=== PATIENT | male | born 1970 | race Caucasian/White ===

== ENCOUNTER → 2019-10-28 09:17 | Outpatient (BNVA) | payer MEDICAID, SELFPAY | PROVIDERS: Family Provider Nurse Practitioner; PCP Nurse Practitioner; Visit Provider Nurse Practitioner Family | DX: E78.5 Hyperlipidemia, unspecified (principal); I10 Essential (primary) hypertension | CPT/HCPCS: 80053; 80061; 85025 ==

== ENCOUNTER → 2020-11-12 10:57 | Outpatient (BNVA) | payer MEDICAID, SELFPAY | PROVIDERS: Family Provider Nurse Practitioner; PCP Nurse Practitioner; Visit Provider Nurse Practitioner | DX: I10 Essential (primary) hypertension (principal); Z11.59 Encounter for screening for other viral diseases | CPT/HCPCS: 80053; 80061; 85025; 86705; 86706; 86709; 86803; 87340 ==

== ENCOUNTER → 2021-06-07 10:27 | Outpatient (BNVA) | payer MEDICAID, SELFPAY | PROVIDERS: Family Provider Nurse Practitioner; PCP Nurse Practitioner; Visit Provider Nurse Practitioner | DX: F41.9 Anxiety disorder, unspecified (principal); I10 Essential (primary) hypertension; E78.5 Hyperlipidemia, unspecified; G89.4 Chronic pain syndrome; J41.0 Simple chronic bronchitis; H10.13 Acute atopic conjunctivitis, bilateral; M43.02 Spondylolysis, cervical region; F32.9 Major depressive disorder, single episode, unspecified; G47.00 Insomnia, unspecified; M15.0 Primary generalized (osteo)arthritis | CPT/HCPCS: 80053; 80061; 82607; 84443 ==

== ENCOUNTER → 2021-06-29 13:30 | Outpatient (BNVA) | payer MEDICAID, SELFPAY | PROVIDERS: Family Provider Nurse Practitioner; PCP Nurse Practitioner; Visit Provider Nurse Practitioner | DX: M43.02 Spondylolysis, cervical region (principal) | CPT/HCPCS: 72040 ==

== ENCOUNTER 2021-09-29 13:15 | Outpatient (CLI) | payer MEDICAID, SELFPAY ==
--- NOTE | 2021-09-29 13:20 | XR_ITS ---
WS: [id number] Lateral views of cervical spine in the flexion, extension and neutral positions. 09/29/2021 Clinical Data: SPONDYLOLISTHESIS,CERVICAL REGION ALSO FOR MRI Comparison: Cervical spine, 06/29/2021. Findings: No compression fractures are seen. There is disc space narrowing at C5-C6 with anterior osteophyte fo rmation. There is a 0.3 cm retrolisthesis of C5 on C6. No prevertebral soft tissue swelling is noted. On flexion and extension there is no change in the retrolisthesis or limitation of motion. XR/XR cervical spine fl/ex [id number] Impression: 1. Degenerative disc narrowing at C5-C6 with anterior osteophytes. 2. 0.3 cm retrolisthesis of C5 on C6. 3. No limitation of motion or change in retrolisthesis on flexion or extension.
--- NOTE | 2021-09-29 13:20 | MR_ITS ---
WS: [id number] MRI CERVICAL SPINE NONCONTRAST TECHNIQUE: Sagittal T1, T2 and STIR imaging. Axial T2, gradient, and fiesta imaging. CLINICAL INFORMATION: CERVICALGIA ALSO FOR XRAY COMPARISON: None. FINDINGS: Straightening of the normal cervical lordosis. Cord signal is normal. Mild disc bulging worse in the mid cervical spine at C3-C4, C4-C5, C5-C6 and C6-C7. Cord signal is normal. Partially visualized smal l protrusion in the upper thoracic spine at T1-T2. C2-C3: Normal. C3-C4: Tiny shallow central protrusion. Slight effacement of ventral thecal sac. Mild LEFT and no sig nificant RIGHT foraminal narrowing. Spinal canal is patent. C4-C5: Tiny central disc protrusion. Slight contact of the cervical cord. Mild central canal stenosis . Mild facet arthropathy. Mild LEFT foraminal narrowing. C5-C6: Disc osteophyte complex with endplate ridging. Central disc osteophyte protrusion with moderat e central canal stenosis. Slight indentation and flattening of the cervical cord. Moderate bilateral bony foraminal narrowing. Mild facet arthropathy. C6-C7: Shallow RIGHT pericentral protrusion. Mild central canal stenosis with slight indentation on c ervical cord. Moderate RIGHT and mild LEFT bony foraminal narrowing. Mild facet arthropathy. C7-T1: Mild LEFT and no significant RIGHT foraminal narrowing. Spinal canal is patent. Visualized brain stem structures: Normal. Prevertebral soft tissues: Normal. MR/MR cervical spin wo con* [id number] IMPRESSION: 1. Straightening of the normal cervical lordosis. Cord signal is normal. 2. Mild to moderate central canal stenosis C4-C5 C5-C6 and C6-C7 worse at C5-C 6 with slight indentation and flattening of the cervical cord due to disc osteo phyte complex. 3. Shallow central protrusion C4-C5 and RIGHT pericentral protrusion C6-C7 wit h mild central canal stenosis and slight contact of the cervical cord. 4. Moderate bilateral bony foraminal narrowing C5-C6. Moderate RIGHT foraminal narrowing C6-C7. 5. Partially evaluated small central protrusion upper thoracic spine at T1-T2 .
== END 2021-09-29 13:16 | disposition home or self-care (01) ==
LOC: RAD 13:17
PROVIDERS: Family Provider Nurse Practitioner; PCP Nurse Practitioner; Visit Provider Nurse Practitioner
DX: M54.2 Cervicalgia (principal); M43.12 Spondylolisthesis, cervical region; M25.78 Osteophyte, vertebrae
CPT/HCPCS: 72040; 72141

== ENCOUNTER 2021-11-08 20:50 | Inpatient (IN) | payer MEDICAID, SELFPAY ==
[2021-11-08 20:52] VITALS: BP 139/101; PULSE 98; RESP 17; TEMP 36.6; O2SAT 97; BMI 37.0
--- NOTE | 2021-11-08 20:56 | W.ED.GENADLT ---
HPI - General Adult General: Stated complaint: SI/ETOH Time Seen by Provider: 11/08/21 20:52 History of Present Illness: HPI: [51]yo patient w/ hx of depression BIBA for suicidal ideation with plan. He tells me that he is dealing with a lot in her life right now and will kill himself cutting his wrist. Patient drink alcohol prior to coming in. Patient is AAO x4 GCS 15. Patient report significant depression and inability to cope with life. No focal complaints of chest pain, shortness of breath, palpitations, N/V, focal GI/ complaints. Currently denies HI. No complaints of hallucinations. Onset: acute Duration: acute Location: home Severity: severe Associated symptoms: Deny chest pain, dyspnea, nausea, rash, palpitations or vomiting Review of Systems Const: Denies: fever(s) or chills Eyes: Denies: change in vision ENMT: Denies: mouth pain Card: Denies: chest pain or palpitations Resp: Denies: dyspnea or non-productive cough GI: Denies: abdominal pain, nausea, vomiting or diarrhea : Denies: dysuria Musc: Denies: extremity pain Skin/Breast: Denies: rash or new lesions Neuro: Denies: weakness in extremities Psych: Reports: depression (+suicidal ideation) Dave/Lymph: Denies: easy bruising PFSH ED PFSH: Medical History Anxiety and depression Cervical spondylolysis Chronic pain syndrome Dyslipidemia Essential hypertension Insomnia Osteoarthritis Surgical History No pertinent past surgical history Family History Father Cirrhosis of liver Hypertension Mother Seizure Social History Smoking and tobacco status: current every day smoker cigarettes Packs smoked per day: 1 Second hand smoke exposure: No Smoking risk assessment/counseling performed?: Yes Alcohol intake: unknown Desire information about alcohol rehabilitation?: No Counseling given: No Desire information about substance/drug rehabilitation?: No Counseling given: No Adopted: No Caregiver/support person: No Lives independently: Yes Household members: family Housing: House Marital status: service: No History of recent travel: No Current gender identity: Male Physical Exam Const: COMMON NORMALS: alert HENMT: COMMON NORMALS: atraumatic HEAD & SCALP: atraumatic MOUTH: moist mucous membranes not abnormal Eye: COMMON NORMALS: EOMs intact bilaterally and conjunctivae normal CONJUNCTIVA: Yes conjunctivae normal Neck/C-Spine: COMMON NORMALS: full ROM and supple Resp: COMMON NORMALS: normal respiratory effort and clear to auscultation bilaterally AUSCULTATION: clear to auscultation bilaterally Cardio: COMMON NORMALS: regular rate RATE: regular rate GI: COMMON NORMALS: Soft to palpation and non-tender PALPATION: Yes Soft to palpation Extremity: COMMON NORMALS: full ROM Neuro: SENSORIUM/ORIENTATION: Yes alert MOTOR EXAM: No Abnormal motor strength present and Other motor observations present (no focal motor deficits) Psych: COMMON NORMALS: speech normal SPEECH: Yes normal speech MOOD & AFFECT: Yes depressed mood MDM - General Adult Medical Decision Making [51]yo patient w/ hx of depression presenting for suicidal ideation with paln. HDS, exam within normal limit Thoughts are linear and organized, and the patient has no AH/VH, or HI. Clinically the patient displays no overt toxidrome; they are well appearing, with low suspicion for toxic ingestion given history and exam. Symptoms unlikely 2/2 anemia, hypothyroidism, infection, or ICH. Workup: CBC, CMP, Lipase, salicylate/tylenol, serum ethanol, UDS Lab findings: wnl [10:30pm] On reassessment, labs and workup wnl. Patient is hemodynamically stable with no acute medical complaints. Case discussed with psychiatric provider Dr. Carreon at [facility] psych inpatient with recommendation for admission Disposition: Psych Discharge Plan Discharge Patient Disposition: Admitted As Inpatient Clinical Impression: Depression with suicidal ideation Condition: Stable Coding Level of Care Code ED In Store Banker for Chg Fwd Exam Comprehensive
[2021-11-08 21:13] LABS: Basophils # 0.1 10^3/uL (0.0-0.1); Basophils % 1.1 %; Eosinophils # 0.1 10^3/uL (0.0-0.8); Eosinophils % 0.9 %; Hematocrit 46.4 % (42.0-52.0); Lymphocytes % 45.8 %; Mean Corpuscular HGB Conc 34.5 g/dL (30.0-36.0); Mean Corpuscular Hemoglobin 32.5 pg (28.0-34.0); Mean Corpuscular Volume 94.1 fl (80-94); Mean Platelet Volume 9.6 fL (7.4-10.4); Monocytes # 0.5 10^3/uL (0.2-0.9); Monocytes % 7.4 %; Neutrophils % 44.6 %; Nucleated Red Blood Cells % 0 %; Platelet Count 288 10^3/cmm (130-400); Red Blood Count 4.93 10^6/uL (4.1-5.3); Red Cell Distribution Width 12.9 % (12.1-15.1); White Blood Count 6.5 10^3/uL (4.0-10.0)
[2021-11-08 21:23] LABS: Amphetamines Screen Urine Negative (Negative); Barbiturates Screen Urine Negative (Negative); Benzodiazepines Screen Urine Negative (Negative); Cocaine Screen Urine Negative (Negative); Opiate Screen Urine Negative (Negative); PCP Screen Urine Negative (Negative); THC Screen Urine Negative (Negative)
[2021-11-08 21:35] LABS: Acetaminophen < 5.0 ug/mL (10-30); Alanine Aminotransferase 61 U/L (0-41); Albumin Level 4.8 g/dL (3.5-5.2); Alcohol Level 270 mg/dL (0-10); Alkaline Phosphatase 79 IU/L (40-130); Anion Gap 21.8 (5-19); Aspartate Amino Transferase 72 U/L (0-40); Blood Urea Nitrogen 13 mg/dL (6-20); Calcium 9.9 mg/dL (8.5-10.5); Carbon Dioxide 20 mmol/L (22-29); Chloride 95 mmol/L (98-107); Globulin 2.9 g/dL (1.3-4.6); Glomerular Filtration Rate 89.7 mL/min (90-130); Glucose 75 mg/dL (65-115); Lipase 70 U/L (13-60); Osmolality Calculated 275 mOsm/kg (285-295); Potassium 3.8 mmol/L (3.5-5.1); Salicylate < 0.3 mg/dL (3-10); Sodium 133 mmol/L (136-145); Total Bilirubin 0.7 mg/dL (0.15-1.2); Total Protein 7.7 g/dL (6.6-8.7)
[2021-11-08 22:26] VITALS: BP 148/94; PULSE 90; RESP 18; TEMP 37.2; O2SAT 94; BMI 34.5
[2021-11-09] MEDS: ondansetron 4 MG Tablet PO ×2 (04:10→09:30)
[2021-11-09 06:00] VITALS: BP 126/81; PULSE 91; RESP 18; TEMP 37.1; O2SAT 93
[2021-11-09 08:51] VITALS: PULSE 85; RESP 16; O2SAT 96
[2021-11-09] MEDS: BuSPIRONE 10 mg Tablet PO ×3 (09:18→21:46)
[2021-11-09] MEDS: naproxen 500 mg Tablet PO (09:18)
[2021-11-09] MEDS: thiamine 100 mg Tablet PO (09:19)
[2021-11-09] MEDS: folic acid 1 mg Tablet PO (09:19)
[2021-11-09] MEDS: amlodipine 10 mg Tablet PO (09:19)
[2021-11-09] MEDS: atorvastatin 40 mg Tablet PO (09:19)
[2021-11-09] MEDS: multivitamin therapeutic Tablet 1 TAB PO (09:19)
[2021-11-09] MEDS: gabapentin 400 mg Capsule 800 MG PO ×4 (09:19→21:46)
[2021-11-09] MEDS: duloxetine 20 mg Capsule PO ×3 (09:19→22:22)
[2021-11-09] MEDS: LORazepam 2 mg Tablet PO ×2 (09:30→12:18)
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
--- NOTE | 2021-11-09 11:45 | NPU.GN ---
[facility] Group Topic:Kenia Tan General Mood of Group: Patient did not attend group today.
[2021-11-09 14:00] VITALS: BP 129/77; PULSE 90; RESP 17; TEMP 36.4; O2SAT 94
--- NOTE | 2021-11-09 14:42 | PC.NURSE ---
12:18 Administered Ativan 2mg for withdrawl symptoms. Will continue to monitor.
--- NOTE | 2021-11-09 14:47 | PC.NURSE ---
09:30 Administered PO Ativan 2 mg for withdrawl symptoms.
[2021-11-09 19:28] VITALS: BP 119/76; PULSE 107; RESP 13; TEMP 37.1; O2SAT 96
[2021-11-09] MEDS: trazodone 150 mg Tablet PO (21:46)
[2021-11-10 04:59] VITALS: BP 124/83; PULSE 68; RESP 16; TEMP 36.6; O2SAT 97
[2021-11-10] MEDS: folic acid 1 mg Tablet PO (09:26)
[2021-11-10] MEDS: thiamine 100 mg Tablet PO (09:26)
[2021-11-10] MEDS: multivitamin therapeutic Tablet 1 TAB PO (09:26)
[2021-11-10] MEDS: naproxen 500 mg Tablet PO (09:26)
[2021-11-10] MEDS: hyDROXYzine 25 mg Capsule PO (09:26)
[2021-11-10] MEDS: atorvastatin 40 mg Tablet PO (09:26)
[2021-11-10] MEDS: amlodipine 10 mg Tablet PO (09:26)
[2021-11-10] MEDS: gabapentin 400 mg Capsule 800 MG PO ×4 (09:27→21:14)
[2021-11-10] MEDS: BuSPIRONE 10 mg Tablet PO ×3 (09:27→21:14)
[2021-11-10] MEDS: duloxetine 30 mg Capsule PO ×2 (09:27→17:41)
--- NOTE | 2021-11-10 12:34 | NPU.GN ---
[facility] Topic:Dice Breaker General Mood of Group Patient did not attend group today. Patient was sleeping.
[2021-11-10 13:55] VITALS: BP 112/80; PULSE 90; RESP 16; TEMP 36.6; O2SAT 96
--- NOTE | 2021-11-10 17:35 | W.PM.NPUPNS ---
Subjective NPU Subjective: Patient presents today reporting that he does not feel that much better in relation to the increase in the Cymbalta. He denies any history of being on Lexapro in the past. We discussed the risk benefits and alternatives of getting in a try and he understood and agreed to proceed as is documented in his note. We also talked about his withdrawal symptoms which he reports were tolerable at this point but still existent. Mental Status Exam MSE Comments: This is a obese white male with hospital scrubs on with limited grooming and eye contact. No abnormal movements except for psychomotor retardation. Cooperative with exam in mild distress. Speech was decreased rate and volume. Mood described as depressed, affect congruent. Thought process, organized. Thought content: patient denies any suicidal or homicidal ideation, no delusions reported or noted, and denies any auditory or visual hallucinations. Attention and concentration are intact and memory is reliable but none were formally tested. He is alert and oriented three times. Insight and judgment are limited. Impulse control is impaired. Vitals/I&O/Wt Last Vital Signs Temp 98.6 F 11/10/21 21:26 Pulse 76 11/10/21 21:26 Resp 17 11/10/21 21:26 BP 146/98 11/10/21 21:26 Pulse Ox 100 11/10/21 21:26 Data NPU : 11/08/21 21:00 11/08/21 21:00 A&P Assessment and plan (1) Suicidal ideation: Status: Acute (2) Anxiety: Status: Acute (3) Major depressive disorder: Status: Acute (4) Insomnia: Status: Acute (5) Dyslipidemia: Status: Chronic (6) Essential hypertension: Status: Chronic Plan This is a 51 year old white male with a long history of alcohol use disorder, severe, and depression with suicidality with past suicide attempts, who presents on medication but having significant psychosocial difficulties, active use and suicidal thoughts, open to treatment. Continue current medications except increase Cymbalta to 30 mg po bid. start Lexapro 10 mg p.o. every morning. Encourage individual, group and milieu therapy Continue q-15 minute check for safety Recommend sober living treatment at the highest level of care to which the patient is willing to commit.? Involuntary Hold Information 96 Hour Hold: 96 Hour Involuntary Admission: No Attestations NPU Medical Necessity Statement*: Inpatient hospitalization is medically necessary and the clinically appropriate intervention at this time. We will monitor medications and make changes as indicated. Likely length of stay is 3-5 days. Coding Level of Care Code Acute Finish Rolls Operator for [facility] Fwd Diagnoses Suicidal ideation R45.851 Anxiety F41.9 Major depressive disorder F32.9 Insomnia G47.00 Dyslipidemia E78.5 Essential hypertension I10
[2021-11-10] MEDS: acetaminophen 325 mg Tablet 650 MG PO (17:41)
[2021-11-10] MEDS: ondansetron 4 MG Tablet PO (17:41)
[2021-11-10 20:43] VITALS: PULSE 64; RESP 16; O2SAT 93
[2021-11-10] MEDS: trazodone 150 mg Tablet PO (21:14)
[2021-11-10 21:26] VITALS: BP 146/98; PULSE 76; RESP 17; TEMP 37; O2SAT 100
[2021-11-11 06:00] VITALS: RESP 20
[2021-11-11] MEDS: escitalopram 10 mg Tablet PO (08:25)
[2021-11-11] MEDS: thiamine 100 mg Tablet PO (08:25)
[2021-11-11] MEDS: BuSPIRONE 10 mg Tablet PO ×3 (08:25→20:24)
[2021-11-11] MEDS: multivitamin therapeutic Tablet 1 TAB PO (08:25)
[2021-11-11] MEDS: duloxetine 30 mg Capsule PO ×2 (08:25→17:37)
[2021-11-11] MEDS: amlodipine 10 mg Tablet PO (08:25)
[2021-11-11] MEDS: folic acid 1 mg Tablet PO (08:25)
[2021-11-11] MEDS: gabapentin 400 mg Capsule 800 MG PO ×4 (08:25→20:24)
[2021-11-11] MEDS: atorvastatin 40 mg Tablet PO (08:26)
--- NOTE | 2021-11-11 10:43 | NPU.GN ---
[facility] Group Topic: Kenia Tan General Mood of Group: Patient did not attend group he was sleeping.
[2021-11-11] MEDS: polyethylene glycol 3350 Pkt 17 gm PO ×2 (12:42→17:37)
[2021-11-11] MEDS: ibuprofen 800 mg tablet PO (12:42)
[2021-11-11 14:00] VITALS: BP 118/80; PULSE 73; RESP 16; TEMP 36.5; O2SAT 96
--- NOTE | 2021-11-11 16:48 | W.PM.NPUPNS ---
Subjective NPU Subjective: Patient presents today reporting that he is not clear exactly what he is willing to do in regards to his recovery however he does identify that his alcohol problem is significant. He denies any side effects from the addition of the Lexapro. He reports he is still having some constitutional symptoms from his withdrawal we talked about the possibility of low-dose Ativan or Librium to continue to address that. 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 Mental Status Exam MSE Comments: This is a obese white male with hospital scrubs on with limited grooming and eye contact. No abnormal movements except for psychomotor retardation. Cooperative with exam in mild distress. Speech was decreased rate and volume. Mood described as depressed, affect congruent. Thought process, organized. Thought content: patient denies any suicidal or homicidal ideation, no delusions reported or noted, and denies any auditory or visual hallucinations. Attention and concentration are intact and memory is reliable but none were formally tested. He is alert and oriented three times. Insight and judgment are limited. Impulse control is impaired. Vitals/I&O/Wt Last Vital Signs Temp 97.7 F 11/11/21 14:00 Pulse 73 11/11/21 14:00 Resp 16 11/11/21 14:00 BP 118/80 11/11/21 14:00 Pulse Ox 96 11/11/21 14:00 Data NPU : 11/08/21 21:00 11/08/21 21:00 A&P Assessment and plan (1) Suicidal ideation: Status: Acute (2) Anxiety: Status: Acute (3) Major depressive disorder: Status: Acute (4) Insomnia: Status: Acute (5) Essential hypertension: Status: Chronic Involuntary Hold Information 96 Hour Hold: 96 Hour Involuntary Admission: No Attestations NPU Medical Necessity Statement*: Inpatient hospitalization is medically necessary and the clinically appropriate intervention at this time. We will monitor medications and make changes as indicated.? Likely length of stay is 3-5 days. 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
[2021-11-11] MEDS: acetaminophen 325 mg Tablet 650 MG PO (17:36)
[2021-11-11] MEDS: trazodone 150 mg Tablet PO (20:24)
[2021-11-11 20:35] VITALS: BP 130/87; PULSE 70; RESP 16; O2SAT 96
[2021-11-11] MEDS: trazodone 50 mg Tablet PO (21:43)
[2021-11-12] MEDS: neomycin-poly-dex Op 5 mL Btl 1 DROP EYE-BOTH (05:40)
[2021-11-12 05:56] VITALS: BP 123/86; PULSE 66; RESP 16; O2SAT 96
[2021-11-12 07:35] VITALS: PULSE 65; RESP 16; O2SAT 95
[2021-11-12] MEDS: duloxetine 30 mg Capsule PO ×2 (08:29→17:18)
[2021-11-12] MEDS: amlodipine 10 mg Tablet PO (08:29)
[2021-11-12] MEDS: multivitamin therapeutic Tablet 1 TAB PO (08:29)
[2021-11-12] MEDS: escitalopram 10 mg Tablet PO (08:30)
[2021-11-12] MEDS: atorvastatin 40 mg Tablet PO (08:30)
[2021-11-12] MEDS: gabapentin 400 mg Capsule 800 MG PO ×4 (08:30→20:24)
[2021-11-12] MEDS: folic acid 1 mg Tablet PO (08:30)
[2021-11-12] MEDS: polyethylene glycol 3350 Pkt 17 gm PO ×2 (08:30→17:18)
[2021-11-12] MEDS: BuSPIRONE 10 mg Tablet PO ×3 (08:30→20:23)
[2021-11-12] MEDS: thiamine 100 mg Tablet PO (08:30)
--- NOTE | 2021-11-12 09:00 | PC.NURSE ---
PT AWAKE IN BED. COOPERATIVE WITH CARE. DENIES AVH, SI/HI. CONTINUED DEPRESSION. DENIES ANY ILL EFFECTS FROM MEDICATION STARTED DURING STAY. ORIENTED.
--- NOTE | 2021-11-12 13:29 | P.NPUPN_ITS ---
Subjective NPU Subjective: Patient presents today reporting that he might be having a little improvement in his constitutional symptoms from his withdrawal. He continues to be quite depressed and much of that is related to not receiving any options or plans in relation to where to go from here. He continued to discuss rehab options and sober living situations that exist and that he will be able to work with the treatment team on Sunday in regards to these concerns. Mental Status Exam MSE Comments: This is a obese white male with hospital scrubs on with limited grooming and eye contact. No abnormal movements except for psychomotor retardation. Cooperative with exam in mild distress. Speech was decreased rate and volume. Mood described as depressed, affect congruent. Thought process, organized. Thought content: patient denies any suicidal or homicidal ideation, no delusions reported or noted, and denies any auditory or visual hallucinations. Attention and concentration are intact and memory is reliable but none were formally tested. He is alert and oriented three times. Insight and judgment are limited. Impulse control is impaired. Vitals/I&O/Wt Last Vital Signs Temp 97.7 F 11/11/21 14:00 Pulse 65 11/12/21 07:35 Resp 16 11/12/21 07:35 BP 123/86 11/12/21 05:56 Pulse Ox 95 11/12/21 07:35 Data NPU : 11/08/21 21:00 11/08/21 21:00 A&P Assessment and plan (1) Suicidal ideation: Status: Acute (2) Anxiety: Status: Acute (3) Major depressive disorder: Status: Acute (4) Insomnia: Status: Acute (5) Chronic pain syndrome: Status: Chronic (6) Essential hypertension: Status: Chronic Plan This is a 51 year old white male with a long history of alcohol use disorder, severe, and depression with suicidality with past suicide attempts, who presents on medication but having significant psychosocial difficulties, active use and suicidal thoughts, open to treatment. Continue current medications except increase Cymbalta to 30 mg po bid. started Lexapro 10 mg p.o. every morning. Encourage individual, group and milieu therapy Continue q-15 minute check for safety Recommend sober living treatment at the highest level of care to which the patient is willing to commit.? Involuntary Hold Information 96 Hour Hold: 96 Hour Involuntary Admission: No Attestations NPU Medical Necessity Statement*: Inpatient hospitalization is medically necessary and the clinically appropriate intervention at this time. We will monitor medications and make changes as indicated.? Likely length of stay is 3-5 days. Coding Level of Care Code Acute Pharmacy Order Entry Technician for [facility] Fwd Diagnoses Suicidal ideation R45.851 Anxiety F41.9 Major depressive disorder F32.9 Insomnia G47.00 Chronic pain syndrome G89.4 Essential hypertension I10
[2021-11-12 14:00] VITALS: BP 129/92; PULSE 83; RESP 16; TEMP 36.6; O2SAT 96
[2021-11-12] MEDS: trazodone 150 mg Tablet PO (20:24)
[2021-11-12 20:44] VITALS: BP 129/85; PULSE 64; RESP 19; TEMP 36.8; O2SAT 96
[2021-11-12] MEDS: trazodone 50 mg Tablet PO (23:04)
[2021-11-13 02:45] VITALS: BMI 36.3
[2021-11-13 06:00] VITALS: BP 121/89; PULSE 72; RESP 17; TEMP 36.3; O2SAT 95
--- NOTE | 2021-11-13 08:00 | PC.NURSE ---
PT UP THIS MORNING. AFFECT IS BRIGHTER TODAY. REPORTS FEELING SOME IMPROVEMENT SINCE STARTING MEDICATIONS. CALM, COOPERATIVE, A&OX4.
[2021-11-13 08:39] VITALS: PULSE 72; RESP 16; O2SAT 95
--- NOTE | 2021-11-13 09:30 | W.PM.NPUPNS ---
Subjective NPU Subjective: Patient presents today reporting for the first time that maybe he is feeling a little better from the standpoint of his depression. He was still having some residual withdrawal symptoms after having a decent day from that standpoint. We discussed the risk benefits and alternatives of a one-time Ativan dose of 1 mg he understood agreed to proceed as is documented in this note. We agreed that he would work with the treatment team tomorrow and look at the possibility that existed for him from sober living facilities. Mental Status Exam MSE Comments: This is a obese white male with hospital scrubs on with limited grooming and eye contact. No abnormal movements except for psychomotor retardation. Cooperative with exam in mild distress. Speech was decreased rate and volume. Mood described as maybe a little better, affect congruent. Thought process, organized. Thought content: patient denies any suicidal or homicidal ideation, no delusions reported or noted, and denies any auditory or visual hallucinations. Attention and concentration are intact and memory is reliable but none were formally tested. He is alert and oriented three times. Insight and judgment are limited. Impulse control is impaired. Vitals/I&O/Wt Last Vital Signs Temp 97.4 F L 11/13/21 06:00 Pulse 72 11/13/21 08:39 Resp 16 11/13/21 08:39 BP 121/89 11/13/21 06:00 Pulse Ox 95 11/13/21 08:39 Weight last 48 hrs Weight 111.754 kg Data NPU : 11/08/21 21:00 11/08/21 21:00 A&P Assessment and plan (1) Suicidal ideation: Status: Acute (2) Anxiety: Status: Acute (3) Major depressive disorder: Status: Acute (4) Insomnia: Status: Acute (5) Chronic pain syndrome: Status: Chronic Plan This is a 51 year old white male with a long history of alcohol use disorder, severe, and depression with suicidality with past suicide attempts, who presents on medication but having significant psychosocial difficulties, active use and suicidal thoughts, open to treatment. Continue current medications except increase Cymbalta to 30 mg po bid. started Lexapro 10 mg p.o. every morning. 1 mg of Ativan one-time order. Encourage individual, group and milieu therapy Continue q-15 minute check for safety Recommend sober living treatment at the highest level of care to which the patient is willing to commit.? Work with treatment team tomorrow to explore possible sober living options. Involuntary Hold Information 96 Hour Hold: 96 Hour Involuntary Admission: No Attestations NPU Medical Necessity Statement*: Inpatient hospitalization is medically necessary and the clinically appropriate intervention at this time. We will monitor medications and make changes as indicated.? Likely length of stay is 2-4 days. Coding Level of Care Code Acute Food Quality Technician for [facility] Fwd Diagnoses Suicidal ideation R45.851 Anxiety F41.9 Major depressive disorder F32.9 Insomnia G47.00 Chronic pain syndrome G89.4
[2021-11-13] MEDS: polyethylene glycol 3350 Pkt 17 gm PO ×2 (09:34→17:22)
[2021-11-13] MEDS: BuSPIRONE 10 mg Tablet PO ×3 (09:35→20:02)
[2021-11-13] MEDS: duloxetine 30 mg Capsule PO ×2 (09:35→17:22)
[2021-11-13] MEDS: thiamine 100 mg Tablet PO (09:35)
[2021-11-13] MEDS: atorvastatin 40 mg Tablet PO (09:35)
[2021-11-13] MEDS: folic acid 1 mg Tablet PO (09:35)
[2021-11-13] MEDS: amlodipine 10 mg Tablet PO (09:35)
[2021-11-13] MEDS: escitalopram 10 mg Tablet PO (09:35)
[2021-11-13] MEDS: multivitamin therapeutic Tablet 1 TAB PO (09:35)
[2021-11-13] MEDS: gabapentin 400 mg Capsule 800 MG PO ×4 (09:35→20:01)
[2021-11-13] MEDS: LORazepam 1 mg Tablet PO (13:54)
[2021-11-13] MEDS: ibuprofen 800 mg tablet PO (13:54)
[2021-11-13 14:00] VITALS: BP 137/96; PULSE 72; RESP 17; TEMP 36.6; O2SAT 96
[2021-11-13] MEDS: trazodone 150 mg Tablet PO (20:02)
[2021-11-13 20:09] VITALS: BP 130/82; PULSE 72; RESP 18; TEMP 37; O2SAT 96
[2021-11-14 06:00] VITALS: BP 115/84; PULSE 67; RESP 20; TEMP 36.9; O2SAT 97
[2021-11-14] MEDS: duloxetine 30 mg Capsule PO ×2 (08:37→17:29)
[2021-11-14] MEDS: gabapentin 400 mg Capsule 800 MG PO ×4 (08:37→19:49)
[2021-11-14] MEDS: polyethylene glycol 3350 Pkt 17 gm PO ×2 (08:37→17:30)
[2021-11-14] MEDS: escitalopram 10 mg Tablet PO (08:38)
[2021-11-14] MEDS: folic acid 1 mg Tablet PO (08:38)
[2021-11-14] MEDS: amlodipine 10 mg Tablet PO (08:38)
[2021-11-14] MEDS: naproxen 500 mg Tablet PO (08:38)
[2021-11-14] MEDS: atorvastatin 40 mg Tablet PO (08:38)
[2021-11-14] MEDS: multivitamin therapeutic Tablet 1 TAB PO (08:38)
[2021-11-14] MEDS: BuSPIRONE 10 mg Tablet PO ×3 (08:38→19:50)
[2021-11-14] MEDS: thiamine 100 mg Tablet PO (08:38)
[2021-11-14 14:00] VITALS: BP 142/91; PULSE 71; RESP 17; TEMP 36.4; O2SAT 97
--- NOTE | 2021-11-14 16:24 | W.PM.NPUPNS ---
Subjective NPU Subjective: Patient presents today reporting that he is still having headaches. We discussed his concerns that since his withdrawal has really improved that the Lexapro is the source of the headaches. We discussed the risk benefits and alternatives of starting Paxil 20 mg p.o. every morning and discontinuing the Lexapro and he understood agreed proceed as is documented in this note. Also some ambivalence about an inpatient sober living program appears to have arisen. He is working with social work team on possible options but it may be a [facility] if he is not open to rehab. Mental Status Exam MSE Comments: This is a obese white male with hospital scrubs on with limited grooming and eye contact. No abnormal movements except for psychomotor retardation. Cooperative with exam in mild distress. Speech was decreased rate and volume. Mood described as maybe a little better, but having headaches, affect congruent. Thought process, organized. Thought content: patient denies any suicidal or homicidal ideation, no delusions reported or noted, and denies any auditory or visual hallucinations. Attention and concentration are intact and memory is reliable but none were formally tested. He is alert and oriented three times. Insight and judgment are limited. Impulse control is impaired. Vitals/I&O/Wt Last Vital Signs Temp 97.6 F 11/14/21 14:00 Pulse 71 11/14/21 14:00 Resp 17 11/14/21 14:00 BP 142/91 11/14/21 14:00 Pulse Ox 97 11/14/21 14:00 Weight last 48 hrs Weight 111.754 kg Data NPU : 11/08/21 21:00 11/08/21 21:00 A&P Assessment and plan (1) Suicidal ideation: Status: Acute (2) Anxiety: Status: Acute (3) Major depressive disorder: Status: Acute (4) Insomnia: Status: Acute (5) Chronic pain syndrome: Status: Chronic (6) Essential hypertension: Status: Chronic Plan This is a 51 year old white male with a long history of alcohol use disorder, severe, and depression with suicidality with past suicide attempts, who presents on medication but having significant psychosocial difficulties, active use and suicidal thoughts, open to treatment. Continue current medications except increase Cymbalta to 30 mg po bid. discontinue Lexapro and start Paxil 20 mg p.o. every morning.? Encourage individual, group and milieu therapy Continue q-15 minute check for safety Recommend sober living treatment at the highest level of care to which the patient is willing to commit.? May consider [facility] if he is not invested in a rehab. Involuntary Hold Information 96 Hour Hold: 96 Hour Involuntary Admission: No Attestations NPU Medical Necessity Statement*: Inpatient hospitalization is medically necessary and the clinically appropriate intervention at this time. We will monitor medications and make changes as indicated.? Likely length of stay is 1-3 days. Coding Level of Care Code Acute Revenue Accounting Manager for [facility] Fwd Diagnoses Suicidal ideation R45.851 Anxiety F41.9 Major depressive disorder F32.9 Insomnia G47.00 Chronic pain syndrome G89.4 Essential hypertension I10
--- NOTE | 2021-11-14 16:26 | PC.SOCIAL ---
Patient attended and participated in group. He stated that he DOES NOT KNOW HOW TO READ.
[2021-11-14] MEDS: ibuprofen 800 mg tablet PO (17:30)
[2021-11-14] MEDS: PARoxetine 20 mg Tablet PO (17:30)
[2021-11-14] MEDS: trazodone 150 mg Tablet PO (19:49)
[2021-11-14 20:41] VITALS: BP 148/92; PULSE 64; RESP 18; TEMP 36.8; O2SAT 97
[2021-11-15 06:00] VITALS: BP 128/89; PULSE 71; RESP 17; TEMP 36.8; O2SAT 98
[2021-11-15 07:28] VITALS: PULSE 100; RESP 16; O2SAT 94
[2021-11-15] MEDS: BuSPIRONE 10 mg Tablet PO ×3 (08:35→20:23)
[2021-11-15] MEDS: thiamine 100 mg Tablet PO (08:36)
[2021-11-15] MEDS: ibuprofen 800 mg tablet PO ×2 (08:36→17:32)
[2021-11-15] MEDS: folic acid 1 mg Tablet PO (08:36)
[2021-11-15] MEDS: duloxetine 30 mg Capsule PO ×2 (08:36→17:32)
[2021-11-15] MEDS: multivitamin therapeutic Tablet 1 TAB PO (08:36)
[2021-11-15] MEDS: atorvastatin 40 mg Tablet PO (08:36)
[2021-11-15] MEDS: amlodipine 10 mg Tablet PO (08:36)
[2021-11-15] MEDS: gabapentin 400 mg Capsule 800 MG PO ×4 (08:36→20:23)
[2021-11-15] MEDS: PARoxetine 20 mg Tablet PO (08:36)
[2021-11-15] MEDS: hyDROXYzine 25 mg Capsule PO (08:37)
[2021-11-15] MEDS: polyethylene glycol 3350 Pkt 17 gm PO ×2 (08:37→17:33)
--- NOTE | 2021-11-15 11:04 | PC.SOCIAL ---
Patient attended and participated in group. He did well identifying strengths.
[2021-11-15 14:00] VITALS: BP 133/92; PULSE 73; RESP 17; TEMP 36.6; O2SAT 99
--- NOTE | 2021-11-15 16:43 | W.PM.NPUPNS ---
Subjective NPU Subjective: Patient presents today reporting that he is feeling better. At this point we had attempted to get him in [facility] but he was not able to go there. 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 Mental Status Exam MSE Comments: This is a obese white male with hospital scrubs on with limited grooming and eye contact. No abnormal movements except for psychomotor retardation. Cooperative with exam in mild distress. Speech was decreased rate and volume. Mood described as maybe a little better, with resolving headaches, affect congruent. Thought process, organized. Thought content: patient denies any suicidal or homicidal ideation, no delusions reported or noted, and denies any auditory or visual hallucinations. Attention and concentration are intact and memory is reliable but none were formally tested. He is alert and oriented three times. Insight and judgment are limited. Impulse control is improving. Vitals/I&O/Wt Last Vital Signs Temp 97.8 F 11/15/21 14:00 Pulse 73 11/15/21 14:00 Resp 17 11/15/21 14:00 BP 133/92 11/15/21 14:00 Pulse Ox 99 11/15/21 14:00 Data NPU : 11/08/21 21:00 11/08/21 21:00 A&P Assessment and plan (1) Suicidal ideation: Status: Acute (2) Anxiety: Status: Acute (3) Major depressive disorder: Status: Acute (4) Insomnia: Status: Acute (5) Chronic pain syndrome: Status: Chronic Plan This is a 51 year old white male with a long history of alcohol use disorder, severe, and depression with suicidality with past suicide attempts, who presents on medication but having significant psychosocial difficulties, active use and suicidal thoughts, open to treatment. Continue current medications except increase Cymbalta to 30 mg po bid. discontinued Lexapro and started Paxil 20 mg p.o. every morning.? Encourage individual, group and milieu therapy Continue q-15 minute check for safety Recommend sober living treatment at the highest level of care to which the patient is willing to commit.? Plan for [facility] somewhere in the morning. Involuntary Hold Information 96 Hour Hold: 96 Hour Involuntary Admission: No Attestations NPU Medical Necessity Statement*: Inpatient hospitalization is medically necessary and the clinically appropriate intervention at this time. We will monitor medications and make changes as indicated.? Likely length of stay is 1-2 days. Coding Level of Care Code Acute Welfare Eligibility Worker for [facility] Fwd Diagnoses Suicidal ideation R45.851 Anxiety F41.9 Major depressive disorder F32.9 Insomnia G47.00 Chronic pain syndrome G89.4
[2021-11-15] MEDS: trazodone 150 mg Tablet PO (20:23)
[2021-11-15 20:39] VITALS: BP 128/93; PULSE 68; RESP 19; TEMP 36.7; O2SAT 97
[2021-11-16 06:00] VITALS: BP 121/77; PULSE 87; RESP 17; TEMP 36.5; O2SAT 97
[2021-11-16] MEDS: multivitamin therapeutic Tablet 1 TAB PO (08:36)
[2021-11-16] MEDS: PARoxetine 20 mg Tablet PO (08:36)
[2021-11-16] MEDS: gabapentin 400 mg Capsule 800 MG PO ×3 (08:36→17:30)
[2021-11-16] MEDS: atorvastatin 40 mg Tablet PO (08:36)
[2021-11-16] MEDS: thiamine 100 mg Tablet PO (08:36)
[2021-11-16] MEDS: folic acid 1 mg Tablet PO (08:36)
[2021-11-16] MEDS: amlodipine 10 mg Tablet PO (08:36)
[2021-11-16] MEDS: ibuprofen 800 mg tablet PO ×2 (08:36→17:39)
[2021-11-16] MEDS: duloxetine 30 mg Capsule PO ×2 (08:36→17:30)
[2021-11-16] MEDS: BuSPIRONE 10 mg Tablet PO ×2 (08:36→14:46)
[2021-11-16] MEDS: hyDROXYzine 25 mg Capsule 50 MG PO (08:36)
[2021-11-16 10:19] VITALS: PULSE 63; RESP 18; O2SAT 91
[2021-11-16] MEDS: nicotine 2 mg Gum BUCCAL (12:55)
[2021-11-16 14:00] VITALS: BP 126/85; PULSE 73; RESP 18; TEMP 36.3; O2SAT 95
--- NOTE | 2021-11-16 15:32 | PC.SOCIAL ---
Patient attended group.
[2021-11-16 17:00] VITALS: BP 126/85; PULSE 73; RESP 18; TEMP 36.3; O2SAT 95
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
== END 2021-11-16 19:42 | disposition home or self-care (01) | DRG 881 ==
LOC: ER 21:18 → NP 22:05
PROVIDERS: Admitting Provider Psychiatry & Neurology Psychiatry; Emergency Provider Emergency Medicine; PCP Nurse Practitioner; Visit Provider Psychiatry & Neurology Psychiatry
DX: F32.9 Major depressive disorder, single episode, unspecified (principal); R45.851 Suicidal ideations; F10.20 Alcohol dependence, uncomplicated; Z81.8 Family history of other mental and behavioral disorders; Z59.00 Homelessness unspecified; G47.00 Insomnia, unspecified; I10 Essential (primary) hypertension; E78.5 Hyperlipidemia, unspecified; F41.9 Anxiety disorder, unspecified; Z91.51 Personal history of suicidal behavior; F17.210 Nicotine dependence, cigarettes, uncomplicated; F12.90 Cannabis use, unspecified, uncomplicated
CPT/HCPCS: 80053; 80306; 80307; 83690; 85025; 97150; 97165; 99285; Q0162

== ENCOUNTER → 2021-11-21 11:19 | Outpatient (BNVA) | payer MEDICAID, SELFPAY | PROVIDERS: PCP Nurse Practitioner; Visit Provider Nurse Practitioner | DX: I10 Essential (primary) hypertension (principal) | CPT/HCPCS: 83036; 83690; 86705; 86706; 86709; 86803; 87340 ==

== ENCOUNTER 2021-12-01 02:13 | Inpatient (IN) | payer MEDICAID, SELFPAY ==
[2021-12-01] VITALS (7 sets, daily range): BP systolic 92–145; BP diastolic 64–93; PULSE 74–109; RESP 16–20; TEMP 36.7–36.8; O2SAT 92–96; BMI 36.1
--- NOTE | 2021-12-01 02:18 | W.ED.PSYCHS ---
HPI - Psych General: Chief Complaint: Psychiatric Symptoms Stated Complaint: HALLUCINATIONS/ETOH Time Seen by Provider: 12/01/21 02:14 Source: patient and EMS Mode of arrival: EMS Limitations: no limitations History of Present Illness: 51-year-old male who currently missed night states having hallucinations he has been drinking alcohol and meth abuse he states that he was seeing little kids run around in his house. He is intoxicated here he denies any suicidal or homicidal ideation denies any worsening proving factors. Associated symptoms: Reports visual hallucinations Review of Systems Const: Denies: fever(s), chills, body aches or change in appetite Eyes: Denies: blurry vision or eye discomfort ENMT: Denies: throat pain or dental pain Card: Denies: chest pain Resp: Denies: dyspnea GI: Denies: abdominal pain, nausea, vomiting or diarrhea : Denies: dysuria Musc: Denies: neck pain or back pain Skin/Breast: Denies: rash Neuro: Denies: headache(s) Psych: Reports: visual hallucinations Dave/Lymph: Denies: easy bruising All/Imm: Denies: urticaria PFSH ED PFSH: Medical History Anxiety and depression Cervical spondylolysis Chronic pain syndrome Depression with suicidal ideation Dyslipidemia Essential hypertension Insomnia Osteoarthritis Surgical History No pertinent past surgical history Family History Father Cirrhosis of liver Hypertension Mother Seizure Social History Smoking and tobacco status: current every day smoker cigarettes Packs smoked per day: 1 Second hand smoke exposure: No Smoking risk assessment/counseling performed?: Yes Alcohol intake: unknown Desire information about alcohol rehabilitation?: No Counseling given: No Desire information about substance/drug rehabilitation?: No Counseling given: No Adopted: No Caregiver/support person: No Lives independently: Yes Household members: family Housing: House Marital status: service: No History of recent travel: No Current gender identity: Male Physical Exam Const: COMMON NORMALS: no acute distress, patient oriented x3 and healthy appearing GENERAL APPEARANCE: odor of alcohol detected HENMT: COMMON NORMALS: normocephalic and atraumatic HEAD & SCALP: normocephalic and atraumatic Eye: COMMON NORMALS: Equal, round and reactive pupils present and EOMs intact bilaterally PUPIL: Yes Equal, round and reactive pupils present Neck/C-Spine: COMMON NORMALS: full ROM and supple Chest: COMMONS NORMALS: normal inspection of the chest and normal palpation of entire chest wall Resp: COMMON NORMALS: normal respiratory effort, No retractions, No use of accessory muscles and clear to auscultation bilaterally AUSCULTATION: clear to auscultation bilaterally Cardio: COMMON NORMALS: regular rate, regular rhythm and No murmurs present (Cardio) RATE: regular rate RHYTHM: regular rhythm GI: COMMON NORMALS: Normal to inspection, nondistended, normoactive bowel sounds present, Soft to palpation, non-tender and no masses PALPATION: Yes Soft to palpation Extremity: COMMON NORMALS: normal to inspection and full ROM Neuro: COMMON NORMALS: patient oriented x3, moves all extremities and no focal motor deficits Psych: COMMON NORMALS: Normal thought process present and cooperative THOUGHT PROCESS: Normal thought process present THOUGHT CONTENT: Yes Hallucination(s) present Skin: COMMON NORMALS: no rashes or lesions noted and no wounds GENERAL SKIN EXAM: no rashes or lesions noted Face to Face: Restrn/Seclusion Events leading up to initiation: Verbalizing threat to self or others and Combative/Striking out at staff or others Evaluation of patient's immediate situation: Alert and oriented Patient reaction since intervention applied: De-escalation/no displays of violent/destructive behavior Recent labs reviewed: Yes Review of medications: Yes Course Reevaluation(s): Reevaluation #1: Patient started become increasingly agitated here he was refusing to go back in the room is making violent threats to myself along with the sitter did have to call police patient did finally take Haldol and Ativan patient has calm down slightly now and is sitting in his room currently Time: 03:25 Vital Signs: Vital signs: Vital Signs Temperature 98.2 F 12/01/21 02:33 Pulse Rate 74 12/01/21 17:48 Respiratory Rate 16 12/01/21 17:48 Blood Pressure 132/78 12/01/21 17:48 Pulse Oximetry 95 12/01/21 17:48 MDM - Psych Medical Decision Making Patient presents for suicidal ideation been admitted to the psychiatric unit at this time Lab Data : 12/01/21 02:30 12/01/21 02:30 Laboratory Results WBC 7.7 10^3/uL (4.0-10.0) 12/01/21 02:30 RBC 3.94 10^6/uL (4.1-5.3) L 12/01/21 02:30 Hgb 12.9 g/dL (11.7-16.6) 12/01/21 02:30 Hct 37.2 % (42.0-52.0) L 12/01/21 02:30 MCV 94.4 fl (80-94) H 12/01/21 02:30 MCH 32.7 pg (28.0-34.0) 12/01/21 02:30 MCHC 34.7 g/dL (30.0-36.0) 12/01/21 02:30 RDW 13.3 % (12.1-15.1) 12/01/21 02:30 Plt Count 174 10^3/cmm (130-400) 12/01/21 02:30 MPV 9.7 fL (7.4-10.4) 12/01/21 02:30 Neut % (Auto) 46.3 % 12/01/21 02:30 Lymph % (Auto) 41.2 % 12/01/21 02:30 Maries % (Auto) 7.0 % 12/01/21 02:30 Eos % (Auto) 4.8 % 12/01/21 02:30 Baso % (Auto) 0.6 % 12/01/21 02:30 Neut # (Auto) 3.58 10^3/uL (1.8-7.7) 12/01/21 02:30 Lymph # (Auto) 3.2 10^3/uL (0.8-4.8) 12/01/21 02:30 Maries # (Auto) 0.5 10^3/uL (0.2-0.9) 12/01/21 02:30 Eos # (Auto) 0.4 10^3/uL (0.0-0.8) 12/01/21 02:30 Baso # (Auto) 0.1 10^3/uL (0.0-0.1) 12/01/21 02:30 Nucleated RBC % (auto) 0 % 12/01/21 02:30 Nucleated RBCs # 0.0 /100WBC 12/01/21 02:30 Sodium 140 mmol/L (136-145) 12/01/21 02:30 Potassium 3.8 mmol/L (3.5-5.1) 12/01/21 02:30 Chloride 105 mmol/L (98-107) 12/01/21 02:30 Carbon Dioxide 22 mmol/L (22-29) 12/01/21 02:30 Anion Gap 16.8 (5-19) 12/01/21 02:30 BUN 19 mg/dL (6-20) 12/01/21 02:30 Creatinine 1.5 mg/dL (0.7-1.2) H 12/01/21 02:30 GFR Calculation 49.7 mL/min (90-130) L 12/01/21 02:30 Glucose 99 mg/dL (65-115) 12/01/21 02:30 Calculated Osmolality 292 mOsm/kg (285-295) 12/01/21 02:30 Calcium 9.0 mg/dL (8.5-10.5) 12/01/21 02:30 Total Bilirubin 0.2 mg/dL (0.15-1.2) 12/01/21 02:30 AST 54 U/L (0-40) H 12/01/21 02:30 ALT 36 U/L (0-41) 12/01/21 02:30 Alkaline Phosphatase 62 IU/L (40-130) 12/01/21 02:30 Total Protein 6.7 g/dL (6.6-8.7) 12/01/21 02:30 Albumin 4.5 g/dL (3.5-5.2) 12/01/21 02:30 Globulin 2.2 g/dL (1.3-4.6) 12/01/21 02:30 Salicylates < 0.3 mg/dL (3-10) L 12/01/21 02:30 Urine Opiates Screen Negative ng/mL (Negative) 12/01/21 02:20 Acetaminophen < 5.0 ug/mL (10-30) L 12/01/21 02:30 Ur Barbiturates Screen Negative ng/mL (Negative) 12/01/21 02:20 Ur Phencyclidine Scrn Negative ng/mL (Negative) 12/01/21 02:20 Ur Amphetamines Screen Negative ng/mL (Negative) 12/01/21 02:20 U Benzodiazepines Scrn Negative ng/mL (Negative) 12/01/21 02:20 Urine Cocaine Screen Negative ng/mL (Negative) 12/01/21 02:20 U Marijuana (THC) Screen Negative ng/mL (Negative) 12/01/21 02:20 Ethyl Alcohol 372 mg/dL (0-10) H* 12/01/21 02:30 Discharge Plan Discharge Patient Disposition: Admitted As Inpatient Admit Provider: Robby Carreon Clinical Impression: Suicidal ideation, Alcohol intoxication Condition: Stable Coding Level of Care Code ED Hydraulic Rockbreaker Operator for Michelle Fwd Exam Comprehensive
[2021-12-01 02:37] LABS: Basophils # 0.1 10^3/uL (0.0-0.1); Basophils % 0.6 %; Eosinophils # 0.4 10^3/uL (0.0-0.8); Eosinophils % 4.8 %; Hematocrit 37.2 % (42.0-52.0); Hemoglobin 12.9 g/dL (11.7-16.6); Lymphocytes # 3.2 10^3/uL (0.8-4.8); Lymphocytes % 41.2 %; Mean Corpuscular HGB Conc 34.7 g/dL (30.0-36.0); Mean Corpuscular Hemoglobin 32.7 pg (28.0-34.0); Mean Corpuscular Volume 94.4 fl (80-94); Mean Platelet Volume 9.7 fL (7.4-10.4); Monocytes # 0.5 10^3/uL (0.2-0.9); Neutrophils # 3.58 10^3/uL (1.8-7.7); Neutrophils % 46.3 %; Nucleated Red Blood Cells % 0 %; Platelet Count 174 10^3/cmm (130-400); Red Blood Count 3.94 10^6/uL (4.1-5.3); Red Cell Distribution Width 13.3 % (12.1-15.1); White Blood Count 7.7 10^3/uL (4.0-10.0)
[2021-12-01 02:47] LABS: Amphetamines Screen Urine Negative (Negative); Barbiturates Screen Urine Negative (Negative); Benzodiazepines Screen Urine Negative (Negative); Cocaine Screen Urine Negative (Negative); Opiate Screen Urine Negative (Negative); PCP Screen Urine Negative (Negative); THC Screen Urine Negative (Negative)
[2021-12-01 02:57] LABS: Alanine Aminotransferase 36 U/L (0-41); Albumin Level 4.5 g/dL (3.5-5.2); Alkaline Phosphatase 62 IU/L (40-130); Anion Gap 16.8 (5-19); Aspartate Amino Transferase 54 U/L (0-40); Blood Urea Nitrogen 19 mg/dL (6-20); Carbon Dioxide 22 mmol/L (22-29); Chloride 105 mmol/L (98-107); Globulin 2.2 g/dL (1.3-4.6); Glomerular Filtration Rate 49.7 mL/min (90-130); Glucose 99 mg/dL (65-115); Osmolality Calculated 292 mOsm/kg (285-295); Potassium 3.8 mmol/L (3.5-5.1); Sodium 140 mmol/L (136-145); Total Bilirubin 0.2 mg/dL (0.15-1.2); Total Protein 6.7 g/dL (6.6-8.7)
[2021-12-01 03:10] LABS: Salicylate < 0.3 mg/dL (3-10)
[2021-12-01 03:11] LABS: Acetaminophen < 5.0 ug/mL (10-30)
[2021-12-01 03:12] LABS: Alcohol Level 372 mg/dL (0-10)
[2021-12-01] MEDS: LORazepam 2 mg/mL INJ 1 mL IM (03:18)
[2021-12-01] MEDS: haloperidol inj 5 mg/mL INJ 1 mL IM (03:18)
[2021-12-01 08:09] LABS: Alcohol Level 293 mg/dL (0-10)
--- NOTE | 2021-12-01 08:15 | PC.PHAR ---
UNABLE TO VERIFY MEDICATIONS WITH PATIENT. VERIFIED BY [facility] ALL FILLED AND PICKED UP.
--- NOTE | 2021-12-01 08:22 | PC.PHAR ---
PT ALSO HAS A NARCAN SCRIPT FILLED BUT NOT PICKED UP.
[2021-12-01 10:01] LABS: Alcohol Level 263 mg/dL (0-10)
[2021-12-01] MEDS: folic acid 1 MG, multivitamin inj 10 ML, thiamine 100 MG in sodium chloride 0.9% 1,000 ML 252.8 MG IV (13:03)
[2021-12-01] MEDS: duloxetine 30 mg Capsule PO (18:49)
[2021-12-01] MEDS: multivitamin therapeutic Tablet 1 TAB PO (18:50)
[2021-12-01] MEDS: folic acid 1 mg Tablet PO (18:50)
[2021-12-01] MEDS: nicotine 2 mg Gum BUCCAL (19:18)
[2021-12-01] MEDS: trazodone 150 mg Tablet PO (21:02)
[2021-12-01] MEDS: gabapentin 400 mg Capsule 800 MG PO (21:02)
[2021-12-01] MEDS: BuSPIRONE 10 mg Tablet PO (21:02)
[2021-12-01] MEDS: LORazepam 2 mg Tablet PO (21:58)
--- NOTE | 2021-12-01 22:05 | PC.ADMIT ---
[address] Admission Note: The patient,John Yeung Jr,51 y/o, was given written information regarding hospital policies, unit procedures and contact persons. Patient's smoking status: current every day smoker. Vital Signs - 8 hr 12/01/21 17:48 12/01/21 18:05 12/01/21 21:14 Temperature 98.3 F 98.0 F Pulse Rate 74 109 H 88 Respiratory Rate 16 18 17 Blood Pressure 132/78 145/93 130/79 Pulse Oximetry 95 94 96 He arrived on the unit at 1803. I received him at 1930 when I arrived. He presented to the ED last night for visual hallucinations. He was seeing kids around his house. He has been drinking a 1/5 of whiskey daily. States he was also using meth. He denies any SI/HI. He was friendly and cooperative during the interview process. .
[2021-12-02 06:00] VITALS: BP 115/74; PULSE 68; RESP 18; TEMP 36.5; O2SAT 96
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
[2021-12-02] MEDS: gabapentin 400 mg Capsule 800 MG PO ×4 (09:42→20:19)
[2021-12-02] MEDS: BuSPIRONE 10 mg Tablet PO ×3 (09:42→20:19)
[2021-12-02] MEDS: folic acid 1 mg Tablet PO (09:42)
[2021-12-02] MEDS: thiamine 100 mg Tablet PO (09:42)
[2021-12-02] MEDS: nicotine 2 mg Gum BUCCAL ×2 (09:42→12:18)
[2021-12-02] MEDS: PARoxetine 20 mg Tablet PO (09:42)
[2021-12-02] MEDS: fenofibrate 145 mg Tablet PO (09:42)
[2021-12-02] MEDS: amlodipine 10 mg Tablet PO (09:42)
[2021-12-02] MEDS: duloxetine 30 mg Capsule PO ×2 (09:42→17:08)
[2021-12-02] MEDS: multivitamin therapeutic Tablet 1 TAB PO (09:42)
[2021-12-02] MEDS: hyDROXYzine 25 mg Capsule 50 MG PO (12:18)
[2021-12-02 14:00] VITALS: BP 135/92; PULSE 76; RESP 18; O2SAT 98
[2021-12-02] MEDS: OLANZapine 5 mg ODT PO (14:39)
[2021-12-02] MEDS: LORazepam 2 mg Tablet PO (20:19)
[2021-12-02] MEDS: trazodone 150 mg Tablet PO (20:19)
[2021-12-02 20:47] VITALS: BP 102/72; PULSE 96; RESP 18; O2SAT 97
[2021-12-03 05:42] VITALS: BP 112/81; PULSE 86; RESP 16; O2SAT 96
[2021-12-03 07:32] VITALS: PULSE 90; RESP 16; O2SAT 96
[2021-12-03] MEDS: gabapentin 400 mg Capsule 800 MG PO ×4 (08:38→20:25)
[2021-12-03] MEDS: PARoxetine 20 mg Tablet PO (08:38)
[2021-12-03] MEDS: nicotine 2 mg Gum BUCCAL ×5 (08:38→20:28)
[2021-12-03] MEDS: duloxetine 30 mg Capsule PO ×2 (08:38→16:57)
[2021-12-03] MEDS: BuSPIRONE 10 mg Tablet PO ×3 (08:38→20:25)
[2021-12-03] MEDS: LORazepam 2 mg Tablet PO ×2 (08:38→20:28)
[2021-12-03] MEDS: folic acid 1 mg Tablet PO (08:38)
[2021-12-03] MEDS: amlodipine 10 mg Tablet PO (08:38)
[2021-12-03] MEDS: fenofibrate 145 mg Tablet PO (08:38)
[2021-12-03] MEDS: thiamine 100 mg Tablet PO (08:38)
[2021-12-03] MEDS: multivitamin therapeutic Tablet 1 TAB PO (08:38)
[2021-12-03] MEDS: OLANZapine 5 mg ODT PO (10:29)
[2021-12-03 14:00] VITALS: BP 129/88; PULSE 84; RESP 17; TEMP 36.8; O2SAT 95
--- NOTE | 2021-12-03 15:08 | W.PM.NPUPNS ---
Subjective NPU Subjective: Patient presents today reporting that he is feeling a little better and is actually looking okay for the first time since this admission. He reports that he is committed to getting to rehab and knows that not much happens on the weekends to advance that but he is working with the treatment team with an ultimate goal of inpatient rehab. He reports he understands that he can continue doing it the way he was doing it and expect to have success in his sobriety. Mental Status Exam MSE Comments: This is a obese white male with hospital scrubs on with limited grooming and eye contact. No abnormal movements except for psychomotor retardation. Cooperative with exam in no acute distress. Speech was decreased rate and volume. Mood described as a little better, affect still mildly subdued. Thought process, organized. Thought content: patient denies any suicidal or homicidal ideation, no delusions reported or noted, and endorses resolving auditory and visual hallucinations that he attributes to his withdrawal. Attention and concentration are intact and memory is reliable but none were formally tested. He is alert and oriented three times. Insight and judgment are limited. Impulse control is impaired. Vitals/I&O/Wt Last Vital Signs Temp 97.7 F 12/02/21 06:00 Pulse 90 12/03/21 07:32 Resp 16 12/03/21 07:32 BP 112/81 12/03/21 05:42 Pulse Ox 96 12/03/21 07:32 Data NPU : 12/01/21 02:30 12/01/21 02:30 A&P Assessment and plan (1) Suicidal ideation: Status: Acute (2) Alcohol intoxication: Status: Acute (3) Alcohol withdrawal: Status: Acute (4) Alcohol use disorder, severe, dependence: Status: Acute (5) Anxiety: Status: Acute (6) Major depressive disorder: Status: Acute (7) Insomnia: Status: Acute Plan This is a 51 year old white male with a long history of alcohol use disorder, severe, and depression with suicidality with past suicide attempts, who presents on medication but having significant psychosocial difficulties, active use and suicidal thoughts, open to treatment. 1. Continue current medications 2. Encourage individual, group and milieu therapy 3. Continue q-15 minute check for safety 4. Recommend sober living treatment at the highest level of care to which the patient is willing to commit.? Involuntary Hold Information 96 Hour Hold: 96 Hour Involuntary Admission: Yes Attestations NPU Medical Necessity Statement*: Inpatient hospitalization is medically necessary and the clinically appropriate intervention at this time. We will monitor medications and make changes as indicated. Likely length of stay is 3-5 days. Coding Level of Care Code Acute Adult Education Professional for [facility] Fwd Diagnoses Suicidal ideation R45.851 Alcohol intoxication F10.929 Alcohol withdrawal F10.239 Alcohol use disorder, severe, dependence F10.20 Anxiety F41.9 Major depressive disorder F32.9 Insomnia G47.00
[2021-12-03] MEDS: trazodone 150 mg Tablet PO (20:25)
[2021-12-03 21:00] VITALS: BP 130/82; PULSE 80; RESP 17; TEMP 36.9; O2SAT 98
[2021-12-04 05:32] VITALS: BMI 36.1
[2021-12-04 06:00] VITALS: BP 121/87; PULSE 102; RESP 18; TEMP 36.4; O2SAT 98
--- NOTE | 2021-12-04 08:02 | P.NPUPN_ITS ---
Subjective NPU Subjective: Patient presents today continuing to report that he feels dedicated towards the plan for sober living treatment identifying the futility in his recent behavior patterns. He reports that his medications continue to work fine and he is awaiting social work team tomorrow for continued progress a nd finding a sober living follow-up. Mental Status Exam MSE Comments: This is a obese white male with hospital scrubs on with limited grooming and eye contact. No abnormal movements except for psychomotor retardation. Cooperative with exam in no acute distress. Speech was decreased rate and volume. Mood described as a little better, affect still mildly subdued. Thought process, organized. Thought content: patient denies any suicidal or homicidal ideation, no delusions reported or noted, and endorses resolving auditory and visual hallucinations that he attributes to his withdrawal.? Attention and concentration are intact and memory is reliable but none were formally tested. He is alert and oriented three times. Insight and judgment are limited. Impulse control is impaired. Vitals/I&O/Wt Last Vital Signs Temp 97.6 F 12/04/21 06:00 Pulse 102 H 12/04/21 06:00 Resp 18 12/04/21 06:00 BP 121/87 12/04/21 06:00 Pulse Ox 98 12/04/21 06:00 Weight last 48 hrs Weight 111.13 kg Data NPU : 12/01/21 02:30 12/01/21 02:30 A&P Assessment and plan (1) Suicidal ideation: Status: Acute (2) Alcohol intoxication: Status: Acute (3) Alcohol withdrawal: Status: Acute (4) Alcohol use disorder, severe, dependence: Status: Acute (5) Anxiety: Status: Acute (6) Major depressive disorder: Status: Acute (7) Insomnia: Status: Acute (8) Essential hypertension: Status: Chronic Plan This is a 51 year old white male with a long history of alcohol use disorder, severe, and depression with suicidality with past suicide attempts, who presents on medication but having significant psychosocial difficulties, active use and suicidal thoughts, open to treatment. 1. Continue current medications 2. Encourage individual, group and milieu therapy 3. Continue q-15 minute check for safety 4. Recommend sober living treatment at the highest level of care to which the patient is willing to commit.? Involuntary Hold Information 96 Hour Hold: 96 Hour Involuntary Admission: Yes Attestations NPU Medical Necessity Statement*: Inpatient hospitalization is medically necessary and the clinically appropriate intervention at this time. We will monitor medications and make changes as indicated.? Likely length of stay is 2-4 days. Coding Level of Care Code Acute Box Office Manager for g Fwd Diagnoses Suicidal ideation R45.851 Alcohol intoxication F10.929 Alcohol withdrawal F10.239 Alcohol use disorder, severe, dependence F10.20 Anxiety F41.9 Major depressive disorder F32.9 Insomnia G47.00 Essential hypertension I10
[2021-12-04] MEDS: thiamine 100 mg Tablet PO (08:57)
[2021-12-04] MEDS: BuSPIRONE 10 mg Tablet PO ×3 (08:57→20:35)
[2021-12-04] MEDS: folic acid 1 mg Tablet PO (08:57)
[2021-12-04] MEDS: amlodipine 10 mg Tablet PO (08:57)
[2021-12-04] MEDS: duloxetine 30 mg Capsule PO ×2 (08:57→17:07)
[2021-12-04] MEDS: multivitamin therapeutic Tablet 1 TAB PO (08:57)
[2021-12-04] MEDS: PARoxetine 20 mg Tablet PO (08:57)
[2021-12-04] MEDS: fenofibrate 145 mg Tablet PO (08:58)
[2021-12-04] MEDS: gabapentin 400 mg Capsule 800 MG PO ×4 (08:58→20:35)
[2021-12-04] MEDS: nicotine 2 mg Gum BUCCAL ×2 (08:58→17:07)
[2021-12-04 09:07] VITALS: PULSE 90; RESP 16; O2SAT 96
[2021-12-04] MEDS: acetaminophen 325 mg Tablet 650 MG PO (12:23)
[2021-12-04] MEDS: LORazepam 2 mg Tablet PO (12:32)
[2021-12-04 13:34] VITALS: BP 119/86; PULSE 98; RESP 17; TEMP 36.8; O2SAT 96
[2021-12-04] MEDS: ibuprofen 800 mg tablet PO (17:02)
[2021-12-04 20:03] VITALS: BP 135/96; PULSE 92; RESP 17; TEMP 36.4; O2SAT 98
[2021-12-04] MEDS: trazodone 150 mg Tablet PO (20:35)
[2021-12-05 06:00] VITALS: BP 117/83; PULSE 79; RESP 15; TEMP 36.6; O2SAT 97
[2021-12-05] MEDS: gabapentin 400 mg Capsule 800 MG PO ×4 (08:50→20:10)
[2021-12-05] MEDS: nicotine 2 mg Gum BUCCAL ×2 (08:50→13:39)
[2021-12-05] MEDS: PARoxetine 20 mg Tablet PO (08:50)
[2021-12-05] MEDS: BuSPIRONE 10 mg Tablet PO ×3 (08:50→20:10)
[2021-12-05] MEDS: thiamine 100 mg Tablet PO (08:50)
[2021-12-05] MEDS: amlodipine 10 mg Tablet PO (08:50)
[2021-12-05] MEDS: folic acid 1 mg Tablet PO (08:50)
[2021-12-05] MEDS: acetaminophen 325 mg Tablet 650 MG PO (08:50)
[2021-12-05] MEDS: fenofibrate 145 mg Tablet PO (08:50)
[2021-12-05] MEDS: duloxetine 30 mg Capsule PO ×2 (08:50→17:15)
[2021-12-05] MEDS: multivitamin therapeutic Tablet 1 TAB PO (08:51)
[2021-12-05 14:00] VITALS: BP 134/90; PULSE 80; RESP 17; TEMP 36.7; O2SAT 97
[2021-12-05] MEDS: nicotine 4 mg lozenge MUCOUS MEM (17:28)
--- NOTE | 2021-12-05 18:51 | W.PM.NPUPNS ---
Subjective NPU Subjective: Patient presents today reporting that he is continuing to work with the treatment team for discharge options and sober living treatment. He did report some fleeting perceptual disturbances which are in keeping with the timeline and his past hospitalization just being on about the fourth day after discontinuation of the alcohol. Otherwise he reports that he feels the medications are working okay and that he is sleeping better and continues to be hopeful for treatment options. Mental Status Exam MSE Comments: This is a obese white male with hospital scrubs on with limited grooming and eye contact. No abnormal movements except for psychomotor retardation. Cooperative with exam in no acute distress. Speech was decreased rate and volume. Mood described as a little better, affect still mildly subdued. Thought process, organized. Thought content: patient denies any suicidal or homicidal ideation, no delusions reported or noted, and he denies auditory, but endorses some fleeting visual hallucinations.? Attention and concentration are intact and memory is reliable but none were formally tested. He is alert and oriented three times. Insight and judgment are limited. Impulse control is impaired. Vitals/I&O/Wt Last Vital Signs Temp 98.0 F 12/05/21 14:00 Pulse 80 12/05/21 14:00 Resp 17 12/05/21 14:00 BP 134/90 12/05/21 14:00 Pulse Ox 97 12/05/21 14:00 Weight last 48 hrs Weight 111.13 kg Data NPU : 12/01/21 02:30 12/01/21 02:30 A&P Assessment and plan (1) Suicidal ideation: Status: Acute (2) Alcohol intoxication: Status: Acute (3) Alcohol withdrawal: Status: Acute (4) Alcohol use disorder, severe, dependence: Status: Acute (5) Anxiety: Status: Acute (6) Major depressive disorder: Status: Acute (7) Insomnia: Status: Acute (8) Essential hypertension: Status: Chronic Plan This is a 51 year old white male with a long history of alcohol use disorder, severe, and depression with suicidality with past suicide attempts, who presents on medication but having significant psychosocial difficulties, active use and suicidal thoughts, open to treatment. 1. Continue current medications 2. Encourage individual, group and milieu therapy 3. Continue q-15 minute check for safety 4. Recommend sober living treatment at the highest level of care to which the patient is willing to commit.? Involuntary Hold Information 96 Hour Hold: 96 Hour Involuntary Admission: Yes Attestations NPU Medical Necessity Statement*: Inpatient hospitalization is medically necessary and the clinically appropriate intervention at this time. We will monitor medications and make changes as indicated.? Likely length of stay is 1-3 days. 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
[2021-12-05 19:47] VITALS: BP 152/104; PULSE 65; RESP 18; TEMP 36.4; O2SAT 99
[2021-12-05] MEDS: trazodone 150 mg Tablet PO (20:10)
[2021-12-05] MEDS: hyDROXYzine 25 mg Capsule 50 MG PO (20:10)
--- NOTE | 2021-12-05 21:58 | PC.NURSE ---
Pt states during assessment that he has been having visual hallucinations. Pt states during the day today he seen a black cat run through the day room. Pt states while he sleeps he will see a white or red light coming at him. He has the felling that he cannot breath. Pt will suddenly wake up and feel out of breath. Pt denies ever telling staff about these hallucinations. This PROFESSIONAL CASTER told pt to alert staff when this happens. Provider was notified.
[2021-12-06 06:00] VITALS: BP 135/91; PULSE 75; RESP 20; TEMP 36.6; O2SAT 99
[2021-12-06] MEDS: nicotine 4 mg lozenge MUCOUS MEM ×3 (06:21→17:50)
[2021-12-06 08:15] VITALS: PULSE 87; RESP 16; O2SAT 95
[2021-12-06] MEDS: gabapentin 400 mg Capsule 800 MG PO ×4 (08:19→20:24)
[2021-12-06] MEDS: thiamine 100 mg Tablet PO (08:20)
[2021-12-06] MEDS: folic acid 1 mg Tablet PO (08:20)
[2021-12-06] MEDS: fenofibrate 145 mg Tablet PO (08:20)
[2021-12-06] MEDS: duloxetine 30 mg Capsule PO ×2 (08:20→20:24)
[2021-12-06] MEDS: amlodipine 10 mg Tablet PO (08:20)
[2021-12-06] MEDS: PARoxetine 20 mg Tablet PO (08:20)
[2021-12-06] MEDS: BuSPIRONE 10 mg Tablet PO ×3 (08:20→20:24)
[2021-12-06] MEDS: multivitamin therapeutic Tablet 1 TAB PO (08:20)
[2021-12-06] MEDS: nicotine 2 mg Gum BUCCAL (12:42)
[2021-12-06 14:00] VITALS: BP 139/88; PULSE 97; RESP 19; TEMP 36.7; O2SAT 97
--- NOTE | 2021-12-06 15:35 | PC.NUTR ---
Willard Ensure High Protein will be sent TID to provide high protein option if Pt is not hungry for meal. Please provide high protein snack mid morning and mid afternoon of Ensure or peanut butter and alexis crackers or cheese and crackers, as Pt will do better eating 5 small, high protein meals/day due to Gastric Bypass from 01/2021.
--- NOTE | 2021-12-06 19:07 | W.PM.NPUPNS ---
Subjective NPU Subjective: Patient presents today reporting that things are going well and is working with the social work team on a possible sober living connection. He continues to endorse resolve to connect with the program and maintain his sobriety this time. He denies any hallucinations and reports that there have been no perceptual disturbances in the last 24 hours and he starting to feel better. Mental Status Exam MSE Comments: This is a obese white male with hospital scrubs on with limited grooming and eye contact. No abnormal movements except for psychomotor retardation. Cooperative with exam in no acute distress. Speech was decreased rate and volume. Mood described as a little better, affect a little brighter. Thought process, organized. Thought content: patient denies any suicidal or homicidal ideation, no delusions reported or noted, and he denies auditory or visual hallucinations.? Attention and concentration are intact and memory is reliable but none were formally tested. He is alert and oriented three times. Insight and judgment are limited, but improving Impulse control is limited. Vitals/I&O/Wt Last Vital Signs Temp 98.1 F 12/06/21 14:00 Pulse 97 12/06/21 14:00 Resp 19 H 12/06/21 14:00 BP 139/88 12/06/21 14:00 Pulse Ox 97 12/06/21 14:00 Data NPU : 12/01/21 02:30 12/01/21 02:30 A&P Assessment and plan (1) Suicidal ideation: Status: Acute (2) Alcohol intoxication: Status: Acute (3) Alcohol withdrawal: Status: Acute (4) Alcohol use disorder, severe, dependence: Status: Acute (5) Anxiety: Status: Acute (6) Major depressive disorder: Status: Acute (7) Insomnia: Status: Acute (8) Essential hypertension: Status: Chronic Plan This is a 51 year old white male with a long history of alcohol use disorder, severe, and depression with suicidality with past suicide attempts, who presents on medication but having significant psychosocial difficulties, active use and suicidal thoughts, open to treatment. 1. Continue current medications 2. Encourage individual, group and milieu therapy 3. Continue q-15 minute check for safety 4. Recommend sober living treatment at the highest level of care to which the patient is willing to commit.? Involuntary Hold Information 96 Hour Hold: 96 Hour Involuntary Admission: Yes Attestations NPU Medical Necessity Statement*: Inpatient hospitalization is medically necessary and the clinically appropriate intervention at this time. We will monitor medications and make changes as indicated.? Likely length of stay is 1-2 days. Coding Level of Care Code Acute Neuropsychology Service Director for [facility] Fwd Diagnoses Suicidal ideation R45.851 Alcohol intoxication F10.929 Alcohol withdrawal F10.239 Alcohol use disorder, severe, dependence F10.20 Anxiety F41.9 Major depressive disorder F32.9 Insomnia G47.00 Essential hypertension I10
[2021-12-06 20:18] VITALS: BP 138/95; PULSE 69; RESP 18; TEMP 36.8; O2SAT 98
[2021-12-06] MEDS: trazodone 150 mg Tablet PO (20:24)
[2021-12-07 06:00] VITALS: BP 146/91; PULSE 84; RESP 18; TEMP 37.2; O2SAT 99
[2021-12-07] MEDS: nicotine 4 mg lozenge MUCOUS MEM ×4 (06:08→14:59)
[2021-12-07] MEDS: fenofibrate 145 mg Tablet PO (08:30)
[2021-12-07] MEDS: BuSPIRONE 10 mg Tablet PO ×2 (08:30→14:59)
[2021-12-07] MEDS: amlodipine 10 mg Tablet PO (08:31)
[2021-12-07] MEDS: duloxetine 30 mg Capsule PO (08:31)
[2021-12-07] MEDS: gabapentin 400 mg Capsule 800 MG PO ×2 (08:31→12:28)
[2021-12-07] MEDS: multivitamin therapeutic Tablet 1 TAB PO (08:31)
[2021-12-07] MEDS: PARoxetine 20 mg Tablet PO (08:31)
[2021-12-07] MEDS: thiamine 100 mg Tablet PO (08:31)
[2021-12-07] MEDS: folic acid 1 mg Tablet PO (08:31)
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
[2021-12-07 14:42] VITALS: BP 146/91; PULSE 84; RESP 18; TEMP 37.2; O2SAT 99
--- NOTE | 2021-12-07 16:24 | PC.NURSE ---
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 MEDS CALLED, BY THIS NURSE, TO [facility] FOLLOWS: TRAZODONE 150 MG BEDTIME THIAMINE 100 MG DAILY PAROXETINE 20 MG DAILY HYDROXYZINE PAMOATE 25 MG TID PRN GABAPENTIN 800 MG QID TRICOR 145 MG DAILY CYMBALTA 30 MG BID BUSPAR 10 MG TID AMLODAPINE 10 MG DAILY ALL MEDS FOR 30 DAY SUPPLY WITH ONE REFILL.
== END 2021-12-07 16:34 | disposition home or self-care (01) | DRG 897 ==
LOC: ER 04:57 → NP 05:36
PROVIDERS: Emergency Medicine; Admitting Provider Psychiatry & Neurology Psychiatry; Emergency Provider Emergency Medicine; PCP Nurse Practitioner; Visit Provider Psychiatry & Neurology Psychiatry
DX: F10.229 Alcohol dependence with intoxication, unspecified (principal); R45.851 Suicidal ideations; Y90.8 Blood alcohol level of 240 mg/100 ml or more; F10.239 Alcohol dependence with withdrawal, unspecified; F17.210 Nicotine dependence, cigarettes, uncomplicated; F41.9 Anxiety disorder, unspecified; F32.9 Major depressive disorder, single episode, unspecified; Z91.51 Personal history of suicidal behavior; G47.00 Insomnia, unspecified; G89.29 Other chronic pain
CPT/HCPCS: 36415; 80053; 80306; 80307; 85025; 96360; 96372; 97150; 97165; 99285; J1630; J2060; J3411; J3490; J7030

== ENCOUNTER → 2022-01-16 09:10 | Outpatient (BNVA) | payer MEDICAID, SELFPAY | PROVIDERS: PCP Nurse Practitioner; Visit Provider Nurse Practitioner | DX: F32.9 Major depressive disorder, single episode, unspecified (principal); F81.0 Specific reading disorder; F17.210 Nicotine dependence, cigarettes, uncomplicated; F10.20 Alcohol dependence, uncomplicated; Z59.01 Sheltered homelessness | CPT/HCPCS: 90792 ==

== ENCOUNTER → 2022-01-25 12:39 | Outpatient (BNVA) | payer MEDICAID, SELFPAY | PROVIDERS: PCP Nurse Practitioner; Visit Provider Counselor Professional | DX: F10.20 Alcohol dependence, uncomplicated (principal); F33.9 Major depressive disorder, recurrent, unspecified; F41.1 Generalized anxiety disorder | CPT/HCPCS: 90834 ==

== ENCOUNTER → 2022-02-01 10:55 | Outpatient (BNVA) | payer MEDICAID, SELFPAY | PROVIDERS: PCP Nurse Practitioner; Visit Provider Counselor Professional | DX: F10.20 Alcohol dependence, uncomplicated (principal); F33.9 Major depressive disorder, recurrent, unspecified; F41.1 Generalized anxiety disorder | CPT/HCPCS: 90834 ==

== ENCOUNTER → 2022-02-08 14:45 | Outpatient (BNVA) | payer MEDICAID, SELFPAY | PROVIDERS: PCP Nurse Practitioner; Visit Provider Counselor Professional | DX: F10.20 Alcohol dependence, uncomplicated (principal); F41.1 Generalized anxiety disorder; F33.9 Major depressive disorder, recurrent, unspecified | CPT/HCPCS: 90853 ==

== ENCOUNTER → 2022-03-14 09:56 | Outpatient (BNVA) | payer MEDICAID, SELFPAY | PROVIDERS: PCP Family Medicine Adult Medicine; Visit Provider Nurse Practitioner Psychiatric/Mental Health | DX: Z03.89 Encounter for observation for other suspected diseases and conditions ruled out (principal) | CPT/HCPCS: 80053 ==

== ENCOUNTER → 2022-06-26 16:50 | Outpatient (BNVA) | payer MEDICAID, SELFPAY | PROVIDERS: PCP Family Medicine Adult Medicine; Visit Provider Nurse Practitioner | DX: I10 Essential (primary) hypertension (principal); J41.0 Simple chronic bronchitis; K59.00 Constipation, unspecified; F41.9 Anxiety disorder, unspecified; M43.02 Spondylolysis, cervical region; E78.5 Hyperlipidemia, unspecified; S29.011A Strain of muscle and tendon of front wall of thorax, initial encounter; R07.9 Chest pain, unspecified | CPT/HCPCS: 80053; 80061; 84443; 84484 ==

== ENCOUNTER 2022-07-10 10:05 | Outpatient (CLI) | payer OTHER, SELFPAY ==
--- NOTE | 2022-07-10 10:34 | XR_ITS ---
WS: [id number] XR hand RT 2V [id number] REASON FOR EXAM: PAIN IN JOINTS,ROM DIFFICULTIES, ENCOUNTER FOR DISABILITY DE FINDINGS: Old healed fracture of the fifth metacarpal. Mild narrowing of the joint spaces with mild subchondral sclerosis in the DIP and PIP joints of the f ifth finger. Marginal osteophytosis in the DIP joints of the fifth finger. Mild narrowing of the joint space with subchondral sclerosis in the DIP joint of the thumb. Mild joint space narrowing with subchondral sclerosis and lateral subluxation at the metatarsal-phala ngeal joint of the thumb. Remainder of the bony and joint structure of the right hand are relatively unremarkable. XR/XR hand RT 2V [id number] IMPRESSION: Old healed fracture of the right fifth metacarpal. Osteoarthritis as above.
--- NOTE | 2022-07-10 10:34 | XR_ITS ---
WS: [id number] XR lumbar spine 2-3V* [id number] REASON FOR EXAM: PAIN IN JOINTS,ROM DIFFICULTIES, ENCOUNTER FOR DISABILITY DE FINDINGS: Mild rotatory scoliosis convex left. Relatively normal lordosis on the lateral. No significant focal vertebral body abnormality. Mild narrowing of the L5-S1 disc space. No spondylolysis. 3 to 4 mm of anterolisthesis of L4 4 relation to L3. 4 mm of anterolisthesis of L5 in relation to L4. XR/XR lumbar spine 2-3V* [id number] IMPRESSION: Degenerative spondylosis of the lumbar spine as above. Progressive narrowing of the disc space at L5-S1 compared to 02/01/2017. The listheses described above are increased compared to the examination of 02/01.
--- NOTE | 2022-07-10 10:34 | XR_ITS ---
WS: [id number] XR knee RT 1-2V [id number] REASON FOR EXAM: PAIN IN JOINTS,ROM DIFFICULTIES, ENCOUNTER FOR DISABILITY DE FINDINGS: Minimal narrowing of the medial knee joint space with mild subchondral sclerosis and small osteophyto sis of the medial tibial plateau. Lateral knee joint space is well preserved. There is mild subchondral sclerosis and small marginal os teophytosis of the lateral tibial plateau. Minimal and elongation of the medial tibial eminence. Mild narrowing of the patellofemoral joint space with subchondral sclerosis and small marginal osteop hytosis of the patella. XR/XR knee RT 1-2V [id number] IMPRESSION: Mild changes of osteoarthritis with no interval change compared to 01/09/2018.
== END 2022-07-10 10:06 | disposition home or self-care (01) ==
LOC: RAD 10:19
PROVIDERS: PCP Nurse Practitioner; Visit Provider Emergency Medicine
DX: M47.816 Spondylosis without myelopathy or radiculopathy, lumbar region (principal); M17.11 Unilateral primary osteoarthritis, right knee; M19.041 Primary osteoarthritis, right hand
CPT/HCPCS: 72100; 73120; 73560

== ENCOUNTER 2022-10-11 16:46 | Inpatient (IN) | payer MEDICAID, SELFPAY ==
[2022-10-11] VITALS (18 sets, daily range): BP systolic 76–135; BP diastolic 52–104; PULSE 75–86; RESP 14–20; TEMP 36.4; O2SAT 92–100; BMI 36.6
--- NOTE | 2022-10-11 16:43 | ECG_ITS ---
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 Measurements Intervals [place] Rate: P: 0 [place]: 0 QRS: 0 QRSD: 0 T: 0 QT: 0 QTc: 0 Interpretive Statements SINUS TACHYCARDIA WITH PACs No previous ECG available for comparison Electronically Signed On 10-12-2022 18:09:17 [employer] SCIENT[employer] by Jesse Yuan M.D. [id number]
--- NOTE | 2022-10-11 16:51 | XRR_ITS ---
PROCEDURE INFORMATION: Exam: XR Chest Exam date and time: 10/11/2022 5:07 PM Age: 52 years old Clinical indication: Device placement; Ett placement (vent status); Additional info: Post intubation TECHNIQUE: Imaging protocol: Radiologic exam of the chest. Views: 1 view. COMPARISON: No relevant prior studies available. FINDINGS: Tubes, catheters and devices: Endotracheal catheter seen, with tip of the catheter at the inferior clavicular head level and approximately 3 cm above the rahul, appearing in good position. A nasogastric tube is seen, with tip of the catheter in the upper left abdomen at the expected level of the proximal to mid stomach region. Lungs: See Heart/Mediastinum finding. Pleural spaces: No pneumothorax. No significant effusion, with possible trace effusion on the right. Heart/Mediastinum: Overall decreased inspiration with mild accentuation of cardiomediastinal contours and pulmonary markings. Mild basilar atelectasis. No consolidation. Bones/joints: Unremarkable. XR/XR chest 1V portable [id number] IMPRESSION: 1. Endotracheal catheter and nasogastric tube appear in good position, as noted above. 2. Overall decreased inspiration and with suggestion of basilar atelectasis, with questionable trace effusion right costophrenic angle.
[2022-10-11] MEDS: fentaNYL 50 mcg/mL INJ 2mL 100 MCG IVP (17:00)
--- NOTE | 2022-10-11 17:04 | W.ED.AMS ---
HPI - Altered Mental Status General: Chief Complaint: Psychiatric Symptoms Stated Complaint: SOB Time Seen by Provider: 10/11/22 16:46 Source: EMS Mode of arrival: EMS Limitations: altered mental status History of Present Illness: History is obtained entirely from EMS crew as the patient was intubated upon arrival. History from EMS was that they were called out because of the patient being combative. And admitted to drinking alcohol. Patient apparently was in the back of the ambulance and became more uncooperative and acted out. Patient was allegedly given 250 mg of ketamine IM. The patient continues to be uncooperative and by the time EMS had achieved IV access. The report was that he was given additional 150 mg of ketamine IVP. EMS then alleges that patient became apneic and a Ervin airway was placed. The patient arrived with airway in place and receiving bag mask ventilation by EMS crew. MD complaint: intoxication Context: unknown Review of Systems General: Reports: ROS unobtainable due to endotracheal tube and ROS unobtainable due to medical condition Physical Exam Narrative: Signs of trauma were noted on the patient. The patient had an airway in place and receiving bag mask ventilation. No obvious signs of trauma were noted grossly. Const: EXAM LIMITATIONS: altered mental status NUTRITIONAL APPEARANCE: overweight HENMT: COMMON NORMALS: normocephalic, atraumatic, Normal external nose present and moist oral mucous membranes HEAD & SCALP: normocephalic and atraumatic FACE & SINUS: face symmetric NOSE: Normal external nose present MOUTH: lip normal and tongue normal Eye: COMMON NORMALS: Equal, round and reactive pupils present and conjunctivae normal CONJUNCTIVA: Yes conjunctivae normal PUPIL: Yes Equal, round and reactive pupils present Neck/C-Spine: COMMON NORMALS: no JVD and No carotid bruits Chest: COMMONS NORMALS: normal inspection of the chest Resp: COMMON NORMALS: clear to auscultation bilaterally AUSCULTATION: clear to auscultation bilaterally Cardio: COMMON NORMALS: no JVD, regular rate and regular rhythm RATE: regular rate RHYTHM: regular rhythm GI: COMMON NORMALS: Soft to palpation PALPATION: Yes Soft to palpation Back/Pelvis: COMMON NORMALS: thoracic and lumbar spine normal to inspection Extremity: COMMON NORMALS: normal to inspection and capillary refill normal Neuro: ANTONELLA COMA SCALE: document GCS findings (Patient intubated) Antonella coma scale eye opening: None Antonella coma scale verbal response: None Antonella coma scale motor response: None Antonella coma scale total score: 3 Skin: COMMON NORMALS: no rashes or lesions noted, no wounds and turgor normal GENERAL SKIN EXAM: no rashes or lesions noted and turgor normal Procedures Intubation Time out performed: Yes sedative: Etomidate paralytic: Succinylcholine Laryngoscope: fiber optic video scope ET Tube Size: 8 ET Tube Uncuffed: Yes Tube Secured Depth (cm): 24 Tube Secured Location: lips Tube Placement Confirmation: visualized tube passing through cords, equal breath sounds bilaterally, no breath sounds over epigastrium and confirmation by capnometry Intubation Complications: none Additional Comments: This patient was intubated to maintain airway protection as he presented to our emergency department with a Ervin airway in situ. Course Reevaluation(s): Reevaluation #1: Patient remains sedated. Work-up is ongoing but he will require ICU admission for continued monitoring and support and then extubation and evaluation when appropriate Patient checked out to overnight emergency department physician for final disposition. Time: 18:37 Vital Signs: Vital signs: Vital Signs Pulse Rate 86 10/11/22 16:46 Respiratory Rate 17 10/11/22 17:40 Blood Pressure 133/98 10/11/22 16:46 Pulse Oximetry 99 10/11/22 16:46 Oxygen Delivery Me thod 10/11/22 16:46 Fraction of Inspir ed Oxygen 50 10/11/22 17:40 MDM - Altered Mental Status Medical Decision Making Patient was transported to our emergency department with limited history but according to EMS the patient was acutely intoxicated and was making concerning statements. EMS arrived and began assessing the patient he continued to be belligerent and acting out and required ketamine initially IM and subsequently after IV access was obtained a second dose of ketamine was given to the patient and then subsequently required airway protection. He was transported to emergency department and was evaluated here. His Ervin airway was changed out for a ET tube to maintain airway protection and work-up ensued to ensure no evidence of other etiologies to his current presentation. He will be admitted to this facility as long as his CT scan is cleared. Lab Data 10/11/22 16:40 10/11/22 16:40 Radiology Impressions Chest X-Ray 10/11/22 16:51 IMPRESSION: 1. Endotracheal catheter and nasogastric tube appear in good position, as noted above. 2. Overall decreased inspiration and with suggestion of basilar atelectasis, with questionable trace effusion right costophrenic angle. Laboratory Results WBC 9.6 10^3/uL (4.0-10.0) 10/11/22 16:40 RBC 4.99 10^6/uL (4.1-5.3) 10/11/22 16:40 Hgb 15.3 g/dL (11.7-16.6) 10/11/22 16:40 Hct 45.6 % (42.0-52.0) 10/11/22 16:40 MCV 91.4 fl (80-94) 10/11/22 16:40 MCH 30.7 pg (28.0-34.0) 10/11/22 16:40 MCHC 33.6 g/dL (30.0-36.0) 10/11/22 16:40 RDW 12.3 % (12.1-15.1) 10/11/22 16:40 Plt Count 355 10^3/cmm (130-400) 10/11/22 16:40 MPV 9.7 fL (7.4-10.4) 10/11/22 16:40 Neut % (Auto) 49.0 % 10/11/22 16:40 Lymph % (Auto) 39.0 % 10/11/22 16:40 [place] % (Auto) 9.5 % 10/11/22 16:40 Eos % (Auto) 1.5 % 10/11/22 16:40 Baso % (Auto) 0.7 % 10/11/22 16:40 Neut # (Auto) 4.68 10^3/uL (1.8-7.7) 10/11/22 16:40 Lymph # (Auto) 3.7 10^3/uL (0.8-4.8) 10/11/22 16:40 [place] # (Auto) 0.9 10^3/uL (0.2-0.9) 10/11/22 16:40 Eos # (Auto) 0.1 10^3/uL (0.0-0.8) 10/11/22 16:40 Baso # (Auto) 0.1 10^3/uL (0.0-0.1) 10/11/22 16:40 Nucleated RBC % (auto) 0 % 10/11/22 16:40 Nucleated RBCs # 0.0 /100WBC 10/11/22 16:40 Specimen Type Arterial 10/11/22 17:03 Sample Site Radial, right 10/11/22 17:03 ABG pH 7.30 (7.35-7.45) L 10/11/22 17:03 ABG pCO2 65.5 mmHg (35-45) H* 10/11/22 17:03 ABG pO2 138.0 mmHg (80.0-100.0) H 10/11/22 17:03 ABG HCO3 31.8 mmol/L (22-26) H 10/11/22 17:03 ABG O2 Saturation 98.7 10/11/22 17:03 ABG Base Excess 2.9 mmol/L (-2.0-2.0) H 10/11/22 17:03 Travis Test Pos 10/11/22 17:03 A-a O2 Gradient 64.0 mmHg (5-10) H 10/11/22 17:03 Hematocrit 50.2 % (42-52) 10/11/22 17:03 Hgb O2 Saturation 92.0 % (95-100) L 10/11/22 17:03 Carboxyhemoglobin 6.6 %THgb (0.4-20.1) 10/11/22 17:03 Methemoglobin 0.1 % (0.4-1.5) L 10/11/22 17:03 Total Hemoglobin 16.4 g/dL (14-18) 10/11/22 17:03 Sodium 146.0 mmol/L (131-143) H 10/11/22 17:03 Potassium 3.4 mmol/L (3.5-5.0) L 10/11/22 17:03 Glucose 120.0 mg/dL (70-115) H 10/11/22 17:03 Ionized Calcium 1.2 mmol/L (1.1-1.4) 10/11/22 17:03 O2 Delivery Device Vent 10/11/22 17:03 FiO2 100.0 % 10/11/22 17:03 Tidal Volume 0.48 10/11/22 17:03 PEEP 8.0 cmH20 10/11/22 17:03 Dental Office Assistant ID Monro 10/11/22 17:03 Sodium 138 mmol/L (136-145) 10/11/22 16:40 Potassium 2.9 mmol/L (3.5-5.1) L 10/11/22 16:40 Chloride 95 mmol/L (98-107) L 10/11/22 16:40 Carbon Dioxide 28 mmol/L (22-29) 10/11/22 16:40 Anion Gap 17.9 (5-19) 10/11/22 16:40 BUN 5 mg/dL (6-20) L 10/11/22 16:40 Creatinine 1.0 mg/dL (0.7-1.2) 10/11/22 16:40 GFR Calculation 79.1 mL/min (90-130) L 10/11/22 16:40 Glucose 123 mg/dL (65-115) H 10/11/22 16:40 Calculated Osmolality 285 mOsm/kg (285-295) 10/11/22 16:40 Calcium 8.9 mg/dL (8.5-10.5) 10/11/22 16:40 Total Bilirubin 0.2 mg/dL (0.15-1.2) 10/11/22 16:40 AST 42 U/L (0-40) H 10/11/22 16:40 ALT 41 U/L (0-41) 10/11/22 16:40 Alkaline Phosphatase 60 U/L (40-130) 10/11/22 16:40 Total Protein 7.2 g/dL (6.6-8.7) 10/11/22 16:40 Albumin 4.0 g/dL (3.5-5.2) 10/11/22 16:40 Globulin 3.2 g/dL (1.3-4.6) 10/11/22 16:40 Salicylates < 0.3 mg/dL (3-10) L 10/11/22 16:40 Acetaminophen < 5.0 ug/mL (10-30) L 10/11/22 16:40 Ethyl Alcohol 461 mg/dL (0-10) H* 10/11/22 16:40 Discharge Plan Discharge Patient Disposition: Admitted As Inpatient Clinical Impression: Acute alcoholic intoxication Condition: Stable Coding Level of Care Code ED Metrologist for Michelle Crowder
[2022-10-11 17:11] LABS: Basophils # 0.1 10^3/uL (0.0-0.1); Basophils % 0.7 %; Eosinophils # 0.1 10^3/uL (0.0-0.8); Eosinophils % 1.5 %; Hematocrit 45.6 % (42.0-52.0); Hemoglobin 15.3 g/dL (11.7-16.6); Lymphocytes # 3.7 10^3/uL (0.8-4.8); Mean Corpuscular HGB Conc 33.6 g/dL (30.0-36.0); Mean Corpuscular Hemoglobin 30.7 pg (28.0-34.0); Mean Corpuscular Volume 91.4 fl (80-94); Mean Platelet Volume 9.7 fL (7.4-10.4); Monocytes # 0.9 10^3/uL (0.2-0.9); Monocytes % 9.5 %; Neutrophils # 4.68 10^3/uL (1.8-7.7); Nucleated Red Blood Cells % 0 %; Platelet Count 355 10^3/cmm (130-400); Red Blood Count 4.99 10^6/uL (4.1-5.3); Red Cell Distribution Width 12.3 % (12.1-15.1); White Blood Count 9.6 10^3/uL (4.0-10.0)
[2022-10-11 17:16] LABS: Arterial Blood Gas Hematocrit 50.2 % (42-52); Base Excess ABG 2.9 mmol/L (-2.0-2.0); Blood Gas Allen Test Pos; Blood Gas Operator Identificat MONRO; Blood Gas Sample Site Radial, right; Blood Gas Sample Type Arterial; Blood Gas Tidal Volume 0.48; Carboxyhemoglobin 6.6 %THgb (0.4-20.1); HCO3 ABG 31.8 mmol/L (22-26); Ionized Calcium Level - ABG 1.2 mmol/L (1.1-1.4); Methemoglobin 0.1 % (0.4-1.5); Oxygen Device VENT; Oxygen Saturation ABG 98.7; Potassium Level - ABG 3.4 mmol/L (3.5-5.0); Total Hemoglobin 16.4 g/dL (14-18)
[2022-10-11 17:17] LABS: ABG PCO2 65.5 mmHg (35-45)
--- NOTE | 2022-10-11 17:18 | CTR_ITS ---
PROCEDURE INFORMATION: Exam: CT Head Without Contrast Exam date and time: 10/11/2022 7:22 PM Age: 52 years old Clinical indication: Alteration of consciousness; Other: ETOH > 400, overdose; Additional info: AMS TECHNIQUE: Imaging protocol: Computed tomography of the head without contrast. Radiation optimization: All CT scans at this facility use at least one of these dose optimization techniques: automated exposure control; mA and/or kV adjustment per patient size (includes targeted exams where dose is matched to clinical indication); or iterative reconstruction. REPORTING DATA: Count of CT and Cardiac NM exams in prior 12 months: This patient has received 0 known CTs and 0 known cardiac nuclear medicine studies in the 12 months prior to the current study. COMPARISON: No relevant prior studies available. RADIATION DOSE METRICS: Total DLP (mGy-cm): 1093.68 FINDINGS: Brain: Mild atrophic change. No intracranial hemorrhage or hematoma is seen. No mass effect or shift of midline structures. No findings to indicate large vessel ischemic change or infarct or other focal findings. Cerebral ventricles: No ventriculomegaly. Paranasal sinuses: Mild mucosal sinus disease of the maxillary sinuses. Mastoid air cells: Visualized mastoid air cells are well aerated. Bones/joints: Unremarkable. No acute fracture. Soft tissues: Unremarkable. CT/CT head wo con* [id number] IMPRESSION: No acute intracranial abnormality.
[2022-10-11 17:21] LABS: Alanine Aminotransferase 41 U/L (0-41); Alkaline Phosphatase 60 U/L (40-130); Blood Urea Nitrogen 5 mg/dL (6-20); Calcium 8.9 mg/dL (8.5-10.5); Carbon Dioxide 28 mmol/L (22-29); Chloride 95 mmol/L (98-107); Globulin 3.2 g/dL (1.3-4.6); Glomerular Filtration Rate 79.1 mL/min (90-130); Glucose 123 mg/dL (65-115); Osmolality Calculated 285 mOsm/kg (285-295); Sodium 138 mmol/L (136-145); Total Bilirubin 0.2 mg/dL (0.15-1.2); Total Protein 7.2 g/dL (6.6-8.7)
[2022-10-11 17:24] LABS: Acetaminophen < 5.0 ug/mL (10-30); Salicylate < 0.3 mg/dL (3-10)
[2022-10-11 17:25] LABS: Alcohol Level 461 mg/dL (0-10); Anion Gap 17.9 (5-19); Aspartate Amino Transferase 42 U/L (0-40); Potassium 2.9 mmol/L (3.5-5.1)
[2022-10-11] MEDS: potassium chloride premix 100 ML 50 MEQ IV (18:01)
[2022-10-11] MEDS: propofol 10 mg/mL SDV 20 mL 50 MG IVP (18:28)
[2022-10-11] MEDS: propofol 1,000 MG/100 ML INJ 10.41 MG IV (18:28)
--- NOTE | 2022-10-11 19:07 | PC.NURSE ---
ETOMIDATE GIVEN 1638. SUCC GIVEN 1640. PT INTUBATED AT 1641. ET TUBE 24 @ TEETH. HR 92 SPO2 96% BP 133/98
[2022-10-11] MEDS: vecuronium 10 mg SDV IVP (19:10)
--- NOTE | 2022-10-11 19:35 | PC.NURSE ---
Patient transported to CT with RT and ambu-bag, ICU nurse, and on transport monitor. No issues occurred during transport
--- NOTE | 2022-10-11 20:06 | W.ED.PSYCHS ---
HPI - Psych General: Chief Complaint: Psychiatric Symptoms Stated Complaint: SOB Time Seen by Provider: 10/11/22 16:46 Source: EMS Mode of arrival: EMS History of Present Illness: . Course Vital Signs: Vital signs: Vital Signs Pulse Rate 80 10/11/22 19:58 Respiratory Rate 18 10/11/22 19:58 Blood Pressure 118/82 10/11/22 19:58 Pulse Oximetry 94 10/11/22 19:58 Oxygen Delivery Me thod 10/11/22 19:58 Fraction of Inspir ed Oxygen 50 10/11/22 17:40 MDM - Psych Medical Decision Making Patient presents here after alcohol intoxication and he was combative in the field where they gave him ketamine and he decompensated respiratory barroso he had a Ervin airway in place and Dr. Pressley had intubated him barroso here he is pending CT and turned over me CT head is normal he has been stable here spoke to the hospitalist will admit to the ICU at this time. Lab Data 10/11/22 16:40 10/11/22 16:40 Radiology Impressions Chest X-Ray 10/11/22 16:51 IMPRESSION: 1. Endotracheal catheter and nasogastric tube appear in good position, as noted above. 2. Overall decreased inspiration and with suggestion of basilar atelectasis, with questionable trace effusion right costophrenic angle. Head CT 10/11/22 17:18 IMPRESSION: No acute intracranial abnormality. Laboratory Results WBC 9.6 10^3/uL (4.0-10.0) 10/11/22 16:40 RBC 4.99 10^6/uL (4.1-5.3) 10/11/22 16:40 Hgb 15.3 g/dL (11.7-16.6) 10/11/22 16:40 Hct 45.6 % (42.0-52.0) 10/11/22 16:40 MCV 91.4 fl (80-94) 10/11/22 16:40 MCH 30.7 pg (28.0-34.0) 10/11/22 16:40 MCHC 33.6 g/dL (30.0-36.0) 10/11/22 16:40 RDW 12.3 % (12.1-15.1) 10/11/22 16:40 Plt Count 355 10^3/cmm (130-400) 10/11/22 16:40 MPV 9.7 fL (7.4-10.4) 10/11/22 16:40 Neut % (Auto) 49.0 % 10/11/22 16:40 Lymph % (Auto) 39.0 % 10/11/22 16:40 [place] % (Auto) 9.5 % 10/11/22 16:40 Eos % (Auto) 1.5 % 10/11/22 16:40 Baso % (Auto) 0.7 % 10/11/22 16:40 Neut # (Auto) 4.68 10^3/uL (1.8-7.7) 10/11/22 16:40 Lymph # (Auto) 3.7 10^3/uL (0.8-4.8) 10/11/22 16:40 [place] # (Auto) 0.9 10^3/uL (0.2-0.9) 10/11/22 16:40 Eos # (Auto) 0.1 10^3/uL (0.0-0.8) 10/11/22 16:40 Baso # (Auto) 0.1 10^3/uL (0.0-0.1) 10/11/22 16:40 Nucleated RBC % (auto) 0 % 10/11/22 16:40 Nucleated RBCs # 0.0 /100WBC 10/11/22 16:40 Specimen Type Arterial 10/11/22 17:03 Sample Site Radial, right 10/11/22 17:03 ABG pH 7.30 (7.35-7.45) L 10/11/22 17:03 ABG pCO2 65.5 mmHg (35-45) H* 10/11/22 17:03 ABG pO2 138.0 mmHg (80.0-100.0) H 10/11/22 17:03 ABG HCO3 31.8 mmol/L (22-26) H 10/11/22 17:03 ABG O2 Saturation 98.7 10/11/22 17:03 ABG Base Excess 2.9 mmol/L (-2.0-2.0) H 10/11/22 17:03 Travis Test Pos 10/11/22 17:03 A-a O2 Gradient 64.0 mmHg (5-10) H 10/11/22 17:03 Hematocrit 50.2 % (42-52) 10/11/22 17:03 Hgb O2 Saturation 92.0 % (95-100) L 10/11/22 17:03 Carboxyhemoglobin 6.6 %THgb (0.4-20.1) 10/11/22 17:03 Methemoglobin 0.1 % (0.4-1.5) L 10/11/22 17:03 Total Hemoglobin 16.4 g/dL (14-18) 10/11/22 17:03 Sodium 146.0 mmol/L (131-143) H 10/11/22 17:03 Potassium 3.4 mmol/L (3.5-5.0) L 10/11/22 17:03 Glucose 120.0 mg/dL (70-115) H 10/11/22 17:03 Ionized Calcium 1.2 mmol/L (1.1-1.4) 10/11/22 17:03 O2 Delivery Device Vent 10/11/22 17:03 FiO2 100.0 % 10/11/22 17:03 Tidal Volume 0.48 10/11/22 17:03 PEEP 8.0 cmH20 10/11/22 17:03 Tenant Selector ID Monro 10/11/22 17:03 Sodium 138 mmol/L (136-145) 10/11/22 16:40 Potassium 2.9 mmol/L (3.5-5.1) L 10/11/22 16:40 Chloride 95 mmol/L (98-107) L 10/11/22 16:40 Carbon Dioxide 28 mmol/L (22-29) 10/11/22 16:40 Anion Gap 17.9 (5-19) 10/11/22 16:40 BUN 5 mg/dL (6-20) L 10/11/22 16:40 Creatinine 1.0 mg/dL (0.7-1.2) 10/11/22 16:40 GFR Calculation 79.1 mL/min (90-130) L 10/11/22 16:40 Glucose 123 mg/dL (65-115) H 10/11/22 16:40 Calculated Osmolality 285 mOsm/kg (285-295) 10/11/22 16:40 Calcium 8.9 mg/dL (8.5-10.5) 10/11/22 16:40 Total Bilirubin 0.2 mg/dL (0.15-1.2) 10/11/22 16:40 AST 42 U/L (0-40) H 10/11/22 16:40 ALT 41 U/L (0-41) 10/11/22 16:40 Alkaline Phosphatase 60 U/L (40-130) 10/11/22 16:40 Total Protein 7.2 g/dL (6.6-8.7) 10/11/22 16:40 Albumin 4.0 g/dL (3.5-5.2) 10/11/22 16:40 Globulin 3.2 g/dL (1.3-4.6) 10/11/22 16:40 Salicylates < 0.3 mg/dL (3-10) L 10/11/22 16:40 Acetaminophen < 5.0 ug/mL (10-30) L 10/11/22 16:40 Ethyl Alcohol 461 mg/dL (0-10) H* 10/11/22 16:40 Critical Care Time Critical Care Time: Critical Care Time: Yes Total Critical Care Time: 40 Attestation: The high probability of a clinically significant, sudden or life threatening deterioration of the patient's resp system(s) required my full and direct attention, intervention and personal management. The critical care time is as shown. This time is in addition to time spent performing any reported procedures but includes the following: [x] Data and vital sign review and interpretation [x] Patient assessment, examination and intervention [x] Documentation [x] Medication orders and management Discharge Plan Discharge Patient Disposition: Admitted As Inpatient Clinical Impression: Acute alcoholic intoxication, Respiratory failure Condition: Stable Coding Level of Care Code ED Trap Puller for Michelle Crowder
[2022-10-11 20:11] LABS: Amphetamines Screen Urine Negative (Negative); Barbiturates Screen Urine Negative (Negative); Benzodiazepines Screen Urine Negative (Negative); Cocaine Screen Urine Negative (Negative); Opiate Screen Urine Negative (Negative); PCP Screen Urine Negative (Negative); THC Screen Urine Negative (Negative)
--- NOTE | 2022-10-11 20:27 | P.HP_ITS ---
Providers/Chief Complaint Chief Complaint: SOB History of Present Illness John Yeung Jr is a 52 year old male with past medical history of alcohol abuse disorder, was brought in today by EMS for the management of the same, EMS had placed a Ervin airway in the field as the patient was extremely combative patient was intubated in the ER. Currently is intubated sedated on mechanical v entilation. CT head without contrast: Showed no acute intracranial pathology,X- ray chest: bibasilar atelectasis.EKG: SR, no acute ST-T wave changes. WBC 9.6, H&H 15 and 45,PLT : 355, serum sodium 138, serum potassium 2.9, BUN 5,SCR: 1 , random blood sugar 123, serum salicylate less than 0.3, serum acetaminophen level less than 5, Ethyl alcohol 461. Review of Systems General: Reports: ROS unobtainable due to endotracheal tube Medications/Allergies Allergies Allergy/AdvReac Type Severity Reaction Status Date / Time Unable to Assess Allergy Unverified 10/11/22 21:08 Vitals/I&O/Wt Last Vital Signs Pulse 80 10/11/22 19:58 Resp 18 10/11/22 19:58 BP 118/82 10/11/22 19:58 Pulse Ox 94 10/11/22 19:58 O2 Del Method 10/11/22 19:58 FiO2 50 10/11/22 17:40 10/11/22 10/11/22 10/11/22 06:59 14:59 22:59 Intake Total 110.500 / 110.500 Balance 110.500 / 110.500 Weight last 48 hrs Weight 115.666 kg Physical Exam HENMT: COMMON NORMALS: normocephalic and atraumatic Resp: COMMON NORMALS: clear to auscultation bilaterally AUSCULTATION: clear to auscultation bilaterally Cardio: COMMON NORMALS: regular rate, regular rhythm, S1 normal heart sound present, S2 normal heart sound present, No gallops present (Cardio), No murmurs present (Cardio), No rub (Cardio) and Peripheral pulses 2+ throughout RATE: regular rate RHYTHM: regular rhythm HEART SOUNDS: S1 normal heart sound present and S2 normal heart sound present PERIPHERAL PULSES: Peripheral pulses 2+ throughout GI: COMMON NORMALS: Normal to inspection, nondistended, normoactive bowel sounds present, Soft to palpation, non-tender, No hepatosplenomegaly present and no masses AUSCULTATION: Yes normoactive bowel sounds PALPATION: Yes Soft to palpation and Yes No hepatosplenomegaly present RECTAL EXAM: Yes deferred Extremity: COMMON NORMALS: no clubbing, cyanosis or edema and no pedal edema Urinary Catheter Management: Wolfe: Cath Placed During This Visit: yes Urinary Catheter Date of Insertion: 10/11/22 Data 10/11/22 16:40 10/11/22 16:40 A&P Assessment and plan (1) Acute alcoholic intoxication: (2) Respiratory failure with hypoxia and hypercapnia: (3) Hypokalemia: Plan John Yeung Jr is a 52 year old male with past medical history of alcohol abuse disorder, was brought in today by EMS for the management of the same, EMS had placed a Ervin airway in the field as the patient was extremely combative patient was intubated in the ER. Assessment: Altered mental status secondary to: Alcohol intoxication CT head without contrast: Showed no acute intracranial pathology,X-ray chest: bibasilar atelectasis.EKG: SR, no acute ST-T wave changes. Currently is intubated sedated on mechanical ventilation. On propofol and fentanyl for sedation Follow blood culture Sputum Gram stain and culture Continue mechanical ventilation for now ,plan to extubate once appropriate. There was also some concerns for possible suicidal ideation. Once patient is extubated, it can be assessed, and psychiatry can be consulted if needed. Alcohol intoxication: Currently on IV thiamine Continue IV hydration Respiratory failure with hypoxia and hypercapnia: Follow sputum Gram stain and culture For now will empirically cover him with ceftriaxone DuoNebs Monitor ABG x-ray chest as needed Plan to extubate once appropriate Hypokalemia: Patient has received IV potassium replacement Monitor serum potassium, and correct appropriately CODE STATUS: Full code DVT prophylaxis: On Lovenox Attestations Medical Necessity Statement*: Patient is in hospital for management of altered mental status. Anticipated length of stay greater than 2 midnights Critical Care Time: Critical Care Time (min): 35 Coding Level of Care Code Critical Care >/= 30 minutes Diagnoses Acute alcoholic intoxication F10.929 Respiratory failure with hypoxia and hypercapnia J96.91; J96.92 Hypokalemia E87.6
[2022-10-11] MEDS: lidocaine 1% 5 ML in potassium chloride premix 100 ML 26.25 ML IV (20:42)
[2022-10-11] MEDS: sodium chloride 0.9% 1,000 ML 999 ML IV (20:44)
[2022-10-11] MEDS: enoxaparin 40 mg/0.4 mL Syringe SUBCUT (20:47)
[2022-10-11] MEDS: sodium chlor 0.9% + KCl 20 mEq 20 MEQ/1,000 ML BAG 100 MEQ IV (22:37)
[2022-10-12] VITALS (50 sets, daily range): BP systolic 86–182; BP diastolic 58–117; PULSE 61–110; RESP 13–29; TEMP 36.3–37.2; O2SAT 86–98
[2022-10-12] MEDS: sodium chloride 0.9% 1,000 ML 999 ML IV (00:12)
[2022-10-12] MEDS: propofol 1,000 MG/100 ML INJ 13.88 MG IV (00:47)
[2022-10-12 03:07] LABS: Basophils % 0.4 %; Eosinophils # 0.1 10^3/uL (0.0-0.8); Eosinophils % 1.1 %; Hemoglobin 13.1 g/dL (11.7-16.6); Lymphocytes % 36.5 %; Mean Corpuscular HGB Conc 33.6 g/dL (30.0-36.0); Mean Corpuscular Hemoglobin 31.3 pg (28.0-34.0); Mean Corpuscular Volume 93.3 fl (80-94); Mean Platelet Volume 9.5 fL (7.4-10.4); Monocytes # 0.7 10^3/uL (0.2-0.9); Monocytes % 8.4 %; Neutrophils # 4.35 10^3/uL (1.8-7.7); Neutrophils % 53.2 %; Nucleated Red Blood Cells % 0 %; Platelet Count 284 10^3/cmm (130-400); Red Blood Count 4.18 10^6/uL (4.1-5.3); Red Cell Distribution Width 12.5 % (12.1-15.1); White Blood Count 8.2 10^3/uL (4.0-10.0)
[2022-10-12 03:22] LABS: Lactic Sepsis W/Reflex 2.2 mmol/L (0.5-2.2)
[2022-10-12 03:27] LABS: Alanine Aminotransferase 34 U/L (0-41); Albumin Level 3.3 g/dL (3.5-5.2); Alkaline Phosphatase 50 U/L (40-130); Anion Gap 17.1 (5-19); Aspartate Amino Transferase 40 U/L (0-40); Blood Urea Nitrogen 6 mg/dL (6-20); Calcium 7.8 mg/dL (8.5-10.5); Carbon Dioxide 26 mmol/L (22-29); Chloride 103 mmol/L (98-107); Globulin 2.6 g/dL (1.3-4.6); Glomerular Filtration Rate 58.4 mL/min (90-130); Glucose 98 mg/dL (65-115); Magnesium 1.6 mg/dL (1.7-2.3); Osmolality Calculated 294 mOsm/kg (285-295); Phosphorus 4.1 mg/dL (2.5-4.5); Potassium 3.1 mmol/L (3.5-5.1); Sodium 143 mmol/L (136-145); Total Bilirubin 0.2 mg/dL (0.15-1.2); Total Protein 5.9 g/dL (6.6-8.7)
[2022-10-12 03:29] LABS: Procalcitonin 0.04 ng/mL (0-0.5)
[2022-10-12] MEDS: ipratropium-albuterol 3 mL Neb INHALATION ×4 (03:40→20:14)
[2022-10-12] MEDS: ondansetron 2 mg/ML SDV 2 mL 4 MG IVP (04:36)
[2022-10-12] MEDS: propofol 1,000 MG/100 ML INJ 55.52 MG IV (04:43)
[2022-10-12] MEDS: potassium chloride premix 100 ML 25 MEQ IV (04:43)
[2022-10-12 04:46] LABS: Reflex Lactate Order REFLEX LACTIC ORDERD
[2022-10-12 06:27] LABS: Lactic Acid level (Lactate) 2.3 mmol/L (0.5-2.2)
--- NOTE | 2022-10-12 07:46 | PC.PHAR ---
pt is intubated unable to verify medications with pt-ext med history shows gabapentin 800mg qid filled 09/26/22 3d/s-amlodipine 10mg daily filled 09/26/22 3d/s-trazodone 150mg hs prn filled 09/26/22 3d/s-hydroxyzine pamoate 25mg tid filled 09/26/22 3d/s-cymbalta 30mg bid filled 09/26/22 3d/s-fenofibrate 145mg daily filled 09/26/22 3d/s and ventolin 2p q6h prn filled 08/22/22 25d/s
[2022-10-12] MEDS: propofol 1,000 MG/100 ML INJ 27.76 MG IV (07:50)
[2022-10-12 08:57] LABS: ABG PCO2 44.4 mmHg (35-45); ABG PH Result 7.37 (7.35-7.45); Arterial Blood Gas Hematocrit 43.4 % (42-52); Base Excess ABG -0.1 mmol/L (-2.0-2.0); Blood Gas Allen Test Pos; Blood Gas Operator Identificat CAK; Blood Gas Sample Site Radial, left; Blood Gas Sample Type Arterial; HCO3 ABG 25.5 mmol/L (22-26); Oxygen Device VENT; PO2 ABG 81.9 mmHg (80.0-100.0)
[2022-10-12] MEDS: PHENobarbital 130 mg/mL SDV 1 mL 120 MG IV ×2 (09:31→11:59)
--- NOTE | 2022-10-12 12:18 | PM.PN ---
Subjective Subjective: Patient was intubated for alcohol intoxication, protect airway This morning he is wide-awake on propofol and fentanyl Decision was made to extubate him Vitals/I&O/Wt Last Vital Signs Temp 98.9 F 10/12/22 04:00 Pulse 86 10/12/22 12:00 Resp 28 H 10/12/22 12:00 BP 145/92 10/12/22 12:00 Pulse Ox 93 10/12/22 12:00 O2 Del Method 10/12/22 08:00 FiO2 35 10/12/22 08:00 10/11/22 10/12/22 10/12/22 22:59 06:59 14:59 Intake Total 1144.101 / 7372.373 6225.662 / 2464.763 500 / 500 Output Total 700 / 700 Balance 1144.101 / 1144.101 620.662 / 1764.763 500 / 500 Weight last 48 hrs Weight 122.515 kg Weight 115.666 kg Physical Exam Narrative: Patient is awake and alert despite being on sedative Intubated Abdomen mildly tender Well-built male Morbidly obese S1, S2 Currently following commands Nonfocal neuro exam Calm and cooperative Urinary Catheter Management: Wolfe: Cath Placed During This Visit: yes Reason for Continuing Indwelling Catheter: Accurate Measurement of Urinary Output in Critically Ill Patients Urinary Catheter Date of Insertion: 10/11/22 Data 10/12/22 02:45 10/12/22 02:45 Micro: Microbiology 10/11/22 22:59 Blood Culture - Preliminary Blood SPECIMEN COLLECTED 10/11/22 22:57 Blood Culture - Preliminary Blood SPECIMEN COLLECTED A&P Assessment and plan (1) Hypokalemia: (2) Respiratory failure with hypoxia and hypercapnia: (3) Acute alcoholic intoxication: (4) Respiratory failure: Plan Alcohol intoxication Patient was intubated on 10/11 for airway protection by the ER LMA/Ervin airway was provided by the EMS Extubated 10/12 Currently patient doing well on room air Monitor for signs of withdrawal, will add phenobarbital 120 mg every 2 hours as needed basis Currently patient is calm and cooperative on Precedex Thiamine and folic acid I will let patient eat, start regular diet No active signs of withdrawal Respiratory failure requiring mechanical ventilation: Resolved Acute hypoxic hypercapnic respite failure related to alcohol desiccation: Resolved Hypokalemia: Repleted DVT prophylaxis on board with Lovenox Full code Patient tolerating diet, discontinue IV fluid Attestations Medical Necessity Statement*: Monitor in ICU for today Diagnoses Hypokalemia E87.6 Respiratory failure with hypoxia and hypercapnia J96.91; J96.92 Acute alcoholic intoxication F10.929 Respiratory failure J96.90
[2022-10-12] MEDS: gabapentin 400 mg Capsule 800 MG PO ×2 (13:43→20:32)
[2022-10-12] MEDS: dexmedetomidine 400 MCG in sodium chloride 0.9% (100 ml) 100 ML IV (14:13)
[2022-10-12] MEDS: enoxaparin 40 mg/0.4 mL Syringe SUBCUT (20:32)
[2022-10-12] MEDS: dexmedetomidine 400 MCG in sodium chloride 0.9% (100 ml) 100 ML 12.74 MCG IV (20:47)
[2022-10-13] VITALS (27 sets, daily range): BP systolic 119–187; BP diastolic 74–118; PULSE 52–87; RESP 13–26; TEMP 36.4–37.5; O2SAT 82–97; BMI 38.7
[2022-10-13] MEDS: labetalol 5 mg/mL SDV 20mL 10 MG IVP (02:18)
[2022-10-13 02:50] LABS: Basophils % 0.2 %; Eosinophils # 0.2 10^3/uL (0.0-0.8); Eosinophils % 2.9 %; Hematocrit 38.4 % (42.0-52.0); Hemoglobin 13.1 g/dL (11.7-16.6); Lymphocytes # 2.1 10^3/uL (0.8-4.8); Lymphocytes % 24.6 %; Mean Corpuscular HGB Conc 34.1 g/dL (30.0-36.0); Mean Corpuscular Hemoglobin 30.8 pg (28.0-34.0); Mean Corpuscular Volume 90.4 fl (80-94); Monocytes # 0.7 10^3/uL (0.2-0.9); Monocytes % 7.8 %; Neutrophils # 5.32 10^3/uL (1.8-7.7); Neutrophils % 63.9 %; Nucleated Red Blood Cells % 0 %; Platelet Count 216 10^3/cmm (130-400); Red Blood Count 4.25 10^6/uL (4.1-5.3); Red Cell Distribution Width 11.8 % (12.1-15.1); White Blood Count 8.3 10^3/uL (4.0-10.0)
[2022-10-13 03:12] LABS: Alanine Aminotransferase 29 U/L (0-41); Albumin Level 3.3 g/dL (3.5-5.2); Alkaline Phosphatase 57 U/L (40-130); Anion Gap 15.4 (5-19); Aspartate Amino Transferase 34 U/L (0-40); Blood Urea Nitrogen 7 mg/dL (6-20); Calcium 8.8 mg/dL (8.5-10.5); Carbon Dioxide 26 mmol/L (22-29); Chloride 99 mmol/L (98-107); Globulin 2.7 g/dL (1.3-4.6); Glomerular Filtration Rate 89.3 mL/min (90-130); Glucose 111 mg/dL (65-115); Magnesium 1.6 mg/dL (1.7-2.3); Osmolality Calculated 283 mOsm/kg (285-295); Phosphorus 3.7 mg/dL (2.5-4.5); Potassium 3.4 mmol/L (3.5-5.1); Sodium 137 mmol/L (136-145); Total Bilirubin 0.5 mg/dL (0.15-1.2)
[2022-10-13] MEDS: dexmedetomidine 400 MCG in sodium chloride 0.9% (100 ml) 100 ML 9.56 MCG IV (05:28)
[2022-10-13] MEDS: thiamine 100 mg Tablet PO (08:07)
[2022-10-13] MEDS: folic acid 1 mg Tablet PO (08:07)
[2022-10-13] MEDS: acetaminophen 325 mg Tablet 650 MG PO ×2 (08:07→19:28)
[2022-10-13] MEDS: gabapentin 400 mg Capsule 800 MG PO (08:07)
[2022-10-13] MEDS: PHENobarbital 130 mg/mL SDV 1 mL IV (08:12)
[2022-10-13] MEDS: ipratropium-albuterol 3 mL Neb INHALATION ×3 (08:37→20:16)
[2022-10-13] MEDS: chlordiazePOXIDE 25 mg Capsule PO ×3 (09:41→21:30)
[2022-10-13] MEDS: LORazepam 2 mg/mL INJ 1 mL IVP ×3 (09:41→19:29)
[2022-10-13] MEDS: potassium chloride ER 20 mEq Tablet 40 MEQ PO (09:41)
--- NOTE | 2022-10-13 10:33 | PM.PN ---
Subjective Subjective: CIWA score at 17 this morning. Patient is alert awake, exhibiting signs of alcohol withdrawal with sweating increasing fidgetiness. Currently given phenobarbital 120 mg and resting comfortably thereafter. Precedex infusion was discontinued this morning due to development of bradycardia. Does not offer any complaints at this present time. Medications: Reviewed: Yes Vitals/I&O/Wt Last Vital Signs Temp 98.4 F 10/13/22 00:00 Pulse 59 L 10/13/22 08:00 Resp 16 10/13/22 08:00 BP 163/112 10/13/22 06:00 Pulse Ox 96 10/13/22 08:00 O2 Del Method 10/13/22 08:00 O2 Flow Rate 2 10/13/22 00:00 FiO2 35 10/12/22 08:00 10/12/22 10/13/22 10/13/22 22:59 06:59 14:59 Intake Total 642.299 / 1628.269 344 / 1972.269 19.967 / 19.967 Output Total 1900 / 1900 1300 / 3200 Balance -1257.701 / -271.731 -956 / -1227.731 19.967 / 19.967 Weight last 48 hrs Weight 122.515 kg Weight 122.515 kg Weight 115.666 kg Physical Exam Narrative: General: No acute distress, AO x3 HEENT: PERRLA, pupils bilaterally equal and reactive, pallors not present Chest: Normal vesicular breath sounds, no added sounds, equal good air entry bilaterally CVS: S1-S2 regular, no murmurs, no tachycardia, no gallops, no rubs Abdomen: Soft, nontender, no organomegaly, bowel sounds present Neuro: No focal deficits, no facial deformity, AO x3, power 5/5 in all limbs Urinary Catheter Management: Wolfe: Cath Placed During This Visit: yes Reason for Continuing Indwelling Catheter: Accurate Measurement of Urinary Output in Critically Ill Patients Urinary Catheter Date of Insertion: 10/11/22 Data 10/13/22 02:22 10/13/22 02:22 Micro: Microbiology 10/11/22 22:59 Blood Culture - Preliminary Blood NEGATIVE TO DATE 10/11/22 22:57 Blood Culture - Preliminary Blood NEGATIVE TO DATE 10/11/22 16:55 Gram Stain - Final Sputum - Endotracheal Tube Aspirate Sputum Culture - Preliminary A&P Assessment and plan (1) Hypokalemia: (2) Respiratory failure with hypoxia and hypercapnia: (3) Acute alcoholic intoxication: (4) Respiratory failure: Plan #Acute alcohol intoxication upon admission Alcohol level greater than 400 upon admission Patient was intubated on 10/11 for airway protection by the ER, extubated on October 12, 2022. Able to maintain his airway since then. Saturating 96% on room air. Chest x-ray with bibasilar atelectasis, no consolidation. #Initially with alcohol intoxication upon admission. Now exhibiting signs of alcohol withdrawal. Added CIWA monitoring per ICU protocol. Patient was on Precedex drip which needed to be discontinued this morning due to development of bradycardia. Ativan per CIWA protocol Start on p.o. Librium 25 mg p.o. every 6 hours, plan to titrate down over the course of next few days Discontinue gabapentin 800 3 times daily as ordered currently Phenobarbital. As needed if needed over and above Ativan and Librium Aspiration precautions Thiamine 100 mg p.o. daily for prevention of Wernicke's encephalopathy Folic acid 1 mg p.o. daily Start home medications including trazodone 150 at bedtime as needed and duloxetine 30 mg p.o. twice daily #History of hypertension Blood pressure this morning at 163/112 mmHg. Improved after being administered phenobarbital. Resume home dose of amlodipine 10 mg daily. #Acute hypoxic respiratory failure upon admission related to alcohol intoxication: Resolved # Hypokalemia: Repleted DVT prophylaxis : Lovenox Full code Attestations Medical Necessity Statement*: Continue close monitoring in the ICU due to concern for high CIWA scores and alcohol withdrawal Coding Level of Care Code Critical Care >/= 30 minutes Diagnoses Hypokalemia E87.6 Respiratory failure with hypoxia and hypercapnia J96.91; J96.92 Acute alcoholic intoxication F10.929 Respiratory failure J96.90
[2022-10-13] MEDS: docusate sodium 100 mg Capsule 200 MG PO (18:09)
[2022-10-13] MEDS: duloxetine 30 mg Capsule PO (18:09)
--- NOTE | 2022-10-13 18:22 | PC.NURSE ---
Shift Note: Pt rested in bed most of shift. He did get out of bed once to [facility]. Pt has complained of headache, feeling bad this shift. CIWA started, first score 17 this am, Phenobarbital given. Then Librium started as scheduled. Rechecked in an hour, his score 11, Ativan admin. He is finishing the shift with a score of 13. Ativan admin. He did complain of nausea this am, no further nausea rest of shift. He has been diaphoretic off and on this shift. His blood pressure improves after alcohol withdraw treated with medications. He requested Nicotine patch today, awaiting pharmacy verification. He has ate his meals well and drank plenty of fluids. Pale yellow urine noted, output 5100ml. He did have a large BM this shift. He is hoping to get transferred to [facility] for withdraw treatment. Frequent safety and comfort rounds continue. Orders and/or nursing care completed as indicated. Patient monitored for response to intervention and treatment(s). Education provided includes Librium, Ativan, Phenobarbital, plan of care and progress. Patient verbalized understanding of medication, plan of care and progress discussed.. Will continue to monitor.
[2022-10-13] MEDS: nicotine 14 mg Patch 1 PATCH TRANSDERMA (18:38)
[2022-10-13] MEDS: trazodone 150 mg Tablet PO (19:28)
--- NOTE | 2022-10-13 19:30 | PC.NURSE ---
Patient noted to be sweating and anxious upon entering room for shift change report. CIWA scored 14. Reports headache. Tylenol given prn for headache, Ativan 2mg given for CIWA score of 14. IV to left anticubital space leaking and not flushing appropriately. Discontinued Saline lock form L AC, tolerated well.
[2022-10-13] MEDS: enoxaparin 40 mg/0.4 mL Syringe SUBCUT (19:41)
--- NOTE | 2022-10-13 20:00 | PC.NURSE ---
Resting comfortably, reports headache improved a little and feels much more relaxed. No sweating noted.
[2022-10-14] VITALS (26 sets, daily range): BP systolic 113–172; BP diastolic 97–117; PULSE 62–109; RESP 12–24; TEMP 36.3–37.1; O2SAT 90–100; BMI 37.7
[2022-10-14] MEDS: LORazepam 2 mg/mL INJ 1 mL IVP ×2 (00:18→07:02)
--- NOTE | 2022-10-14 04:00 | PC.NURSE ---
Offered to assist patient with bath and oral care, patient refused, states maybe later.
[2022-10-14] MEDS: chlordiazePOXIDE 25 mg Capsule PO ×4 (04:27→21:47)
[2022-10-14 05:23] LABS: Basophils % 0.5 %; Eosinophils # 0.4 10^3/uL (0.0-0.8); Eosinophils % 4.5 %; Hematocrit 43.2 % (42.0-52.0); Hemoglobin 14.6 g/dL (11.7-16.6); Lymphocytes # 1.7 10^3/uL (0.8-4.8); Lymphocytes % 22.3 %; Mean Corpuscular HGB Conc 33.8 g/dL (30.0-36.0); Mean Corpuscular Hemoglobin 30.5 pg (28.0-34.0); Mean Corpuscular Volume 90.4 fl (80-94); Mean Platelet Volume 10.1 fL (7.4-10.4); Monocytes # 0.6 10^3/uL (0.2-0.9); Monocytes % 7.3 %; Neutrophils # 5.01 10^3/uL (1.8-7.7); Nucleated Red Blood Cells % 0 %; Platelet Count 256 10^3/cmm (130-400); Red Blood Count 4.78 10^6/uL (4.1-5.3); Red Cell Distribution Width 11.9 % (12.1-15.1); White Blood Count 7.7 10^3/uL (4.0-10.0)
[2022-10-14 05:47] LABS: Alanine Aminotransferase 25 U/L (0-41); Albumin Level 3.7 g/dL (3.5-5.2); Alkaline Phosphatase 61 U/L (40-130); Anion Gap 17.4 (5-19); Aspartate Amino Transferase 36 U/L (0-40); Blood Urea Nitrogen 7 mg/dL (6-20); Calcium 9.3 mg/dL (8.5-10.5); Carbon Dioxide 24 mmol/L (22-29); Chloride 99 mmol/L (98-107); Globulin 3.2 g/dL (1.3-4.6); Glomerular Filtration Rate 102.3 mL/min (90-130); Glucose 98 mg/dL (65-115); Magnesium 1.7 mg/dL (1.7-2.3); Osmolality Calculated 282 mOsm/kg (285-295); Phosphorus 4.1 mg/dL (2.5-4.5); Potassium 3.4 mmol/L (3.5-5.1); Sodium 137 mmol/L (136-145); Total Bilirubin 0.4 mg/dL (0.15-1.2); Total Protein 6.9 g/dL (6.6-8.7)
[2022-10-14] MEDS: acetaminophen 325 mg Tablet 650 MG PO ×3 (07:02→21:46)
--- NOTE | 2022-10-14 07:06 | PC.NURSE ---
Offered to assist with bath, refused, states maybe later.
[2022-10-14] MEDS: ipratropium-albuterol 3 mL Neb INHALATION ×3 (08:07→20:50)
[2022-10-14] MEDS: pantoprazole DR 40 mg Tablet PO (08:57)
[2022-10-14] MEDS: nicotine 14 mg Patch 1 PATCH TRANSDERMA (08:57)
[2022-10-14] MEDS: duloxetine 30 mg Capsule PO ×2 (08:57→18:12)
[2022-10-14] MEDS: docusate sodium 100 mg Capsule 200 MG PO (08:57)
[2022-10-14] MEDS: fenofibrate 145 mg Tablet PO (08:57)
[2022-10-14] MEDS: folic acid 1 mg Tablet PO (08:57)
[2022-10-14] MEDS: thiamine 100 mg Tablet PO (08:58)
[2022-10-14] MEDS: amlodipine 10 mg Tablet PO (08:58)
[2022-10-14] MEDS: multivitamin therapeutic Tablet 1 TAB PO (08:58)
[2022-10-14] MEDS: ondansetron 2 mg/ML SDV 2 mL 4 MG IVP (15:06)
--- NOTE | 2022-10-14 17:10 | PM.PN ---
Subjective Subjective: CIWA score improving today, this morning was at 7. Symptoms controlled with ativan and librium. patient is much more calm, awake, alert and oriented. Patient wishes desire to get assistance with alcohol dependence and admission to [facility] Medications: Reviewed: Yes Vitals/I&O/Wt Last Vital Signs Temp 98.7 F 10/14/22 14:00 Pulse 84 10/14/22 15:52 Resp 19 H 10/14/22 15:00 BP 158/97 10/14/22 15:00 Pulse Ox 94 10/14/22 15:00 O2 Del Method 10/14/22 15:00 O2 Flow Rate 2 10/13/22 13:00 FiO2 35 10/12/22 08:00 10/14/22 10/14/22 10/14/22 06:59 14:59 22:59 Intake Total 150 / 2179.967 1000 / 1000 Output Total 1800 / 6900 Balance -1650 / -4720.033 1000 / 1000 Weight last 48 hrs Weight 119.34 kg Weight 122.515 kg Physical Exam Narrative: General: No acute distress, AO x3 HEENT: PERRLA, pupils bilaterally equal and reactive, pallors not present Chest: Normal vesicular breath sounds, no added sounds, equal good air entry bilaterally CVS: S1-S2 regular, no murmurs, no tachycardia, no gallops, no rubs Abdomen: Soft, nontender, no organomegaly, bowel sounds present Neuro: No focal deficits, no facial deformity, AO x3, power 5/5 in all limbs Urinary Catheter Management: Wolfe: Cath Placed During This Visit: yes, but has since been removed by the nurse Reason for Continuing Indwelling Catheter: Decision to DC Catheter Urinary Catheter Date of Insertion: 10/11/22 Date Urinary Catheter Removed: 10/14/22 Time Urinary Catheter Discontinued: 11:45 Data 10/14/22 04:40 10/14/22 04:40 Micro: Microbiology 10/11/22 16:55 Gram Stain - Final Sputum - Endotracheal Tube Aspirate Sputum Culture - Final A&P Assessment and plan (1) Hypokalemia: (2) Respiratory failure with hypoxia and hypercapnia: (3) Acute alcoholic intoxication: (4) Respiratory failure: Plan #Acute alcohol intoxication upon admission Alcohol level greater than 400 upon admission Patient was intubated on 10/11 for airway protection by the ER, extubated on October 12, 2022. Able to maintain his airway since then. Saturating 96% on room air. Chest x-ray with bibasilar atelectasis, no consolidation. #Initially with alcohol intoxication upon admission. Now exhibiting signs of alcohol withdrawal. He was on Precedex drip until morning of 10/13 Ciwa scores improving now, withdrawal symptoms currently controlled with ativan and librium. Continue Librium 25 mg p.o. every 6 hours, plan to titrate down over the course of next few days Thiamine 100 mg p.o. daily for prevention of Wernicke's encephalopathy Folic acid 1 mg p.o. daily Started home medications including trazodone 150 at bedtime as needed and duloxetine 30 mg p.o. twice daily Psychiatry consult per patient request to consider options for alcohol deaddiction as an inpatient #History of hypertension Blood pressure controlled today #Acute hypoxic respiratory failure upon admission related to alcohol intoxication: Resolved # Hypokalemia: Repleted DVT prophylaxis : Lovenox Full code Attestations Medical Necessity Statement*: improving signs of withdrawal, symptoms controlled on librium and ativan, psych consult, potential transfer to [facility] Coding Level of Care Code Acute Code for Chg Fwd Diagnoses Hypokalemia E87.6 Respiratory failure with hypoxia and hypercapnia J96.91; J96.92 Acute alcoholic intoxication F10.929 Respiratory failure J96.90
--- NOTE | 2022-10-14 18:24 | PC.NURSE ---
Attempted to call report to [facility], nurse out on floor, call back in a few minutes.
--- NOTE | 2022-10-14 18:24 | PC.NURSE ---
Shift summary: Pt rested in bed most of the day. He did agreed to sit uo in chair for a couple hours around lunch time, so I could change his bed linens. He did agree to bath today, supplies provided for him to sponge bath and oral care. Heart rhythm stayed sinus rhythm in the 90's today . He has had some HTN at times. He was restarted on his tricor and amlodipine today. His affeck is flat. His CIWA have been 4-10. He will complain of nausea at first, then his forehead will get sweating, his BP then elevates, then you an see the tremors. He has ate an adequate amount of his meals and drank plenty of fluids. He has urinated 100 ml and had a copious loose BM today. Colace held this evening due to the loose stool.
--- NOTE | 2022-10-14 18:37 | PC.NURSE ---
Called back [facility], day nurse too busy and night nurse not available.
[2022-10-14] MEDS: trazodone 150 mg Tablet PO (21:46)
[2022-10-14] MEDS: LORazepam 2 mg Tablet PO (21:47)
[2022-10-15 05:51] VITALS: BP 117/78; PULSE 93; RESP 16; TEMP 36.9; O2SAT 93
[2022-10-15 06:00] VITALS: PULSE 101; RESP 19; O2SAT 94
[2022-10-15] MEDS: nicotine 4 mg lozenge MUCOUS MEM ×3 (09:01→15:58)
[2022-10-15] MEDS: ondansetron 4 MG Tablet PO (09:01)
[2022-10-15] MEDS: fenofibrate 145 mg Tablet PO (09:03)
[2022-10-15] MEDS: duloxetine 30 mg Capsule PO ×2 (09:03→17:57)
[2022-10-15] MEDS: amlodipine 10 mg Tablet PO (09:03)
[2022-10-15] MEDS: folic acid 1 mg Tablet PO (09:03)
[2022-10-15] MEDS: chlordiazePOXIDE 25 mg Capsule PO ×3 (09:03→20:51)
[2022-10-15] MEDS: thiamine 100 mg Tablet PO (09:03)
[2022-10-15] MEDS: multivitamin therapeutic Tablet 1 TAB PO (09:04)
[2022-10-15] MEDS: pantoprazole DR 40 mg Tablet PO (09:04)
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
[2022-10-15] MEDS: LORazepam 2 mg Tablet PO ×2 (09:50→13:21)
[2022-10-15] MEDS: docusate sodium 100 mg Capsule 200 MG PO ×2 (10:07→17:57)
[2022-10-15] MEDS: guaiFENesin 100 mg/5 mL UDC 10 mL 400 MG PO (10:07)
[2022-10-15] MEDS: acetaminophen 325 mg Tablet 650 MG PO (13:20)
[2022-10-15 13:42] VITALS: BP 135/95; PULSE 110; RESP 17; TEMP 36.6; O2SAT 95
[2022-10-15 14:00] VITALS: PULSE 105; RESP 17; O2SAT 98
[2022-10-15] MEDS: ipratropium-albuterol 3 mL Neb INHALATION (14:12)
[2022-10-15 19:39] VITALS: BP 149/111; PULSE 107; RESP 18; TEMP 37.1; O2SAT 95
[2022-10-15] MEDS: gabapentin 400 mg Capsule 800 MG PO (20:50)
[2022-10-15] MEDS: trazodone 50 mg Tablet PO (20:50)
--- NOTE | 2022-10-15 20:50 | PC.NURSE ---
Patient requesting medication to promote sleep. PRN trazodone given as ordered.
--- NOTE | 2022-10-16 03:38 | PC.NURSE ---
Patient has been resting quietly during night. PRN trazodone effective.
[2022-10-16 06:00] VITALS: BP 136/92; PULSE 102; RESP 18; TEMP 36.7; O2SAT 93
[2022-10-16 08:43] VITALS: PULSE 102; RESP 18; O2SAT 93
[2022-10-16] MEDS: amlodipine 10 mg Tablet PO (08:44)
[2022-10-16] MEDS: docusate sodium 100 mg Capsule 200 MG PO ×2 (08:44→18:16)
[2022-10-16] MEDS: gabapentin 400 mg Capsule 800 MG PO ×3 (08:44→19:58)
[2022-10-16] MEDS: thiamine 100 mg Tablet PO (08:44)
[2022-10-16] MEDS: pantoprazole DR 40 mg Tablet PO (08:44)
[2022-10-16] MEDS: duloxetine 30 mg Capsule PO ×2 (08:44→18:17)
[2022-10-16] MEDS: chlordiazePOXIDE 25 mg Capsule PO ×3 (08:44→19:58)
[2022-10-16] MEDS: fenofibrate 145 mg Tablet PO (08:44)
[2022-10-16] MEDS: multivitamin therapeutic Tablet 1 TAB PO (08:44)
[2022-10-16] MEDS: folic acid 1 mg Tablet PO (08:44)
[2022-10-16] MEDS: nicotine 4 mg lozenge MUCOUS MEM ×3 (11:30→20:33)
--- NOTE | 2022-10-16 11:49 | W.PM.NPUPNS ---
Subjective NPU Subjective: Patient presented today reporting that he had an opportunity to speak to the social work team. He reports they are discussing the ERE program as well as some other options to assist with his sobriety. He reports that after his last hospitalization he had several months of sobriety and had been in the ERE program which he reports was helpful. He reports that he did have recent months of falling off the wagon and that things have digressed since then. We agreed we would work with this plan and look for appropriate discharge options. Mental Status Exam MSE Comments: This is an obese white male in hospital scrubs with limited grooming and eye contact. No abnormal movements except for psychomotor retardation. Mostly cooperative with exam in mild distress. Speech was decreased rate and volume. Mood described as depressed affect congruent. Thought process organized. Thought content: Patient denies suicidal or homicidal ideation, there were no delusions reported or noted, he denied any auditory or visual hallucinations. Attention and concentration were intact and memory appeared mostly reliable but none were formally tested. He is alert and oriented x3. Insight and judgment were limited impulse control is impaired. Vitals/I&O/Wt Last Vital Signs Temp 98.0 F 10/16/22 06:00 Pulse 102 H 10/16/22 08:43 Resp 18 10/16/22 08:43 BP 136/92 10/16/22 06:00 Pulse Ox 93 10/16/22 08:43 O2 Del Method 10/16/22 08:43 O2 Flow Rate 0 10/15/22 20:00 FiO2 35 10/12/22 08:00 Weight last 48 hrs Weight 119.34 kg Physical Exam Urinary Catheter Management: Wolfe: Cath Placed During This Visit: yes, but has since been removed by the nurse Reason for Continuing Indwelling Catheter: Decision to DC Catheter Urinary Catheter Date of Insertion: 10/11/22 Date Urinary Catheter Removed: 10/14/22 Time Urinary Catheter Discontinued: 11:45 Data NPU 10/14/22 04:40 10/14/22 04:40 A&P Assessment and plan (1) Respiratory failure: (2) Acute alcoholic intoxication: (3) Respiratory failure with hypoxia and hypercapnia: (4) Hypokalemia: (5) Major depressive disorder, recurrent: (6) Anxiety: (7) Alcohol withdrawal: (8) Alcohol use disorder, severe, dependence: (9) Suicidal thoughts: Plan This is a 52 year old white male with a long history of alcohol use disorder, severe, and depression with suicidality with past suicide attempts, who presents having been transferred from the ICU after an episode of being after multiple doses of ketamine and having significant alcohol withdrawal reporting continued significant psychosocial difficulties, active use and suicidal thoughts.. 1. Continue current medications and restart previous effective medications as indicated. 2. Encourage individual, group and milieu therapy 3. Continue q-15 minute check for safety 4. Recommend sober living treatment at the highest level of care to which the patient is willing to commit.? Involuntary Hold Information 96 Hour Hold: 96 Hour Involuntary Admission: No Attestations NPU Medical Necessity Statement*: Inpatient psychiatric hospitalization is medically necessary and the clinically appropriate intervention at this time. We will monitor medications and make changes as indicated. Likely length of stay 1-3 days. Coding Level of Care Code Acute Code for [facility] Fwd Diagnoses Respiratory failure J96.90 Acute alcoholic intoxication F10.929 Respiratory failure with hypoxia and hypercapnia J96.91; J96.92 Hypokalemia E87.6 Major depressive disorder, recurrent F33.9 Anxiety F41.9 Alcohol withdrawal F10.939 Alcohol use disorder, severe, dependence F10.20 Suicidal thoughts R45.851
[2022-10-16] MEDS: ibuprofen 600 mg Tablet PO (12:38)
[2022-10-16 14:00] VITALS: BP 129/91; PULSE 109; RESP 16; TEMP 36.6; O2SAT 95
[2022-10-16] MEDS: guaiFENesin 100 mg/5 mL UDC 10 mL 400 MG PO (14:22)
[2022-10-16] MEDS: trazodone 150 mg Tablet PO (19:59)
--- NOTE | 2022-10-16 20:00 | PC.NURSE ---
Patient requesting prn to help promote sleep. PRN trazodone given as ordered. Encouraged patient to go to room and relax.
[2022-10-16] MEDS: cetylpyridinium Lozenge 1 EACH MUCOUS MEM (20:33)
[2022-10-16 21:01] VITALS: BP 146/107; PULSE 100; RESP 18; TEMP 37.1; O2SAT 93
--- NOTE | 2022-10-16 21:20 | PC.NURSE ---
Patient states he is feeling anxious and has not been able to relax enough to rest. Rated anxiety at a 9/10 and states he is worried about his future. PRN vistaril given as ordered. Spent several minutes with patient talking about his concerns. Patient stated he would like to go to rehab because he is tired of living life as a drunk . States he wants to have a relationship with his children and feels if he was on the right medication he would not self medicate with alcohol. Discussed goals and coping skills. Patient states he is willing to go to [facility] and asked if this information could be passed on to doctor. Informed patient that I would let staff know in report what he said. Patient was thankful.
[2022-10-16] MEDS: hyDROXYzine 25 mg Capsule 50 MG PO (21:22)
--- NOTE | 2022-10-17 02:02 | PC.NURSE ---
Patient has rested quietly in bed since receiving earlier PRN's for sleep and anxiety. No signs of distress noted.
[2022-10-17 06:00] VITALS: BP 108/71; PULSE 119; RESP 18; TEMP 36.4; O2SAT 92
[2022-10-17] MEDS: docusate sodium 100 mg Capsule 200 MG PO ×2 (08:43→17:47)
[2022-10-17] MEDS: multivitamin therapeutic Tablet 1 TAB PO (08:43)
[2022-10-17] MEDS: duloxetine 30 mg Capsule PO ×2 (08:43→17:47)
[2022-10-17] MEDS: chlordiazePOXIDE 25 mg Capsule PO ×3 (08:43→21:00)
[2022-10-17] MEDS: fenofibrate 145 mg Tablet PO (08:43)
[2022-10-17] MEDS: gabapentin 400 mg Capsule 800 MG PO ×3 (08:43→21:00)
[2022-10-17] MEDS: amlodipine 10 mg Tablet PO (08:44)
[2022-10-17] MEDS: thiamine 100 mg Tablet PO (08:44)
[2022-10-17] MEDS: folic acid 1 mg Tablet PO (08:44)
[2022-10-17] MEDS: pantoprazole DR 40 mg Tablet PO (08:44)
[2022-10-17] MEDS: nicotine 4 mg lozenge MUCOUS MEM ×4 (08:50→21:03)
[2022-10-17 09:10] VITALS: PULSE 100; RESP 18; O2SAT 92
[2022-10-17] MEDS: hyDROXYzine 25 mg Capsule 50 MG PO (13:03)
--- NOTE | 2022-10-17 13:04 | PC.NURSE ---
PRN [employer] Analyst- Patient given vistaril 50 mg due to stating he was starting to get very anxious and aggravated from feeling overwhelmed by being around so many patients in the breakroom.
[2022-10-17 14:00] VITALS: BP 125/83; PULSE 98; RESP 15; TEMP 36.6; O2SAT 97
[2022-10-17] MEDS: ibuprofen 600 mg Tablet 800 MG PO (17:47)
--- NOTE | 2022-10-17 18:14 | W.PM.NPUPNS ---
Subjective NPU Subjective: Patient presented today continuing to report feeling somewhat despondent with his situation. He endorses having nowhere to go but being open to the ERE program starting again. We agreed we would consider the options for housing, ERE and sober living options as well. Mental Status Exam MSE Comments: This is an obese white male in hospital scrubs with limited grooming and eye contact. No abnormal movements except for psychomotor retardation. Mostly cooperative with exam in mild distress. Speech was decreased rate and volume. Mood described as depressed affect congruent. Thought process organized. Thought content: Patient denies suicidal or homicidal ideation, there were no delusions reported or noted, he denied any auditory or visual hallucinations. Attention and concentration were intact and memory appeared mostly reliable but none were formally tested. He is alert and oriented x3. Insight and judgment were limited impulse control is impaired. Vitals/I&O/Wt Last Vital Signs Temp 98.6 F 10/17/22 21:57 Pulse 107 H 10/17/22 21:57 Resp 18 10/17/22 21:57 BP 136/94 10/17/22 21:57 Pulse Ox 94 10/17/22 21:57 O2 Del Method 10/17/22 21:57 O2 Flow Rate 0 10/17/22 20:00 FiO2 35 10/12/22 08:00 Physical Exam Urinary Catheter Management: Wolfe: Cath Placed During This Visit: yes, but has since been removed by the nurse Reason for Continuing Indwelling Catheter: Decision to DC Catheter Urinary Catheter Date of Insertion: 10/11/22 Date Urinary Catheter Removed: 10/14/22 Time Urinary Catheter Discontinued: 11:45 Data NPU 10/14/22 04:40 10/14/22 04:40 A&P Assessment and plan (1) Respiratory failure: (2) Acute alcoholic intoxication: (3) Respiratory failure with hypoxia and hypercapnia: (4) Hypokalemia: (5) Major depressive disorder, recurrent: (6) Anxiety: (7) Alcohol withdrawal: (8) Alcohol use disorder, severe, dependence: (9) Suicidal thoughts: Plan This is a 52 year old white male with a long history of alcohol use disorder, severe, and depression with suicidality with past suicide attempts, who presents having been transferred from the ICU after an episode of being after multiple doses of ketamine and having significant alcohol withdrawal reporting continued significant psychosocial difficulties, active use and suicidal thoughts.. 1. Continue current medications and restart previous effective medications as indicated. 2. Encourage individual, group and milieu therapy 3. Continue q-15 minute check for safety 4. Recommend sober living treatment at the highest level of care to which the patient is willing to commit.? Involuntary Hold Information 96 Hour Hold: 96 Hour Involuntary Admission: No Attestations NPU Medical Necessity Statement*: Inpatient psychiatric hospitalization is medically necessary and the clinically appropriate intervention at this time. We will monitor medications and make changes as indicated. Likely length of stay 1-3 days. Coding Level of Care Code Acute Code for g Fwd Diagnoses Respiratory failure J96.90 Acute alcoholic intoxication F10.929 Respiratory failure with hypoxia and hypercapnia J96.91; J96.92 Hypokalemia E87.6 Major depressive disorder, recurrent F33.9 Anxiety F41.9 Alcohol withdrawal F10.939 Alcohol use disorder, severe, dependence F10.20 Suicidal thoughts R45.851
[2022-10-17] MEDS: trazodone 150 mg Tablet PO (21:00)
--- NOTE | 2022-10-17 21:00 | PC.NURSE ---
Patient requesting medication to promote sleep. PRN Trazodone 150mg given as ordered.
[2022-10-17 21:57] VITALS: BP 136/94; PULSE 107; RESP 18; TEMP 37; O2SAT 94
--- NOTE | 2022-10-17 22:45 | PC.NURSE ---
Patient is resting quietly in bed at this time. No signs of distress present.
[2022-10-18 06:00] VITALS: RESP 16
[2022-10-18] MEDS: nicotine 4 mg lozenge MUCOUS MEM ×3 (08:40→13:30)
[2022-10-18] MEDS: amlodipine 10 mg Tablet PO (09:15)
[2022-10-18] MEDS: fenofibrate 145 mg Tablet PO (09:15)
[2022-10-18] MEDS: docusate sodium 100 mg Capsule 200 MG PO (09:15)
[2022-10-18] MEDS: folic acid 1 mg Tablet PO (09:15)
[2022-10-18] MEDS: duloxetine 30 mg Capsule PO (09:15)
[2022-10-18] MEDS: chlordiazePOXIDE 25 mg Capsule PO ×2 (09:15→13:30)
[2022-10-18] MEDS: gabapentin 400 mg Capsule 800 MG PO ×2 (09:15→13:29)
[2022-10-18] MEDS: thiamine 100 mg Tablet PO (09:15)
[2022-10-18] MEDS: multivitamin therapeutic Tablet 1 TAB PO (09:15)
[2022-10-18] MEDS: pantoprazole DR 40 mg Tablet PO (09:15)
[2022-10-18] MEDS: ibuprofen 600 mg Tablet 800 MG PO (09:37)
[2022-10-18] MEDS: guaiFENesin 100 mg/5 mL UDC 10 mL 400 MG PO (11:57)
[2022-10-18] MEDS: cetylpyridinium Lozenge 1 EACH MUCOUS MEM (11:57)
[2022-10-18] MEDS: hyDROXYzine 25 mg Capsule 50 MG PO (13:29)
[2022-10-18] MEDS: acetaminophen 325 mg Tablet 650 MG PO (13:29)
[2022-10-18 14:00] VITALS: BP 123/87; PULSE 104; RESP 18; TEMP 36.8; O2SAT 94
--- NOTE | 2022-10-18 15:35 | W.PM.NPUPNS ---
Subjective NPU Subjective: Patient presented today reporting that he is still working with the social work team on where he could possibly go after discharge. He reports that he is desirous of a rehab but unclear how hard that would be versus outpatient rehab. We discussed the importance of him working on his sobriety but also understanding the importance of having a stable living arrangement to pursue sobriety. Otherwise he is tolerating his medications daily and denying any issues. Mental Status Exam MSE Comments: This is an obese white male in hospital scrubs with limited grooming and eye contact. No abnormal movements except for psychomotor retardation. Mostly cooperative with exam in mild distress. Speech was decreased rate and volume. Mood described as depressed but a little hopeful, affect congruent. Thought process organized. Thought content: Patient denies suicidal or homicidal ideation, there were no delusions reported or noted, he denied any auditory or visual hallucinations. Attention and concentration were intact and memory appeared mostly reliable but none were formally tested. He is alert and oriented x3. Insight and judgment were limited impulse control is impaired. Vitals/I&O/Wt Last Vital Signs Temp 98.3 F 10/18/22 14:00 Pulse 104 H 10/18/22 14:00 Resp 18 10/18/22 14:00 BP 123/87 10/18/22 14:00 Pulse Ox 94 10/18/22 14:00 O2 Del Method 10/17/22 21:57 O2 Flow Rate 0 10/18/22 08:00 FiO2 35 10/12/22 08:00 Physical Exam Urinary Catheter Management: Wolfe: Cath Placed During This Visit: yes, but has since been removed by the nurse Reason for Continuing Indwelling Catheter: Decision to DC Catheter Urinary Catheter Date of Insertion: 10/11/22 Date Urinary Catheter Removed: 10/14/22 Time Urinary Catheter Discontinued: 11:45 Data NPU 10/14/22 04:40 10/14/22 04:40 A&P Assessment and plan (1) Respiratory failure: (2) Acute alcoholic intoxication: (3) Respiratory failure with hypoxia and hypercapnia: (4) Hypokalemia: (5) Major depressive disorder, recurrent: (6) Anxiety: (7) Alcohol withdrawal: (8) Alcohol use disorder, severe, dependence: (9) Suicidal thoughts: Plan This is a 52 year old white male with a long history of alcohol use disorder, severe, and depression with suicidality with past suicide attempts, who presents having been transferred from the ICU after an episode of being after multiple doses of ketamine and having significant alcohol withdrawal reporting continued significant psychosocial difficulties, active use and suicidal thoughts.. 1. Continue current medications and restart previous effective medications as indicated. 2. Encourage individual, group and milieu therapy 3. Continue q-15 minute check for safety 4. Recommend sober living treatment at the highest level of care to which the patient is willing to commit.? 5. Awaiting assessment from [facility] to see if he can be discharged there. Involuntary Hold Information 96 Hour Hold: 96 Hour Involuntary Admission: No Attestations NPU Medical Necessity Statement*: Inpatient psychiatric hospitalization is medically necessary and the clinically appropriate intervention at this time. We will monitor medications and make changes as indicated. Likely length of stay 1-3 days. Coding Level of Care Code Acute Code for [facility] Fwd Diagnoses Respiratory failure J96.90 Acute alcoholic intoxication F10.929 Respiratory failure with hypoxia and hypercapnia J96.91; J96.92 Hypokalemia E87.6 Major depressive disorder, recurrent F33.9 Anxiety F41.9 Alcohol withdrawal F10.939 Alcohol use disorder, severe, dependence F10.20 Suicidal thoughts R45.851
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
[2022-10-18 17:35] VITALS: BP 123/87; PULSE 104; RESP 18; TEMP 36.8; O2SAT 94
== END 2022-10-18 17:45 | disposition home or self-care (01) | DRG 896 ==
LOC: ER 20:27 → ICU 20:28 → NP 10-14 19:46
PROVIDERS: Emergency Medicine; Internal Medicine; Admitting Provider Internal Medicine; Emergency Provider Emergency Medicine; Visit Provider Psychiatry & Neurology Psychiatry
DX: F10.229 Alcohol dependence with intoxication, unspecified (principal); J96.01 Acute respiratory failure with hypoxia; J96.02 Acute respiratory failure with hypercapnia; F33.9 Major depressive disorder, recurrent, unspecified; R45.851 Suicidal ideations; F10.239 Alcohol dependence with withdrawal, unspecified; Y90.8 Blood alcohol level of 240 mg/100 ml or more; F41.9 Anxiety disorder, unspecified; G47.00 Insomnia, unspecified; I10 Essential (primary) hypertension; Z79.51 Long term (current) use of inhaled steroids; Z79.891 Long term (current) use of opiate analgesic; E87.6 Hypokalemia; E66.01 Morbid (severe) obesity due to excess calories; Z68.37 Body mass index [BMI] 37.0-37.9, adult; Z59.00 Homelessness unspecified
CPT/HCPCS: 31500; 36415; 36600; 51702; 70450; 71045; 80051; 80053; 80306; 80307; 82330; 82803; 82805; 83605; 83735; 84100; 84145; 85025; 87040; 87070; 87205; 93005; 94002; 94003; 94640; 94799; 96365; 96367; 96372; 96375; 97150; 97165; 99238; 99291; A4570; J1650; J2060; J2405; J2560; J2704; J3010; J3411; J3480; J3490; J7030; Q0162

== ENCOUNTER 2022-10-27 23:13 | Emergency (ER) | payer MEDICAID, SELFPAY ==
[2022-10-27 23:22] VITALS: BP 119/89; PULSE 95; RESP 16; TEMP 36.4; O2SAT 94; BMI 39.9
--- NOTE | 2022-10-28 00:14 | PC.NURSE ---
Pt arrives to ED via EMS due to decreased LOC and suspected intoxication. Upon assessment, pt is slurring speech and irritable. Psychiatric assessment initially revealed that pt denied SI/HI. Second assessment revealed that pt expresses feelings of hopelessness and that life is not worth living. Denies SI plan and SH. Pt describes poor coping with chronic pain and that his Gabapentin prescription is not working. Pt is poor historian. Pt is resting in bed sipping water and alexis crackers.
[2022-10-28 00:40] LABS: Basophils # 0.1 10^3/uL (0.0-0.1); Basophils % 0.8 %; Eosinophils # 0.3 10^3/uL (0.0-0.8); Eosinophils % 3.9 %; Hematocrit 45.4 % (42.0-52.0); Hemoglobin 14.9 g/dL (11.7-16.6); Lymphocytes # 2.3 10^3/uL (0.8-4.8); Lymphocytes % 26.4 %; Mean Corpuscular HGB Conc 32.8 g/dL (30.0-36.0); Mean Corpuscular Hemoglobin 30.8 pg (28.0-34.0); Mean Corpuscular Volume 93.8 fl (80-94); Mean Platelet Volume 10.8 fL (7.4-10.4); Monocytes # 0.4 10^3/uL (0.2-0.9); Monocytes % 4.7 %; Neutrophils # 5.47 10^3/uL (1.8-7.7); Neutrophils % 63.8 %; Nucleated Red Blood Cells % 0 %; Platelet Count 284 10^3/cmm (130-400); Red Blood Count 4.84 10^6/uL (4.1-5.3); Red Cell Distribution Width 12.7 % (12.1-15.1); White Blood Count 8.6 10^3/uL (4.0-10.0)
[2022-10-28 00:53] LABS: Alanine Aminotransferase 23 U/L (0-41); Alcohol Level 281 mg/dL (0-10); Alkaline Phosphatase 45 U/L (40-130); Aspartate Amino Transferase 19 U/L (0-40); Blood Urea Nitrogen 6 mg/dL (6-20); Calcium 8.8 mg/dL (8.5-10.5); Carbon Dioxide 29 mmol/L (22-29); Chloride 106 mmol/L (98-107); Globulin 3.1 g/dL (1.3-4.6); Glomerular Filtration Rate 79.1 mL/min (90-130); Glucose 129 mg/dL (65-115); Osmolality Calculated 297 mOsm/kg (285-295); Sodium 144 mmol/L (136-145); Total Bilirubin 0.2 mg/dL (0.15-1.2); Total Protein 7.1 g/dL (6.6-8.7)
[2022-10-28 00:54] LABS: Acetaminophen < 5.0 ug/mL (10-30); Anion Gap 12.9 (5-19); Potassium 3.9 mmol/L (3.5-5.1); Salicylate < 0.3 mg/dL (3-10)
--- NOTE | 2022-10-28 01:00 | ED_ITS ---
HPI - Alcohol General: Chief Complaint: Alcohol Stated Complaint: ETOH Time Seen by Provider: 10/27/22 23:33 Source: patient and EMS History of Present Illness: 52-year-old male brought in by law enforcement and EMS. He was evidently found out in the community intoxicated. He complains mainly of chronic pain symptoms. [facility] [place] [facility], but does not know if they will let him back in because he is intoxicated. He has battled alcoholism on and off for quite some time. He denies suicidality to me. MD complaint: alcohol intoxication Chronic alcohol use: Yes Associated symptoms: Reports depression; Deny abdominal pain, diaphoresis, nausea, suicidal ideation or vomiting Treatments prior to arrival: none Review of Systems Const: Denies: diaphoresis Card: Denies: chest pain Resp: Denies: dyspnea GI: Denies: abdominal pain, nausea or vomiting Psych: Reports: depression; Denies: suicidal ideation [facility] ED PFSH: Medical History Cervical spondylolysis Chronic pain syndrome Constipation Depression with suicidal ideation Dyslipidemia Essential hypertension Insomnia Osteoarthritis Psychiatric care Reading difficulty Surgical History No pertinent past surgical history Family History Father Cirrhosis of liver Hypertension Mother Seizure Denies family history of Diabetes CAD (coronary artery disease) Clotting disorder Chronic kidney disease (CKD) Anesthesia complication Bleeding disorder Lung disease Cancer Stroke Social History Smoking and tobacco status: current every day smoker cigarettes Packs smoked per day: 1 Second hand smoke exposure: No Smoking risk assessment/counseling performed?: Yes Alcohol intake: never Desire information about alcohol rehabilitation?: No Counseling given: No Desire information about substance/drug rehabilitation?: No Counseling given: No Adopted: No Caregiver/support person: No Lives independently: Yes Household members: family Housing: House Marital status: service: No Current gender identity: Male Physical Exam Const: COMMON NORMALS: no acute distress GENERAL APPEARANCE: cooperative (Initially) and lethargic (Initially) ORIENTATION/CONSCIOUSNESS: Yes lethargic (Initially) HENMT: COMMON NORMALS: normocephalic, atraumatic and Normal external nose present HEAD & SCALP: normocephalic and atraumatic FACE & SINUS: normal facial exam NOSE: Normal external nose present Eye: COMMON NORMALS: Equal, round and reactive pupils present and EOMs intact bilaterally PUPIL: Yes Equal, round and reactive pupils present Neck/C-Spine: GENERAL: Yes trachea midline Chest: CHEST: Yes Symmetrical chest wall rise Resp: COMMON NORMALS: normal respiratory effort, No retractions, No use of accessory muscles and clear to auscultation bilaterally AUSCULTATION: clear to auscultation bilaterally Cardio: COMMON NORMALS: regular rate and regular rhythm RATE: regular rate RHYTHM: regular rhythm GI: COMMON NORMALS: Normal to inspection, nondistended, normoactive bowel sounds present Extremity: COMMON NORMALS: no pedal edema Neuro: ANTONELLA COMA SCALE: document GCS findings [place] coma scale eye opening: Spontaneous Antonella coma scale verbal response: Orientated [place] coma scale motor response: Obey commands Antonella coma scale total score: 15 SENSORIUM/ORIENTATION: Yes lethargic (Initially) SENSORY EXAM: Yes extremities (intact) Psych: COMMON NORMALS: speech normal SPEECH: Yes normal speech Skin: COMMON NORMALS: no rashes or lesions noted GENERAL SKIN EXAM: no rashes or lesions noted Course Vital Signs: Vital signs: Vital Signs Temperature 97.6 F 10/28/22 02:43 Pulse Rate 101 H 10/28/22 02:43 Respiratory Rate 18 10/28/22 02:43 Blood Pressure 136/98 10/28/22 02:43 Pulse Oximetry 91 10/28/22 02:43 Oxygen Delivery Me thod 10/27/22 23:22 MDM - Alcohol Medical Decision Making The patient is not acutely psychotic. He is not homicidal or suicidal. He did wish to come into the neuropsychiatric unit. He is mild to moderately intoxicated. His alcohol level was 280. This was at 11:30 PM. His other laboratory is not remarkable. After a couple of hours being in the ER waiting on laboratory, the patient became belligerent. He started to yell at his sitter, was standing in the doorway cussing. He was asked once again if he was suicidal or homicidal. His answer was no. He requested to leave. He was allowed to leave prior to bringing of his discharge paperwork due to his belligerency. He was escorted by police out of the building. Medically, he is stable. Lab Data 10/27/22 23:50 10/27/22 23:50 Laboratory Results WBC 8.6 10^3/uL (4.0-10.0) 10/27/22 23:50 RBC 4.84 10^6/uL (4.1-5.3) 10/27/22 23:50 Hgb 14.9 g/dL (11.7-16.6) 10/27/22 23:50 Hct 45.4 % (42.0-52.0) 10/27/22 23:50 MCV 93.8 fl (80-94) 10/27/22 23:50 MCH 30.8 pg (28.0-34.0) 10/27/22 23:50 MCHC 32.8 g/dL (30.0-36.0) 10/27/22 23:50 RDW 12.7 % (12.1-15.1) 10/27/22 23:50 Plt Count 284 10^3/cmm (130-400) 10/27/22 23:50 MPV 10.8 fL (7.4-10.4) H 10/27/22 23:50 Neut % (Auto) 63.8 % 10/27/22 23:50 Lymph % (Auto) 26.4 % 10/27/22 23:50 [place] % (Auto) 4.7 % 10/27/22 23:50 Eos % (Auto) 3.9 % 10/27/22 23:50 Baso % (Auto) 0.8 % 10/27/22 23:50 Neut # (Auto) 5.47 10^3/uL (1.8-7.7) 10/27/22 23:50 Lymph # (Auto) 2.3 10^3/uL (0.8-4.8) 10/27/22 23:50 [place] # (Auto) 0.4 10^3/uL (0.2-0.9) 10/27/22 23:50 Eos # (Auto) 0.3 10^3/uL (0.0-0.8) 10/27/22 23:50 Baso # (Auto) 0.1 10^3/uL (0.0-0.1) 10/27/22 23:50 Nucleated RBC % (auto) 0 % 10/27/22 23:50 Nucleated RBCs # 0.0 /100WBC 10/27/22 23:50 Sodium 144 mmol/L (136-145) 10/27/22 23:50 Potassium 3.9 mmol/L (3.5-5.1) 10/27/22 23:50 Chloride 106 mmol/L (98-107) 10/27/22 23:50 Carbon Dioxide 29 mmol/L (22-29) 10/27/22 23:50 Anion Gap 12.9 (5-19) 10/27/22 23:50 BUN 6 mg/dL (6-20) 10/27/22 23:50 Creatinine 1.0 mg/dL (0.7-1.2) 10/27/22 23:50 GFR Calculation 79.1 mL/min (90-130) L 10/27/22 23:50 Glucose 129 mg/dL (65-115) H 10/27/22 23:50 Calculated Osmolality 297 mOsm/kg (285-295) H 10/27/22 23:50 Calcium 8.8 mg/dL (8.5-10.5) 10/27/22 23:50 Total Bilirubin 0.2 mg/dL (0.15-1.2) 10/27/22 23:50 AST 19 U/L (0-40) 10/27/22 23:50 ALT 23 U/L (0-41) 10/27/22 23:50 Alkaline Phosphatase 45 U/L (40-130) 10/27/22 23:50 Total Protein 7.1 g/dL (6.6-8.7) 10/27/22 23:50 Albumin 4.0 g/dL (3.5-5.2) 10/27/22 23:50 Globulin 3.1 g/dL (1.3-4.6) 10/27/22 23:50 Urine Color Yellow (Yellow) 10/28/22 02:12 Urine Appearance Clear (CLEAR) 10/28/22 02:12 Urine pH 6 (5-7) 10/28/22 02:12 Ur Specific [place] 1.015 (1.005-1.030) 10/28/22 02:12 Urine Protein Neg (Negative) 10/28/22 02:12 Urine Glucose (UA) Norm (Normal) 10/28/22 02:12 Urine Ketones Negative (Negative) 10/28/22 02:12 Urine Blood Trace (Negative) H 10/28/22 02:12 Urine Nitrate Negative (Negative) 10/28/22 02:12 Urine Bilirubin Neg (Negative) 10/28/22 02:12 Urine Urobilinogen Norm mg/dL (Negative) 10/28/22 02:12 Ur Leukocyte Esterase Negative (Negative) 10/28/22 02:12 Urine RBC 0-4 /hpf (0-2) H 10/28/22 02:12 Urine WBC 5-10 /hpf (0-5) H 10/28/22 02:12 Ur Squamous Epith Cells 0-4 /hpf (0-5) H 10/28/22 02:12 Amorphous Sediment Not Reportable 10/28/22 02:12 Urine Bacteria Trace /hpf (NONE) 10/28/22 02:12 Hyaline Casts 40-55 /lpf H 10/28/22 02:12 Coarse Granular Casts 10-15 /lpf H 10/28/22 02:12 Salicylates < 0.3 mg/dL (3-10) L 10/27/22 23:50 Urine Opiates Screen Negative ng/mL (Negative) 10/28/22 02:12 Acetaminophen < 5.0 ug/mL (10-30) L 10/27/22 23:50 Ur Barbiturates Screen Negative ng/mL (Negative) 10/28/22 02:12 Ur Phencyclidine Scrn Negative ng/mL (Negative) 10/28/22 02:12 Ur Amphetamines Screen Negative ng/mL (Negative) 10/28/22 02:12 U Benzodiazepines Scrn Positive ng/mL (Negative) H 10/28/22 02:12 Urine Cocaine Screen Negative ng/mL (Negative) 10/28/22 02:12 U Marijuana (THC) Screen Negative ng/mL (Negative) 10/28/22 02:12 Ethyl Alcohol 281 mg/dL (0-10) H 10/27/22 23:50 Discharge Plan Discharge Patient Disposition: Left Against Medical Advice Clinical Impression: Alcoholic intoxication Condition: Stable Prescriptions: No Action amlodipine 10 mg tablet 10 mg PO DAILY 30 Days Qty: 30 2RF albuterol sulfate [ProAir HFA] 90 mcg/actuation HFA aerosol inhaler 2 puff inhalation Q6H PRN (Reason: shortness of breath or wheezing) 30 Days Qty: 8.5 2RF docusate sodium [Colace] 100 mg capsule 200 mg PO BID PRN (Reason: constipation) Qty: 120 3RF Rx Instructions: No medication has at home duloxetine [Cymbalta] 30 mg capsule,delayed release(DR/EC) 30 mg PO BID Qty: 60 2RF fenofibrate nanocrystallized [Tricor] 145 mg tablet 145 mg PO DAILY Qty: 30 2RF gabapentin 800 mg tablet 800 mg PO QID 30 Days Qty: 120 2RF trazodone 150 mg tablet 150 mg PO BEDTIME 30 Days Qty: 30 2RF Rx Instructions: Take one tablet at bedtime as needed for sleep hydroxyzine pamoate 25 mg capsule 25 mg PO TID 30 Days Qty: 90 2RF thiamine HCl (vitamin B1) 100 mg tablet 100 mg PO DAILY chlordiazepoxide HCl 25 mg capsule 25 mg PO BID PRN Referrals: Landy Craig, [facility] [Primary Care Provider] - Coding Level of Care Code ED [employer] Attacher for Michelle Crowder
[2022-10-28 01:58] VITALS: BP 136/98; PULSE 101; RESP 18; O2SAT 91
--- NOTE | 2022-10-28 02:30 | PC.NURSE ---
Pt is awake and stating I'm ready to go, you doctors wont fucking do anything. and I wouldn't bring my dog here . Pt was somewhat calmed with verbal deescalation, security notified, pt's IV removed. Pt demands his paperwork so he can leave. Nurse explained she will speak with provider and bring discharge paperwork as soon as it is available to nurse. Provider is currently suturing a patient in room next to pt and could hear the patient becoming agitated and verbally abusive toward staff. Pt began yelling, calling staff names, and cursing. Provider attempted to calm pt, pt unable to be redirected. Pt left without discharge paperwork or AMA paperwork
[2022-10-28 02:35] LABS: Amphetamines Screen Urine Negative (Negative); Barbiturates Screen Urine Negative (Negative); Benzodiazepines Screen Urine Positive (Negative); Cocaine Screen Urine Negative (Negative); Opiate Screen Urine Negative (Negative); PCP Screen Urine Negative (Negative); THC Screen Urine Negative (Negative)
[2022-10-28 02:37] LABS: Add Urine Culture? No; Add Urine Microscopic? YES; Bacteria Urine TRACE /hpf; Bilirubin Urine Neg (Negative); Blood Urine Trace (Negative); Glucose Urine UA Norm (Normal); Hyaline Casts Urine 40-55 /lpf; Ketones Urine Negative (Negative); Leukocyte Esterase Urine Negative (Negative); Nitrate Urine Negative (Negative); Protein Urine Neg (Negative); RBC Urine 0-4 /hpf (0-2); Specific Gravity, Urine 1.015 (1.005-1.030); Squamous Epithelial Cell Urine 0-4 /hpf (0-5); Urine Appearance Clear (CLEAR); Urine Color Yellow (Yellow); Urobilinogen Urine Norm (Negative); pH Urine 6 (5-7)
[2022-10-28 02:43] VITALS: BP 136/98; PULSE 101; RESP 18; TEMP 36.4; O2SAT 91
== END 2022-10-28 02:48 | disposition left against medical advice (07) ==
PROVIDERS: Emergency Provider Emergency Medicine; PCP Nurse Practitioner
DX: F10.129 Alcohol abuse with intoxication, unspecified (principal); Y90.8 Blood alcohol level of 240 mg/100 ml or more; Z53.21 Procedure and treatment not carried out due to patient leaving prior to being seen by health care provider
CPT/HCPCS: 80053; 80306; 80307; 81001; 85025; 99283

== ENCOUNTER 2022-11-07 19:51 | Inpatient (IN) | payer MEDICAID, SELFPAY ==
[2022-11-07 19:56] VITALS: BMI 39.9
[2022-11-07 20:00] VITALS: BP 137/87; PULSE 110; RESP 17; TEMP 36.8; O2SAT 88
[2022-11-07 20:10] VITALS: BP 120/77; PULSE 106; RESP 20; O2SAT 88
--- NOTE | 2022-11-07 20:44 | ED.C_ITS ---
HPI - Psych General: Chief Complaint: Psychiatric Symptoms Stated Complaint: SI Time Seen by Provider: 11/07/22 19:57 Source: patient and EMS Mode of arrival: EMS Limitations: no limitations History of Present Illness: 52-year-old male who has a history of chronic pain along with alcohol abuse he was recently admitted this month for depression and SI he states that he been having increased stress over the last 3 days has been having thoughts of cutting his wrist. He states he has been drinking today he denies any worsening improving factors. Associated symptoms: Reports depression Review of Systems Const: Denies: fever(s), chills, body aches or change in appetite Eyes: Denies: blurry vision or eye discomfort ENMT: Denies: throat pain or dental pain Card: Denies: chest pain Resp: Denies: dyspnea GI: Denies: abdominal pain, nausea, vomiting or diarrhea : Denies: dysuria Musc: Denies: neck pain or back pain Skin/Breast: Denies: rash Neuro: Denies: headache(s) Psych: Reports: depression Dave/Lymph: Denies: easy bruising All/Imm: Denies: urticaria PFSH ED PFSH: Medical History Alcohol use disorder, severe, dependence Social History (Updated 11/07/22 @ 20:47 by Jessica Ambrocio MD) Alcohol intake: current Physical Exam Const: COMMON NORMALS: no acute distress, patient oriented x3 and healthy appearing HENMT: COMMON NORMALS: normocephalic and atraumatic HEAD & SCALP: normocephalic and atraumatic Eye: COMMON NORMALS: Equal, round and reactive pupils present and EOMs intact bilaterally PUPIL: Yes Equal, round and reactive pupils present Neck/C-Spine: COMMON NORMALS: full ROM and supple Chest: COMMONS NORMALS: normal inspection of the chest and normal palpation of entire chest wall Resp: COMMON NORMALS: normal respiratory effort, No retractions, No use of ac cessory muscles and clear to auscultation bilaterally AUSCULTATION: clear to auscultation bilaterally Cardio: COMMON NORMALS: regular rate, regular rhythm and No murmurs present (Cardio) RATE: regular rate RHYTHM: regular rhythm GI: COMMON NORMALS: Normal to inspection, nondistended, normoactive bowel sounds present, Soft to palpation, non-tender and no masses PALPATION: Yes Soft to palpation Extremity: COMMON NORMALS: normal to inspection and full ROM Neuro: COMMON NORMALS: patient oriented x3, moves all extremities and no focal motor deficits Psych: COMMON NORMALS: mental status grossly normal, Normal thought process present and cooperative MOOD & AFFECT: Yes depressed mood THOUGHT PROCESS: Normal thought process present Skin: COMMON NORMALS: no rashes or lesions noted and no wounds GENERAL SKIN EXAM: no rashes or lesions noted Course Vital Signs: Vital signs: Vital Signs Temperature 98.2 F 11/07/22 20:00 Pulse Rate 106 H 11/07/22 20:10 Respiratory Rate 20 H 11/07/22 20:10 Blood Pressure 120/77 11/07/22 20:10 Pulse Oximetry 88 L 11/07/22 20:10 Oxygen Delivery Me thod 11/07/22 20:10 [facility] - Psych Medical Decision Making Patient presents for suicidal ideations he is also intoxicated with a history of alcoholism I spoke to psychiatrist who saw patient and will admit to the psych sarkar at this time. Lab Data 11/07/22 20:23 11/07/22 20:23 Laboratory Results WBC 6.8 10^3/uL (4.0-10.0) 11/07/22 20: RBC 4.82 10^6/uL (4.1-5.3) 11/07/22 20: Hgb 14.7 g/dL (11.7-16.6) 11/07/22 20: Hct 44.5 % (42.0-52.0) 11/07/22 20: MCV 92.3 fl (80-94) 11/07/22 20:23 MCH 30.5 pg (28.0-34.0) 11/07/22 20: MCHC 33.0 g/dL (30.0-36.0) 11/07/22 20: RDW 13.2 % (12.1-15.1) 11/07/22 20: Plt Count 286 10^3/cmm (130-400) 11/07/22 20:23 MPV 9.2 fL (7.4-10.4) 11/07/22 20: Neut % (Auto) 46.3 % 11/07/22 20: Lymph % (Auto) 42.4 % 11/07/22 20:23 [place] % (Auto) 5.7 % 11/07/22 20: Eos % (Auto) 4.0 % 11/07/22 20: Baso % (Auto) 0.7 % 11/07/22 20: Neut # (Auto) 3.14 10^3/uL (1.8-7.7) 11/07/22 20: Lymph # (Auto) 2.9 10^3/uL (0.8-4.8) 11/07/22 20: [place] # (Auto) 0.4 10^3/uL (0.2-0.9) 11/07/22 20: Eos # (Auto) 0.3 10^3/uL (0.0-0.8) 11/07/22 20: Baso # (Auto) 0.1 10^3/uL (0.0-0.1) 11/07/22 20: Nucleated RBC % (auto) 0.3 % 11/07/22 20: Nucleated RBCs # 0.0 /100WBC 11/07/22 20:23 Sodium 145 mmol/L (136-145) 11/07/22 20: Potassium 3.8 mmol/L (3.5-5.1) 11/07/22 20: Chloride 104 mmol/L (98-107) 11/07/22 20:23 Carbon Dioxide 29 mmol/L (22-29) 11/07/22 20:23 Anion Gap 15.8 (5-19) 11/07/22 20:23 BUN 8 mg/dL (6-20) 11/07/22 20:23 Creatinine 1.3 mg/dL (0.7-1.2) H 11/07/22 20:23 GFR Calculation 58.4 mL/min (90-130) L 11/07/22 20: Glucose 106 mg/dL (65-115) 11/07/22 20: Calculated Osmolality 299 mOsm/kg (285-295) H 11/07/22 20:23 Calcium 9.3 mg/dL (8.5-10.5) 11/07/22 20:23 Total Bilirubin 0.2 mg/dL (0.15-1.2) 11/07/22 20:23 AST 27 U/L (0-40) 11/07/22 20:23 ALT 31 U/L (0-41) 11/07/22 20:23 Alkaline Phosphatase 52 U/L (40-130) 11/07/22 20:23 Total Protein 7.4 g/dL (6.6-8.7) 11/07/22 20:23 Albumin 3.9 g/dL (3.5-5.2) 11/07/22 20:23 Globulin 3.5 g/dL (1.3-4.6) 11/07/22 20:23 Salicylates < 0.3 mg/dL (3-10) L 11/07/22 20:23 Urine Opiates Screen Negative ng/mL (Negative) 11/07/22 20:45 Acetaminophen < 5.0 ug/mL (10-30) L 11/07/22 20:23 Ur Barbiturates Screen Negative ng/mL (Negative) 11/07/22 20:45 Ur Phencyclidine Scrn Negative ng/mL (Negative) 11/07/22 20:45 Ur Amphetamines Screen Negative ng/mL (Negative) 11/07/22 20:45 U Benzodiazepines Scrn Positive ng/mL (Negative) H 11/07/22 20:45 Urine Cocaine Screen Negative ng/mL (Negative) 11/07/22 20:45 U Marijuana (THC) Screen Negative ng/mL (Negative) 11/07/22 20:45 Ethyl Alcohol 279 mg/dL (0-10) H 11/07/22 20:23 Discharge Plan Discharge Patient Disposition: Admitted As Inpatient Clinical Impression: Alcohol use disorder, severe, dependence, Suicidal thoughts Condition: Stable Coding Level of Care Code ED [employer] Plater for Michelle Crowder
[2022-11-07 20:49] LABS: Basophils # 0.1 10^3/uL (0.0-0.1); Basophils % 0.7 %; Eosinophils # 0.3 10^3/uL (0.0-0.8); Hematocrit 44.5 % (42.0-52.0); Hemoglobin 14.7 g/dL (11.7-16.6); Lymphocytes # 2.9 10^3/uL (0.8-4.8); Lymphocytes % 42.4 %; Mean Corpuscular Hemoglobin 30.5 pg (28.0-34.0); Mean Corpuscular Volume 92.3 fl (80-94); Mean Platelet Volume 9.2 fL (7.4-10.4); Monocytes # 0.4 10^3/uL (0.2-0.9); Monocytes % 5.7 %; Neutrophils # 3.14 10^3/uL (1.8-7.7); Neutrophils % 46.3 %; Nucleated Red Blood Cells % 0.3 %; Platelet Count 286 10^3/cmm (130-400); Red Blood Count 4.82 10^6/uL (4.1-5.3); Red Cell Distribution Width 13.2 % (12.1-15.1); White Blood Count 6.8 10^3/uL (4.0-10.0)
[2022-11-07 21:02] LABS: Amphetamines Screen Urine Negative (Negative); Barbiturates Screen Urine Negative (Negative); Benzodiazepines Screen Urine Positive (Negative); Cocaine Screen Urine Negative (Negative); Opiate Screen Urine Negative (Negative); PCP Screen Urine Negative (Negative); THC Screen Urine Negative (Negative)
[2022-11-07 21:17] LABS: Alanine Aminotransferase 31 U/L (0-41); Albumin Level 3.9 g/dL (3.5-5.2); Alcohol Level 279 mg/dL (0-10); Alkaline Phosphatase 52 U/L (40-130); Anion Gap 15.8 (5-19); Aspartate Amino Transferase 27 U/L (0-40); Blood Urea Nitrogen 8 mg/dL (6-20); Calcium 9.3 mg/dL (8.5-10.5); Carbon Dioxide 29 mmol/L (22-29); Chloride 104 mmol/L (98-107); Globulin 3.5 g/dL (1.3-4.6); Glomerular Filtration Rate 58.4 mL/min (90-130); Glucose 106 mg/dL (65-115); Osmolality Calculated 299 mOsm/kg (285-295); Potassium 3.8 mmol/L (3.5-5.1); Sodium 145 mmol/L (136-145); Total Bilirubin 0.2 mg/dL (0.15-1.2); Total Protein 7.4 g/dL (6.6-8.7)
[2022-11-07 21:23] LABS: Acetaminophen < 5.0 ug/mL (10-30); Salicylate < 0.3 mg/dL (3-10)
[2022-11-07 22:00] VITALS: RESP 18
[2022-11-08] MEDS: ondansetron 4 MG Tablet PO (05:07)
[2022-11-08 05:10] VITALS: BP 104/68; PULSE 80; RESP 18
[2022-11-08] MEDS: folic acid 1 mg Tablet PO (08:20)
[2022-11-08] MEDS: multivitamin therapeutic Tablet 1 TAB PO (08:20)
[2022-11-08] MEDS: thiamine 100 mg Tablet PO (08:20)
--- NOTE | 2022-11-08 10:19 | PC.PHAR ---
pt states he takes care of his own medications-pt states he finished chlordiazepoxide 25mg bid for 3 days then 25mg daily for 3 days then stop pt states ran out a few days ago rx filled 10/18/22 6d/s
[2022-11-08 11:22] VITALS: BP 141/112; PULSE 90; RESP 15; O2SAT 93
[2022-11-08 13:27] VITALS: BP 127/99; PULSE 86; RESP 16; O2SAT 98
[2022-11-08 14:23] VITALS: BP 135/95; PULSE 97; RESP 18; TEMP 36.8; O2SAT 95
[2022-11-08] MEDS: hyDROXYzine 25 mg Capsule 50 MG PO (16:56)
[2022-11-08] MEDS: acetaminophen 325 mg Tablet 650 MG PO (16:56)
[2022-11-08] MEDS: nicotine 4 mg lozenge MUCOUS MEM ×3 (17:03→21:30)
[2022-11-08] MEDS: docusate sodium 100 mg Capsule 200 MG PO (17:52)
[2022-11-08] MEDS: duloxetine 30 mg Capsule PO (17:52)
[2022-11-08] MEDS: gabapentin 400 mg Capsule 800 MG PO (20:39)
[2022-11-08] MEDS: trazodone 150 mg Tablet PO (20:39)
[2022-11-08] MEDS: LORazepam 2 mg Tablet PO (20:39)
[2022-11-08] MEDS: ibuprofen 600 mg Tablet PO (21:03)
[2022-11-08 22:00] VITALS: RESP 18
[2022-11-09 06:00] VITALS: RESP 18
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
[2022-11-09] MEDS: gabapentin 400 mg Capsule 800 MG PO ×3 (09:23→20:24)
[2022-11-09] MEDS: fenofibrate 145 mg Tablet PO (09:24)
[2022-11-09] MEDS: thiamine 100 mg Tablet PO (09:24)
[2022-11-09] MEDS: ibuprofen 800 mg tablet PO ×2 (09:24→17:35)
[2022-11-09] MEDS: amlodipine 10 mg Tablet PO (09:25)
[2022-11-09] MEDS: docusate sodium 100 mg Capsule 200 MG PO ×2 (09:25→17:35)
[2022-11-09] MEDS: pantoprazole DR 40 mg Tablet PO (09:25)
[2022-11-09] MEDS: duloxetine 30 mg Capsule PO ×2 (09:25→17:34)
[2022-11-09] MEDS: folic acid 1 mg Tablet PO (09:25)
[2022-11-09] MEDS: multivitamin therapeutic Tablet 1 TAB PO (09:25)
[2022-11-09] MEDS: nicotine 4 mg lozenge MUCOUS MEM ×5 (09:30→20:25)
[2022-11-09 13:12] VITALS: BP 129/93; PULSE 101; RESP 17; TEMP 36.4; O2SAT 94
[2022-11-09] MEDS: acetaminophen 325 mg Tablet 650 MG PO ×2 (15:27→20:25)
--- NOTE | 2022-11-09 20:00 | PC.NURSE ---
Patient came to nurse's station and reported being very anxious. C/O headache and had visible sweat and tremors. CIWA score was 19. Ativan 2mg given as ordered.
[2022-11-09] MEDS: trazodone 150 mg Tablet PO (20:24)
[2022-11-09] MEDS: LORazepam 2 mg Tablet PO (20:25)
[2022-11-09 22:00] VITALS: RESP 16
--- NOTE | 2022-11-09 22:00 | PC.NURSE ---
Patient resting quietly at this time. No signs of distress noted.
[2022-11-10] MEDS: ibuprofen 800 mg tablet PO (01:54)
[2022-11-10] MEDS: LORazepam 2 mg Tablet PO (01:55)
[2022-11-10] MEDS: nicotine 4 mg lozenge MUCOUS MEM ×3 (01:56→11:49)
--- NOTE | 2022-11-10 02:00 | PC.NURSE ---
Patient came to nurse's station c/o anxiety. Patient noted to have tremors and was drenched in sweat. Evaluated CIWA. Patient scored 19 and was given Ativan 2mg given as ordered. Patient given new scrubs and a cold washcloth and fluids. Patient returned to room.
[2022-11-10 06:00] VITALS: BP 142/104; PULSE 106; RESP 18; TEMP 36.4; O2SAT 97
--- NOTE | 2022-11-10 07:01 | PC.NURSE ---
Patient has rested quietly since receiving prn Ativan earlier. No signs of distress present.
[2022-11-10] MEDS: duloxetine 30 mg Capsule PO (08:41)
[2022-11-10] MEDS: fenofibrate 145 mg Tablet PO (08:41)
[2022-11-10] MEDS: gabapentin 400 mg Capsule 800 MG PO (08:41)
[2022-11-10] MEDS: amlodipine 10 mg Tablet PO (08:42)
[2022-11-10] MEDS: pantoprazole DR 40 mg Tablet PO (08:42)
[2022-11-10] MEDS: docusate sodium 100 mg Capsule 200 MG PO (08:42)
[2022-11-10] MEDS: folic acid 1 mg Tablet PO (08:42)
[2022-11-10] MEDS: thiamine 100 mg Tablet PO (08:42)
[2022-11-10] MEDS: hyDROXYzine 25 mg Capsule 50 MG PO (08:42)
[2022-11-10] MEDS: multivitamin therapeutic Tablet 1 TAB PO (09:45)
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
[2022-11-10 13:00] VITALS: BP 142/104; PULSE 106; RESP 18; TEMP 36.4; O2SAT 97
== END 2022-11-10 13:12 | disposition home or self-care (01) | DRG 897 ==
LOC: ER 23:33 → NP 11-08 13:29
PROVIDERS: Admitting Provider Psychiatry & Neurology Psychiatry; Emergency Provider Emergency Medicine; PCP Nurse Practitioner; Visit Provider Psychiatry & Neurology Psychiatry
DX: F10.229 Alcohol dependence with intoxication, unspecified (principal); F33.9 Major depressive disorder, recurrent, unspecified; R45.851 Suicidal ideations; Y90.8 Blood alcohol level of 240 mg/100 ml or more; G89.29 Other chronic pain; F17.200 Nicotine dependence, unspecified, uncomplicated; F41.9 Anxiety disorder, unspecified
CPT/HCPCS: 80053; 80306; 80307; 85025; 96372; 97150; 97165; 99238; 99285; J3411; Q0162

== ENCOUNTER 2022-12-05 10:19 | Inpatient (IN) | payer MEDICAID, SELFPAY ==
[2022-12-05] VITALS (64 sets, daily range): BP systolic 109–155; BP diastolic 65–116; PULSE 82–106; RESP 16–20; TEMP 36.5–36.7; O2SAT 68–100; BMI 39.9
--- NOTE | 2022-12-05 10:42 | ECG_ITS ---
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 Measurements Intervals [place] Rate: 85 P: 55 AR: 170 QRS: -22 QRSD: 97 T: 65 QT: 375 QTc: 448 Interpretive Statements SINUS RHYTHM BORDERLINE LEFT AXIS DEVIATION [QRS AXIS < -20] Compared to ECG 01/11/2018 17:22:30 No significant changes Electronically Signed On 12-05-2022 20:44:19 CDT by Jesse Yuan M.D. [email or web address] - [facility].aWhere/store/NU/[id number] f
--- NOTE | 2022-12-05 10:43 | ED_ITS ---
HPI - Chest Pain General: Chief Complaint: Chest Pain Stated Complaint: ETOH; Chest Pain Time Seen by Provider: 12/05/22 10:25 Source: patient Mode of arrival: ambulatory History of Present Illness: 52-year-old female presents to the emergency room with complaints of suicidal ideation. He is acutely intoxicated and drinking heavily for the last 12 to 18 hours drank a large amount of Benjamin Leon last night and vodka this morning. He made the comment that somebody had stole his drugs he feels like all of his relationships have failed. Patient said he had a brief episode of chest pain this morning and it so he drank more alcohol. MD complaint: chest pain Onset (ago): unknown Pain location: left chest Pain radiation: none Severity: mild Quality: tightness and aching Relieving factors: nothing Exacerbating factors: nothing Associated symptoms: Deny abdominal pain, dyspnea, fever(s), nausea or vomiting Review of Systems 2 Const: Denies: fever(s), chills, body aches, change in appetite, fatigue or malaise ENMT: Denies: throat pain, ear or mastoid pain, nasal discharge or nasal congestion Card: Denies: chest pain, edema, dyspnea on exertion or orthopnea Resp: Denies: dyspnea, productive cough or non-productive cough GI: Denies: abdominal pain, nausea, vomiting, hematemesis, coffee ground emesis, diarrhea, constipation, bloating, hematochezia or melena : Denies: flank pain, dysuria, urinary frequency or urinary urgency Skin/Breast: Denies: rash or pruritus [facility] ED PFSH: Medical History Alcohol use disorder, severe, dependence Cervical spondylolysis Chronic pain syndrome Constipation Depression with suicidal ideation Dyslipidemia Essential hypertension Insomnia Osteoarthritis Psychiatric care Reading difficulty Surgical History No pertinent past surgical history Family History Father Cirrhosis of liver Hypertension Mother Seizure Denies family history of Diabetes CAD (coronary artery disease) Clotting disorder Chronic kidney disease (CKD) Anesthesia complication Bleeding disorder Lung disease Cancer Stroke Social History Smoking and tobacco status: current every day smoker cigarettes Packs smoked per day: 1 Second hand smoke exposure: No Smoking risk assessment/counseling performed?: Yes Alcohol intake: current Desire information about alcohol rehabilitation?: No Counseling given: No Substance/Drug Use: never Desire information about substance/drug rehabilitation?: No Counseling given: No Adopted: No Caregiver/support person: No Lives independently: Yes Household members: family Housing: House Marital status: service: No Do you think of yourself as: Straight/Heterosexual Current gender identity: Male Physical Exam Const: GENERAL APPEARANCE: comfortable ORIENTATION/CONSCIOUSNESS: Yes awake and Yes oriented to time HENMT: COMMON NORMALS: normocephalic, atraumatic and hearing grossly normal bilaterally HEAD & SCALP: normocephalic and atraumatic Resp: COMMON NORMALS: normal respiratory effort, No retractions, No use of accessory muscles and clear to auscultation bilaterally AUSCULTATION: clear to auscultation bilaterally Cardio: COMMON NORMALS: regular rate, regular rhythm and No murmurs present (Cardio) RATE: regular rate RHYTHM: regular rhythm GI: COMMON NORMALS: Soft to palpation and No hepatosplenomegaly present AUS CULTATION: Yes normoactive bowel sounds PALPATION: Yes Soft to palpation, No Tenderness to palpation present (GI), No Guarding due to palpation present (GI) and Yes No hepatosplenomegaly present Extremity: COMMON NORMALS: normal to inspection, capillary refill normal, no clubbing, cyanosis or edema, no calf tenderness and no pedal edema Neuro: SENSORIUM/ORIENTATION: Yes oriented to time Skin: COMMON NORMALS: no rashes or lesions noted GENERAL SKIN EXAM: no rashes or lesions noted Course Vital Signs: Vital signs: Vital Signs Temperature 97.7 F 12/05/22 10:25 Pulse Rate 96 12/05/22 12:35 Respiratory Rate 16 12/05/22 12:35 Blood Pressure 117/94 12/05/22 15:35 Pulse Oximetry 89 L 12/05/22 15:35 Oxygen Delivery Me thod Nasal Cannula 12/05/22 12:35 Oxygen Flow Rate 4 12/05/22 12:35 MDM - Chest Pain Medical Decision Making Acutely intoxicated with suicidal ideation. Shortly after interviewed the patient he became very aggressive requiring multiple staff members to restrain him he was placed in restraints bed and given Geodon and Ativan. After this he became very sedate he has severe sleep apnea he was placed in the semiupright position he was also given supplemental oxygen. I discussed Dr. Carreon orders written and will transfer to the psychiatric unit once patient is decreased level of sedation from the meds given. Interestingly with the blood alcohol level he had a 465 he was still very aggressive and combative with staff. I think all of his sedation is due to the medications he was given. Medical Records I reviewed the patient's medical records. Lab Data I reviewed the patient's lab results. 12/05/22 11:00 12/05/22 11:00 Radiology Impressions Chest X-Ray 12/05/22 11:36 IMPRESSION: 1. No acute cardiopulmonary finding. Laboratory Results WBC 5.6 10^3/uL (4.0-10.0) 12/05/22 11:00 RBC 5.04 10^6/uL (4.1-5.3) 12/05/22 11:00 Hgb 15.2 g/dL (11.7-16.6) 12/05/22 11:00 Hct 46.1 % (42.0-52.0) 12/05/22 11:00 MCV 91.5 fl (80-94) 12/05/22 11:00 MCH 30.2 pg (28.0-34.0) 12/05/22 11:00 MCHC 33.0 g/dL (30.0-36.0) 12/05/22 11:00 RDW 13.9 % (12.1-15.1) 12/05/22 11:00 Plt Count 235 10^3/cmm (130-400) 12/05/22 11:00 MPV 8.8 fL (7.4-10.4) 12/05/22 11:00 Neut % (Auto) 36.5 % 12/05/22 11:00 Lymph % (Auto) 52.5 % 12/05/22 11:00 [place] % (Auto) 5.7 % 12/05/22 11:00 Eos % (Auto) 3.2 % 12/05/22 11:00 Baso % (Auto) 1.6 % 12/05/22 11:00 Neut # (Auto) 2.06 10^3/uL (1.8-7.7) 12/05/22 11:00 Lymph # (Auto) 3.0 10^3/uL (0.8-4.8) 12/05/22 11:00 [place] # (Auto) 0.3 10^3/uL (0.2-0.9) 12/05/22 11:00 Eos # (Auto) 0.2 10^3/uL (0.0-0.8) 12/05/22 11:00 Baso # (Auto) 0.1 10^3/uL (0.0-0.1) 12/05/22 11:00 Nucleated RBC % (auto) 0 % 12/05/22 11:00 Nucleated RBCs # 0.0 /100WBC 12/05/22 11:00 Sodium 144 mmol/L (136-145) 12/05/22 11:00 Potassium 4.0 mmol/L (3.5-5.1) 12/05/22 11:00 Chloride 103 mmol/L (98-107) 12/05/22 11:00 Carbon Dioxide 29 mmol/L (22-29) 12/05/22 11:00 Anion Gap 16.0 (5-19) 12/05/22 11:00 BUN 7 mg/dL (6-20) 12/05/22 11:00 Creatinine 0.7 mg/dL (0.7-1.2) 12/05/22 11:00 GFR Calculation 119.4 mL/min (90-130) 12/05/22 11:00 Glucose 102 mg/dL (65-115) 12/05/22 11:00 Calculated Osmolality 296 mOsm/kg (285-295) H 12/05/22 11:00 Calcium 8.4 mg/dL (8.5-10.5) L 12/05/22 11:00 Total Bilirubin 0.2 mg/dL (0.15-1.2) 12/05/22 11:00 AST 26 U/L (0-40) 12/05/22 11:00 ALT 24 U/L (0-41) 12/05/22 11:00 Alkaline Phosphatase 55 U/L (40-130) 12/05/22 11:00 Ammonia 42 umol/L (16-60) 12/05/22 11:00 Creatine Kinase 237 U/L (39-308) 12/05/22 11:00 Troponin T Baseline 15 ng/L (0-15) 12/05/22 11:00 Total Protein 7.6 g/dL (6.6-8.7) 12/05/22 11:00 Albumin 4.3 g/dL (3.5-5.2) 12/05/22 11:00 Globulin 3.3 g/dL (1.3-4.6) 12/05/22 11:00 Urine Color Light yellow (Yellow) 12/05/22 10:45 Urine Appearance Clear (CLEAR) 12/05/22 10:45 Urine pH 7 (5-7) 12/05/22 10:45 Ur Specific [place] 1.005 (1.005-1.030) 12/05/22 10:45 Urine Protein Neg (Negative) 12/05/22 10:45 Urine Glucose (UA) Norm (Normal) 12/05/22 10:45 Urine Ketones Negative (Negative) 12/05/22 10:45 Urine Blood Trace (Negative) H 12/05/22 10:45 Urine Nitrate Negative (Negative) 12/05/22 10:45 Urine Bilirubin Neg (Negative) 12/05/22 10:45 Urine Urobilinogen Neg mg/dL (Negative) 12/05/22 10:45 Ur Leukocyte Esterase Negative (Negative) 12/05/22 10:45 Urine RBC 0-4 /hpf (0-2) H 12/05/22 10:45 Urine WBC Rare /hpf (0-5) 12/05/22 10:45 Ur Squamous Epith Cells 0-4 /hpf (0-5) H 12/05/22 10:45 Amorphous Sediment Not Reportable 12/05/22 10:45 Urine Bacteria None /hpf (NONE) 12/05/22 10:45 Salicylates 1.0 mg/dL (3-10) L 12/05/22 11:00 Urine Opiates Screen Negative ng/mL (Negative) 12/05/22 10:45 Acetaminophen < 5.0 ug/mL (10-30) L 12/05/22 11:00 Ur Barbiturates Screen Negative ng/mL (Negative) 12/05/22 10:45 Ur Phencyclidine Scrn Negative ng/mL (Negative) 12/05/22 10:45 Ur Amphetamines Screen Negative ng/mL (Negative) 12/05/22 10:45 U Benzodiazepines Scrn Negative ng/mL (Negative) 12/05/22 10:45 Urine Cocaine Screen Negative ng/mL (Negative) 12/05/22 10:45 U Marijuana (THC) Screen Negative ng/mL (Negative) 12/05/22 10:45 Ethyl Alcohol 465 mg/dL (0-10) H* 12/05/22 11:00 Discharge Plan Discharge Patient Disposition: Admitted As Inpatient Admit Provider: Robby Carreon Clinical Impression: Suicidal ideation, Alcohol use disorder, severe, dependence, Acute alcohol intoxication Condition: Stable Coding Level of Care Code 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
[2022-12-05 11:08] LABS: Basophils # 0.1 10^3/uL (0.0-0.1); Basophils % 1.6 %; Eosinophils # 0.2 10^3/uL (0.0-0.8); Eosinophils % 3.2 %; Hematocrit 46.1 % (42.0-52.0); Hemoglobin 15.2 g/dL (11.7-16.6); Lymphocytes % 52.5 %; Mean Corpuscular Hemoglobin 30.2 pg (28.0-34.0); Mean Corpuscular Volume 91.5 fl (80-94); Mean Platelet Volume 8.8 fL (7.4-10.4); Monocytes # 0.3 10^3/uL (0.2-0.9); Monocytes % 5.7 %; Neutrophils # 2.06 10^3/uL (1.8-7.7); Neutrophils % 36.5 %; Nucleated Red Blood Cells % 0 %; Platelet Count 235 10^3/cmm (130-400); Red Blood Count 5.04 10^6/uL (4.1-5.3); Red Cell Distribution Width 13.9 % (12.1-15.1); White Blood Count 5.6 10^3/uL (4.0-10.0)
[2022-12-05 11:14] LABS: Amphetamines Screen Urine Negative (Negative); Barbiturates Screen Urine Negative (Negative); Benzodiazepines Screen Urine Negative (Negative); Cocaine Screen Urine Negative (Negative); Opiate Screen Urine Negative (Negative); PCP Screen Urine Negative (Negative); THC Screen Urine Negative (Negative)
[2022-12-05] MEDS: LORazepam 2 mg/mL INJ 1 mL IM (11:18)
[2022-12-05] MEDS: ziprasidone 20 mg/mL SDV IM (11:18)
[2022-12-05 11:22] LABS: Ammonia 42 umol/L (16-60)
[2022-12-05 11:26] LABS: Add Urine Culture? No; Add Urine Microscopic? YES; Bilirubin Urine Neg (Negative); Blood Urine Trace (Negative); Glucose Urine UA Norm (Normal); Ketones Urine Negative (Negative); Leukocyte Esterase Urine Negative (Negative); Nitrate Urine Negative (Negative); Protein Urine Neg (Negative); RBC Urine 0-4 /hpf (0-2); Specific Gravity, Urine 1.005 (1.005-1.030); Squamous Epithelial Cell Urine 0-4 /hpf (0-5); Urine Appearance Clear (CLEAR); Urine Color Light yellow (Yellow); Urobilinogen Urine Neg (Negative); WBC Urine RARE /hpf (0-5); pH Urine 7 (5-7)
[2022-12-05 11:28] LABS: Alanine Aminotransferase 24 U/L (0-41); Albumin Level 4.3 g/dL (3.5-5.2); Alkaline Phosphatase 55 U/L (40-130); Aspartate Amino Transferase 26 U/L (0-40); Blood Urea Nitrogen 7 mg/dL (6-20); Calcium 8.4 mg/dL (8.5-10.5); Carbon Dioxide 29 mmol/L (22-29); Chloride 103 mmol/L (98-107); Creatine Phosphokinase 237 U/L (39-308); Globulin 3.3 g/dL (1.3-4.6); Glomerular Filtration Rate 119.4 mL/min (90-130); Glucose 102 mg/dL (65-115); Osmolality Calculated 296 mOsm/kg (285-295); Sodium 144 mmol/L (136-145); Total Bilirubin 0.2 mg/dL (0.15-1.2); Total Protein 7.6 g/dL (6.6-8.7)
[2022-12-05 11:31] LABS: Acetaminophen < 5.0 ug/mL (10-30); Alcohol Level 465 mg/dL (0-10)
--- NOTE | 2022-12-05 11:36 | XR_ITS ---
WS: [id number] Exam: XR chest 1V portable [id number] Date/Time of Exam: 12/05/2022 12:10 PM Reason For Exam: dyspnea/cough Comparison 10/11/2022. The lungs are fully expanded and clear. Heart size top limits normal. The mediastinum is unremarkable in appearance for portable technique. Bony structures are intact. XR/XR chest 1V portable [id number] IMPRESSION: 1. No acute cardiopulmonary finding.
--- NOTE | 2022-12-05 11:41 | PC.NURSE ---
triage documentation with Ashlyn Nicole RN assisting.
--- NOTE | 2022-12-05 11:48 | PC.NURSE ---
PT BEGAN TO WANDER OUTSIDE OF ROOM. PT REDIRECTED AND ASKED TO RETURN TO ROOM. PT DID SO WITHOUT NEGATIVE RESPONSE. PT CAME OUT OF ROOM AGAIN THIS TIME YELLING AT SITTER AND STAFF. PT YELLED AT SECURITY GET ME MY FUCKING MEDS AND GET ME DOWN THERE! PT REPEATED THIS STATEMENT 2 TIMES. DURING THIS THE PT WAS MOVING CLOSER TO STAFF AND PT WAS ASKED TO RETURN TO HIS ROOM. PT DID NOT COMPLY. PT POSTURE APPEARED HOSTILE. PT ASKED AGAIN TO RETURN TO HIS ROOM. SECURITY AND OTHER STAFF PRESENT AT THIS TIME. PT THEN SHOVED STAFF MEMBER. SECURITY AND NURSING STAFF THEN BECAME HANDS ON WITH PT. CODE 10 CALLED 1115. PT PLACED IN 4 POINT RESTRAINT BED AND GIVEN MEDICATIONS ORDERED BY DR. MESA.
--- NOTE | 2022-12-05 13:05 | PC.NURSE ---
96 hr rights given and reviewed with patient @1058. Patient appears very intoxicated. Copy of 96 hr rights left with patient @bedside. ER staff asked to notify HS when patient sober enough to understand the conversation taken place.
[2022-12-05 15:02] LABS: Troponin(5th) Baseline 15 ng/L (0-15)
--- NOTE | 2022-12-05 15:25 | ECG_ITS ---
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 Measurements Intervals [place] Rate: 82 P: 42 ME: 169 QRS: -17 QRSD: 97 T: 43 QT: 374 QTc: 438 Interpretive Statements SINUS RHYTHM Compared to ECG 12/05/2022 10:31:50 No significant changes Electronically Signed On 12-05-2022 20:39:29 CDT by Jesse Yuan M.D. [email or web address] county general hospitalSatin Technologieskettering health washington townshipDroneDeploy/store/OM/[id number]/[id number]
--- NOTE | 2022-12-05 17:07 | PC.NURSE ---
PT AMBULATED DOWN AKBAR WITH GATE BELT. PT GAIT WNL. PT ALERT TO SELF PLACE AND YEAR
--- NOTE | 2022-12-05 18:38 | ECG_ITS ---
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 Measurements Intervals [place] Rate: 93 P: 43 ID: 166 QRS: 13 QRSD: 96 T: 50 QT: 355 QTc: 444 Interpretive Statements SINUS RHYTHM LOW QRS VOLTAGE IN PRECORDIAL LEADS [QRS DEFLECTION < 1.0 mV IN CHEST LEADS] Compared to ECG 12/05/2022 15:25:53 Low QRS voltage now present Electronically Signed On 12-05-2022 20:41:39 CDT by Jesse Yuan M.D. [email or web address] Softwaremount [facility].Next Glass/store/OM/[id number]
[2022-12-05 19:00] LABS: Troponin 5 2HR 18.64 ng/L (0-15)
[2022-12-05 19:01] LABS: Troponin 5 2HR Delta 3.64 ABS# (0-10)
--- NOTE | 2022-12-05 20:01 | ECG_ITS ---
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 Measurements Intervals [place] Rate: 85 P: 62 UT: 156 QRS: 46 QRSD: 93 T: 69 QT: 351 QTc: 420 Interpretive Statements SINUS RHYTHM Compared to ECG 12/05/2022 18:38:59 No significant changes Electronically Signed On 12-06-2022 11:05:24 CDT by Jesse Yuan M.D. [email or web address] holmes countyMagellan Global Healthknox community hospitalRF Biocidics/store/OM/[id number]
[2022-12-05 20:23] LABS: Troponin 5 6HR 17.23 ng/L (0-15)
[2022-12-05 20:26] LABS: Troponin 5 6HR Delta 2.23 ng/L (0-12)
[2022-12-05] MEDS: ondansetron 4 MG Tablet PO (21:19)
[2022-12-05] MEDS: LORazepam 2 mg Tablet PO (22:49)
[2022-12-06] MEDS: ondansetron 4 MG Tablet PO (02:07)
[2022-12-06] MEDS: LORazepam 2 mg Tablet PO ×4 (02:07→15:46)
[2022-12-06 02:19] LABS: Alcohol Level 68 mg/dL (0-10)
[2022-12-06 06:00] VITALS: RESP 17
[2022-12-06] MEDS: thiamine 100 mg Tablet PO (10:16)
[2022-12-06] MEDS: folic acid 1 mg Tablet PO (10:16)
[2022-12-06] MEDS: multivitamin therapeutic Tablet 1 TAB PO (10:16)
--- NOTE | 2022-12-06 10:52 | P.NPUHP_ITS ---
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 with an unclear plan. 1. Continue current medications evaluate medications for changes. 2. Encourage individual, group and milieu therapy 3. Continue q-15 minute check for safety 4. Recommend sober living treatment at the highest level of care to which the patient is willing to commit.? Involuntary Hold Information 96 Hour Hold: 96 Hour Involuntary Admission: Yes 96 Hour Hold Ending Date: 12/11/22 96 Hour Hold Ending Time: 10:55 Attestations NPU Medical Necessity Statement*: Inpatient psychiatric hospitalization is medically necessary and the clinically appropriate intervention at this time. We will monitor medications and make changes as indicated. He will be in the hospital for over 2 midnights. Likely length of stay 2-4 days. Coding Level of Care Code Acute Code for [facility] Diagnoses Respiratory failure J96.90 Acute alcoholic intoxication F10.929 Respiratory failure with hypoxia and hypercapnia J96.91; J96.92 Hypokalemia E87.6 Major depressive disorder, recurrent F33.9 Anxiety F41.9 Alcohol withdrawal F10.939 Alcohol use disorder, severe, dependence F10.20 Suicidal thoughts R45.851
[2022-12-06] MEDS: nicotine 2 mg Gum BUCCAL ×2 (11:04→12:36)
[2022-12-06 14:00] VITALS: BP 148/95; PULSE 90; RESP 18; TEMP 36.8; O2SAT 94
[2022-12-06] MEDS: nicotine 4 mg lozenge MUCOUS MEM ×2 (14:15→20:06)
[2022-12-06] MEDS: hyDROXYzine 25 mg Capsule 50 MG PO (19:50)
[2022-12-06] MEDS: trazodone 50 mg Tablet PO (19:50)
[2022-12-06] MEDS: acetaminophen 325 mg Tablet 650 MG PO (19:50)
[2022-12-06 22:00] VITALS: BP 143/99; PULSE 94; RESP 18; TEMP 36.6; O2SAT 97
[2022-12-07] MEDS: LORazepam 2 mg Tablet PO (05:15)
[2022-12-07 06:00] VITALS: BP 131/92; PULSE 103; RESP 16; TEMP 36.3; O2SAT 94
[2022-12-07] MEDS: ondansetron 4 MG Tablet PO (07:44)
[2022-12-07] MEDS: acetaminophen 325 mg Tablet 650 MG PO ×3 (07:45→16:49)
[2022-12-07] MEDS: multivitamin therapeutic Tablet 1 TAB PO (08:40)
[2022-12-07] MEDS: gabapentin 400 mg Capsule 800 MG PO ×4 (08:40→20:13)
[2022-12-07] MEDS: thiamine 100 mg Tablet PO (08:40)
[2022-12-07] MEDS: folic acid 1 mg Tablet PO (08:40)
[2022-12-07] MEDS: nicotine 4 mg lozenge MUCOUS MEM ×6 (08:43→20:13)
[2022-12-07] MEDS: hyDROXYzine 25 mg Capsule 50 MG PO (12:19)
[2022-12-07 14:00] VITALS: BP 137/98; PULSE 93; RESP 18; TEMP 36.6; O2SAT 96
[2022-12-07] MEDS: OLANZapine 5 mg ODT PO (16:49)
--- NOTE | 2022-12-07 16:55 | P.NPUPN_ITS ---
Subjective NPU Subjective: Patient presented today reporting that he is feeling a little better. He actually reports having spoke with the social work team and filling out paperwork for [facility]. He reports a plan at this point to actually go to inpatient rehab. We discussed how significantly this could benefit him if he sticks with it. Otherwise he endorsed feeling about the same but may be slightly better. Mental Status Exam MSE Comments: This is an obese white male in hospital scrubs with limited grooming and eye contact. No abnormal movements except for psychomotor retardation. Cooperative with exam in mild distress. Speech was decreased rate and volume with dysarthria/poor articulation. Mood described as depressed, but a little better, affect congruent, and slightly less subdued. Thought process organized. Thought content: Patient denied suicidal or homicidal ideation, there were no delusions reported or noted, he denied any auditory or visual hallucinations. Attention and concentration were intact and memory appeared mostly reliable but none were formally tested. He is alert and oriented x3. Insight, judgment and impulse control are impaired. Vitals/I&O/Wt Last Vital Signs Temp 97.8 F 12/07/22 14:00 Pulse 93 12/07/22 14:00 Resp 18 12/07/22 14:00 BP 137/98 12/07/22 14:00 Pulse Ox 96 12/07/22 14:00 O2 Del Method Room Air 12/07/22 14:00 O2 Flow Rate 5 12/05/22 16:30 Data NPU 12/05/22 11:00 12/05/22 11:00 A&P Assessment and plan (1) Respiratory failure: (2) Acute alcoholic intoxication: (3) Respiratory failure with hypoxia and hypercapnia: (4) Hypokalemia: (5) Major depressive disorder, recurrent: (6) Anxiety: (7) Alcohol withdrawal: (8) Alcohol use disorder, severe, dependence: (9) Suicidal thoughts: Plan This is a 52 year old white male with a long history of alcohol use disorder, severe, and depression with suicidality with past suicide attempts, who presents having been discharged 26 days ago with a blood alcohol level of 465 reporting suicidal thoughts with an unclear plan. 1. Continue current medications evaluate medications for changes. 2. Encourage individual, group and milieu therapy 3. Continue q-15 minute check for safety 4. Recommend sober living treatment at the highest level of care to which the patient is willing to commit.? Involuntary Hold Information 96 Hour Hold: 96 Hour Involuntary Admission: Yes 96 Hour Hold Ending Date: 12/11/22 96 Hour Hold Ending Time: 10:55 Attestations NPU Medical Necessity Statement*: Inpatient psychiatric hospitalization is medically necessary and the clinically appropriate intervention at this time. We will monitor medications and make changes as indicated. Likely length of stay 2-4 days. Coding Level of Care Code Acute Code for [facility] Diagnoses Respiratory failure J96.90 Acute alcoholic intoxication F10.929 Respiratory failure with hypoxia and hypercapnia J96.91; J96.92 Hypokalemia E87.6 Major depressive disorder, recurrent F33.9 Anxiety F41.9 Alcohol withdrawal F10.939 Alcohol use disorder, severe, dependence F10.20 Suicidal thoughts R45.851
[2022-12-07 20:08] VITALS: BP 144/100; PULSE 90; RESP 19; TEMP 37; O2SAT 96
[2022-12-07] MEDS: trazodone 150 mg Tablet PO (20:13)
[2022-12-07] MEDS: docusate sodium 100 mg Capsule 200 MG PO (20:13)
[2022-12-07] MEDS: duloxetine 30 mg Capsule PO (20:49)
[2022-12-08] MEDS: nicotine 4 mg lozenge MUCOUS MEM ×8 (03:42→20:19)
[2022-12-08 06:00] VITALS: BP 131/97; PULSE 113; RESP 18; TEMP 36.6; O2SAT 93
[2022-12-08] MEDS: hyDROXYzine 25 mg Capsule 50 MG PO (06:30)
[2022-12-08] MEDS: ibuprofen 600 mg Tablet PO (06:30)
[2022-12-08] MEDS: gabapentin 400 mg Capsule 800 MG PO ×4 (08:38→20:19)
[2022-12-08] MEDS: docusate sodium 100 mg Capsule 200 MG PO ×2 (08:38→17:12)
[2022-12-08] MEDS: duloxetine 30 mg Capsule PO ×2 (08:38→17:12)
[2022-12-08] MEDS: folic acid 1 mg Tablet PO (08:38)
[2022-12-08] MEDS: multivitamin therapeutic Tablet 1 TAB PO (08:38)
[2022-12-08] MEDS: pantoprazole DR 40 mg Tablet PO (08:38)
[2022-12-08] MEDS: amlodipine 10 mg Tablet PO (08:39)
[2022-12-08] MEDS: thiamine 100 mg Tablet PO (08:39)
[2022-12-08] MEDS: fenofibrate 145 mg Tablet PO (08:39)
[2022-12-08] MEDS: OLANZapine 5 mg ODT PO (10:23)
[2022-12-08] MEDS: LORazepam 2 mg Tablet PO (11:20)
--- NOTE | 2022-12-08 11:36 | PC.NURSE ---
[employer] Patient administered ativan 2mg po due to anxiety. Patient attended group and stated it made him anxious and aggravated, but couldn't explain why. Patient visibly shaking.
[2022-12-08 14:00] VITALS: BP 122/90; PULSE 103; RESP 20; TEMP 36.7; O2SAT 94
--- NOTE | 2022-12-08 18:02 | P.NPUPN_ITS ---
Subjective NPU Subjective: Patient presented today reporting that he is doing okay. He continued to endorse a commitment to going to [facility] and he is waiting for response from them as he has worked with the social work team for inpatient rehab. He identifies that his sobriety being present would make some significant changes for him but he is reporting that today has been tough because he feels irritable. We talked about him being in this middle ground between the bad detox that needs medicated and this post acute detox. Otherwise he reports that he is having no other issues and he is eating fine and sleeping better. Mental Status Exam MSE Comments: This is an obese white male in hospital scrubs with limited grooming and eye contact. No abnormal movements except for psychomotor retardation. Cooperative with exam in mild to moderate distress. Speech was decreased rate and volume with dysarthria/poor articulation. Mood described as a little irritable, affect congruent, and slightly less subdued. Thought process organized. Thought content: Patient denied suicidal or homicidal ideation, there were no delusions reported or noted, he denied any auditory or visual hallucinations. Attention and concentration were intact and memory appeared mostly reliable but none were formally tested. He is alert and oriented x3. Insight and judgment are limited but improving and impulse control is impaired. Vitals/I&O/Wt Last Vital Signs Temp 98.1 F 12/08/22 14:00 Pulse 103 H 12/08/22 14:00 Resp 20 H 12/08/22 14:00 BP 122/90 12/08/22 14:00 Pulse Ox 94 12/08/22 14:00 O2 Del Method Room Air 12/08/22 06:00 O2 Flow Rate 5 12/05/22 16:30 Data NPU 12/05/22 11:00 12/05/22 11:00 A&P Assessment and plan (1) Respiratory failure: (2) Acute alcoholic intoxication: (3) Respiratory failure with hypoxia and hypercapnia: (4) Hypokalemia: (5) Major depressive disorder, recurrent: (6) Anxiety: (7) Alcohol withdrawal: (8) Alcohol use disorder, severe, dependence: (9) Suicidal thoughts: Plan This is a 52 year old white male with a long history of alcohol use disorder, severe, and depression with suicidality with past suicide attempts, who presents having been discharged 26 days ago with a blood alcohol level of 465 reporting suicidal thoughts with an unclear plan. 1. Continue current medications evaluate medications for changes. 2. Encourage individual, group and milieu therapy 3. Continue q-15 minute check for safety 4. Recommend sober living treatment at the highest level of care to which the patient is willing to commit.? Involuntary Hold Information 96 Hour Hold: 96 Hour Involuntary Admission: Yes 96 Hour Hold Ending Date: 12/11/22 96 Hour Hold Ending Time: 10:55 Attestations NPU Medical Necessity Statement*: Inpatient psychiatric hospitalization is medically necessary and the clinically appropriate intervention at this time. We will monitor medications and make changes as indicated. Likely length of stay 3 to 5 days. Coding Level of Care Code [facility] Diagnoses Respiratory failure J96.90 Acute alcoholic intoxication F10.929 Respiratory failure with hypoxia and hypercapnia J96.91; J96.92 Hypokalemia E87.6 Major depressive disorder, recurrent F33.9 Anxiety F41.9 Alcohol withdrawal F10.939 Alcohol use disorder, severe, dependence F10.20 Suicidal thoughts R45.851
[2022-12-08] MEDS: trazodone 150 mg Tablet PO (20:19)
[2022-12-08 21:57] VITALS: RESP 18
[2022-12-09] MEDS: nicotine 4 mg lozenge MUCOUS MEM ×7 (02:17→21:12)
[2022-12-09] MEDS: LORazepam 2 mg Tablet PO (05:33)
[2022-12-09 06:00] VITALS: BP 150/113; PULSE 104; RESP 17; TEMP 36.4; O2SAT 93
[2022-12-09] MEDS: OLANZapine 5 mg ODT PO (06:26)
[2022-12-09] MEDS: ibuprofen 600 mg Tablet PO (06:26)
[2022-12-09] MEDS: fenofibrate 145 mg Tablet PO (08:47)
[2022-12-09] MEDS: multivitamin therapeutic Tablet 1 TAB PO (08:47)
[2022-12-09] MEDS: folic acid 1 mg Tablet PO (08:47)
[2022-12-09] MEDS: amlodipine 10 mg Tablet PO (08:47)
[2022-12-09] MEDS: pantoprazole DR 40 mg Tablet PO (08:47)
[2022-12-09] MEDS: duloxetine 30 mg Capsule PO ×2 (08:47→17:38)
[2022-12-09] MEDS: thiamine 100 mg Tablet PO (08:47)
[2022-12-09] MEDS: gabapentin 400 mg Capsule 800 MG PO ×4 (08:47→21:10)
[2022-12-09] MEDS: docusate sodium 100 mg Capsule 200 MG PO ×2 (08:48→17:37)
[2022-12-09 14:00] VITALS: BP 133/75; PULSE 80; RESP 20; TEMP 36.5; O2SAT 92
[2022-12-09] MEDS: hyDROXYzine 25 mg Capsule 50 MG PO ×2 (15:26→21:10)
--- NOTE | 2022-12-09 15:27 | PC.NURSE ---
Patient requesting medication for anxiety. Rating anxiety 8/10. Patient unsure of the cause of his anxiety. Encouraged patient to go to his room and rest. Will continue to monitor.
--- NOTE | 2022-12-09 18:15 | P.NPUPN_ITS ---
Subjective NPU Subjective: Patient presented today reporting that he is doing a little better. He continued to endorse a commitment to going to [facility] and he is waiting for response from them as he has worked with the social work team for inpatient rehab. He reported a plan to be patient. We talked about this being post acute detox. He denied any additional or new issues. Mental Status Exam MSE Comments: This is an obese white male in hospital scrubs with limited grooming and eye contact. No abnormal movements except for psychomotor retardation. Cooperative with exam in mild distress. Speech was decreased rate and volume with dysarthria/poor articulation. Mood described as less irritable, affect nicole ruent, and slightly less subdued. Thought process organized. Thought content: Patient denied suicidal or homicidal ideation, there were no delusions reported or noted, he denied any auditory or visual hallucinations. Attention and concentration were intact and memory appeared mostly reliable but none were formally tested. He is alert and oriented x3. Insight and judgment are limited but improving and impulse control is impaired. Vitals/I&O/Wt Last Vital Signs Temp 97.7 F 12/09/22 14:00 Pulse 80 12/09/22 14:00 Resp 20 H 12/09/22 14:00 BP 133/75 12/09/22 14:00 Pulse Ox 92 12/09/22 14:00 O2 Del Method Room Air 12/09/22 06:00 O2 Flow Rate 5 12/05/22 16:30 Data NPU 12/05/22 11:00 12/05/22 11:00 A&P Assessment and plan (1) Respiratory failure: (2) Acute alcoholic intoxication: (3) Respiratory failure with hypoxia and hypercapnia: (4) Hypokalemia: (5) Major depressive disorder, recurrent: (6) Anxiety: (7) Alcohol withdrawal: (8) Alcohol use disorder, severe, dependence: (9) Suicidal thoughts: Plan This is a 52 year old white male with a long history of alcohol use disorder, severe, and depression with suicidality with past suicide attempts, who presents having been discharged 26 days ago with a blood alcohol level of 465 reporting suicidal thoughts with an unclear plan. 1. Continue current medications evaluate medications for changes. 2. Encourage individual, group and milieu therapy 3. Continue q-15 minute check for safety 4. Recommend sober living treatment at the highest level of care to which the patient is willing to commit.? Involuntary Hold Information 96 Hour Hold: 96 Hour Involuntary Admission: Yes 96 Hour Hold Ending Date: 12/11/22 96 Hour Hold Ending Time: 10:55 Attestations NPU Medical Necessity Statement*: Inpatient psychiatric hospitalization is medically necessary and the clinically appropriate intervention at this time. We will monitor medications and make changes as indicated. Likely length of stay 2-4 days. Coding Level of Care Code Acute Code for [facility] Diagnoses Respiratory failure J96.90 Acute alcoholic intoxication F10.929 Respiratory failure with hypoxia and hypercapnia J96.91; J96.92 Hypokalemia E87.6 Major depressive disorder, recurrent F33.9 Anxiety F41.9 Alcohol withdrawal F10.939 Alcohol use disorder, severe, dependence F10.20 Suicidal thoughts R45.851
[2022-12-09 19:48] VITALS: BP 137/97; PULSE 86; RESP 16; O2SAT 94
[2022-12-09] MEDS: trazodone 150 mg Tablet PO (21:10)
[2022-12-10] MEDS: nicotine 4 mg lozenge MUCOUS MEM ×6 (00:58→16:58)
[2022-12-10] MEDS: hyDROXYzine 25 mg Capsule 50 MG PO (05:43)
[2022-12-10 06:00] VITALS: BP 149/96; PULSE 104; RESP 18; O2SAT 94; BMI 39.9
--- NOTE | 2022-12-10 06:21 | PC.NURSE ---
Addendum entered by Rajendra Farr RN 12/10/22 06:26: Patient stated that he feels bloated & is passing gas. Original Note: Patient came to RN desk c/o blood in his stool, he states that he is not straining with a BM. He also states that he spoke to [facility] regarding this as well. There was a moderate amount in the toilet water, did not appear to be any clots. Advised to talk to MD regarding this & will pass on to let next shift know.
--- NOTE | 2022-12-10 08:10 | ECG_ITS ---
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 Measurements Intervals [place] Rate: 64 P: 33 NM: 160 QRS: 24 QRSD: 97 T: 102 QT: 371 QTc: 384 Interpretive Statements SINUS RHYTHM ABNORMAL QRS-T ANGLE [QRS-T AXIS DIFFERENCE > 60] Compared to ECG 12/05/2022 21:39:55 No significant changes Electronically Signed On 12-10-2022 22:34:53 CDT by Alecia Schroeder M.D. [email or web address]
[2022-12-10 08:11] VITALS: PULSE 64
[2022-12-10] MEDS: thiamine 100 mg Tablet PO (08:21)
[2022-12-10] MEDS: amlodipine 10 mg Tablet PO (08:21)
[2022-12-10] MEDS: folic acid 1 mg Tablet PO (08:21)
[2022-12-10] MEDS: gabapentin 400 mg Capsule 800 MG PO ×4 (08:21→19:42)
[2022-12-10] MEDS: docusate sodium 100 mg Capsule 200 MG PO ×2 (08:21→17:44)
[2022-12-10] MEDS: multivitamin therapeutic Tablet 1 TAB PO (08:21)
[2022-12-10] MEDS: fenofibrate 145 mg Tablet PO (08:21)
[2022-12-10] MEDS: pantoprazole DR 40 mg Tablet PO (08:21)
[2022-12-10] MEDS: duloxetine 30 mg Capsule PO ×2 (08:22→17:00)
[2022-12-10 09:13] LABS: Hematocrit 43.9 % (42.0-52.0); Hemoglobin 14.5 g/dL (11.7-16.6); Mean Corpuscular Volume 90.9 fl (80-94); Mean Platelet Volume 9.9 fL (7.4-10.4); Platelet Count 176 10^3/cmm (130-400); Red Blood Count 4.83 10^6/uL (4.1-5.3); Red Cell Distribution Width 13.4 % (12.1-15.1); White Blood Count 6.1 10^3/uL (4.0-10.0)
[2022-12-10 09:19] LABS: Alanine Aminotransferase 54 U/L (0-41); Albumin Level 4.3 g/dL (3.5-5.2); Alkaline Phosphatase 46 U/L (40-130); Anion Gap 15.1 (5-19); Aspartate Amino Transferase 48 U/L (0-40); Blood Urea Nitrogen 13 mg/dL (6-20); Calcium 9.8 mg/dL (8.5-10.5); Carbon Dioxide 23 mmol/L (22-29); Chloride 99 mmol/L (98-107); Globulin 3.1 g/dL (1.3-4.6); Glomerular Filtration Rate 79.1 mL/min (90-130); Glucose 129 mg/dL (65-115); Osmolality Calculated 278 mOsm/kg (285-295); Potassium 4.1 mmol/L (3.5-5.1); Sodium 133 mmol/L (136-145); Total Bilirubin 0.3 mg/dL (0.15-1.2); Total Protein 7.4 g/dL (6.6-8.7)
--- NOTE | 2022-12-10 09:24 | W.PM.NPUPNS ---
Subjective NPU Subjective: Patient presented today reporting that he is looking forward to hopefully getting to [facility] sooner rather than later. We discussed that we would call [facility] first thing on Sunday and get a sense of where things were for all of our patients. He continues to endorse a commitment to going to [facility] and that he is feeling a little challenges right now and this postacute withdrawal. We talked about giving him a little bit of Librium for a few days to try to take that edge off. We discussed the risk benefits and alternatives and he understood and agreed to proceed as documented in this note. Mental Status Exam MSE Comments: This is an obese white male in hospital scrubs with limited grooming and eye contact. No abnormal movements except for psychomotor retardation. Cooperative with exam in mild distress. Speech was decreased rate and volume with dysarthria/poor articulation. Mood described as less irritable, affect congruent, and slightly less subdued. Thought process organized. Thought content: Patient denied suicidal or homicidal ideation, there were no delusions reported or noted, he denied any auditory or visual hallucinations. Attention and concentration were intact and memory appeared mostly reliable but none were formally tested. He is alert and oriented x3. Insight and judgment are limited but improving and impulse control is impaired. Vitals/I&O/Wt Last Vital Signs Temp 97.7 F 12/09/22 14:00 Pulse 104 H 12/10/22 06:00 Resp 18 12/10/22 06:00 BP 149/96 12/10/22 06:00 Pulse Ox 94 12/10/22 06:00 O2 Del Method Room Air 12/09/22 06:00 O2 Flow Rate 5 12/05/22 16:30 Weight last 48 hrs Weight 122.47 kg Data NPU 12/10/22 08:48 12/10/22 08:48 A&P Assessment and plan (1) Respiratory failure: (2) Acute alcoholic intoxication: (3) Respiratory failure with hypoxia and hypercapnia: (4) Hypokalemia: (5) Major depressive disorder, recurrent: (6) Anxiety: (7) Alcohol withdrawal: (8) Alcohol use disorder, severe, dependence: (9) Suicidal thoughts: Plan This is a 52 year old white male with a long history of alcohol use disorder, severe, and depression with suicidality with past suicide attempts, who presents having been discharged 26 days ago with a blood alcohol level of 465 reporting suicidal thoughts with an unclear plan. 1. Continue current medications evaluate medications for changes. Giving Librium 25 mg p.o. twice daily for postacute withdrawal symptoms. 2. Encourage individual, group and milieu therapy 3. Continue q-15 minute check for safety 4. Recommend sober living treatment at the highest level of care to which the patient is willing to commit.? Involuntary Hold Information 96 Hour Hold: 96 Hour Involuntary Admission: Yes 96 Hour Hold Ending Date: 12/11/22 96 Hour Hold Ending Time: 10:55 Attestations NPU Medical Necessity Statement*: Inpatient psychiatric hospitalization is medically necessary and the clinically appropriate intervention at this time. We will monitor medications and make changes as indicated. Likely length of stay 1-3 days. Coding Level of Care Code Acute Code for [facility] Diagnoses Respiratory failure J96.90 Acute alcoholic intoxication F10.929 Respiratory failure with hypoxia and hypercapnia J96.91; J96.92 Hypokalemia E87.6 Major depressive disorder, recurrent F33.9 Anxiety F41.9 Alcohol withdrawal F10.939 Alcohol use disorder, severe, dependence F10.20 Suicidal thoughts R45.851
[2022-12-10 09:39] LABS: Absolute Eosinophils 0.3 10^3/cmm (0.0-0.7); Absolute Neutrophil 3.1 10^3/cmm (1.4-6.5); Band Neutrophils Absolute 0.1 10^3/cmm (0.0-1.2); Eosinophils 5 %; Lymphocytes 39 %; Lymphocytes Absolute 2.4 10^3/cmm (1.2-3.4); Monocytes Absolute 0.2 10^3/cmm (0.1-0.6); Platelet Estimate Normal (Normal); Segmented Neutrophils 49 %; Total Cells Counted 100 (0-100)
[2022-12-10 10:03] LABS: Lipase 71 U/L (13-60)
[2022-12-10] MEDS: acetaminophen 325 mg Tablet 650 MG PO (10:37)
[2022-12-10 12:33] VITALS: BP 155/117; PULSE 75; RESP 16; TEMP 37.1; O2SAT 93
[2022-12-10] MEDS: ibuprofen 600 mg Tablet PO (14:13)
[2022-12-10 19:41] VITALS: BP 142/94; PULSE 85; RESP 18; TEMP 36.6; O2SAT 94
[2022-12-10] MEDS: trazodone 150 mg Tablet PO (19:46)
[2022-12-11] MEDS: nicotine 4 mg lozenge MUCOUS MEM ×7 (03:41→21:36)
[2022-12-11] MEDS: ibuprofen 600 mg Tablet PO ×2 (04:10→16:20)
[2022-12-11 06:00] VITALS: BP 143/104; PULSE 108; RESP 18; TEMP 36.4; O2SAT 95
[2022-12-11] MEDS: hyDROXYzine 25 mg Capsule 50 MG PO (08:06)
[2022-12-11] MEDS: fenofibrate 145 mg Tablet PO (08:06)
[2022-12-11] MEDS: duloxetine 30 mg Capsule PO ×2 (08:06→19:51)
[2022-12-11] MEDS: thiamine 100 mg Tablet PO (08:07)
[2022-12-11] MEDS: folic acid 1 mg Tablet PO (08:07)
[2022-12-11] MEDS: gabapentin 400 mg Capsule 800 MG PO ×4 (08:07→19:51)
[2022-12-11] MEDS: amlodipine 10 mg Tablet PO (08:07)
[2022-12-11] MEDS: pantoprazole DR 40 mg Tablet PO (08:07)
[2022-12-11] MEDS: multivitamin therapeutic Tablet 1 TAB PO (08:07)
[2022-12-11] MEDS: docusate sodium 100 mg Capsule 200 MG PO ×2 (08:08→19:52)
--- NOTE | 2022-12-11 08:08 | PC.NURSE ---
PRN VISTARIL 50 MG GIVEN PO PER PT C/O STATED ANXIETY
[2022-12-11] MEDS: chlordiazePOXIDE 25 mg Capsule PO ×2 (09:04→19:51)
[2022-12-11 13:49] VITALS: BP 138/101; PULSE 75; RESP 18; TEMP 36.4; O2SAT 95
--- NOTE | 2022-12-11 16:04 | W.PM.NPUPNS ---
Subjective NPU Subjective: Patient presented today reporting that things were going okay. He is still committed to going to a sober living facility however [facility] reports that they probably will not have a male bed for a couple of weeks. He had initially not wanted any facility outside of the area but he is working with the social work team on the possibility of a rehab outside the area at this point as far as [place]. Otherwise reports she is doing okay with the addition of the Librium and reports she is sleeping okay and eating better. Mental Status Exam MSE Comments: This is an obese white male in hospital scrubs with limited grooming and eye contact. No abnormal movements except for psychomotor retardation. Cooperative with exam in mild distress. Speech was decreased rate and volume with dysarthria/poor articulation. Mood described as less irritable, affect congruent, and slightly less subdued. Thought process organized. Thought content: Patient denied suicidal or homicidal ideation, there were no delusions reported or noted, he denied any auditory or visual hallucinations. Attention and concentration were intact and memory appeared mostly reliable but none were formally tested. He is alert and oriented x3. Insight and judgment are limited but improving and impulse control is impaired. Vitals/I&O/Wt Last Vital Signs Temp 97.5 F L 12/11/22 13:49 Pulse 75 12/11/22 13:49 Resp 18 12/11/22 13:49 BP 138/101 12/11/22 13:49 Pulse Ox 95 12/11/22 13:49 O2 Del Method Room Air 12/11/22 06:00 O2 Flow Rate 5 12/05/22 16:30 Weight last 48 hrs Weight 122.47 kg Data NPU 12/10/22 08:48 12/10/22 08:48 A&P Assessment and plan (1) Respiratory failure: (2) Acute alcoholic intoxication: (3) Respiratory failure with hypoxia and hypercapnia: (4) Hypokalemia: (5) Major depressive disorder, recurrent: (6) Anxiety: (7) Alcohol withdrawal: (8) Alcohol use disorder, severe, dependence: (9) Suicidal thoughts: Plan This is a 52 year old white male with a long history of alcohol use disorder, severe, and depression with suicidality with past suicide attempts, who presents having been discharged 26 days ago with a blood alcohol level of 465 reporting suicidal thoughts with an unclear plan. 1. Continue current medications evaluate medications for changes. Started Librium 25 mg p.o. twice daily for postacute withdrawal symptoms. 2. Encourage individual, group and milieu therapy 3. Continue q-15 minute check for safety 4. Recommend sober living treatment at the highest level of care to which the patient is willing to commit.? Involuntary Hold Information 96 Hour Hold: 96 Hour Involuntary Admission: Yes 96 Hour Hold Ending Date: 12/11/22 96 Hour Hold Ending Time: 10:55 Attestations NPU Medical Necessity Statement*: Inpatient psychiatric hospitalization is medically necessary and the clinically appropriate intervention at this time. We will monitor medications and make changes as indicated. Likely length of stay 1-3 days. Trying to find a inpatient rehab for him to discharge directly to. Coding Level of Care Code Acute Code for [facility] Diagnoses Respiratory failure J96.90 Acute alcoholic intoxication F10.929 Respiratory failure with hypoxia and hypercapnia J96.91; J96.92 Hypokalemia E87.6 Major depressive disorder, recurrent F33.9 Anxiety F41.9 Alcohol withdrawal F10.939 Alcohol use disorder, severe, dependence F10.20 Suicidal thoughts R45.851
[2022-12-11] MEDS: trazodone 150 mg Tablet PO (19:51)
[2022-12-11 21:40] VITALS: BP 132/91; PULSE 76; RESP 18; TEMP 37; O2SAT 90
[2022-12-12] MEDS: nicotine 4 mg lozenge MUCOUS MEM ×8 (01:17→20:17)
[2022-12-12] MEDS: ibuprofen 600 mg Tablet PO ×2 (05:01→13:20)
[2022-12-12] MEDS: hyDROXYzine 25 mg Capsule 50 MG PO ×2 (05:01→20:19)
[2022-12-12 05:47] VITALS: BP 117/79; PULSE 113; RESP 18; TEMP 36.6; O2SAT 92
[2022-12-12] MEDS: docusate sodium 100 mg Capsule 200 MG PO ×2 (08:04→20:17)
[2022-12-12] MEDS: duloxetine 30 mg Capsule PO ×2 (08:04→20:17)
[2022-12-12] MEDS: folic acid 1 mg Tablet PO (08:04)
[2022-12-12] MEDS: pantoprazole DR 40 mg Tablet PO (08:04)
[2022-12-12] MEDS: chlordiazePOXIDE 25 mg Capsule PO ×2 (08:05→20:17)
[2022-12-12] MEDS: multivitamin therapeutic Tablet 1 TAB PO (08:05)
[2022-12-12] MEDS: fenofibrate 145 mg Tablet PO (08:05)
[2022-12-12] MEDS: amlodipine 10 mg Tablet PO (08:05)
[2022-12-12] MEDS: gabapentin 400 mg Capsule 800 MG PO ×4 (08:05→20:16)
[2022-12-12] MEDS: thiamine 100 mg Tablet PO (08:05)
[2022-12-12 14:00] VITALS: BP 125/84; PULSE 99; RESP 20; TEMP 36.4; O2SAT 95
--- NOTE | 2022-12-12 15:32 | P.NPUPN_ITS ---
Subjective NPU Subjective: Patient presented today reporting that he is doing fine. He was excited with the fact that he did get accepted by a rehab for Sunday. We discussed that we would keep him through to that date. Given the history of his treatment and motivation for treatment we discussed this is a unique opportunity to move his recovery forward. He reports that the Librium has been helpful. Mental Status Exam MSE Comments: This is an obese white male in hospital scrubs with limited grooming and eye contact. No abnormal movements except for psychomotor retardation. Cooperative with exam in mild distress. Speech was decreased rate and volume with dysarthria/poor articulation. Mood described as a little better, affect congruent, and slightly less subdued. Thought process organized. Thought content: Patient denied suicidal or homicidal ideation, there were no delusions reported or noted, he denied any auditory or visual hallucinations. Attention and concentration were intact and memory appeared mostly reliable but none were formally tested. He is alert and oriented x3. Insight and judgment are limited but improving and impulse control is impaired. Vitals/I&O/Wt Last Vital Signs Temp 97.8 F 12/12/22 20:22 Pulse 90 12/12/22 20:22 Resp 16 12/12/22 20:22 BP 125/86 12/12/22 20:22 Pulse Ox 94 12/12/22 20:22 O2 Del Method Room Air 12/12/22 20:22 O2 Flow Rate 5 12/05/22 16:30 12/12/22 12/12/22 12/13/22 14:59 22:59 06:59 Intake Total 600 / 600 Balance 600 / 600 Data NPU 12/10/22 08:48 12/10/22 08:48 A&P Assessment and plan (1) Respiratory failure: (2) Acute alcoholic intoxication: (3) Respiratory failure with hypoxia and hypercapnia: (4) Hypokalemia: (5) Major depressive disorder, recurrent: (6) Anxiety: (7) Alcohol withdrawal: (8) Alcohol use disorder, severe, dependence: (9) Suicidal thoughts: Plan This is a 52 year old white male with a long history of alcohol use disorder, severe, and depression with suicidality with past suicide attempts, who presents having been discharged 26 days ago with a blood alcohol level of 465 reporting suicidal thoughts with an unclear plan. 1. Continue current medications evaluate medications for changes. Started Librium 25 mg p.o. twice daily for postacute withdrawal symptoms. 2. Encourage individual, group and milieu therapy 3. Continue q-15 minute check for safety 4. Recommend sober living treatment at the highest level of care to which the patient is willing to commit. Accepted to rehab on Sunday.? Involuntary Hold Information 96 Hour Hold: 96 Hour Involuntary Admission: Yes 96 Hour Hold Ending Date: 12/11/22 96 Hour Hold Ending Time: 10:55 Attestations NPU Medical Necessity Statement*: Inpatient psychiatric hospitalization is medically necessary and the clinically appropriate intervention at this time. We will monitor medications and make changes as indicated. Likely length of stay 3 days. Trying to find a inpatient rehab for him to discharge directly to. Coding Level of Care Code Acute Code for [facility] Diagnoses Respiratory failure J96.90 Acute alcoholic intoxication F10.929 Respiratory failure with hypoxia and hypercapnia J96.91; J96.92 Hypokalemia E87.6 Major depressive disorder, recurrent F33.9 Anxiety F41.9 Alcohol withdrawal F10.939 Alcohol use disorder, severe, dependence F10.20 Suicidal thoughts R45.851
[2022-12-12] MEDS: trazodone 150 mg Tablet PO (20:17)
[2022-12-12 20:22] VITALS: BP 125/86; PULSE 90; RESP 16; TEMP 36.6; O2SAT 94
[2022-12-13] MEDS: nicotine 4 mg lozenge MUCOUS MEM ×8 (02:21→20:37)
[2022-12-13] MEDS: hyDROXYzine 25 mg Capsule 50 MG PO (05:44)
[2022-12-13] MEDS: ibuprofen 600 mg Tablet PO ×2 (05:44→16:35)
[2022-12-13 06:00] VITALS: BP 127/90; PULSE 89; RESP 17; TEMP 36.8; O2SAT 93
[2022-12-13] MEDS: folic acid 1 mg Tablet PO (08:33)
[2022-12-13] MEDS: pantoprazole DR 40 mg Tablet PO (08:33)
[2022-12-13] MEDS: gabapentin 400 mg Capsule 800 MG PO ×4 (08:33→20:34)
[2022-12-13] MEDS: thiamine 100 mg Tablet PO (08:33)
[2022-12-13] MEDS: fenofibrate 145 mg Tablet PO (08:33)
[2022-12-13] MEDS: multivitamin therapeutic Tablet 1 TAB PO (08:33)
[2022-12-13] MEDS: amlodipine 10 mg Tablet PO (08:33)
[2022-12-13] MEDS: docusate sodium 100 mg Capsule 200 MG PO ×2 (08:36→20:34)
[2022-12-13] MEDS: duloxetine 30 mg Capsule PO ×2 (08:36→20:34)
[2022-12-13] MEDS: chlordiazePOXIDE 25 mg Capsule PO ×2 (08:36→20:34)
--- NOTE | 2022-12-13 13:34 | P.NPUPN_ITS ---
Subjective NPU Subjective: Patient presented today reporting that he is starting to feel a little better and more optimistic. He is still concerned as the rehab is psychiatrical for physical therapy following a final decision on whether or not he gets to stay. Otherwise reports that the Librium is helping and we discussed the fact that it is a short-term solution for his somewhat protracted withdrawal. We discussed the likelihood of decreasing the medication possibly tomorrow. Mental Status Exam MSE Comments: This is an obese white male in hospital scrubs with improving grooming and eye contact. Some tattoos on exposed skin no abnormal movements except for lessening psychomotor retardation. Cooperative with exam in mild distress. Speech was decreased rate and volume with better articulation. Mood described as a little better, affect congruent, and slightly less subdued. Thought process organized. Thought content: Patient denied suicidal or homicidal ideation, there were no delusions reported or noted, he denied any auditory or visual hallucinations. Attention and concentration were intact and memory appeared mostly reliable but none were formally tested. He is alert and oriented x3. Insight and judgment are improving and impulse control is improving but limited. Vitals/I&O/Wt Last Vital Signs Temp 98.2 F 12/13/22 06:00 Pulse 89 12/13/22 06:00 Resp 17 12/13/22 06:00 BP 127/90 12/13/22 06:00 Pulse Ox 93 12/13/22 06:00 O2 Del Method Room Air 12/13/22 06:00 O2 Flow Rate 5 12/13/22 08:00 Data NPU 12/10/22 08:48 12/10/22 08:48 A&P Assessment and plan (1) Respiratory failure: (2) Acute alcoholic intoxication: (3) Respiratory failure with hypoxia and hypercapnia: (4) Hypokalemia: (5) Major depressive disorder, recurrent: (6) Anxiety: (7) Alcohol withdrawal: (8) Alcohol use disorder, severe, dependence: (9) Suicidal thoughts: Plan This is a 52 year old white male with a long history of alcohol use disorder, severe, and depression with suicidality with past suicide attempts, who presents having been discharged 26 days ago with a blood alcohol level of 465 reporting suicidal thoughts with an unclear plan. 1. Continue current medications evaluate medications for changes. Started Librium 25 mg p.o. twice daily for postacute withdrawal symptoms. We will likely taper over the next several days. 2. Encourage individual, group and milieu therapy 3. Continue q-15 minute check for safety 4. Recommend sober living treatment at the highest level of care to which the patient is willing to commit. Accepted to rehab at [facility] on Sunday.? Involuntary Hold Information 96 Hour Hold: 96 Hour Involuntary Admission: Yes 96 Hour Hold Ending Date: 12/11/22 96 Hour Hold Ending Time: 10:55 Attestations NPU Medical Necessity Statement*: Inpatient psychiatric hospitalization is medically necessary and the clinically appropriate intervention at this time. We will monitor medications and make changes as indicated. Likely length of stay 2 days. Discharge directly to rehab Sunday. Coding Level of Care Code Acute Code for [facility] Fwd Diagnoses Respiratory failure J96.90 Acute alcoholic intoxication F10.929 Respiratory failure with hypoxia and hypercapnia J96.91; J96.92 Hypokalemia E87.6 Major depressive disorder, recurrent F33.9 Anxiety F41.9 Alcohol withdrawal F10.939 Alcohol use disorder, severe, dependence F10.20 Suicidal thoughts R45.851
[2022-12-13 14:00] VITALS: BP 139/91; PULSE 90; RESP 18; TEMP 36.3; O2SAT 95
[2022-12-13] MEDS: trazodone 150 mg Tablet PO (20:34)
[2022-12-13 21:08] VITALS: BP 122/88; PULSE 87; RESP 16; O2SAT 93
[2022-12-14 06:00] VITALS: BP 139/87; PULSE 118; RESP 19; TEMP 37; O2SAT 91
[2022-12-14] MEDS: hyDROXYzine 25 mg Capsule 50 MG PO ×2 (06:11→17:01)
[2022-12-14] MEDS: acetaminophen 325 mg Tablet 650 MG PO ×2 (06:11→16:59)
[2022-12-14] MEDS: nicotine 4 mg lozenge MUCOUS MEM ×6 (06:36→19:56)
[2022-12-14] MEDS: gabapentin 400 mg Capsule 800 MG PO ×4 (08:49→20:45)
[2022-12-14] MEDS: amlodipine 10 mg Tablet PO (08:49)
[2022-12-14] MEDS: docusate sodium 100 mg Capsule 200 MG PO ×2 (08:49→20:45)
[2022-12-14] MEDS: fenofibrate 145 mg Tablet PO (08:49)
[2022-12-14] MEDS: pantoprazole DR 40 mg Tablet PO (08:49)
[2022-12-14] MEDS: duloxetine 30 mg Capsule PO ×2 (08:49→20:46)
[2022-12-14] MEDS: folic acid 1 mg Tablet PO (08:49)
[2022-12-14] MEDS: multivitamin therapeutic Tablet 1 TAB PO (08:49)
[2022-12-14] MEDS: thiamine 100 mg Tablet PO (08:49)
[2022-12-14] MEDS: chlordiazePOXIDE 25 mg Capsule PO ×2 (08:49→20:45)
[2022-12-14] MEDS: ibuprofen 600 mg Tablet PO (12:13)
--- NOTE | 2022-12-14 12:21 | P.NPUPN_ITS ---
Subjective NPU Subjective: Patient presented today reporting that he is excited about discharge tomorrow to [facility]. We had a fairly [id number] conversation as he expressed gratitude for the treatment team sticking with him and the fact that he did actually have a conversation with his 1 son yesterday. His son was very happy that he is going to rehab and he feels that dedication to this plan could help him restore the relationship at least with some of his children. Otherwise he denied any issues and we discussed the plan for tapering down the Librium after discharge. Mental Status Exam MSE Comments: This is an obese white male in hospital scrubs with improving grooming and eye contact. Some tattoos on exposed skin no abnormal movements except for lessening psychomotor retardation. Cooperative with exam in mild distress. Speech was decreased rate and volume with better articulation. Mood described as a little better, affect congruent, and slightly less subdued. Thought process organized. Thought content: Patient denied suicidal or homicidal ideation, there were no delusions reported or noted, he denied any auditory or visual hallucinations. Attention and concentration were intact and memory ap peared mostly reliable but none were formally tested. He is alert and oriented x3. Insight and judgment are improving and impulse control is improving but limited. Vitals/I&O/Wt Last Vital Signs Temp 98.6 F 12/14/22 06:00 Pulse 118 H 12/14/22 06:00 Resp 19 H 12/14/22 06:00 BP 139/87 12/14/22 06:00 Pulse Ox 91 12/14/22 06:00 O2 Del Method Room Air 12/14/22 06:00 O2 Flow Rate 0 12/14/22 08:00 Data NPU 12/10/22 08:48 12/10/22 08:48 A&P Assessment and plan (1) Respiratory failure: (2) Acute alcoholic intoxication: (3) Respiratory failure with hypoxia and hypercapnia: (4) Hypokalemia: (5) Major depressive disorder, recurrent: (6) Anxiety: (7) Alcohol withdrawal: (8) Alcohol use disorder, severe, dependence: (9) Suicidal thoughts: Plan This is a 52 year old white male with a long history of alcohol use disorder, severe, and depression with suicidality with past suicide attempts, who presents having been discharged 26 days ago with a blood alcohol level of 465 reporting suicidal thoughts with an unclear plan. 1. Continue current medications evaluate medications for changes. Started Librium 25 mg p.o. twice daily for postacute withdrawal symptoms. We will likely taper over the next several days. 2. Encourage individual, group and milieu therapy 3. Continue q-15 minute check for safety 4. Recommend sober living treatment at the highest level of care to which the patient is willing to commit. Accepted to rehab at [facility] on tomorrow.? Involuntary Hold Information 96 Hour Hold: 96 Hour Involuntary Admission: Yes 96 Hour Hold Ending Date: 12/11/22 96 Hour Hold Ending Time: 10:55 Attestations NPU Medical Necessity Statement*: Inpatient psychiatric hospitalization is medically necessary and the clinically appropriate intervention at this time. We will monitor medications and make changes as indicated. Likely length of stay 1 day. Discharge directly to rehab tomorrow. Coding Level of Care Code Acute Code for [facility] Fwd Diagnoses Respiratory failure J96.90 Acute alcoholic intoxication F10.929 Respiratory failure with hypoxia and hypercapnia J96.91; J96.92 Hypokalemia E87.6 Major depressive disorder, recurrent F33.9 Anxiety F41.9 Alcohol withdrawal F10.939 Alcohol use disorder, severe, dependence F10.20 Suicidal thoughts R45.851
[2022-12-14 14:00] VITALS: BP 128/83; PULSE 86; RESP 18; TEMP 36.6; O2SAT 96
[2022-12-14 19:56] VITALS: BP 123/82; PULSE 91; RESP 17; TEMP 36.6; O2SAT 91
[2022-12-14] MEDS: trazodone 150 mg Tablet PO (20:45)
[2022-12-15] MEDS: nicotine 4 mg lozenge MUCOUS MEM ×5 (02:38→21:15)
[2022-12-15 06:00] VITALS: BP 112/85; PULSE 116; RESP 18; TEMP 37; O2SAT 92
[2022-12-15] MEDS: folic acid 1 mg Tablet PO (08:00)
[2022-12-15] MEDS: hyDROXYzine 25 mg Capsule 50 MG PO ×2 (08:00→16:09)
[2022-12-15] MEDS: chlordiazePOXIDE 25 mg Capsule PO (08:00)
[2022-12-15] MEDS: duloxetine 30 mg Capsule PO ×2 (08:00→21:15)
[2022-12-15] MEDS: pantoprazole DR 40 mg Tablet PO (08:00)
[2022-12-15] MEDS: ibuprofen 600 mg Tablet PO ×2 (08:00→16:10)
[2022-12-15] MEDS: fenofibrate 145 mg Tablet PO (08:00)
[2022-12-15] MEDS: amlodipine 10 mg Tablet PO (08:01)
[2022-12-15] MEDS: thiamine 100 mg Tablet PO (08:01)
[2022-12-15] MEDS: multivitamin therapeutic Tablet 1 TAB PO (08:01)
[2022-12-15] MEDS: docusate sodium 100 mg Capsule 200 MG PO ×2 (08:01→21:15)
[2022-12-15] MEDS: gabapentin 400 mg Capsule 800 MG PO ×4 (08:01→21:15)
[2022-12-15 14:00] VITALS: BP 109/76; PULSE 103; RESP 20; TEMP 36.6; O2SAT 95
--- NOTE | 2022-12-15 17:06 | P.NPUPN_ITS ---
Subjective NPU Subjective: Patient presented today reporting some frustration with his destination being changed. However he endorses a commitment to his recovery and working with the treatment team to find a sober living bed so that he can truly get beyond his addiction. He reports he is doing fine with medications and eating fine and sleeping better. Mental Status Exam MSE Comments: This is an obese white male in hospital scrubs with improving grooming and eye contact. Some tattoos on exposed skin no abnormal movements except for lessening psychomotor retardation. Cooperative with exam in mild distress. Speech was decreased rate and volume with better articulation. Mood described as a little better, affect congruent, and slightly less subdued. Thought process organized. Thought content: Patient denied suicidal or homicidal ideation, there were no delusions reported or noted, he denied any auditory or visual hallucinations. Attention and concentration were intact and memory appeared mostly reliable but none were formally tested. He is alert and oriented x3. Insight and judgment are improving and impulse control is improving but limited. Vitals/I&O/Wt Last Vital Signs Temp 98.6 F 12/15/22 21:54 Pulse 77 12/15/22 21:54 Resp 16 12/15/22 21:54 BP 114/73 12/15/22 21:54 Pulse Ox 96 12/15/22 21:54 O2 Del Method Room Air 12/15/22 21:54 O2 Flow Rate 0 12/15/22 20:00 Data NPU 12/10/22 08:48 12/10/22 08:48 A&P Assessment and plan (1) Respiratory failure: (2) Acute alcoholic intoxication: (3) Respiratory failure with hypoxia and hypercapnia: (4) Hypokalemia: (5) Major depressive disorder, recurrent: (6) Anxiety: (7) Alcohol withdrawal: (8) Alcohol use disorder, severe, dependence: (9) Suicidal thoughts: Plan This is a 52 year old white male with a long history of alcohol use disorder, severe, and depression with suicidality with past suicide attempts, who presents having been discharged 26 days ago with a blood alcohol level of 465 reporting suicidal thoughts with an unclear plan. 1. Continue current medications evaluate medications for changes. Started Librium 25 mg p.o. twice daily for postacute withdrawal symptoms. Decrease to 25 mg daily for 4 days. 2. Encourage individual, group and milieu therapy 3. Continue q-15 minute check for safety 4. Recommend sober living treatment at the highest level of care to which the patient is willing to commit. Accepted to rehab at [facility] today however they have backed out due to staffing. There are multiple places that have commitments to him but we will continue to explore any possible rehabs and hopefully get him discharged in the beginning of the week. Given his previous lack of commitment to his recovery we must support him in this moment where he is continuing to be invested in going and completing a rehab and working on his sobriety. Involuntary Hold Information 96 Hour Hold: 96 Hour Involuntary Admission: Yes 96 Hour Hold Ending Date: 12/11/22 96 Hour Hold Ending Time: 10:55 Attestations NPU Medical Necessity Statement*: Inpatient psychiatric hospitalization is medically necessary and the clinically appropriate intervention at this time. We will monitor medications and make ch anges as indicated. Likely length of stay 3-5 days. Discharge will be dependent on rehab availability. Coding Level of Care Code Acute Code for [facility] Fwd Diagnoses Respiratory failure J96.90 Acute alcoholic intoxication F10.929 Respiratory failure with hypoxia and hypercapnia J96.91; J96.92 Hypokalemia E87.6 Major depressive disorder, recurrent F33.9 Anxiety F41.9 Alcohol withdrawal F10.939 Alcohol use disorder, severe, dependence F10.20 Suicidal thoughts R45.851
[2022-12-15] MEDS: trazodone 150 mg Tablet PO (21:15)
[2022-12-15 21:54] VITALS: BP 114/73; PULSE 77; RESP 16; TEMP 37; O2SAT 96
[2022-12-16 06:00] VITALS: RESP 18
[2022-12-16] MEDS: nicotine 4 mg lozenge MUCOUS MEM ×6 (07:20→22:07)
[2022-12-16] MEDS: ibuprofen 600 mg Tablet PO (07:20)
[2022-12-16] MEDS: hyDROXYzine 25 mg Capsule 50 MG PO (07:20)
--- NOTE | 2022-12-16 07:34 | P.NPUPN_ITS ---
Subjective NPU Subjective: Patient presented today reporting a continued commitment to his recovery and working with the treatment team to find a sober living bed. We discussed the Librium decreasing to daily for a few days before discontinued. He reports he is doing fine with medications and eating fine and sleeping better. We discussed that Dr. Castro would be here tomorrow to take over the unit and attempts to get inpatient rehab bed. Mental Status Exam MSE Comments: This is an obese white male in hospital scrubs with improving grooming and eye contact. Some tattoos on exposed skin no abnormal movements except for lessening psychomotor retardation. Cooperative with exam in mild distress. Speech was decreased rate and volume with better articulation. Mood described as a little better, affect congruent, and slightly less subdued. Thought process organized. Thought content: Patient denied suicidal or homicidal ideation, there were no delusions reported or noted, he denied any auditory or visual hallucinations. Attention and concentration were intact and memory appeared reliable but none were formally tested. He is alert and oriented x3. Insight and judgment are improving and impulse control is improving but limited. Vitals/I&O/Wt Last Vital Signs Temp 97.5 F L 12/16/22 21:24 Pulse 91 12/16/22 21:24 Resp 18 12/16/22 21:24 BP 146/74 12/16/22 21:24 Pulse Ox 95 12/16/22 21:24 O2 Del Method Room Air 12/16/22 14:00 O2 Flow Rate 0 12/16/22 20:00 Data NPU 12/10/22 08:48 12/10/22 08:48 A&P Assessment and plan (1) Respiratory failure: (2) Acute alcoholic intoxication: (3) Respiratory failure with hypoxia and hypercapnia: (4) Hypokalemia: (5) Major depressive disorder, recurrent: (6) Anxiety: (7) Alcohol withdrawal: (8) Alcohol use disorder, severe, dependence: (9) Suicidal thoughts: Plan This is a 52 year old white male with a long history of alcohol use disorder, severe, and depression with suicidality with past suicide attempts, who presents having been discharged 26 days ago with a blood alcohol level of 465 reporting suicidal thoughts with an unclear plan. 1. Continue current medications evaluate medications for changes. Started Librium 25 mg p.o. twice daily for postacute withdrawal symptoms 12/11/2022. Decrease to 25 mg daily for 4 days today. 2. Encourage individual, group and milieu therapy 3. Continue q-15 minute check for safety 4. Recommend sober living treatment at the highest level of care to which the patient is willing to commit. Accepted to rehab at [facility] today however they have backed out due to staffing. There are multiple places that have commitments to him but we will continue to explore any possible rehabs and hopefully get him discharged in the beginning of the week. Given his previous lack of commitment to his recovery we must support him in this moment where he is continuing to be invested in going and completing a rehab and working on his sobriety. Involuntary Hold Information 96 Hour Hold: 96 Hour Involuntary Admission: Yes 96 Hour Hold Ending Date: 12/11/22 96 Hour Hold Ending Time: 10:55 Attestations NPU Medical Necessity Statement*: Inpatient psychiatric hospitalization is medically necessary and the clinically appropriate intervention at this time. We will monitor medications and make changes as indicated. Likely length of stay 3-5 days. Discharge will be dependent on rehab availability. Coding Level of Care Code Acute Code for [facility] Fwd Diagnoses Respiratory failure J96.90 Acute alcoholic intoxication F10.929 Respiratory failure with hypoxia and hypercapnia J96.91; J96.92 Hypokalemia E87.6 Major depressive disorder, recurrent F33.9 Anxiety F41.9 Alcohol withdrawal F10.939 Alcohol use disorder, severe, dependence F10.20 Suicidal thoughts R45.851
[2022-12-16] MEDS: docusate sodium 100 mg Capsule 200 MG PO ×2 (08:50→22:07)
[2022-12-16] MEDS: multivitamin therapeutic Tablet 1 TAB PO (08:50)
[2022-12-16] MEDS: duloxetine 30 mg Capsule PO ×2 (08:50→22:07)
[2022-12-16] MEDS: pantoprazole DR 40 mg Tablet PO (08:50)
[2022-12-16] MEDS: gabapentin 400 mg Capsule 800 MG PO ×4 (08:51→22:07)
[2022-12-16] MEDS: amlodipine 10 mg Tablet PO (08:51)
[2022-12-16] MEDS: fenofibrate 145 mg Tablet PO (08:51)
[2022-12-16] MEDS: folic acid 1 mg Tablet PO (08:51)
[2022-12-16] MEDS: thiamine 100 mg Tablet PO (08:51)
[2022-12-16] MEDS: chlordiazePOXIDE 25 mg Capsule PO (09:45)
[2022-12-16] MEDS: acetaminophen 325 mg Tablet 650 MG PO (11:14)
[2022-12-16] MEDS: OLANZapine 5 mg ODT PO (11:14)
[2022-12-16 14:00] VITALS: BP 119/78; PULSE 90; RESP 18; TEMP 36.6; O2SAT 93
[2022-12-16 21:24] VITALS: BP 146/74; PULSE 91; RESP 18; TEMP 36.4; O2SAT 95
[2022-12-16] MEDS: trazodone 150 mg Tablet PO (22:07)
[2022-12-17 06:00] VITALS: BP 126/81; PULSE 106; RESP 18; TEMP 36.5; O2SAT 97
[2022-12-17] MEDS: nicotine 4 mg lozenge MUCOUS MEM ×5 (06:28→19:52)
[2022-12-17] MEDS: ibuprofen 600 mg Tablet PO ×2 (06:48→17:00)
[2022-12-17] MEDS: hyDROXYzine 25 mg Capsule 50 MG PO ×2 (06:49→13:01)
[2022-12-17] MEDS: gabapentin 400 mg Capsule 800 MG PO ×4 (08:04→19:52)
[2022-12-17] MEDS: fenofibrate 145 mg Tablet PO (08:04)
[2022-12-17] MEDS: docusate sodium 100 mg Capsule 200 MG PO ×2 (08:04→19:52)
[2022-12-17] MEDS: duloxetine 30 mg Capsule PO ×2 (08:04→19:52)
[2022-12-17] MEDS: folic acid 1 mg Tablet PO (08:04)
[2022-12-17] MEDS: pantoprazole DR 40 mg Tablet PO (08:05)
[2022-12-17] MEDS: thiamine 100 mg Tablet PO (08:05)
[2022-12-17] MEDS: amlodipine 10 mg Tablet PO (08:05)
[2022-12-17] MEDS: chlordiazePOXIDE 25 mg Capsule PO (08:05)
[2022-12-17] MEDS: multivitamin therapeutic Tablet 1 TAB PO (08:05)
[2022-12-17 14:00] VITALS: BP 117/79; PULSE 112; RESP 17; TEMP 36.6; O2SAT 93
--- NOTE | 2022-12-17 16:09 | PC.NURSE ---
out on the patio for group therapy
[2022-12-17] MEDS: OLANZapine 5 mg ODT PO (17:00)
--- NOTE | 2022-12-17 17:02 | PC.NURSE ---
pt states having increased anxiety administered prn zyprexia for pt anxiety level an vistarel was not avaliable at this time.
--- NOTE | 2022-12-17 17:15 | W.PM.NPUPNS ---
Subjective NPU Subjective: Patient is a 52-year-old white male with alcohol dependence and opiate dependence admitted with depressed mood and stating that he needed inpatient rehabilitation. He had reported significant pain issues that had led to him using illicit opiates in the past. He reported that Suboxone had been helpful for him with managing his cravings for opiates and stated that it also had been helpful with abstinence from the use of alcohol. He had reported taking it on an outpatient basis for several months successfully. He had reported previous failures on naltrexone oral and did not wish to consider intramuscular naltrexone as an option on a monthly basis. He had reported continued depression and stated that Cymbalta may be helpful for his mood. He had endorsed an extended history of depression. He continue to take Librium to avoid any alcohol withdrawal symptoms at this time. Mental Status Exam MSE Comments: This is an obese white male in hospital scrubs with improving grooming and eye contact. Some tattoos on exposed skin no abnormal movements except for lessening psychomotor retardation. Cooperative with exam in mild distress. Speech was decreased rate with normal volume and production. Mood described as a okay. His affect was restricted in range and mood incongruent. Thought process was organized. Thought content: Patient denied suicidal or homicidal ideation, there were no delusions reported or noted, he denied any auditory or visual hallucinations. Attention and concentration were intact and memory appeared reliable but none were formally tested. He is alert and oriented x3. Insight and judgment are improving and impulse control is improving but limited. Vitals/I&O/Wt Last Vital Signs Temp 97.9 F 12/17/22 14:00 Pulse 112 H 12/17/22 14:00 Resp 17 12/17/22 14:00 BP 117/79 12/17/22 14:00 Pulse Ox 93 12/17/22 14:00 O2 Del Method Room Air 12/16/22 14:00 O2 Flow Rate 0 12/17/22 08:00 Data NPU 12/10/22 08:48 12/10/22 08:48 A&P Assessment and plan (1) Respiratory failure: (2) Acute alcoholic intoxication: (3) Respiratory failure with hypoxia and hypercapnia: (4) Hypokalemia: (5) Major depressive disorder, recurrent: (6) Anxiety: (7) Alcohol withdrawal: (8) Alcohol use disorder, severe, dependence: (9) Suicidal thoughts: Plan This is a 52 year old white male with a long history of alcohol use disorder, severe, and depression with suicidality with past suicide attempts, who presents having been discharged 26 days ago with a blood alcohol level of 465 reporting suicidal thoughts with an unclear plan. 1. Continue current medications evaluate medications for changes. Continue Librium 25 mg p.o. twice daily added Suboxone 8 mg twice a day. Target opiate dependence symptoms 2. Encourage individual, group and milieu therapy 3. Continue q-15 minute check for safety 4. Recommend sober living treatment at the highest level of care to which the patient is willing to commit.There are multiple places that have commitments to him but we will continue to explore any possible rehabs and hopefully get him discharged in the beginning of the week. Given his previous lack of commitment to his recovery we must support him in this moment where he is continuing to be invested in going and completing a rehab and working on his sobriety. Involuntary Hold Information 96 Hour Hold: 96 Hour Involuntary Admission: Yes 96 Hour Hold Ending Date: 12/11/22 96 Hour Hold Ending Time: 10:55 Attestations NPU Medical Necessity Statement*: Inpatient psychiatric hospitalization is medically necessary and the clinically appropriate intervention at this time. We will monitor medications and make changes as indicated. His likely length of stay is 3-5 days. Discharge will be dependent on rehab availability. Coding Level of Care Code Acute Code for [facility] Diagnoses Respiratory failure J96.90 Acute alcoholic intoxication F10.929 Respiratory failure with hypoxia and hypercapnia J96.91; J96.92 Hypokalemia E87.6 Major depressive disorder, recurrent F33.9 Anxiety F41.9 Alcohol withdrawal F10.939 Alcohol use disorder, severe, dependence F10.20 Suicidal thoughts R45.851
[2022-12-17] MEDS: buprenorphine-naloxone 4-1 mg Film 2 EACH SUBLINGUAL (18:01)
[2022-12-17] MEDS: trazodone 150 mg Tablet PO (19:52)
[2022-12-17 20:12] VITALS: BP 111/78; PULSE 88; RESP 20; TEMP 36.4; O2SAT 94
[2022-12-18] MEDS: nicotine 4 mg lozenge MUCOUS MEM ×8 (01:27→22:20)
[2022-12-18 06:00] VITALS: BP 125/87; PULSE 100; RESP 18; TEMP 36.9; O2SAT 93
[2022-12-18] MEDS: buprenorphine-naloxone 4-1 mg Film 2 EACH SUBLINGUAL ×2 (07:53→17:25)
[2022-12-18] MEDS: docusate sodium 100 mg Capsule 200 MG PO ×2 (07:53→20:25)
[2022-12-18] MEDS: multivitamin therapeutic Tablet 1 TAB PO (07:53)
[2022-12-18] MEDS: duloxetine 30 mg Capsule PO ×2 (07:53→20:25)
[2022-12-18] MEDS: chlordiazePOXIDE 25 mg Capsule PO (07:54)
[2022-12-18] MEDS: fenofibrate 145 mg Tablet PO (07:54)
[2022-12-18] MEDS: amlodipine 10 mg Tablet PO (07:54)
[2022-12-18] MEDS: folic acid 1 mg Tablet PO (07:54)
[2022-12-18] MEDS: thiamine 100 mg Tablet PO (07:54)
[2022-12-18] MEDS: pantoprazole DR 40 mg Tablet PO (07:54)
[2022-12-18] MEDS: gabapentin 400 mg Capsule 800 MG PO ×4 (07:54→20:24)
--- NOTE | 2022-12-18 10:19 | PC.NURSE ---
attended Goals group at 0930
[2022-12-18 14:00] VITALS: BP 135/90; PULSE 91; RESP 20; TEMP 36.3; O2SAT 90
--- NOTE | 2022-12-18 17:36 | W.PM.NPUPNS ---
Subjective NPU Subjective: Patient is a 52-year-old white male with alcohol dependence and opiate dependence admitted with depressed mood. He reported no alcohol withdrawal symptoms today. He had reported no cravings for opiates and some improvement in regards to his pain with the initiation of Suboxone at a dose of 16 mg/day. He reported feeling less depressed and reported that he would like to consider out patient substance abuse treatment instead of inpatient substance abuse treatment today as he had refused to cooperate with an intake interview on the inpatient unit. He had reported feeling better and stated that his sleep was better. Staff notes the patient was redirectable. He had been able to engage in appropriate self-care. Mental Status Exam MSE Comments: This is an obese white male in hospital scrubs with improving grooming and eye contact. Some tattoos on exposed skin no abnormal movements except for lessening psychomotor retardation. Cooperative with exam in mild distress. Speech was normal in rate with normal volume and production. Mood described as all right. His affect remained somewhat restricted in range and mood incongruent. Thought process was organized. Thought content: Patient denied suicidal or homicidal ideation, there were no delusions reported or noted, he denied any auditory or visual hallucinations. Attention and concentration were intact and memory appeared reliable but none were formally tested. He is alert and oriented x3. Insight and judgment are improving and impulse control is improving but limited. Vitals/I&O/Wt Last Vital Signs Temp 97.4 F L 12/18/22 14:00 Pulse 91 12/18/22 14:00 Resp 20 H 12/18/22 14:00 BP 135/90 12/18/22 14:00 Pulse Ox 90 12/18/22 14:00 O2 Del Method Room Air 12/17/22 20:12 O2 Flow Rate 0 12/17/22 20:00 Weight last 48 hrs Weight 130.09 kg Data NPU 12/10/22 08:48 12/10/22 08:48 A&P Assessment and plan (1) Major depressive disorder, recurrent: (2) Opioid dependence: (3) Alcohol use disorder, severe, dependence: (4) Major depressive disorder: Involuntary Hold Information 96 Hour Hold: 96 Hour Involuntary Admission: Yes 96 Hour Hold Ending Date: 12/11/22 96 Hour Hold Ending Time: 10:55 Attestations NPU Medical Necessity Statement*: Inpatient psychiatric hospitalization is medically necessary and the clinically appropriate intervention at this time. We will monitor medications and make changes as indicated. His likely length of stay is 3-5 days. Discharge likely tommorow. Coding Level of Care Code Acute Code for [facility] Fwd Diagnoses Major depressive disorder, recurrent F33.9 Opioid dependence F11.20 Alcohol use disorder, severe, dependence F10.20 Major depressive disorder F32.9
[2022-12-18] MEDS: trazodone 150 mg Tablet PO (20:25)
[2022-12-18 20:46] VITALS: BP 146/90; PULSE 94; RESP 16; TEMP 36.6; O2SAT 88
[2022-12-18 22:05] VITALS: PULSE 84; RESP 22; O2SAT 92
[2022-12-18 22:15] VITALS: PULSE 88; RESP 20; O2SAT 92
--- NOTE | 2022-12-18 22:27 | XRR_ITS ---
PROCEDURE INFORMATION: Exam: XR Chest Exam date and time: 12/18/2022 10:43 PM Age: 52 years old Clinical indication: Dyspnea; Additional info: Sob/diaphoretic TECHNIQUE: Imaging protocol: Radiologic exam of the chest. Views: 2 views. COMPARISON: CR XR chest 1V portable [id number] 12/05/2022 12:18 PM FINDINGS: Lungs: Bibasilar atelectasis versus minimal infiltrate. Pleural spaces: Unremarkable. No pleural effusion. No pneumothorax. Heart/Mediastinum: Unremarkable. No cardiomegaly. Bones/joints: Unremarkable. XR/XR chest 2V* [id number] IMPRESSION: Bibasilar atelectasis versus minimal infiltrate.
[2022-12-19] MEDS: nicotine 4 mg lozenge MUCOUS MEM ×6 (00:35→12:24)
[2022-12-19] MEDS: hyDROXYzine 25 mg Capsule 50 MG PO (01:22)
[2022-12-19] MEDS: ibuprofen 600 mg Tablet PO (01:22)
[2022-12-19 01:24] VITALS: BP 138/90; PULSE 91; RESP 16; TEMP 36.5; O2SAT 93
[2022-12-19 03:19] LABS: Glucose Point of Care 140 mg/dL (70-110)
[2022-12-19 03:23] VITALS: BP 114/83; PULSE 83; RESP 16; TEMP 36.7; O2SAT 91
[2022-12-19 06:09] VITALS: BP 110/72; PULSE 84; RESP 16; TEMP 36.5; O2SAT 91
[2022-12-19] MEDS: thiamine 100 mg Tablet PO (08:53)
[2022-12-19] MEDS: duloxetine 30 mg Capsule PO (08:53)
[2022-12-19] MEDS: docusate sodium 100 mg Capsule 200 MG PO (08:53)
[2022-12-19] MEDS: fenofibrate 145 mg Tablet PO (08:53)
[2022-12-19] MEDS: chlordiazePOXIDE 25 mg Capsule PO (08:54)
[2022-12-19] MEDS: gabapentin 400 mg Capsule 800 MG PO ×2 (08:55→12:55)
[2022-12-19] MEDS: amlodipine 10 mg Tablet PO (08:55)
[2022-12-19] MEDS: folic acid 1 mg Tablet PO (08:55)
[2022-12-19] MEDS: multivitamin therapeutic Tablet 1 TAB PO (08:55)
[2022-12-19] MEDS: pantoprazole DR 40 mg Tablet PO (08:55)
[2022-12-19] MEDS: buprenorphine-naloxone 4-1 mg Film 2 EACH SUBLINGUAL (08:56)
[2022-12-19] MEDS: albuterol 2.5 mg/3 mL Neb INHALATION (10:09)
[2022-12-19 10:11] VITALS: PULSE 87; RESP 18; O2SAT 93
--- NOTE | 2022-12-19 10:38 | P.CONIM_ITS ---
Providers/Reason For Consult Consulting Physician/Specialty*: Valdo Arnett MD, hospitalist Reason for Consult*: Diaphoresis, cough Requesting Physician: Dr. Rosenthal Attending Physician: Robby Carreon MD Primary Care Provider: COURTNEY Garcia History of Present Illness History of Present Illness John Yeung Jr is a 52 year old male with history of alcoholism admitted around December 06. I was called today as there was concerned of some sweating/diaphoresis noted this morning. There is also concern with a continued cough and the patient on abnormal chest x-ray. The patient reports that the diaphoresis is secondary to Suboxone. He reports he had a similar effect when it was started, and as he takes it for longer period of time it is not so noticeable. He denies any chest pain. He reports he has had a cough for quite some while, and gets short of breath and wheezing when he exerts himself. He continues to smoke. He has had no fevers. His cough is typically nonproductive. Nursing noticed that his oxygen level went down last night while sleeping, and some snoring was noted as well. While here at the hospital he was treated for alcohol withdrawal. Review of Systems General: Reports: 10 or more systems reviewed and unremarkable except in HPI and below Card: Denies: chest pain Resp: Reports: dyspnea, non-productive cough and wheezing GI: Denies: hematochezia or melena Medications/Allergies Home Medications Medication Instructions Recorded Confirmed Last Taken Type albuterol sulfate 90 mcg/actuation 2 puff inhalation Q6H PRN 06/26/22 12/05/22 Unknown Rx aerosol inhaler (ProAir HFA) shortness of breath or wheezing 30 days #8.5 grams fenofibrate nanocrystallized 145 145 mg PO DAILY #30 tabs 06/26/22 12/05/22 Unknown Rx mg tablet (Tricor) gabapentin 800 mg tablet 800 mg PO QID 30 days #120 tabs 06/26/22 12/05/22 Unk nown Rx albuterol sulfate 90 mcg/actuation 2 puff inhalation 6XD PRN 10/13/22 12/05/22 Unknown History aerosol inhaler (Ventolin HFA) Shortness Of Breath docusate sodium 100 mg capsule 200 mg PO BID 30 days #120 caps 10/18/22 12/05/22 Unknown Rx duloxetine 30 mg capsule,delayed 30 mg PO BID 30 days #60 caps 10/18/22 12/05/22 Unknown Rx release hydroxyzine pamoate 25 mg capsule 50 mg PO QID PRN Anxiety 30 days 10/18/22 12/05/22 Unknown Rx #120 caps pantoprazole 40 mg tablet,delayed 40 mg PO DAILY 30 days #30 tabs 10/18/22 12/05/22 Unknown Rx release chlordiazepoxide HCl 25 mg capsule 25 mg PO BID 10/24/22 12/05/22 Unknown History thiamine HCl (vitamin B1) 100 mg 100 mg PO DAILY 10/24/22 12/05/22 Unknown History tablet amlodipine 10 mg tablet 10 mg PO QAM 11/08/22 12/05/22 Unknown History trazodone 150 mg tablet 150 mg PO BEDTIME PRN Sleep 11/08/22 12/05/22 Unknown History ibuprofen 800 mg tablet 800 mg PO Q8H PRN Pain 30 days #30 11/10/22 12/05/22 Unknown Rx tabs Allergies Allergy/AdvReac Type Severity Reaction Status Date / Time No Known Allergies Allergy Verified 11/17/22 10:48 Current Medications Generic Name Dose Route Start Last Admin Trade Name Freq PRN Reason Stop Dose Admin Acetaminophen 650 mg 12/05/22 18:04 12/16/22 11:14 Acetaminophen 325 Mg Tablet PO 650 mg Q4H PRN Administration MILD PAIN Amlodipine Besylate 10 mg 12/09/22 09:00 12/19/22 08:55 Amlodipine 10 Mg Tablet PO 10 mg DAILY MERT Administration Buprenorphine/Naloxone 2 each 12/17/22 18:00 12/19/22 08:56 Buprenorphine-Naloxone 4-1 Mg Film SUBLINGUAL 2 each BID MERT Administration Chlordiazepoxide 25 mg 12/16/22 09:20 12/19/22 08:54 Chlordiazepoxide 25 Mg Capsule PO 12/20/22 00:00 25 mg DAILY MERT Administration Docusate Sodium 200 mg 12/11/22 21:00 12/19/22 08:53 Docusate Sodium 100 Mg Capsule PO 200 mg 09,2099 MERT Administration Duloxetine HCl 30 mg 12/11/22 21:00 12/19/22 08:53 Duloxetine 30 Mg Capsule PO 30 mg 899,2099 MERT Administration Fenofibrate 145 mg 12/08/22 09:00 12/19/22 08:53 Fenofibrate 145 Mg Tablet PO 145 mg DAILY MERT Administration Folic Acid 1 mg 12/06/22 09:00 12/19/22 08:55 Folic Acid 1 Mg Tablet PO 1 mg DAILY MERT Administration Gabapentin 800 mg 12/07/22 09:00 12/19/22 08:55 Gabapentin 400 Mg Capsule PO 800 mg QID MERT Administration Hydroxyzine Pamoate 50 mg 12/05/22 18:04 12/19/22 01:22 Hydroxyzine 25 Mg Capsule PO 50 mg Q6H PRN Administration ANXIETY Ibuprofen 600 mg 12/08/22 06:10 12/19/22 01:22 Ibuprofen 600 Mg Tablet PO 600 mg Q6H PRN Administration MODERATE PAIN Multivitamins Therapeutic 1 tab 12/06/22 09:00 12/19/22 08:55 Multivitamin Therapeutic Tablet PO 1 tab DAILY MERT Administration Nicotine Polacrilex 2 mg 12/05/22 18:04 12/06/22 12:36 Nicotine 2 Mg Gum BUCCAL 2 mg Q2H PRN Administration NICOTINE WITHDRAWAL Nicotine Polacrilex 4 mg 12/06/22 14:09 12/19/22 09:58 Nicotine 4 Mg Lozenge MUCOUS MEM 4 mg Q2H PRN Administration NICOTINE CRAVINGS Olanzapine 5 mg 12/05/22 18:04 12/17/22 17:00 Olanzapine 5 Mg Odt PO 5 mg Q4H PRN Administration Agitation/Psychosis Ondansetron HCl 4 mg 12/05/22 18:04 12/07/22 07:44 Ondansetron 4 Mg Tablet PO 4 mg Q6H PRN Administration NAUSEA AND VOMITING Pantoprazole Sodium 40 mg 12/08/22 09:00 12/19/22 08:[address] 40 Mg Tablet PO 40 mg DAILY MERT Administration Thiamine Mononitrate 100 mg 12/06/22 09:00 12/19/22 08:53 Thiamine 100 Mg Tablet PO 100 mg DAILY MERT Administration Trazodone HCl 150 mg 12/07/22 15:46 12/18/22 20:25 Trazodone 150 Mg Tablet PO 150 mg BEDTIME PRN Administration Sleep PFSH Acute PFSH: Medical History (Updated 12/19/22 @ 10:42 by Valdo Arnett MD) Alcohol use disorder, severe, dependence Cervical spondylolysis Chronic pain syndrome Constipation Depression with suicidal ideation Dyslipidemia Essential hypertension Insomnia Osteoarthritis Psychiatric care Reading difficulty Surgical History No pertinent past surgical history Family History Father Cirrhosis of liver Hypertension Mother Seizure Denies family history of Diabetes CAD (coronary artery disease) Clotting disorder Chronic kidney disease (CKD) Anesthesia complication Bleeding disorder Lung disease Cancer Stroke Social History Smoking and tobacco status: current every day smoker cigarettes Packs smoked per day: 1 Second hand smoke exposure: No Smoking risk assessment/counseling performed?: Yes Alcohol intake: current Desire information about alcohol rehabilitation?: No Counseling given: No Substance/Drug Use: never Desire information about substance/drug rehabilitation?: No Counseling given: No Adopted: No Caregiver/support person: No Lives independently: Yes Household members: family Housing: House Marital status: service: No Do you think of yourself as: Straight/Heterosexual Current gender identity: Male Vitals/I&O/Wt Last Vital Signs Temp 97.7 F 12/19/22 06:09 Pulse 87 12/19/22 10:11 Resp 18 12/19/22 10:11 BP 110/72 12/19/22 06:09 Pulse Ox 93 12/19/22 10:11 O2 Del Method Room Air 12/19/22 10:11 O2 Flow Rate 0 12/18/22 20:00 Weight last 48 hrs Weight 130.09 kg Physical Exam Narrative: General exam demonstrates a white male, who does not appear uncomfortable, who can communicate most of his medical issues. Oropharynx clear HEENT: Atraumatic normocephalic. Pupils equally round. Neck supple no lymphadenopathy thyromegaly Cardiovascular regular rate and rhythm without murmur Lungs bilateral expiratory wheezes. No crackles Abdomen is soft nontender positive bowel sounds. Obese. No obvious organomegaly exam was deferred Extremities trace edema Skin no rash Neuro no obvious focal deficits. Data 12/10/22 08:48 12/10/22 08:48 Other Labs: CBC and CMP were reviewed. AST and ALT slightly high. Last hepatitis C testing was in November 2021 and can be repeated as an outpatient. Chest x-ray demonstrates some bibasilar atelectasis. I reviewed this personally. A&P Assessment and plan (1) COPD with acute exacerbation: Patient is actively wheezing, and history is consistent with acute COPD exacerbation. Prednisone 40 mg daily Doxycycline 100 mg twice daily DuoNeb every 6 hours Budesonide twice daily Will need inhalers when discharged. I will take the liberty of adding those currently. (2) Tobacco dependency: Encouraged abstinence (3) Obstructive sleep apnea: His oxygen saturation was noted to occasionally go low when sleeping. He had witnessed apnea, and snoring. It is highly likely he has significant obstructive sleep apnea, which could be worsened by any sedating medications. I have visited with him in detail the need for sleep study, and referral from his primary care provider. Plan Narcotic use disorder. He was placed on Suboxone. It is highly likely his diaphoresis is related to this. It could be related to his alcohol withdrawal. Other medical problems as listed in past medical history Thank you for this consultation Consult Attestations Medical Necessity Statement: As per primary Diagnoses COPD with acute exacerbation J44.1 Tobacco dependency F17.200 Obstructive sleep apnea G47.33 Time Spent (min) 38
[2022-12-19] MEDS: predniSONE 20 mg Tablet 40 MG PO (10:48)
[2022-12-19] MEDS: doxycycline 100 mg Tablet PO (11:05)
--- NOTE | 2022-12-19 12:55 | W.PM.NPUDCS ---
Diagnoses at Discharge Discharge Diagnosis (1) COPD with acute exacerbation: Status: Acute (2) Tobacco dependency: Status: Acute (3) Obstructive sleep apnea: Status: Acute Reason for Visit Reason for Visit: ETOH; Chest Pain Brief History: History of Present Illness John Yeung Jr is a 52 year old male who presented to the emergency department with the following report: Chief Complaint: Chest Pain Stated Complaint: ETOH; Chest Pain Time Seen by Provider: 12/05/22 10:25 Source: patient Mode of arrival: ambulatory History of Present Illness:?? 52-year-old female presents to the emergency room with complaints of suicidal ideation.? He is acutely intoxicated and drinking heavily for the last 12 to 18 hours drank a large amount of Benjamin Leon last night and vodka this morning.? He made the comment that somebody had stole his drugs he feels like all of his relationships have failed.? Patient said he had a brief episode of chest pain this morning and it so he drank more alcohol. ? MD complaint: chest pain Onset (ago): unknown Pain location: left chest Pain radiation: none Severity: mild Quality: tightness and aching Relieving factors: nothing Exacerbating factors: nothing Associated symptoms: Deny abdominal pain, dyspnea, fever(s), nausea or vomiting. He was admitted to the neuropsychiatric unit for definitive treatment of those issues.? He was down in the emergency department for quite some time given his presentation with a BAL of 465.? Also, as has been the norm recently he was fairly combative and ultimately needed as needed medications to be managed in the emergency department.? He presents today already saying that he is not interested in doing anything to manage the addiction and that his plan is just to return to [place].? We had a lengthy conversation about this help seeking, help rejecting behavior of coming here distraught essentially begging for help only to wake up the next day and ultimately he desired to do business as usual.? He worked with the treatment team to explore options but ultimately continues to tell them that he just wants to go home and do nothing differently.? We discussed that if that is going to be his strategy was in the future we will likely treat the intoxication but plan for not fulfilling his desire to be admitted.? He is on a 96-hour hold and we agreed we would observe for safety given that diagnosis but he is not interested in any medication changes or treatment alterations.? An excerpt of his last hospitalization is included below for context and the fact that there have been no substantive changes. Per his 11/10/2022 [facility] inpatient psychiatric discharge summary: Discharge Diagnosis (1) Respiratory failure: (2) Acute alcoholic intoxication: (3) Respiratory failure with hypoxia and hypercapnia: (4) Hypokalemia: (5) Major depressive disorder, recurrent: (6) Anxiety: (7) Alcohol withdrawal: (8) Alcohol use disorder, severe, dependence: (9) Suicidal thoughts: Reason for Visit Reason for Visit:?? SI? Brief History: John Yeung Jr is a 52 year old male who presented to the emergency department with the following report: Chief Complaint: Psychiatric Symptoms Stated Complaint: SI Time Seen by Provider: 11/07/22 19:57 Source: patient and EMS Mode of arrival: EMS Limitations: no limitations History of Present Illness:?? 52-year-old male who has a history of chronic pain along with alcohol abuse he was recently admitted this month for depression and SI he states that he been having increased stress over the last 3 days has been having thoughts of cutting his wrist.? He states he has been drinking today he denies any worsening improving factors. Associated symptoms: Reports depression. He was admitted to the neuropsychiatric unit for definitive treatment of those issues.? He is quite well-known to this information writer with a recent discharge about 3 weeks ago.? At that time he was fairly ambivalent about his discharge.? He presents now reporting that everything is bad.? He has 5 children and they want help him or do anything for him.? He reports that he had had or some kind of housing voucher [facility] reporting that he was excited about having his own place.? But when he called recently they advised him that they understood that he had housing and took him off of the list.? His current living situation he reports is red prehensile and smells and he does not have any autonomy just 1 room and limited options.? His blood alcohol was 279 which is lower than it often is when he presents and he does acknowledge that his drinking is part of his problem but he reports just feeling so depressed that everything going wrong in his life that he just wants to .? An excerpt of his discharge from a few weeks ago is included below for context and history.? We agreed to explore his medications for possible changes. Per his 10/18/2022 [facility] inpatient psychiatric discharge summary: Discharge Diagnosis (1) Respiratory failure: ? ? ? Status: Resolved (2) Acute alcoholic intoxication: ? ? ? Status: Resolved (3) Respiratory failure with hypoxia and hypercapnia: ? ? ? Status: Resolved (4) Hypokalemia: ? ? ? Status: Resolved (5) Major depressive disorder, recurrent: ? ? ? Status: Acute (6) Anxiety: ? ? ? Status: Acute (7) Alcohol withdrawal: ? ? ? Status: Resolved (8) Alcohol use disorder, severe, dependence: ? ? ? Status: Acute (9) Suicidal thoughts: ? ? ? Status: Acute Reason for Visit Reason for Visit:?? SOB? Brief History: History of Present Illness John Yeung Jr is a 52 year old male who presented to the emergency department with the following report: Chief Complaint: Psychiatric Symptoms Stated Complaint: SOB Time Seen by Provider: 10/11/22 16:46 Source: EMS Mode of arrival: EMS Limitations: altered mental status History of Present Illness:?? History is obtained entirely from EMS crew as the patient was intubated upon arrival.? History from EMS was that they were called out because of the patient being combative.? And admitted to drinking alcohol.? Patient apparently was in the back of the ambulance and became more uncooperative and acted out.? Patient was allegedly given 250 mg of ketamine IM.? The patient continues to be uncooperative and by the time EMS had achieved IV access.? The report was that he was given additional 150 mg of ketamine IVP.? EMS then alleges that patient became apneic and a Ervin airway was placed. The patient arrived with airway in place and receiving bag mask ventilation by EMS crew. complaint: intoxication Context: unknown. He was admitted to the ICU for definitive treatment of those issues.? He was treated on a CIWA protocol and worked through his withdrawal.? As they started debating what to do from a standpoint of aftercare and discharge there were reports of suicidal thinking.? He was transferred to the neuropsychiatric unit for treatment of those concerns.? He presents today reporting that he has had significant struggles recently.? That he had been living with someone and that he is unable to return with them and he needs to find a place to go to initiate his recovery.? Additionally he reports that he did not feel like the medications were working really well and he had not been able to get a hold of some of the medications.? We discussed the risk benefits and alternatives of restarting some of those medications and also working with the treatment team tomorrow to find him a reasonable discharge locale.? He understood and agreed to proceed as is documented in this note.? He reports that he has tried to go to the local alf but he is unsure if it is SOC.? We discussed the fact that we would work with him to restart the medications and try to assist him in navigating local resources starting tomorrow.? An excerpt of his last discharge summary is included below for context. Hospital Course Hospital Course During the hospitalization, patient had routine laboratory studies which were within normal limits except for few outliers. Additionally there was a general medical evaluation which was also within normal limits and revealed no new acute processes. At the time of discharge, lethality was denied and psychosis was resolving. Mood and anxiety were well managed. Patient endorsed a plan to avoid all drugs of abuse and follow-up with the aftercare recommendations of the treatment team. Patient was evaluated and deemed to be absent credible lethality, and had achieved the maximum benefit from an inpatient hospitalization, so was discharged. The patient was initially agreeable to consideration of inpatient substance abuse treatment but later at the time where a potential option was available he had rejected this and chose to consider outpatient substance abuse treatment. He had responded and reported a good response to Suboxone for managing his opiate dependence with decrease cravings for opiates noted. He was evaluated by the medical team and they had placed the patient on an antibiotic for suspected respiratory illness and had recommended that the patient receive an evaluation for sleep apnea with his active medical problems including COPD and chronic pain and hypertension. Involuntary Hold Information 96 Hour Hold: 96 Hour Involuntary Admission: Yes 96 Hour Hold Ending Date: 12/11/22 96 Hour Hold Ending Time: 10:55 Mental Status Exam MSE Comments: This is an obese white male in hospital scrubs with improving grooming and eye contact. Some tattoos on exposed skin no abnormal movements except for lessening psychomotor retardation. Cooperative with exam in mild distress. Speech was normal in rate with normal volume and production. Mood described as okay. His affect appeared less restricted on discharge. Thought process was organized. Thought content: Patient denied suicidal or homicidal ideation, there were no delusions reported or noted, he denied any auditory or visual hallucinations. Attention and concentration were intact and memory appeared reliable but none were formally tested. He is alert and oriented x3. Insight and judgment are improving and impulse control is improved upon discharge. Discharge Data Studies Completed and Pending: Completed Studies During Hospitalization Category Date Time Status XR chest 1V maryann ble [id number] Stat Exams 12/05/22 11:36 Completed XR chest 2V* [id number] Urgent Exams 12/18/22 22:27 Completed Radiology Impressions Chest X-Ray 12/18/22 22:27 IMPRESSION: Bibasilar atelectasis versus minimal infiltrate. Laboratory Results WBC 6.1 10^3/uL (4.0- 10.0) 12/10/22 08:48 RBC 4.83 10^6/uL (4.1 -5.3) 12/10/22 08:48 Hgb 14.5 g/dL (11.7-1 6.6) 12/10/22 08:48 Hct 43.9 % (42.0-52.0 ) 12/10/22 08:48 MCV 90.9 fl (80-94) 12/10/22 08:48 MCH 30.0 pg (28.0-34. 0) 12/10/22 08:48 MCHC 33.0 g/dL (30.0-3 6.0) 12/10/22 08:48 RDW 13.4 % (12.1-15.1 ) 12/10/22 08:48 Plt Count 176 10^3/cmm (130 -400) 12/10/22 08:48 MPV 9.9 fL (7.4-10.4) 12/10/22 08:48 Neut % (Auto) 36.5 % 12/05/22 11:00 Lymph % (Auto) 52.5 % 12/05/22 11:00 [place] % (Auto) 5.7 % 12/05/22 11:00 Eos % (Auto) 3.2 % 12/05/22 11:00 Baso % (Auto) 1.6 % 12/05/22 11:00 Neut # (Auto) 2.06 10^3/uL (1.8 -7.7) 12/05/22 11:00 Lymph # (Auto) 3.0 10^3/uL (0.8- 4.8) 12/05/22 11:00 [place] # (Auto) 0.3 10^3/uL (0.2- 0.9) 12/05/22 11:00 Eos # (Auto) 0.2 10^3/uL (0.0- 0.8) 12/05/22 11:00 Baso # (Auto) 0.1 10^3/uL (0.0- 0.1) 12/05/22 11:00 Nucleated RBC % (a uto) 0 % 12/05/22 11:00 Total Counted 100 (0-100) 12/10/22 08:48 Atypical Lymphs % 1.0 % (0-5) 12/10/22 08:48 Absolute Neutrophi ls 3.1 10^3/cmm (1.4 -6.5) 12/10/22 08:48 Segmented Neutroph ils 49 % 12/10/22 08:48 Abs Segm Neuts (Ma n) 3.0 10/cmm (1.6-7 .1) 12/10/22 08:48 Band Neutrophils 2.0 % 12/10/22 08:48 Abs Band Neuts (Ma n) 0.1 10^3/cmm (0.0 -1.2) 12/10/22 08:48 Absolute Lymphocyt es 2.4 10^3/cmm (1.2 -3.4) 12/10/22 08:48 Lymphocytes (Manua l) 39 % 12/10/22 08:48 Monocytes (Manual) 4.0 % 12/10/22 08:48 Absolute Monocytes 0.2 10^3/cmm (0.1 -0.6) 12/10/22 08:48 Eosinophils (Manua l) 5 % 12/10/22 08:48 Absolute Eosinophi ls 0.3 10^3/cmm (0.0 -0.7) 12/10/22 08:48 Basophils (Manual) 0.0 % 12/10/22 08:48 Absolute Basophils 0.0 10^3/cmm (0.0 -0.2) 12/10/22 08:48 Nucleated RBCs # 0.0 /100WBC 12/05/22 11:00 Platelet Estimate Normal (Normal) 12/10/22 08:48 Sodium 133 mmol/L (136-1 45) L 12/10/22 08:48 Potassium 4.1 mmol/L (3.5-5 .1) 12/10/22 08:48 Chloride 99 mmol/L (98-107 ) 12/10/22 08:48 Carbon Dioxide 23 mmol/L (22-29) 12/10/22 08:48 Anion Gap 15.1 (5-19) 12/10/22 08:48 BUN 13 mg/dL (6-20) 12/10/22 08:48 Creatinine 1.0 mg/dL (0.7-1. 2) 12/10/22 08:48 GFR Calculation 79.1 mL/min (90-1 30) L 12/10/22 08:48 Glucose 129 mg/dL (65-115 ) H 12/10/22 08:48 POC Glucose 140 mg/dL (70-110 ) H 12/19/22 03:15 Calculated Osmolal ity 278 mOsm/kg (285- 295) L 12/10/22 08:48 Calcium 9.8 mg/dL (8.5-10 .5) 12/10/22 08:48 Total Bilirubin 0.3 mg/dL (0.15-1 .2) 12/10/22 08:48 AST 48 U/L (0-40) H 12/10/22 08:48 ALT 54 U/L (0-41) H 12/10/22 08:48 Alkaline Phosphata se 46 U/L (40-130) 12/10/22 08:48 Ammonia 42 umol/L (16-60) 12/05/22 11:00 Creatine Kinase 237 U/L (39-308) 12/05/22 11:00 Troponin T Baselin e 15 ng/L (0-15) 12/05/22 11:00 Troponin T 120 Min lianna 18.64 ng/L (0-15) H 12/05/22 16:26 Delta Troponin T 3.64 ABS# (0-10) 12/05/22 16:26 Troponin T Hi Sens 6Hr 17.23 ng/L (0-15) H 12/05/22 19:30 Troponin T Hi Sens 6Hr Delta 2.23 ng/L (0-12) 12/05/22 19:30 Total Protein 7.4 g/dL (6.6-8.7 ) 12/10/22 08:48 Albumin 4.3 g/dL (3.5-5.2 ) 12/10/22 08:48 Globulin 3.1 g/dL (1.3-4.6 ) 12/10/22 08:48 Lipase 71 U/L (13-60) H 12/10/22 08:48 Urine Color Light yellow (Ye llow) 12/05/22 10:45 Urine Appearance Clear (CLEAR) 12/05/22 10:45 Urine pH 7 (5-7) 12/05/22 10:45 Ur Specific Gravit y 1.005 (1.005-1.0 30) 12/05/22 10:45 Urine Protein Neg (Negative) 12/05/22 10:45 Urine Glucose (UA) Norm (Normal) 12/05/22 10:45 Urine Ketones Negative (Negati ve) 12/05/22 10:45 Urine Blood Trace (Negative) H 12/05/22 10:45 Urine Nitrate Negative (Negati ve) 12/05/22 10:45 Urine Bilirubin Neg (Negative) 12/05/22 10:45 Urine Urobilinogen Neg mg/dL (Negati ve) 12/05/22 10:45 Ur Leukocyte Analisa ase Negative (Negati ve) 12/05/22 10:45 Urine RBC 0-4 /hpf (0-2) H 12/05/22 10:45 Urine WBC Rare /hpf (0-5) 12/05/22 10:45 Ur Squamous Epith Cells 0-4 /hpf (0-5) H 12/05/22 10:45 Amorphous Sediment Not Reportable 12/05/22 10:45 Urine Bacteria None /hpf (NONE) 12/05/22 10:45 Salicylates 1.0 mg/dL (3-10) L 12/05/22 11:00 Urine Opiates Scre en Negative ng/mL (N egative) 12/05/22 10:45 Acetaminophen < 5.0 ug/mL (10-3 0) L 12/05/22 11:00 Ur Barbiturates Sc reen Negative ng/mL (N egative) 12/05/22 10:45 Ur Phencyclidine S crn Negative ng/mL (N egative) 12/05/22 10:45 Ur Amphetamines Sc reen Negative ng/mL (N egative) 12/05/22 10:45 U Benzodiazepines Scrn Negative ng/mL (N egative) 12/05/22 10:45 Urine Cocaine Scre en Negative ng/mL (N egative) 12/05/22 10:45 U Marijuana (THC) Screen Negative ng/mL (N egative) 12/05/22 10:45 Ethyl Alcohol 68 mg/dL (0-10) H 12/06/22 02:00 Vitals: Last Vital Signs Temp 97.7 F 12/19/22 06:09 Pulse 87 12/19/22 10:11 Resp 18 12/19/22 10:11 BP 110/72 12/19/22 06:09 Pulse Ox 93 12/19/22 10:11 O2 Del Method Room Air 12/19/22 10:11 O2 Flow Rate 0 12/18/22 20:00 Discharge Plan Discharge Patient Disposition: Home Condition: Stable Prescriptions: New doxycycline hyclate 100 mg tablet 100 mg PO BID 7 Days Qty: 14 0RF prednisone 20 mg tablet 40 mg PO DAILY 3 Days Qty: 6 0RF buprenorphine-naloxone 4-1 mg Film 2 film sublingual BID 15 Days Qty: 60 1RF Spiriva with HandiHaler 18 mcg capsule, w/inhalation device 1 cap inhalation DAILY Qty: 60 1RF Rx Instructions: puncture 1 cap using device; one dose = 2 inhalations fluticasone propionate 110 mcg/actuation HFA aerosol inhaler 1 inh inhalation BID Qty: 12 1RF Rx Instructions: administer with spacer, wash mouth after use. Continued albuterol sulfate [ProAir HFA] 90 mcg/actuation HFA aerosol inhaler 2 puff inhalation Q6H PRN (Reason: shortness of breath or wheezing) 30 Days Qty: 8.5 2RF fenofibrate nanocrystallized [Tricor] 145 mg tablet 145 mg PO DAILY Qty: 30 2RF gabapentin 800 mg tablet 800 mg PO QID 30 Days Qty: 120 2RF thiamine HCl (vitamin B1) 100 mg tablet 100 mg PO DAILY amlodipine 10 mg tablet 10 mg PO QAM trazodone 150 mg tablet 150 mg PO BEDTIME PRN (Reason: Sleep) duloxetine 30 mg Capsule,Delayed Release(Dr/Ec) 30 mg PO BID 30 Days Qty: 60 1RF albuterol sulfate [Ventolin HFA] 90 mcg/actuation Hfa Aerosol Inhaler 2 puff INHALATION 6XD PRN (Reason: Shortness Of Breath) pantoprazole 40 mg Tablet,Delayed Release (Dr/Ec) 40 mg PO DAILY 30 Days Qty: 30 1RF docusate sodium 100 mg Capsule 200 mg PO BID 30 Days Qty: 120 1RF Discontinued chlordiazepoxide HCl 25 mg capsule 25 mg PO BID ibuprofen 800 mg Tablet 800 mg PO Q8H PRN (Reason: Pain) 30 Days Qty: 30 1RF hydroxyzine pamoate 25 mg Capsule 50 mg PO QID PRN (Reason: Anxiety) 30 Days Qty: 120 1RF Discharge Orders: Discharge Order (Routine); Ordered 12/19/22 Ordered By: Dylan Castor Referrals: [facility] [Other] - 12/22/22 9:00 am [facility] [Outside] - 12/21/22 11:45 am (Appointment for follow up discharge with Robbin) Landy Craig, [employer] [Primary Care Provider] - 4-7 days (Please consider referral for sleep apnea, witnessed apnea in the hospital, snoring, sleep disordered breathing) Ashli Lebron, PMHNP [Staff Physician] - 01/10/23 9:30 am Discharge Diet: Usual diet Discharge Activity: Resume usual activity Patient Instructions: Alcohol Abuse, Alcoholism, How to Stop Smoking (GEN), Depression (GEN), Anxiety (DC), Opioid Safety Activity Restrictions/Additional Instructions: Stop smoking. Take all meds as prescribed. Get referral from your PCP for a sleep study. Discharge Attestations NPU Time Spent in Discharge Care*: less than 30 min Specific Discharge Activities: Specific discharge activities: educating patient and documenting/other paperwork Coding Level of Care Code Acute Chg FW DC note Diagnoses COPD with acute exacerbation J44.1 Tobacco dependency F17.200 Obstructive sleep apnea G47.33
[2022-12-19 13:16] VITALS: BP 123/89; PULSE 87; RESP 18; TEMP 36.7; O2SAT 93
== END 2022-12-19 14:54 | disposition home or self-care (01) | DRG 897 ==
LOC: ER 10:44 → ER IP 15:23 → NP 12-06 06:34
PROVIDERS: Admitting Provider Psychiatry & Neurology Psychiatry; Emergency Provider Family Medicine; PCP Nurse Practitioner; Visit Provider Psychiatry & Neurology Psychiatry
DX: F10.229 Alcohol dependence with intoxication, unspecified (principal); R45.851 Suicidal ideations; F33.9 Major depressive disorder, recurrent, unspecified; E87.1 Hypo-osmolality and hyponatremia; J44.1 Chronic obstructive pulmonary disease with (acute) exacerbation; F10.239 Alcohol dependence with withdrawal, unspecified; Y90.8 Blood alcohol level of 240 mg/100 ml or more; G89.4 Chronic pain syndrome; M47.812 Spondylosis without myelopathy or radiculopathy, cervical region; E78.5 Hyperlipidemia, unspecified; I10 Essential (primary) hypertension; F17.210 Nicotine dependence, cigarettes, uncomplicated; F41.9 Anxiety disorder, unspecified; G47.33 Obstructive sleep apnea (adult) (pediatric)
CPT/HCPCS: 36415; 36416; 71045; 71046; 80053; 80306; 80307; 81001; 82140; 82550; 82962; 83690; 84484; 85007; 85025; 85027; 93005; 94640; 96372; 97150; 97165; 99285; J0573; J2060; J3486; J7512; J7613; Q0162

== ENCOUNTER → 2023-01-04 15:15 | Outpatient (BNVA) | payer MEDICAID, SELFPAY | PROVIDERS: PCP Nurse Practitioner; Visit Provider Nurse Practitioner | DX: M25.561 Pain in right knee (principal); R73.9 Hyperglycemia, unspecified | CPT/HCPCS: 83036; 84550; 85025 ==

== ENCOUNTER → 2023-01-10 11:13 | Outpatient (BNVA) | payer MEDICAID, SELFPAY | PROVIDERS: PCP Nurse Practitioner; Visit Provider Nurse Practitioner Psychiatric/Mental Health | DX: Z79.899 Other long term (current) drug therapy (principal) | CPT/HCPCS: 80053; 80307 ==

== ENCOUNTER 2023-02-26 21:12 | Emergency (ER) | payer MEDICAID, SELFPAY ==
[2023-02-26 21:13] VITALS: BP 116/81; PULSE 65; RESP 18; TEMP 36.7; O2SAT 97
--- NOTE | 2023-02-26 21:19 | XRR_ITS ---
PROCEDURE INFORMATION: Exam: XR Chest Exam date and time: 02/26/2023 9:27 PM Age: 52 years old Clinical indication: Pain; Chest pressure; Additional info: Chest pain TECHNIQUE: Imaging protocol: Radiologic exam of the chest. Views: 1 view. COMPARISON: CR (CHEST, ) 12/18/2022 10:43 PM FINDINGS: Lungs: Unremarkable. No consolidation. Pleural spaces: Unremarkable. No pleural effusion. No pneumothorax. Heart/Mediastinum: Unremarkable. No cardiomegaly. Bones/joints: Unremarkable. XR/XR chest 1V portable [id number] IMPRESSION: No acute findings.
--- NOTE | 2023-02-26 21:20 | ECG_ITS ---
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 Measurements Intervals [place] Rate: 69 P: 43 MA: 168 QRS: 25 QRSD: 94 T: 62 QT: 384 QTc: 413 Interpretive Statements SINUS RHYTHM Compared to ECG 12/10/2022 09:20:08 No significant changes Electronically Signed On 02-27-2023 20:14:35 CDT by Yady Bradley M.D. [email or web address]
--- NOTE | 2023-02-26 21:21 | ED_ITS ---
Documented by User: Chino Purdy DO 03/04/23 10:55 HPI - Chest Pain General: Chief Complaint: Chest Pain Stated Complaint: CP Time Seen by Provider: 02/26/23 21:15 History of Present Illness: Presents to the ER via [facility] from custodial with complaints of sudden onset left chest pressure. Patient states there is nothing he can do at that makes it worse or better. Patient has pain like this before but not quite this severe. Patient does not have any history of cardiac disease, stents open heart surgery,. Patient was given 3 and 24 mg aspirin, 4 mg Zofran, 1 nitro sublingual and 600 mils of normal saline on route. Patient is pain-free at the time upon arrival. Patient denies any nausea vomiting diarrhea shortness of breath. Review of Systems General: Reports: 10 or more systems reviewed and unremarkable except in HPI and below PFSH ED PFSH: Medical History Alcohol use disorder, severe, dependence Cervical spondylolysis Chronic pain syndrome Dyslipidemia Essential hypertension Insomnia Major depressive disorder, recurrent episode, moderate with anxious distress Nicotine dependence, cigarettes, uncomplicated Opioid dependence Osteoarthritis Psychiatric care Surgical History No pertinent past surgical history Family History Father Cirrhosis of liver Hypertension Mother Seizure Denies family history of Diabetes CAD (coronary artery disease) Clotting disorder Chronic kidney disease (CKD) Anesthesia complication Bleeding disorder Lung disease Cancer Stroke Social History Smoking and tobacco status: current every day smoker cigarettes Packs smoked per day: 1 Second hand smoke exposure: No Smoking risk assessment/counseling performed?: Yes Alcohol intake: current Desire information about alcohol rehabilitation?: No Counseling given: No Substance/Drug Use: never Desire information about substance/drug rehabilitation?: No Counseling given: No Adopted: No Caregiver/support person: No Lives independently: Yes Household members: family Housing: House Marital status: service: No Do you think of yourself as: Straight/Heterosexual Current gender identity: Male Physical Exam Const: COMMON NORMALS: no acute distress, average body habitus, patient oriented x3, no limitations, healthy appearing, alert and well nourished HENMT: COMMON NORMALS: normocephalic, atraumatic, hearing grossly normal bilaterally, external ears normal, Normal external nose present and moist oral mucous membranes HEAD & SCALP: normocephalic and atraumatic NOSE: Normal external nose present EXTERNAL EAR: Yes external ears normal Eye: COMMON NORMALS: Equal, round and reactive pupils present, EOMs intact bilaterally, conjunctivae normal and no scleral icterus CONJUNCTIVA: Yes conjunctivae normal PUPIL: Yes Equal, round and reactive pupils present Neck/C-Spine: COMMON NORMALS: full ROM, no lymphadenopathy, supple, no meningeal signs, no JVD and Thyroid normal THYROID: Thyroid normal Chest: COMMONS NORMALS: normal inspection of the chest; negative for normal palpation of entire chest wall (Chest pain is reproducible with palpation of the left anterior chest wall.) Resp: COMMON NORMALS: normal respiratory effort, No retractions, No use of accessory muscles and clear to auscultation bilaterally AUSCULTATION: clear to auscultation bilaterally Cardio: COMMON NORMALS: no JVD, regular rate, regular rhythm, S1 normal heart sound present, S2 normal heart sound present, No gallops present (Cardio), No clicks present (Cardio), No murmurs present (Cardio) and No rub (Cardio) RATE: regular rate RHYTHM: regular rhythm HEART SOUNDS: S1 normal heart sound present and S2 normal heart sound present GI: COMMON NORMALS: Normal to inspection, nondistended, normoactive bowel sounds present, Soft to palpation, non-tender, No hepatosplenomegaly present and no masses PALPATION: Yes Soft to palpation and Yes No hepatosplenomegaly pr esent : COMMON NORMALS: Yes no CVA tenderness BLADDER/KIDNEY EXAM: Yes no CVA tenderness Back/Pelvis: COMMON NORMALS: no CVA tenderness Extremity: COMMON NORMALS: normal to inspection, full ROM and no pedal edema Neuro: COMMON NORMALS: patient oriented x3 SENSORIUM/ORIENTATION: Yes alert MENINGEAL SIGNS: Yes no meningeal signs Course Vital Signs: Vital signs: Vital Signs Temperature 98.1 F 02/26/23 21:13 Pulse Rate 62 02/26/23 23:42 Respiratory Rate 14 02/26/23 23:42 Blood Pressure 130/87 02/26/23 23:42 Pulse Oximetry 96 02/26/23 23:42 Oxygen Delivery Me thod Room Air 02/26/23 23:10 MDM - Chest Pain Differential Diagnosis Unlikely acute massive pulmonary embolism, acute respiratory failure, acute myocardial infarction, cardiac arrest or sudden cardiac Medical Records I reviewed the patient's medical records. Lab Data I reviewed the patient's lab results. 02/26/23 21:24 02/26/23 21:24 Radiology Impressions Chest X-Ray 02/26/23 21:19 IMPRESSION: No acute findings. Laboratory Results WBC 6.7 10^3/uL (4.0-10.0) 02/26/23 21: RBC 4.39 10^6/uL (4.1-5.3) 02/26/23 21: Hgb 13.3 g/dL (11.7-16.6) 02/26/23 21: Hct 39.4 % (42.0-52.0) L 02/26/23 21: MCV 89.7 fl (80-94) 02/26/23 21: MCH 30.3 pg (28.0-34.0) 02/26/23 21: MCHC 33.8 g/dL (30.0-36.0) 02/26/23 21: RDW 11.7 % (12.1-15.1) L 02/26/23 21: Plt Count 252 10^3/cmm (130-400) 02/26/23 21: MPV 10.5 fL (7.4-10.4) H 02/26/23 21: Neut % (Auto) 49.1 % 02/26/23 21: Lymph % (Auto) 32.6 % 02/26/23 21: [place] % (Auto) 11.7 % 02/26/23 21: Eos % (Auto) 6.1 % 02/26/23 21: Baso % (Auto) 0.4 % 02/26/23: Neut # (Auto) 3.27 10^3/uL (1.8-7.7) 02/26/23 21: Lymph # (Auto) 2.2 10^3/uL (0.8-4.8) 02/26/23 21: [place] # (Auto) 0.8 10^3/uL (0.2-0.9) 02/26/23 21:24 Eos # (Auto) 0.4 10^3/uL (0.0-0.8) 02/26/23 21:24 Baso # (Auto) 0.0 10^3/uL (0.0-0.1) 02/26/23 21:24 Nucleated RBC % (auto) 0 % 02/26/23 21:24 Nucleated RBCs # 0.0 /100WBC 02/26/23 21:24 PT 13.30 SECONDS (12.1-14.9) 02/26/23 21:24 INR 0.98 (0.8-1.2) 02/26/23 21:24 Sodium 137 mmol/L (136-145) 02/26/23 21:24 Potassium 3.9 mmol/L (3.5-5.1) 02/26/23 21:24 Chloride 102 mmol/L (98-107) 02/26/23 21:24 Carbon Dioxide 26 mmol/L (22-29) 02/26/23 21:24 Anion Gap 12.9 (5-19) 02/26/23 21:24 BUN 9 mg/dL (6-20) 02/26/23 21:24 Creatinine 1.0 mg/dL (0.7-1.2) 02/26/23 21:24 GFR Calculation 79.1 mL/min (90-130) L 02/26/23 21:24 Glucose 107 mg/dL (65-115) 02/26/23 21:24 Calculated Osmolality 283 mOsm/kg (285-295) L 02/26/23 21:24 Calcium 9.2 mg/dL (8.5-10.5) 02/26/23 21:24 Total Bilirubin 0.2 mg/dL (0.15-1.2) 02/26/23 21:24 AST 19 U/L (0-40) 02/26/23 21:24 ALT 23 U/L (0-41) 02/26/23 21:24 Alkaline Phosphatase 36 U/L (40-130) L 02/26/23 21:24 Troponin T Baseline 6 ng/L (0-15) 02/26/23 21:24 Troponin T 120 Minute 7.89 ng/L (0-15) 02/26/23 23:01 Delta Troponin T 1.89 ABS# (0-10) 02/26/23 23:01 Total Protein 6.3 g/dL (6.6-8.7) L 02/26/23 21:24 Albumin 4.3 g/dL (3.5-5.2) 02/26/23 21:24 Globulin 2.0 g/dL (1.3-4.6) 02/26/23 21:24 Urine Color Yellow (Yellow) 02/26/23 21:20 Urine Appearance Clear (CLEAR) 02/26/23 21:20 Urine pH 7 (5-7) 02/26/23 21:20 Ur Specific [place] 1.010 (1.005-1.030) 02/26/23 21:20 Urine Protein Neg (Negative) 02/26/23 21:20 Urine Glucose (UA) Norm (Normal) 02/26/23 21:20 Urine Ketones Negative (Negative) 02/26/23 21:20 Urine Blood Neg (Negative) 02/26/23 21:20 Urine Nitrate Negative (Negative) 02/26/23 21:20 Urine Bilirubin Neg (Negative) 02/26/23 21:20 Urine Urobilinogen Norm mg/dL (Negative) 02/26/23 21:20 Ur Leukocyte Esterase Negative (Negative) 02/26/23 21:20 Urine Opiates Screen Negative ng/mL (Negative) 02/26/23 21:20 Ur Barbiturates Screen Negative ng/mL (Negative) 02/26/23 21:20 Ur Phencyclidine Scrn Negative ng/mL (Negative) 02/26/23 21:20 Ur Amphetamines Screen Negative ng/mL (Negative) 02/26/23 21:20 U Benzodiazepines Scrn Negative ng/mL (Negative) 02/26/23 21:20 Urine Cocaine Screen Negative ng/mL (Negative) 02/26/23 21:20 U Marijuana (THC) Screen Negative ng/mL (Negative) 02/26/23 21:20 EKG Data EKG 1: I personally reviewed and interpreted this EKG as follows: EKG interpretation date: 02/26/23 EKG interpretation time: 21:17 Prior EKG tracings: not available for review Interpretation: EKG showed ventricular rate of 69 bpm, KS interval 168, QRS duration 94, QTc 403, sinus rhythm, no ST-T wave changes Discharge Plan Discharge Patient Disposition: Home Clinical Impression: Chest pain Condition: Stable Prescriptions: No Action thiamine HCl (vitamin B1) 100 mg tablet 100 mg PO DAILY cephalexin 500 mg capsule 500 mg PO TID Qty: 30 0RF fenofibrate nanocrystallized [Tricor] 145 mg tablet 145 mg PO DAILY Qty: 30 2RF meloxicam 15 mg tablet 15 mg PO DAILY Qty: 30 0RF amlodipine 10 mg tablet 10 mg PO DAILY 30 Days Qty: 30 2RF gabapentin 800 mg tablet 800 mg PO TID 30 Days Qty: 90 2RF duloxetine 60 mg capsule,delayed release(DR/EC) 60 mg PO BID 30 Days Qty: 60 2RF Rx Instructions: Take one capsule every morning quetiapine [Seroquel] 100 mg tablet 100 mg PO .HS Qty: 30 2RF polyethylene glycol 3350 [Miralax] 17 gram/dose powder 17 g PO DAILY Qty: 510 0RF buprenorphine-naloxone 8-2 mg tablet, sublingual 1 tab sublingual BID@08,16 Qty: 30 0RF Rx Instructions: Take one tab sublingual at 8 am and 4 pm albuterol sulfate [ProAir HFA] 90 mcg/actuation HFA aerosol inhaler 2 puff inhalation Q6H PRN (Reason: shortness of breath or wheezing) 30 Days Qty: 8.5 2RF Spiriva with HandiHaler 18 mcg capsule, w/inhalation device 1 cap inhalation DAILY Qty: 60 1RF Rx Instructions: puncture 1 cap using device; one dose = 2 inhalations fluticasone propionate 110 mcg/actuation HFA aerosol inhaler 1 inh inhalation BID Qty: 12 1RF Rx Instructions: administer with spacer, wash mouth after use. pantoprazole 40 mg Tablet,Delayed Release (Dr/Ec) 40 mg PO DAILY 30 Days Qty: 30 1RF docusate sodium 100 mg Capsule 200 mg PO BID 30 Days Qty: 120 1RF Discharge Orders: Discharge ED (Routine); Ordered 02/26/23 Ordered By: Jessica Ambrocio Referrals: Landy Craig, ELECTRICAL MECHANICAL TECHNICIAN-C [Primary Care Provider] - 1-3 days Discharge Diet: Advance as tolerated Discharge Activity: Resume usual activity Patient Instructions: Chest Pain (ED) Coding Level of Care Code ED Workforce Development Specialist for Chg Fwd Documented by User: Jessica Ambrocio MD 02/26/23 23:46 HPI - Chest Pain General: Chief Complaint: Chest Pain Stated Complaint: CP Time Seen by Provider: 02/26/23 21:15 PFSH ED PFSH: Medical History Alcohol use disorder, severe, dependence Cervical spondylolysis Chronic pain syndrome Dyslipidemia Essential hypertension Insomnia Major depressive disorder, recurrent episode, moderate with anxious distress Nicotine dependence, cigarettes, uncomplicated Opioid dependence Osteoarthritis Psychiatric care Surgical History No pertinent past surgical history Family History Father Cirrhosis of liver Hypertension Mother Seizure Denies family history of Diabetes CAD (coronary artery disease) Clotting disorder Chronic kidney disease (CKD) Anesthesia complication Bleeding disorder Lung disease Cancer Stroke Social History Smoking and tobacco status: current every day smoker cigarettes Packs smoked per day: 1 Second hand smoke exposure: No Smoking risk assessment/counseling performed?: Yes Alcohol intake: current Desire information about alcohol rehabilitation?: No Counseling given: No Substance/Drug Use: never Desire information about substance/drug rehabilitation?: No Counseling given: No Adopted: No Caregiver/support person: No Lives independently: Yes Household members: family Housing: House Marital status: service: No Do you think of yourself as: Straight/Heterosexual Current gender identity: Male Course Vital Signs: Vital signs: Vital Signs Temperature 98.1 F 02/26/23 21:13 Pulse Rate 62 02/26/23 23:42 Respiratory Rate 14 02/26/23 23:42 Blood Pressure 130/87 02/26/23 23:42 Pulse Oximetry 96 02/26/23 23:42 Oxygen Delivery Me thod Room Air 02/26/23 23:10 MDM - Chest Pain Medical Decision Making Patient presents for chest pains atypical in nature his troponins here are negative no signs of acute coronary syndrome or PE. 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 Laboratory Results WBC 6.7 10^3/uL (4.0-10.0) 02/26/23 21:24 RBC 4.39 10^6/uL (4.1-5.3) 02/26/23 21:24 Hgb 13.3 g/dL (11.7-16.6) 02/26/23 21:24 Hct 39.4 % (42.0-52.0) L 02/26/23 21: MCV 89.7 fl (80-94) 02/26/23 21: MCH 30.3 pg (28.0-34.0) 02/26/23 21: MCHC 33.8 g/dL (30.0-36.0) 02/26/23 21: RDW 11.7 % (12.1-15.1) L 02/26/23 21: Plt Count 252 10^3/cmm (130-400) 02/26/23 21: MPV 10.5 fL (7.4-10.4) H 02/26/23 21: Neut % (Auto) 49.1 % 02/26/23 21:24 Lymph % (Auto) 32.6 % 02/26/23 21: [place] % (Auto) 11.7 % 02/26/23 21: Eos % (Auto) 6.1 % 02/26/23 21: Baso % (Auto) 0.4 % 02/26/23 21:24 Neut # (Auto) 3.27 10^3/uL (1.8-7.7) 02/26/23 21: Lymph # (Auto) 2.2 10^3/uL (0.8-4.8) 02/26/23 21: [place] # (Auto) 0.8 10^3/uL (0.2-0.9) 02/26/23 21:24 Eos # (Auto) 0.4 10^3/uL (0.0-0.8) 02/26/23 21: Baso # (Auto) 0.0 10^3/uL (0.0-0.1) 02/26/23 21:24 Nucleated RBC % (auto) 0 % 02/26/23 21:24 Nucleated RBCs # 0.0 /100WBC 02/26/23 21:24 PT 13.30 SECONDS (12.1-14.9) 02/26/23 21:24 INR 0.98 (0.8-1.2) 02/26/23 21:24 Sodium 137 mmol/L (136-145) 02/26/23 21:24 Potassium 3.9 mmol/L (3.5-5.1) 02/26/23 21:24 Chloride 102 mmol/L (98-107) 02/26/23 21:24 Carbon Dioxide 26 mmol/L (22-29) 02/26/23 21:24 Anion Gap 12.9 (5-19) 02/26/23 21:24 BUN 9 mg/dL (6-20) 02/26/23 21:24 Creatinine 1.0 mg/dL (0.7-1.2) 02/26/23 21:24 GFR Calculation 79.1 mL/min (90-130) L 02/26/23 21:24 Glucose 107 mg/dL (65-115) 02/26/23 21:24 Calculated Osmolality 283 mOsm/kg (285-295) L 02/26/23 21:24 Calcium 9.2 mg/dL (8.5-10.5) 02/26/23 21:24 Total Bilirubin 0.2 mg/dL (0.15-1.2) 02/26/23 21:24 AST 19 U/L (0-40) 02/26/23 21:24 ALT 23 U/L (0-41) 02/26/23 21:24 Alkaline Phosphatase 36 U/L (40-130) L 02/26/23 21:24 Troponin T Baseline 6 ng/L (0-15) 02/26/23 21:24 Troponin T 120 Minute 7.89 ng/L (0-15) 02/26/23 23:01 Delta Troponin T 1.89 ABS# (0-10) 02/26/23 23:01 Total Protein 6.3 g/dL (6.6-8.7) L 02/26/23 21:24 Albumin 4.3 g/dL (3.5-5.2) 02/26/23 21:24 Globulin 2.0 g/dL (1.3-4.6) 02/26/23 21:24 Urine Color Yellow (Yellow) 02/26/23 21:20 Urine Appearance Clear (CLEAR) 02/26/23 21:20 Urine pH 7 (5-7) 02/26/23 21:20 Ur Specific [place] 1.010 (1.005-1.030) 02/26/23 21:20 Urine Protein Neg (Negative) 02/26/23 21:20 Urine Glucose (UA) Norm (Normal) 02/26/23 21:20 Urine Ketones Negative (Negative) 02/26/23 21:20 Urine Blood Neg (Negative) 02/26/23 21:20 Urine Nitrate Negative (Negative) 02/26/23 21:20 Urine Bilirubin Neg (Negative) 02/26/23 21:20 Urine Urobilinogen Norm mg/dL (Negative) 02/26/23 21:20 Ur Leukocyte Esterase Negative (Negative) 02/26/23 21:20 Urine Opiates Screen Negative ng/mL (Negative) 02/26/23 21:20 Ur Barbiturates Screen Negative ng/mL (Negative) 02/26/23 21:20 Ur Phencyclidine Scrn Negative ng/mL (Negative) 02/26/23 21:20 Ur Amphetamines Screen Negative ng/mL (Negative) 02/26/23 21:20 U Benzodiazepines Scrn Negative ng/mL (Negative) 02/26/23 21:20 Urine Cocaine Screen Negative ng/mL (Negative) 02/26/23 21:20 U Marijuana (THC) Screen Negative ng/mL (Negative) 02/26/23 21:20 Discharge Plan Discharge Patient Disposition: Home Clinical Impression: Chest pain Condition: Stable Prescriptions: No Action thiamine HCl (vitamin B1) 100 mg tablet 100 mg PO DAILY cephalexin 500 mg capsule 500 mg PO TID Qty: 30 0RF fenofibrate nanocrystallized [Tricor] 145 mg tablet 145 mg PO DAILY Qty: 30 2RF meloxicam 15 mg tablet 15 mg PO DAILY Qty: 30 0RF amlodipine 10 mg tablet 10 mg PO DAILY 30 Days Qty: 30 2RF gabapentin 800 mg tablet 800 mg PO TID 30 Days Qty: 90 2RF duloxetine 60 mg capsule,delayed release(DR/EC) 60 mg PO BID 30 Days Qty: 60 2RF Rx Instructions: Take one capsule every morning quetiapine [Seroquel] 100 mg tablet 100 mg PO .HS Qty: 30 2RF polyethylene glycol 3350 [Miralax] 17 gram/dose powder 17 g PO DAILY Qty: 510 0RF buprenorphine-naloxone 8-2 mg tablet, sublingual 1 tab sublingual BID@08,16 Qty: 30 0RF Rx Instructions: Take one tab sublingual at 8 am and 4 pm albuterol sulfate [ProAir HFA] 90 mcg/actuation HFA aerosol inhaler 2 puff inhalation Q6H PRN (Reason: shortness of breath or wheezing) 30 Days Qty: 8.5 2RF Spiriva with HandiHaler 18 mcg capsule, w/inhalation device 1 cap inhalation DAILY Qty: 60 1RF Rx Instructions: puncture 1 cap using device; one dose = 2 inhalations fluticasone propionate 110 mcg/actuation HFA aerosol inhaler 1 inh inhalation BID Qty: 12 1RF Rx Instructions: administer with spacer, wash mouth after use. pantoprazole 40 mg Tablet,Delayed Release (Dr/Ec) 40 mg PO DAILY 30 Days Qty: 30 1RF docusate sodium 100 mg Capsule 200 mg PO BID 30 Days Qty: 120 1RF Discharge Orders: Discharge ED (Routine); Ordered 02/26/23 Ordered By: Jessica Ambrocio Referrals: Ladny Craig, ELECTRICAL MECHANICAL TECHNICIANMarisaC [Primary Care Provider] - 1-3 days Discharge Diet: Advance as tolerated Discharge Activity: Resume usual activity Patient Instructions: Chest Pain (ED) Coding Level of Care Code ED Workforce Development Specialist for Michelle Crowder
[2023-02-26 21:23] VITALS: PULSE 73; RESP 18; O2SAT 97
[2023-02-26 21:34] VITALS: BP 126/91; PULSE 64; RESP 18; O2SAT 99
[2023-02-26 21:34] LABS: Basophils % 0.4 %; Eosinophils # 0.4 10^3/uL (0.0-0.8); Eosinophils % 6.1 %; Hematocrit 39.4 % (42.0-52.0); Hemoglobin 13.3 g/dL (11.7-16.6); Lymphocytes # 2.2 10^3/uL (0.8-4.8); Lymphocytes % 32.6 %; Mean Corpuscular HGB Conc 33.8 g/dL (30.0-36.0); Mean Corpuscular Hemoglobin 30.3 pg (28.0-34.0); Mean Corpuscular Volume 89.7 fl (80-94); Mean Platelet Volume 10.5 fL (7.4-10.4); Monocytes # 0.8 10^3/uL (0.2-0.9); Monocytes % 11.7 %; Neutrophils # 3.27 10^3/uL (1.8-7.7); Neutrophils % 49.1 %; Nucleated Red Blood Cells % 0 %; Platelet Count 252 10^3/cmm (130-400); Red Blood Count 4.39 10^6/uL (4.1-5.3); Red Cell Distribution Width 11.7 % (12.1-15.1); White Blood Count 6.7 10^3/uL (4.0-10.0)
[2023-02-26 21:37] LABS: Add Urine Microscopic? NO; Charge for UA Resulting for Rev
[2023-02-26] MEDS: ketorolac 30 mg/mL INJ IVP (21:43)
[2023-02-26 21:46] LABS: INR 0.98 (0.8-1.2)
[2023-02-26 21:49] LABS: Amphetamines Screen Urine Negative (Negative); Barbiturates Screen Urine Negative (Negative); Benzodiazepines Screen Urine Negative (Negative); Cocaine Screen Urine Negative (Negative); Opiate Screen Urine Negative (Negative); PCP Screen Urine Negative (Negative); THC Screen Urine Negative (Negative)
[2023-02-26 21:52] LABS: Bilirubin Urine Neg (Negative); Blood Urine Neg (Negative); Glucose Urine UA Norm (Normal); Ketones Urine Negative (Negative); Leukocyte Esterase Urine Negative (Negative); Nitrate Urine Negative (Negative); Protein Urine Neg (Negative); Urine Appearance Clear (CLEAR); Urine Color Yellow (Yellow); Urobilinogen Urine Norm (Negative); pH Urine 7 (5-7)
[2023-02-26 22:03] LABS: Troponin(5th) Baseline 6 ng/L (0-15)
[2023-02-26 22:05] LABS: Alanine Aminotransferase 23 U/L (0-41); Albumin Level 4.3 g/dL (3.5-5.2); Alkaline Phosphatase 36 U/L (40-130); Anion Gap 12.9 (5-19); Aspartate Amino Transferase 19 U/L (0-40); Blood Urea Nitrogen 9 mg/dL (6-20); Calcium 9.2 mg/dL (8.5-10.5); Carbon Dioxide 26 mmol/L (22-29); Chloride 102 mmol/L (98-107); Glomerular Filtration Rate 79.1 mL/min (90-130); Glucose 107 mg/dL (65-115); Osmolality Calculated 283 mOsm/kg (285-295); Potassium 3.9 mmol/L (3.5-5.1); Sodium 137 mmol/L (136-145); Total Bilirubin 0.2 mg/dL (0.15-1.2); Total Protein 6.3 g/dL (6.6-8.7)
[2023-02-26 22:32] VITALS: BP 122/83; PULSE 65; RESP 16; O2SAT 97
[2023-02-26 23:10] VITALS: BP 130/94; PULSE 64; RESP 19; O2SAT 98
--- NOTE | 2023-02-26 23:20 | ECG_ITS ---
[facility] Test Date: 2023-02-26 Pat Name: John Yeung Department: Room: Gender: Male Sales Project Coordinator: : 1970 Requested By: Chino Purdy Order Number: [id number] You MD: Yady Bradley M.D. Measurements Intervals [place] Rate: 56 P: 48 IN: 180 QRS: 40 QRSD: 97 T: 50 QT: 415 QTc: 401 Interpretive Statements SINUS BRADYCARDIA Compared to ECG 12/10/2022 09:20:08 Sinus rhythm no longer present Electronically Signed On 02-27-2023 20:29:17 CDT by Yady Bradley M.D. [email or web address] medical [email or web address]/store/OM/[id number]
[2023-02-26 23:23] LABS: Troponin 5 2HR 7.89 ng/L (0-15)
[2023-02-26 23:29] LABS: Troponin 5 2HR Delta 1.89 ABS# (0-10)
[2023-02-26 23:42] VITALS: BP 130/87; PULSE 62; RESP 14; O2SAT 96
== END 2023-02-26 23:45 | disposition home or self-care (01) ==
PROVIDERS: Emergency Medicine; Emergency Provider Emergency Medicine; PCP Nurse Practitioner
DX: R07.9 Chest pain, unspecified (principal); F17.210 Nicotine dependence, cigarettes, uncomplicated; E78.5 Hyperlipidemia, unspecified; I10 Essential (primary) hypertension
CPT/HCPCS: 36415; 71045; 80053; 80306; 81003; 84484; 85025; 85610; 93005; 96374; 99285; J1885

== ENCOUNTER 2023-05-24 20:26 | Inpatient (IN) | payer MEDICAID, SELFPAY ==
[2023-05-24 20:37] VITALS: BP 139/98; PULSE 88; RESP 20; TEMP 36.6; O2SAT 94; BMI 34.2
--- NOTE | 2023-05-24 20:37 | CTR_ITS ---
PROCEDURE INFORMATION: Exam: CT Head Without Contrast Exam date and time: 05/24/2023 8:27 PM Age: 52 years old Clinical indication: Stroke-like symptoms; Speech disturbance; Left facial droop; Additional info: Symptoms of acute stroke TECHNIQUE: Imaging protocol: Computed tomography of the head without contrast. Radiation optimization: All CT scans at this facility use at least one of these dose optimization techniques: automated exposure control; mA and/or kV adjustment per patient size (includes targeted exams where dose is matched to clinical indication); or iterative reconstruction. Other technique: STROKE PROTOCOL was implemented. REPORTING DATA: Count of CT and Cardiac NM exams in prior 12 months: This patient has received 0 known CTs and 0 known cardiac nuclear medicine studies in the 12 months prior to the current study. COMPARISON: No relevant prior studies available. RADIATION DOSE METRICS: Total DLP (mGy-cm): 1133.34 FINDINGS: Brain: There is no evidence of intracranial hemorrhage. No mass effect or midline shift. No territorial edema. Unremarkable white matter. Cerebral ventricles: The ventricles and sulci are appropriate for the patient's age. Paranasal sinuses: There are no air-fluid levels. Mastoid air cells: The visualized mastoid air cells are well aerated. Bones/joints: No acute fracture. Soft tissues: Unremarkable. CT/CT head thrombolytic [id number] IMPRESSION: No acute findings. ASSESSMENT: ASPECTS ([place] Stroke Program Early CT Score) is 10.
--- NOTE | 2023-05-24 20:37 | ECG_ITS ---
[facility] Test Date: 2023-05-24 Pat Name: John Yeung Department: Room: Gender: Male First Responder: : 1970 Requested By: Chino Purdy Order Number: [id number] Kenyatta MD: Alecia Schroeder M.D. Measurements Intervals [place] Rate: 87 P: 76 ID: [id number] QRS: 15 QRSD: 96 T: 77 QT: 373 QTc: 451 Interpretive Statements SINUS RHYTHM SEPTAL MYOCARDIAL INFARCTION , OF INDETERMINATE AGE [40+ ms Q WAVE IN V1/V2] No previous ECG available for comparison Electronically Signed On 05-24-2023 21:35:35 CDT by Alecia Schroeder M.D. [email or web address] medical [facility], [facility] shawEmbrace/store/OM/[id number]
--- NOTE | 2023-05-24 20:37 | XRR_ITS ---
PROCEDURE INFORMATION: Exam: XR Chest Exam date and time: 05/24/2023 9:30 PM Age: 52 years old Clinical indication: Other: Possible stroke; Additional info: Stroke like symptoms TECHNIQUE: Imaging protocol: Radiologic exam of the chest. Views: 1 view. COMPARISON: No relevant prior studies available. FINDINGS: Tubes, catheters and devices: EKG monitoring leads overlie the thoracic wall. Lungs: There is no consolidation. Pleural spaces: No pleural effusion or pneumothorax. Heart/Mediastinum: The heart and mediastinum are normal in size. Bones/joints: Unremarkable. XR/XR chest 1V portable [id number] IMPRESSION: No acute findings.
--- NOTE | 2023-05-24 20:43 | ED_ITS ---
HPI - Neuro Symptoms/Deficit General: Chief Complaint: Weakness Stated Complaint: stroke Time Seen by Provider: 05/24/23 20:37 History of Present Illness: Patient presents to the ER with strokelike symptoms per EMS last known well was 3 to 4 days ago but symptoms of worsened over the last 45 minutes. EMS stated patient had left facial droop slurring his words and left upper and lower extremity weakness. Patient is also had alcohol on board patient admits to having 3-4 moderate-size shots today. Patient states he is going under a lot of stress with his son and his problems and he wants admitted to the stress unit. Patient has never had a stroke or seizure before. Patient is a poor historian. History may be questionable and/or limited secondary to alcohol use. [facility] now is claiming to be suicidal and homicidal. Review of Systems General: Reports: 10 or more systems reviewed and unremarkable except in HPI and below NIH stroke score NIHSS: Level Of Consciousness - 1a: 0 Level Of Consciousness Questions - 1b: Both Correct Level Of Consciousness Commands - 1c: Both Correct Best Gaze - 2: Normal Visual Farrell - 3: No Visual Loss Facial Palsy - 4: Normal Motor Arm Right - 5: No Drift Motor Arm Left - 5: No Drift Motor Leg Right - 6: No Drift Motor Leg Left - 6: No Drift Limb Ataxia - 7: Absent Sensory - 8: Normal Best Language - 9: No Aphasia Dysarthia - 10: Normal Extinction And Inattention - 11: 0 Score: Total Score: 0 Physical Exam Const: COMMON NORMALS: no acute distress, average body habitus, patient oriented x3, healthy appearing, alert and well nourished; limitations (It is hard to get to follow commands secondary to alcohol usage) ORIENTATION/CONSCIOUSNESS: Yes oriented to person, Yes oriented to place and Yes oriented to time HENMT: COMMON NORMALS: normocephalic, atraumatic, hearing grossly normal bilaterally, external ears normal, Normal external nose present, moist oral mucous membranes and oropharynx normal HEAD & SCALP: normocephalic and atraumatic NOSE: Normal external nose present EXTERNAL EAR: Yes external ears normal Eye: COMMON NORMALS: Equal, round and reactive pupils present, EOMs intact bilaterally, conjunctivae normal, no scleral icterus and normal visual farrell by confrontation CONJUNCTIVA: Yes conjunctivae normal PUPIL: Yes Equal, round and reactive pupils present Neck/C-Spine: COMMON NORMALS: full ROM, no lymphadenopathy, supple, no meningeal signs, no JVD and Thyroid normal THYROID: Thyroid normal Lymph: LYMPHATIC: no lymphadenopathy noted Chest: COMMONS NORMALS: normal inspection of the chest and normal palpation of entire chest wall Resp: COMMON NORMALS: normal respiratory effort, No retractions, No use of accessory muscles and clear to auscultation bilaterally AUSCULTATION: clear to auscultation bilaterally Cardio: COMMON NORMALS: no JVD, regular rate, regular rhythm, S1 normal heart sound present, S2 normal heart sound present, No gallops present (Cardio), No clicks present (Cardio), No murmurs present (Cardio) and No rub (Cardio) RATE: regular rate RHYTHM: regular rhythm HEART SOUNDS: S1 normal heart sound present and S2 normal heart sound present GI: COMMON NORMALS: Normal to inspection, nondistended, normoactive bowel sounds present, Soft to palpation, No hepatosplenomegaly present and no masses PALPATION: Yes Soft to palpation and Yes No hepatosplenomegaly present : COMMON NORMALS: Yes no CVA tenderness BLADDER/KIDNEY EXAM: Yes no CVA tenderness Back/Pelvis: COMMON NORMALS: no CVA tenderness Extremity: NARRATIVE EXTREMITY EXAM: Moves all 4 extremities equal. Neuro: COMMON NORMALS: patient oriented x3, CN's II-XII intact bilaterally, moves all extremities, no focal motor deficits and no sensory deficits noted SENSORIUM/ORIENTATION: Yes alert, Yes oriented to person, Yes oriented to place and Yes oriented to time MENINGEAL SIGNS: Yes no meningeal signs CRANIAL NERVES: Yes CN normal except as noted SPEECH: speech normal Course Vital Signs: Vital signs: Vital Signs Temperature 98 F 05/24/23 20:37 Pulse Rate 88 05/24/23 20:37 Respiratory Rate 20 H 05/24/23 20:37 Blood Pressure 139/98 05/24/23 20:37 Pulse Oximetry 94 05/24/23 20:37 MDM - Neuro Symptoms/Deficit Medical Decision Making patient presents to the ER with complaints of strokelike symptoms. Patient in the having a 0 on the stroke scale and found to be highly intoxicated. Patient's blood alcohol was 299. Patient's potassium was 3.0, urine drug screen showed amphetamines and marijuana. Before all this was finished patient started making suicidal and homicidal threats. Dr. Carreon was called who agreed to admit to the [facility] pending stable blood alcohol level. Differential Diagnosis Unlikely carpal tunnel syndrome, convulsions, delirium, subarachnoid hemorrhage, peripheral neuropathy, cerebrovascular accident, multiple sclerosis or transient cerebral ischemia Lab Data I reviewed the patient's lab results. 05/24/23 20:46 05/24/23 20:46 Radiology Impressions Chest X-Ray 05/24/23 20:37 IMPRESSION: No acute findings. Head CT 05/24/23 20:37 IMPRESSION: No acute findings. ASSESSMENT: ASPECTS (Jaz Stroke Program Early CT Score) is 10. Laboratory Results WBC 5.40 10^3/uL (3.29-11.43) 05/24/23 20:46 RBC 4.59 10^6/uL (3.85-5.65) 05/24/23 20:46 Hgb 15.20 g/dL (11.27-16.99) 05/24/23 20:46 Hct 42.5 % (37-53) 05/24/23 20:46 MCV 92.6 fl (82-101) 05/24/23 20:46 MCH 33.1 pg (27-33) H 05/24/23 20:46 MCHC 35.8 g/dL (30-55) 05/24/23 20:46 RDW 15.0 % (12.1-15.1) 05/24/23 20:46 Plt Count 255 10^3/cmm (157-399) 05/24/23 20:46 MPV 9.4 fL (7.4-10.4) 05/24/23 20:46 Neut % (Auto) 46.6 % 05/24/23 20:46 Lymph % (Auto) 42.2 % 05/24/23 20:46 [place] % (Auto) 6.9 % 05/24/23 20:46 Eos % (Auto) 2.8 % 05/24/23 20:46 Baso % (Auto) 1.1 % 05/24/23 20:46 Neut # (Auto) 2.52 10^3/uL (1.8-7.7) 05/24/23 20:46 Lymph # (Auto) 2.3 10^3/uL (0.8-4.8) 05/24/23 20:46 [place] # (Auto) 0.4 10^3/uL (0.2-0.9) 05/24/23 20:46 Eos # (Auto) 0.2 10^3/uL (0.0-0.8) 05/24/23 20:46 Baso # (Auto) 0.1 10^3/uL (0.0-0.1) 05/24/23 20:46 Nucleated RBC % (auto) 0 % 05/24/23 20:46 Nucleated RBCs # 0.0 /100WBC 05/24/23 20:46 PT 12.80 SECONDS (12.1-14.9) 05/24/23 20:46 INR 0.93 (0.8-1.2) 05/24/23 20:46 APTT 25.7 SECONDS (23.9-36.7) 05/24/23 20:46 Sodium 141 mmol/L (136-145) 05/24/23 20:46 Potassium 3.0 mmol/L (3.5-5.1) L 05/24/23 20:46 Chloride 101 mmol/L (98-107) 05/24/23 20:46 Carbon Dioxide 30 mmol/L (22-29) H 05/24/23 20:46 Anion Gap 13.0 (5-19) 05/24/23 20:46 BUN 7 mg/dL (6-20) 05/24/23 20:46 Creatinine 0.9 mg/dL (0.7-1.2) 05/24/23 20:46 GFR Calculation 89.3 mL/min (90-130) L 05/24/23 20:46 Glucose 156 mg/dL (65-115) H 05/24/23 20:46 Calculated Osmolality 293 mOsm/kg (285-295) 05/24/23 20:46 Calcium 9.0 mg/dL (8.5-10.5) 05/24/23 20:46 Total Bilirubin 0.4 mg/dL (0.15-1.2) 05/24/23 20:46 AST 37 U/L (0-40) 05/24/23 20:46 ALT 40 U/L (0-41) 05/24/23 20:46 Alkaline Phosphatase 74 U/L (40-130) 05/24/23 20:46 Total Protein 7.3 g/dL (6.6-8.7) 05/24/23 20:46 Albumin 4.3 g/dL (3.5-5.2) 05/24/23 20:46 Globulin 3.0 g/dL (1.3-4.6) 05/24/23 20:46 Urine Color Yellow (Yellow) 05/24/23 21:32 Urine Appearance Clear (CLEAR) 05/24/23 21:32 Urine pH 6.5 (5-7) 05/24/23 21:32 Ur Specific [place] 1.010 (1.005-1.030) 05/24/23 21:32 Urine Protein Neg (Negative) 05/24/23 21:32 Urine Glucose (UA) Norm (Normal) 05/24/23 21:32 Urine Ketones Negative (Negative) 05/24/23 21:32 Urine Blood Neg (Negative) 05/24/23 21:32 Urine Nitrate Negative (Negative) 05/24/23 21:32 Urine Bilirubin Neg (Negative) 05/24/23 21:32 Urine Urobilinogen Neg mg/dL (Negative) 05/24/23 21:32 Ur Leukocyte Esterase Negative (Negative) 05/24/23 21:32 Salicylates < 0.3 mg/dL (3-10) L 05/24/23 20:46 Urine Opiates Screen Negative ng/mL (Negative) 05/24/23 21:32 Acetaminophen < 5.0 ug/mL (10-30) L 05/24/23 20:46 Ur Barbiturates Screen Negative ng/mL (Negative) 05/24/23 21:32 Ur Phencyclidine Scrn Negative ng/mL (Negative) 05/24/23 21:32 Ur Amphetamines Screen Positive ng/mL (Negative) H 05/24/23 21:32 U Benzodiazepines Scrn Negative ng/mL (Negative) 05/24/23 21:32 Urine Cocaine Screen Negative ng/mL (Negative) 05/24/23 21:32 U Marijuana (THC) Screen Positive ng/mL (Negative) H 05/24/23 21:32 Ethyl Alcohol 299 mg/dL (0-10) H 05/24/23 20:46 All radiology interpretation(s) finalized by discharge EKG Data EKG 1: EKG interpretation date: 05/24/23 EKG interpretation time: 21:16 Prior EKG tracings: not available for review Interpretation: EKG showed ventricular rate 87 bpm, CT interval 158, QRS duration 96, QTc of 418, sinus rhythm, Q waves in V1 V2 Discharge Plan Discharge Patient Disposition: Admitted As Inpatient Clinical Impression: Suicidal ideation, Acute hypokalemia, Polysubstance abuse Alcohol intoxication Qualifiers: Complication of substance-induced condition: uncomplicated Qualified Code(s): F10.920 - Alcohol use, unspecified with intoxication, uncomplicated Condition: Stable Coding Level of Care Code ED [facility] [employer] for Michelle Crowder
[2023-05-24 20:52] LABS: Basophils # 0.1 10^3/uL (0.0-0.1); Basophils % 1.1 %; Eosinophils # 0.2 10^3/uL (0.0-0.8); Eosinophils % 2.8 %; Hematocrit 42.5 % (37-53); Lymphocytes # 2.3 10^3/uL (0.8-4.8); Lymphocytes % 42.2 %; Mean Corpuscular HGB Conc 35.8 g/dL (30-55); Mean Corpuscular Hemoglobin 33.1 pg (27-33); Mean Corpuscular Volume 92.6 fl (82-101); Mean Platelet Volume 9.4 fL (7.4-10.4); Monocytes # 0.4 10^3/uL (0.2-0.9); Monocytes % 6.9 %; Neutrophils # 2.52 10^3/uL (1.8-7.7); Neutrophils % 46.6 %; Nucleated Red Blood Cells % 0 %; Platelet Count 255 10^3/cmm (157-399); Red Blood Count 4.59 10^6/uL (3.85-5.65)
[2023-05-24 21:04] LABS: INR 0.93 (0.8-1.2); Partial Thromboplastin Time 25.7 SECONDS (23.9-36.7)
--- NOTE | 2023-05-24 21:06 | PC.NURSE ---
Addendum entered by Milana Cleveland RN 05/24/23 22:20: *[employer] Original Note: Pt reports thoughts of wanting to kill himself and others. When pt asked who he wanted to kill he said people at [employer] . notified.
[2023-05-24 21:10] LABS: Alanine Aminotransferase 40 U/L (0-41); Albumin Level 4.3 g/dL (3.5-5.2); Alcohol Level 299 mg/dL (0-10); Alkaline Phosphatase 74 U/L (40-130); Aspartate Amino Transferase 37 U/L (0-40); Blood Urea Nitrogen 7 mg/dL (6-20); Carbon Dioxide 30 mmol/L (22-29); Chloride 101 mmol/L (98-107); Glomerular Filtration Rate 89.3 mL/min (90-130); Glucose 156 mg/dL (65-115); Osmolality Calculated 293 mOsm/kg (285-295); Sodium 141 mmol/L (136-145); Total Bilirubin 0.4 mg/dL (0.15-1.2); Total Protein 7.3 g/dL (6.6-8.7)
[2023-05-24 21:38] LABS: Add Urine Microscopic? NO; Charge for UA Resulting for Rev
[2023-05-24 21:45] LABS: Bilirubin Urine Neg (Negative); Blood Urine Neg (Negative); Glucose Urine UA Norm (Normal); Ketones Urine Negative (Negative); Leukocyte Esterase Urine Negative (Negative); Nitrate Urine Negative (Negative); Protein Urine Neg (Negative); Urine Appearance Clear (CLEAR); Urine Color Yellow (Yellow); Urobilinogen Urine Neg (Negative); pH Urine 6.5 (5-7)
[2023-05-24 21:52] LABS: Acetaminophen < 5.0 ug/mL (10-30); Salicylate < 0.3 mg/dL (3-10)
[2023-05-24 21:53] LABS: Amphetamines Screen Urine Positive (Negative); Barbiturates Screen Urine Negative (Negative); Benzodiazepines Screen Urine Negative (Negative); Cocaine Screen Urine Negative (Negative); Opiate Screen Urine Negative (Negative); PCP Screen Urine Negative (Negative); THC Screen Urine Positive (Negative)
[2023-05-24] MEDS: potassium chloride ER 20 mEq Tablet 40 MEQ PO (21:59)
[2023-05-24] MEDS: sodium chloride 0.9% 1,000 ML 999 ML IV ×2 (22:00→23:55)
[2023-05-24 23:56] VITALS: BP 119/82; PULSE 102; RESP 36
[2023-05-25] VITALS (7 sets, daily range): BP systolic 121–139; BP diastolic 76–98; PULSE 65–130; RESP 16–29; TEMP 36.4–36.9; O2SAT 92–100
[2023-05-25 00:31] LABS: Alcohol Level 224 mg/dL (0-10)
--- NOTE | 2023-05-25 01:27 | PC.NURSE ---
Spoke w/ER staff regarding pts orders for stroke protocol as well as cardiac monitoring. NO received and noted to discontinue orders as pt has not had a CVA. Contacted RT regarding pt orders for O2 @ 2 l/m via n/c. Contacted housekeeping room attendant regarding need for sitter d/t ordered O2.
[2023-05-25] MEDS: LORazepam 2 mg Tablet PO ×4 (02:02→20:07)
[2023-05-25] MEDS: multivitamin therapeutic Tablet 1 TAB PO (10:16)
[2023-05-25] MEDS: folic acid 1 mg Tablet PO (10:16)
[2023-05-25] MEDS: thiamine 100 mg Tablet PO (10:16)
--- NOTE | 2023-05-25 11:06 | PC.NURSE ---
sting in bed. sitter no longer present. oxygen removed. o2 saturation 97% after oxygen removed for 20 minutes.
[2023-05-25] MEDS: ibuprofen 600 mg Tablet PO (12:48)
--- NOTE | 2023-05-25 12:51 | PC.NURSE ---
administered 2mg Ativan to patient per [facility]WA protocol. Patient scored 11. Will continue to monitor patient.
--- NOTE | 2023-05-25 15:48 | P.NPUHP_ITS ---
Providers/Chief Complaint Admitting Physician: Robby Carreon MD Chief Complaint: stroke HPI NPU History of Present Illness John Yeung is a 52 year old male Chief Complaint: Weakness Stated Complaint: stroke Time Seen by Provider: 05/24/23 20:37 History of Present Illness: Patient presents to the ER with strokelike symptoms per EMS last known well was 3 to 4 days ago but symptoms of worsened over the last 45 minutes. EMS stated patient had left facial droop slurring his words and left upper and lower extremity weakness. Patient is also had alcohol on board patient admits to having 3-4 moderate-size shots today. Patient states he is going under a lot of stress with his son and his problems and he wants admitted to the stress unit. Patient has never had a stroke or seizure before. Patient is a poor historian. History may be questionable and/or limited secondary to alcohol use. During p atient stay he now is claiming to be suicidal and homicidal. He was admitted to the neuropsychiatric unit for definitive treatment of those issues. He presents today very out of it but arousable. Very limited historian but able to say that he did go to [facility] after he was discharged back in December 2022. He reports that he did well for a little while but then reports that he got a assault charge and was in longterm for some time a couple months ago. He reports that when he got out 2 weeks ago he went to stay with his son and that things did not go well there. He reports that his son was using meth and that he started drinking. He has no explanation for why his UDS was positive for amphetamines. He reports that drinking daily for the past couple weeks got him in a bad right and that he needed to get away from his son and get himself back sober. He denied any other significant or substantive changes since that discharge in December. An excerpt of his last psychiatric evaluation is included be low for context and appropriate history given him being somewhat lethargic with his normal dysarthria which is worse when he is sleepy. We discussed getting him through the withdraw, restarting some medications and then reconsidering things at the beginning of the week. Per his 12/06/[address] [facility] inpatient evaluation: History of Present Illness John Yeung Jr is a 52 year old male who presented to the emergency department with the following report: Chief Complaint: Chest Pain Stated Complaint: ETOH; Chest Pain Time Seen by Provider: 12/05/22 10:25 Source: patient Mode of arrival: ambulatory History of Present Illness: 52-year-old female presents to the emergency room with complaints of suicidal ideation. He is acutely intoxicated and drinking heavily for the last 12 to 18 hours drank a large amount of Benjamin Leon last night and vodka this morning. He made the comment that somebody had stole his drugs he feels like all of his relationships have failed. Patient said he had a brief episode of chest pain this morning and it so he drank more alcohol. MD complaint: chest pain Onset (ago): unknown Pain location: left chest Pain radiation: none Severity: mild Quality: tightness and aching Relieving factors: nothing Exacerbating factors: nothing Associated symptoms: Deny abdominal pain, dyspnea, fever(s), nausea or vomiting. He was admitted to the neuropsychiatric unit for definitive treatment of those issues. He was down in the emergency department for quite some time given his presentation with a BAL of 465. Also, as has been the norm recently he was fairly combative and ultimately needed as needed medications to be managed in the emergency department. He presents today already saying that he is not interested in doing anything to manage the addiction and that his plan is just to return to [place]. We had a lengthy conversation about this help seeking, help rejecting behavior of coming here distraught essentially begging for help only to wake up the next day and ultimately he desired to do business as usual. He worked with the treatment team to explore options but ultimately continues to tell them that he just wants to go home and do nothing differently. We discussed that if that is going to be his strategy was in the future we will likely treat the intoxication but plan for not fulfilling his desire to be admitted. He is on a 96-hour hold and we agreed we would observe for safety given that diagnosis but he is not interested in any medication changes or treatment alterations. An excerpt of his last hospitalization is included below for context and the fact that there have been no substantive changes. Per his 11/10/2022 [facility] inpatient psychiatric discharge summary: Discharge Diagnosis (1) Respiratory failure: (2) Acute alcoholic intoxication: (3) Respiratory failure with hypoxia and hypercapnia: (4) Hypokalemia: (5) Major depressive disorder, recurrent: (6) Anxiety: (7) Alcohol withdrawal: (8) Alcohol use disorder, severe, dependence: (9) Suicidal thoughts: Reason for Visit Reason for Visit: SI Brief History: John Yeung Jr is a 52 year old male who presented to the emergency department with the following report: Chief Complaint: Psychiatric Symptoms Stated Complaint: SI Time Seen by Provider: 11/07/22 19:57 Source: patient and EMS Mode of arrival: EMS Limitations: no limitations History of Present Illness: 52-year-old male who has a history of chronic pain along with alcohol abuse he was recently admitted this month for depression and SI he states that he been having increased stress over the last 3 days has been having thoughts of cutting his wrist. He states he has been drinking today he denies any worsening improving factors. Associated symptoms: Reports depression. He was admitted to the neuropsychiatric unit for definitive treatment of those issues. He is quite well-known to this television script writer with a recent discharge about 3 weeks ago. At that time he was fairly ambivalent about his discharge. He presents now reporting that everything is bad. He has 5 children and they want help him or do anything for him. He reports that he had had or some kind of housing voucher on deck reporting that he was excited about having his own place. But when he called recently they advised him that they understood that he had housing and took him off of the list. His current living situation he reports is red prehensile and smells and he does not have any autonomy just 1 room and limited options. His blood alcohol was 279 which is lower than it often is when he presents and he does acknowledge that his drinking is part of his problem but he reports just feeling so depressed that everything going wrong in his life that he just wants to . An excerpt of his discharge from a few weeks ago is included below for context and history. We agreed to explore his medications for possible changes. Per his 10/18/[address] [facility] inpatient psychiatric discharge summary: Discharge Diagnosis (1) Respiratory failure: Status: Resolved (2) Acute alcoholic intoxication: Status: Resolved (3) Respiratory failure with hypoxia and hypercapnia: Status: Resolved (4) Hypokalemia: Status: Resolved (5) Major depressive disorder, recurrent: Status: Acute (6) Anxiety: Status: Acute (7) Alcohol withdrawal: Status: Resolved (8) Alcohol use disorder, severe, dependence: Status: Acute (9) Suicidal thoughts: Status: Acute Reason for Visit Reason for Visit: SOB Brief History: History of Present Illness John Yeung Jr is a 52 year old male who presented to the emergency department with the following report: Chief Complaint: Psychiatric Symptoms Stated Complaint: SOB Time Seen by Provider: 10/11/22 16:46 Source: EMS Mode of arrival: EMS Limitations: altered mental status History of Present Illness: History is obtained entirely from EMS crew as the patient was intubated upon arrival. History from EMS was that they were called out because of the patient being combative. And admitted to drinking alcohol. Patient apparently was in the back of the ambulance and became more un cooperative and acted out. Patient was allegedly given 250 mg of ketamine IM. The patient continues to be uncooperative and by the time EMS had achieved IV access. The report was that he was given additional 150 mg of ketamine IVP. EMS then alleges that patient became apneic and a Ervin airway was placed. The patient arrived with airway in place and receiving bag mask ventilation by EMS crew. MD complaint: intoxication Context: unknown. He was admitted to the ICU for definitive treatment of those issues. He was treated on a CIWA protocol and worked through his withdrawal. As they started debating what to do from a standpoint of aftercare and discharge there were reports of suicidal thinking. He was transferred to the neuropsychiatric unit for treatment of those concerns. He presents today reporting that he has had significant struggles recently. That he had been living with someone and that he is unable to return with them and he needs to find a place to go to initiate his recovery. Additionally he reports that he did not feel like the medications were working really well and he had not been able to get a hold of some of the medications. We discussed the risk benefits and alternatives of restarting some of those medications and also working with the treatment team tomorrow to find him a reasonable discharge locale. He understood and agreed to proceed as is documented in this note. He reports that he has tried to go to the local jail but he is unsure if it is SOC. We discussed the fact that we would work with him to restart the medications and try to assist him in navigating local resources starting tomorrow. An excerpt of his last discharge summary is i ncluded below for context. Per his 12/07/2021 [facility] inpatient psychiatric discharge summary: Discharge Diagnosis (1) Suicidal ideation: Status: Resolved (2) Alcohol intoxication: Status: Resolved (3) Alcohol withdrawal: Status: Acute (4) Alcohol use disorder, severe, dependence: Status: Acute (5) Anxiety: Status: Acute (6) Major depressive disorder: Status: Acute (7) Insomnia: Status: Acute (8) Essential hypertension: Status: Chronic Reason for Visit Reason for Visit: HALLUCINATIONS/ETOH Brief History: John Yeung Jr is a 51 year old male who presented to the emergency department with the following report: Chief Complaint: Psychiatric Symptoms Stated Complaint: HALLUCINATIONS/ETOH Time Seen by Provider: 12/01/21 02:14 Source: patient and EMS Mode of arrival: EMS Limitations: no limitations History of Present Illness: 51-year-old male who currently missed night states having hallucinations he has been drinking alcohol and meth abuse he states that he was seeing little kids run around in his house. He is intoxicated here he denies any suicidal or homicidal ideation denies any worsening proving factors. Associated symptoms: Reports visual hallucinations. He was able to get definitive treatment of those issues. Patient is well-known to this television script writer through his last hospitalization from November 08 to November 16, 2021. An excerpt of that hospitalization discharge summary is included below for context given the limited time between stays and the fact that he denies any substantive changes. We discussed the fact that at his last discharge he had initially been feeling committed and comfortable with the plan for him to go to rehab given his significant alcohol use disorder. His withdrawal at his last stay was significant. And he acknowledges now that he presents with a similar challenge of getting through withdrawal but is hopeful it is not as bad as last time. He reports that he acknowledges that his ability to discontinue his drinking behavior is not as strong as he had thought and he is already spoken to the social work team and arrangements are being made for inpatient rehab. He reports that he feels like the medications that were initiated at his last hospitalization are effective with his depression and anxiety to some degree but could not overcome his continued drinking. We discussed the risk benefits and alternatives of continuing his current medication, monitoring him on the CIWA protocol and considering changes as indicated and he understood and agreed proceed as is documented in his note. Per his 11/16/[address] [facility] inpatient psychiatric discharge summary: SI/ETOH Brief History: History of Present Illness John Yeung Jr is a 51 year old male who presented to the emergency department the following report: HPI: [51]yo patient w/ hx of depression BIBA for suicidal ideation with plan. He tells me that he is dealing with a lot in her life right now and will kill himself cutting his wrist. Patient drink alcohol prior to coming in. Patient is AAO x4 GCS 15. Patient report significant depression and inability to cope with life. No focal complaints of chest pain, shortness of breath, palpitations, N/V, focal GI/ complaints. Currently denies HI. No complaints of hallucinations. Onset: acute Duration: acute Location: home Severity: severe Associated symptoms: Deny chest pain, dyspnea, nausea, rash, palpitations or vomiting He was admitted to the neuropsychiatric unit for definitive treatment of those issues. He presents today reporting that he has been psychiatrically hospitalized 13 or more times, the first time of which was in [place] in his late 30s to early 40s and the last time he could not remember. He did not recall, but we did discuss that he had been hospitalized here in 2018, in fact a couple hospitalizations here. He has had outpatient services at [facility] [place]. He does not recall the medications he is currently taking but reports he is currently on psychiatric medications. He reports that he smokes a pack of cigarettes a day, drinks about a fifth of alcohol a day, uses marijuana daily and denies any other illicit drug use. He reports he has been to rehabilitation a couple times but has never gotten a DUI or possession charge. He reports he is having suicidal ideation, struggling with his alcohol intake, and also having worsening depression. He reports he split from his years ago which also meant that his access to his kids was diminished and that really started his difficulties being isolative. He reports that he has had issues his whole life in not getting along with people, being socially anxious and reporting that the drinking probably started to deal with that. He reports a history of suicide attempts and does have legitamite scars on his wrists from self-aquired cuts to his wrists. He denies any history of self-injurious behaviors. He reports he would like to stop his drinking and consider making changes or alterations to his medications to help with his mood. We discussed the risks, benefits and alternatives of increasing his Cymbalta from 20 mg twice a day to 30 mg twice a day and he understood and agreed to proceed as is documented in this note and then we agreed to explore whether other changes would be warranted. An excerpt of his last [facility] psychiatric hospitalization is included below for context. Psychiatric History: As above. Substance Abuse History: As above Family History: He reports that he is not sure whether there is mental health issues on either side of the family, but there is addiction on both sides of the family. Shortly after his father , he reports his mother overdosed intentionally and completed suicide but denied any other suicide attempts or completions in the family. 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 Psychosocial History: His parents were together when he was born and stayed together until his father . He reports he has a younger brother who is a product of the same union and that neither of his parents had any additional children besides those two. He reports that his childhood was alright but that his dad, when he was drinking, b ecame very angry and belligerent and he did have emotional abuse from that but denied physical or sexual abuse. He reports that there may have been some truancy issues causing him to maybe have placements but he was very unclear. 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 He endorses being heterosexual with his longest relationship being 20 or more years. 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 His longest work history was in [employer] but he has been trying to get disability and it is unclear where he is in that process. He currently reports that he is homeless. His last note back in 2018 described him having some unstable housing, living with a friend, and he reports that he had been doing that for some time and that has fallen apart recently and he doesn?t have a place to go. Legal History: He reports he has been in longterm many times, the longest time was around 13 days. Medical History: He denied. Other than obesity, please see ED note for additional details. Per his January 12, [address] [facility] inpatient psychiatric evaluation: Date of Service: Jan 12, 2018 Chief Complaint: Never found nowhere to get into. Alcohol intoxication and suicidal ideation. HPI: This 47-year-old male with a past medical history of alcoholism, substance abuse, chronic back pain, major depressive disorder and social anxiety disorder who is well known to our service who is readmitted for acute alcohol intoxication and suicidal ideation. The patient reports that since his last discharge on 01/03/2018, he has not been able to find an inpatient chemical dependency treatment program with bed availability yet. He reports that he has not gone to any outpatient appointments over the past 1-2 weeks nor outpatient chemical dependency treatment. He reports that since discharge, he has been again drinking a fifth of whiskey daily and last night drank even more. He reports that someone called EMS due to his public intoxication at [facility] yesterday. Patient reports that he was voluntarily admitted. I told them I wanted to get some help. Get off alcohol. Patient endorses some ongoing feelings of depression over the past few weeks, feelings of helplessness and hopelessness, decreased appetite, fatigue, suicidal ideation at times . Reports he has been feeling suicidal for the last 2 days with a plan to step out in front of a vehicle. He denies any recent manic symptoms or any illicit drug use. Is endorsing some current alcohol withdrawal symptoms of nausea, vomiting, and tremors. He was endorsing chest pain yesterday in the emergency room but reports that resolved shortly after. He had a negative cardiac workup in the ER including EKG/troponins. He denies any visual hallucinations/paranoia/homicidal ideation. Past Medical History Past psychiatric history: Patient has recent psychiatric admission after suspected intentional overdose/alcohol poisoning in October 2017. He also has a prior intentional overdose in November 2016 with subsequent NPU admission under similar circumstances of severe alcohol intoxication with decreased level of consciousness, suspected intentional overdose, and inability to recall circumstances precipitating admission. He was recently discharged from the NPU on 01/03/2018 but did not follow-up with any outpatient care or comply with the discharge treatment plan and relapsed on alcohol. He has previously care at [facility] [place] with reported diagnosis of depression and schizophrenia. Past medications: Prozac, Seroquel, and gabapentin. Past Medical History: Chronic back pain Surgical History: Reports: Other (excision lymph node with biopsy left axilla) Family Medical History: Extensive history of alcoholism, depression Social history: Patient reports that he currently lives with a friend. Drinks a fifth of whiskey or more daily but denies any history of alcohol withdrawal seizures previously. Denies any illicit drug use but does report smoking 1 pack per day. Drugs: Denies any illicit drug use. Urine drug screen was positive for benzodiazepines which the patient was not prescribed during his last admission but it is negative during this admission. Hospital Course He quickly acclimated to the individual, group and milieu therapies provided. He was most recently discharged 10/18/2022 and for the first time actually followed up as an outpatient appointment. He presented initially stating that he was not feeling safe/with suicidal but then very quickly changed his attitude and discussed feeling like he came as a knee-jerk response and that he wants to continue making strides. We agreed to monitor him for a day to make sure he was in fact safe and then discharged home with a plan that he would continue with outpatient treatment and consider rehab. He had modest improvement during the stay and he was able to contract for safety outside the hospital prior to discharge. During the hospitalization, patient had routine laboratory studies which were within normal limits except for few outliers. Additionally there was a general medical evaluation which was also within normal limits and revealed no new acute processes. Discharge Summary: At the time of discharge, he denied psychosis or lethality. Mood and anxiety were well managed. Patient endorsed a plan to avoid all drugs of abuse and follow-up with the aftercare recommendations of the treatment team. Patient was evaluated and deemed to be absent credible lethality, and had achieved the maximum benefit from an inpatient hospitalization, so was discharged. Meds NPU Home Medications Medication Instructions Recorded Confirmed Last Taken Type No Known Home Medications 05/25/23 05/25/23 Unknown History Allergies Allergy/AdvReac Type Severity Reaction Status Date / Time No Known Allergies Allergy Verified 05/25/23 02:19 Mental Status Exam MSE Comments: This is an obese white male in hospital scrubs with limited grooming and eye contact.? No abnormal movements except for significant psychomotor retardation.? Cooperative with exam in moderate distress.? Speech was decreased rate and volume with dysarthria/poor articulation.? Mood described as depressed, affect congruent.? Thought process organized.? Thought content: Patient denied suicidal or homicidal ideation, there were no delusions reported or noted, he denied any auditory or visual hallucinations.? Attention and concentration were intact and memory appeared mostly reliable but none were formally tested.? He is alert and oriented x3.? Insight, judgment and impulse control are impaired. Vitals/I&O/Wt Last Vital Signs Temp 97.5 F L 05/25/23 14:00 Pulse 100 05/25/23 14:00 Resp 16 05/25/23 14:00 BP 124/76 05/25/23 14:00 Pulse Ox 98 05/25/23 14:00 O2 Del Method Room Air 05/25/23 14:00 05/25/23 05/25/23 05/25/23 06:59 14:59 22:59 Intake Total 1999 Balance 1999 Weight last 48 hrs Weight 105.233 kg Data NPU 05/24/23 20:46 05/24/23 20:46 A&P Assessment and plan (1) Alcohol intoxication: Qualifiers: Complication of substance-induced condition: uncomplicated Qualified Code(s): F10.920 - Alcohol use, unspecified with intoxication, uncomplicated (2) Acute hypokalemia: (3) Polysubstance abuse: (4) Suicidal ideation: (5) Alcohol use disorder, severe, dependence: (6) Major depressive disorder, severe: Plan This is a 52 year old white male with a long history of alcohol use disorder, severe, and depression with suicidality with past suicide attempts, who presents with active addiction positive for amphetamines with a blood alcohol of 299. 1. Evaluate and consider restarting previous medications. 2. Encourage individual, group and milieu therapy 3. Continue q-15 minute check for safety 4. Recommend sober living treatment at the highest level of care to which the patient is willing to commit.? 5. Patient with a history of likely using inpatient as a respite and/or homeless jail so we will push for active planning on Sunday. Involuntary Hold Information 96 Hour Hold: 96 Hour Involuntary Admission: No Attestations NPU Medical Necessity Statement*: Inpatient hospitalization is medically necessary and the clinically appropriate intervention at this time. We will monitor/initiate medications and make changes as indicated. He will be in the hospital for over 2 midnights. Likely length of stay 4 to 6 days. Coding Level of Care Code Acute Code for g Fwd Diagnoses Alcohol intoxication F10.920 Complication of substance-induced condition: uncomplicated Acute hypokalemia E87.6 Polysubstance abuse F19.10 Suicidal ideation R45.851 Alcohol use disorder, severe, dependence F10.20 Major depressive disorder, severe F32.2
[2023-05-25] MEDS: acetaminophen 325 mg Tablet 650 MG PO (20:07)
[2023-05-25] MEDS: ondansetron 4 MG Tablet PO (20:07)
--- NOTE | 2023-05-25 21:22 | PC.NURSE ---
PT RESTING IN BED, NBA COMPLETED AND SCORED 14. PT WAS GIVEN ATIVAN 2 MG ORDERED PER PROTOCOL. PT REPORTED NAUSEA, ZOFRAN 4 MG GIVEN ORDERED. PT REPORTS HEADACHE 6/10 TYLENOL 650 MG GIVEN ORDERED FOR PAIN. PT CONTINUES TO BE TREATED FOR ALCHOHOL WITHDRAW. PT DENIES SI AND AVH AT THIS TIME. PT STATES HE WANTS TO GET A GUN AND SHOOT A BUNCH OF PEOPLE UP. ASKED IF THERE WAS ANYONE IN PARTICULAR HE WANTS TO HURT, PT SAID NO JUST ANYONE. PT EDUCATED ABOUT MEDICATIONS THAT WERE GIVEN. ALL QUESTIONS ANSWERED AND SUPPORT VOICED.
[2023-05-26 06:00] VITALS: BP 127/85; PULSE 85; RESP 16; O2SAT 94
--- NOTE | 2023-05-26 08:24 | P.NPUPN_ITS ---
Subjective NPU Subjective: Patient presented today reporting that he is doing okay. He reports being in pain and also struggling being off of his medication for some time. We discussed the risks, benefits and alternatives of restarting Neurontin and he understood and agreed to proceed as is documented in this note. He reports some minor withdrawal symptoms lingering. Mental Status Exam MSE Comments: This is an obese white male in hospital scrubs with limited grooming and eye contact.? No abnormal movements except for significant psychomotor retardation.? Cooperative with exam in moderate distress.? Speech was decreased rate and volume with dysarthria/poor articulation.? Mood described as depressed, affect congruent.? Thought process organized.? Thought content: Patient denied suicidal or homicidal ideation, there were no delusions reported or noted, he denied any auditory or visual hallucinations.? Attention and concentration were intact and memory appeared mostly reliable but none were formally tested.? He is alert and oriented x3.? Insight, judgment and impulse control are impaired. Vitals/I&O/Wt Last Vital Signs Temp 97.8 F 05/25/23 20:47 Pulse 85 05/26/23 06:00 Resp 16 05/26/23 06:00 BP 127/85 05/26/23 06:00 Pulse Ox 94 05/26/23 06:00 O2 Del Method Room Air 05/26/23 06:00 Weight last 48 hrs Weight 105.233 kg Data NPU 05/24/23 20:46 05/24/23 20:46 A&P Assessment and plan (1) Alcohol intoxication: Qualifiers: Complication of substance-induced condition: uncomplicated Qualified Code(s): F10.920 - Alcohol use, unspecified with intoxication, uncomplicated (2) Acute hypokalemia: (3) Polysubstance abuse: (4) Suicidal ideation: (5) Alcohol use disorder, severe, dependence: (6) Major depressive disorder, severe: Plan This is a 52 year old white male with a long history of alcohol use disorder, severe, and depression with suicidality with past suicide attempts, who presents with active addiction positive for amphetamines with a blood alcohol of 299. 1. Evaluate and consider restarting previous medications. We will restart Neurontin today. 2. Encourage individual, group and milieu therapy 3. Continue q-15 minute check for safety 4. Recommend sober living treatment at the highest level of care to which the patient is willing to commit.? 5. Patient with a history of likely using inpatient as a respite and/or homeless custodial so we will push for active planning on Sunday. Involuntary Hold Information 96 Hour Hold: 96 Hour Involuntary Admission: No Attestations NPU Medical Necessity Statement*: Inpatient hospitalization is medically necessary and the clinically appropriate intervention at this time. We will monitor/initiate medications and make changes as indicated. Likely length of stay 4 to 6 days. Coding Level of Care Code Acute Code for [facility] Fwd Diagnoses Alcohol intoxication F10.920 Complication of substance-induced condition: uncomplicated Acute hypokalemia E87.6 Polysubstance abuse F19.10 Suicidal ideation R45.851 Alcohol use disorder, severe, dependence F10.20 Major depressive disorder, severe F32.2
[2023-05-26] MEDS: multivitamin therapeutic Tablet 1 TAB PO (08:48)
[2023-05-26] MEDS: ondansetron 4 MG Tablet PO ×2 (08:48→12:40)
[2023-05-26] MEDS: LORazepam 2 mg Tablet PO ×2 (08:48→12:41)
[2023-05-26] MEDS: folic acid 1 mg Tablet PO (08:48)
[2023-05-26] MEDS: thiamine 100 mg Tablet PO (08:48)
[2023-05-26] MEDS: gabapentin 300 mg Capsule PO ×2 (10:18→15:20)
[2023-05-26] MEDS: acetaminophen 325 mg Tablet 650 MG PO ×2 (12:40→18:07)
[2023-05-26 14:00] VITALS: BP 131/86; PULSE 80; RESP 16; TEMP 36.6; O2SAT 98
[2023-05-26 20:11] VITALS: BP 116/71; PULSE 96; RESP 18; TEMP 36.3; O2SAT 95
--- NOTE | 2023-05-26 21:00 | PC.NURSE ---
IN BED RESTING AROUSES BRIEFLY. DENIES PAIN. DENIES SI/HI AND AVH AT THIS TIME. PT THEN WENT BACK TO SNORING. PT WAS MEDICATED LAST SHIFT WITH ATIVAN PER THE [facility] PROTOCOL. PT WAS ALLOWED TO REST.
--- NOTE | 2023-05-26 23:01 | PC.NURSE ---
PT HAS BEEN SLEEPING SINCE CHANGE OF SHIFT AT 1845, ONLY WOKE BRIEFLY FOR ASSESSMENT. PT AROUSES BRIEFLY BUT DECLINED TO GET UP AND TAKE GABAPENTIN. MEDICATION WAS NOT ADMINISTERED DUE TO PT SLEEPING AND DECLINING MEDICATION.
[2023-05-27 06:00] VITALS: BP 123/80; PULSE 88; RESP 16; TEMP 36.6; O2SAT 95
[2023-05-27] MEDS: multivitamin therapeutic Tablet 1 TAB PO (08:59)
[2023-05-27] MEDS: thiamine 100 mg Tablet PO (08:59)
[2023-05-27] MEDS: folic acid 1 mg Tablet PO (08:59)
[2023-05-27] MEDS: gabapentin 300 mg Capsule PO ×3 (08:59→20:23)
[2023-05-27] MEDS: acetaminophen 325 mg Tablet 650 MG PO ×2 (08:59→20:23)
[2023-05-27] MEDS: ondansetron 4 MG Tablet PO (09:00)
[2023-05-27] MEDS: nicotine 4 mg lozenge MUCOUS MEM ×3 (11:26→18:40)
[2023-05-27] MEDS: ibuprofen 600 mg Tablet PO ×2 (12:08→18:40)
[2023-05-27] MEDS: hyDROXYzine 25 mg Capsule 50 MG PO ×2 (12:08→18:40)
--- NOTE | 2023-05-27 12:40 | W.PM.NPUPNS ---
Subjective NPU Subjective: Patient presented today reporting that he is doing okay. He reports being in pain and that thus far the Neurontin has not helped as much as he would have liked. We continue to discuss concerns about more aggressive pain management in relation to his significant addiction history with the alcohol, cannabis and with this hospitalization methamphetamine having been in his system. We had a discussion about his obvious weight loss which he denies doing anything specific in an attempt to lose weight and denied that it was a product of poor group home food. We discussed the social work team returning tomorrow and thus starting to look at where he is going after discharge. Mental Status Exam MSE Comments: This is an obese white male in hospital scrubs with limited grooming and eye contact.? No abnormal movements except for significant psychomotor retardation.? Cooperative with exam in moderate distress.? Speech was decreased rate and volume with dysarthria/poor articulation.? Mood described as depressed, affect congruent.? Thought process organized.? Thought content: Patient denied suicidal or homicidal ideation, there were no delusions reported or noted, he denied any auditory or visual hallucinations.? Attention and concentration were intact and memory appeared mostly reliable but none were formally tested.? He is alert and oriented x3.? Insight, judgment and impulse control are impaired. Vitals/I&O/Wt Last Vital Signs Temp 97.9 F 05/27/23 06:00 Pulse 88 05/27/23 06:00 Resp 16 05/27/23 06:00 BP 123/80 05/27/23 06:00 Pulse Ox 95 05/27/23 06:00 O2 Del Method Room Air 05/27/23 06:00 Weight last 48 hrs Weight 103.079 kg Data NPU 05/24/23 20:46 05/24/23 20:46 A&P Assessment and plan (1) Alcohol intoxication: Qualifiers: Complication of substance-induced condition: uncomplicated Qualified Code(s): F10.920 - Alcohol use, unspecified with intoxication, uncomplicated (2) Acute hypokalemia: (3) Polysubstance abuse: (4) Suicidal ideation: (5) Alcohol use disorder, severe, dependence: (6) Major depressive disorder, severe: Plan This is a 52 year old white male with a long history of alcohol use disorder, severe, and depression with suicidality with past suicide attempts, who presents with active addiction positive for amphetamines with a blood alcohol of 299. 1. Evaluate and consider restarting previous medications. We restarted Neurontin, now 300 mg p.o. 3 times daily. We will consider other possibilities for his pain management. 2. Encourage individual, group and milieu therapy 3. Continue q-15 minute check for safety 4. Recommend sober living treatment at the highest level of care to which the patient is willing to commit.? 5. Patient with a history of likely using inpatient as a respite and/or homeless fdc so we will push for active planning on tomorrow with the return of the social work team. Involuntary Hold Information 96 Hour Hold: 96 Hour Involuntary Admission: No Attestations NPU Medical Necessity Statement*: Inpatient hospitalization is medically necessary and the clinically appropriate intervention at this time. We will monitor/initiate medications and make changes as indicated. Likely length of stay 4 to 6 days. Coding Level of Care Code Acute Code for [facility] Fwd Diagnoses Alcohol intoxication F10.920 Complication of substance-induced condition: uncomplicated Acute hypokalemia E87.6 Polysubstance abuse F19.10 Suicidal ideation R45.851 Alcohol use disorder, severe, dependence F10.20 Major depressive disorder, severe F32.2
[2023-05-27 14:00] VITALS: BP 128/77; PULSE 85; RESP 20; TEMP 37.1; O2SAT 96
[2023-05-27 19:34] VITALS: BP 132/92; PULSE 77; RESP 15; TEMP 36.9; O2SAT 96
[2023-05-27] MEDS: trazodone 50 mg Tablet PO (20:23)
[2023-05-27] MEDS: OLANZapine 5 mg ODT PO (20:23)
--- NOTE | 2023-05-27 20:55 | PC.NURSE ---
RESTING IN BED AROUSES TO VOICE. PT REPORTS INCREASED ANXIETY AND DEPRESSION. DENIES SI/HI AND AVH AT THIS TIME. REPORTS BACK PAIN 01/20 TYLENOL WAS GIVEN ORDERED. PT IS REQUESTING MEDICATIONS FOR SLEEP AND ANXIETY. ZYDIS 5 MG WAS GIVEN ORDERED FOR INCREASED ANXIETY AND TRAZODONE 50 MG FOR INSOMNIA. PT CAME UP TO NURSES STATION AND RECEIVED DRINKS AND SNACKS. TOOK MEDICATIONS WITHOUT ISSUE. ALL QUESTIONS ANSWERED AND SUPPORT WAS VOICED.
[2023-05-28] MEDS: gabapentin 300 mg Capsule PO (08:47)
[2023-05-28] MEDS: thiamine 100 mg Tablet PO (08:47)
[2023-05-28] MEDS: multivitamin therapeutic Tablet 1 TAB PO (08:48)
[2023-05-28] MEDS: folic acid 1 mg Tablet PO (08:48)
[2023-05-28] MEDS: nicotine 4 mg lozenge MUCOUS MEM ×5 (08:48→20:38)
[2023-05-28] MEDS: ibuprofen 600 mg Tablet PO ×2 (12:37→21:07)
[2023-05-28] MEDS: hyDROXYzine 25 mg Capsule 50 MG PO (12:39)
--- NOTE | 2023-05-28 12:40 | PC.NURSE ---
PRN VISTARIL 50 MG GIVEN PO PER PT C/O STATED ANXIETY AND THE SHAKES
--- NOTE | 2023-05-28 13:49 | P.NPUPN_ITS ---
Subjective NPU Subjective: Patient presented today reporting that he is feeling okay. He is with a good enough that he is conversant and wanting to continue with the process of resuming most of his previous medications. We discussed the risks, benefits and alternatives of increasing his Neurontin and restarting Cymbalta 30 mg p.o. twice daily and he understood and agreed to proceed as is documented in this note. He is working with the social work team on discharge strategies as far as residence, treatment/aftercare. Mental Status Exam MSE Comments: This is an obese white male in hospital scrubs with limited grooming and eye contact.? No abnormal movements except for significant psychomotor retardation.? Cooperative with exam in moderate distress.? Speech was decreased rate and volume with dysarthria/poor articulation.? Mood described as depressed, affect congruent.? Thought process organized.? Thought content: Patient denied suicidal or homicidal ideation, there were no delusions reported or noted, he denied any auditory or visual hallucinations.? Attention and concentration were intact and memory appeared mostly reliable but none were formally tested.? He is alert and oriented x3.? Insight, judgment and impulse control are impaired. Vitals/I&O/Wt Last Vital Signs Temp 98.4 F 05/27/23 19:34 Pulse 77 05/27/23 19:34 Resp 15 05/27/23 19:34 BP 132/92 05/27/23 19:34 Pulse Ox 96 05/27/23 19:34 O2 Del Method Room Air 05/27/23 19:34 Weight last 48 hrs Weight 103.079 kg Data NPU 05/24/23 20:46 05/24/23 20:46 A&P Assessment and plan (1) Alcohol intoxication: Qualifiers: Complication of substance-induced condition: uncomplicated Qualified Code(s): F10.920 - Alcohol use, unspecified with intoxication, uncomplicated (2) Acute hypokalemia: (3) Polysubstance abuse: (4) Suicidal ideation: (5) Alcohol use disorder, severe, dependence: (6) Major depressive disorder, severe: Plan This is a 52 year old white male with a long history of alcohol use disorder, severe, and depression with suicidality with past suicide attempts, who presents with active addiction positive for amphetamines with a blood alcohol of 299. 1. Evaluate and consider restarting previous medications. We restarted Neurontin, now 300 mg p.o. 3 times daily. Increase to 400 mg p.o. 4 times daily. Initiate Cymbalta 30 mg p.o. twice daily. We will consider other possibilities for his pain management. 2. Encourage individual, group and milieu therapy 3. Continue q-15 minute check for safety 4. Recommend sober living treatment at the highest level of care to which the patient is willing to commit.? 5. Patient with a history of likely using inpatient as a respite and/or homeless residential so we will push for active planning on tomorrow with the return of the social work team. Involuntary Hold Information 96 Hour Hold: 96 Hour Involuntary Admission: No Attestations NPU Medical Necessity Statement*: Inpatient hospitalization is medically necessary and the clinically appropriate intervention at this time. We will monitor/initiate medications and make changes as indicated. Likely length of stay 3-5 days. Coding Level of Care Code Acute Code for [facility] Fwd Diagnoses Alcohol intoxication F10.920 Complication of substance-induced condition: uncomplicated Acute hypokalemia E87.6 Polysubstance abuse F19.10 Suicidal ideation R45.851 Alcohol use disorder, severe, dependence F10.20 Major depressive disorder, severe F32.2
[2023-05-28 14:00] VITALS: BP 131/93; PULSE 74; RESP 17; TEMP 36.8; O2SAT 97
[2023-05-28] MEDS: acetaminophen 325 mg Tablet 650 MG PO (15:05)
[2023-05-28] MEDS: gabapentin 400 mg Capsule PO ×2 (16:56→20:35)
[2023-05-28] MEDS: duloxetine 30 mg Capsule PO (17:04)
[2023-05-28 20:09] VITALS: BP 148/103; PULSE 76; RESP 16; TEMP 36.9; O2SAT 97
[2023-05-28] MEDS: trazodone 50 mg Tablet PO (20:35)
[2023-05-28] MEDS: OLANZapine 5 mg ODT PO (20:35)
--- NOTE | 2023-05-28 21:37 | PC.NURSE ---
Addendum entered and electronically signed by Neelam Watt RN 05/29/23 06:06: ZYDIS 5 MG AND TRAZODONE 50 MG IS DEEMED EFFECTIVE. PT HAS SLEPT ALL NIGHT AND CONTINUES TO BE ASLEEP CURRENTLY. Original Note: IN DAY ROOM WATCHING TV NO DISTRESS WAS NOTED. PT DENIES PAIN. DENIES SI/HI AND AVH AT THIS TIME. PT REPORTS INCREASED ANXIETY AND INCREASED DEPRESSION. PT WAS GIVEN ZYDIS 5 MG ORDERED FOR INCREASED ANXIETY. PT REQUEST TRAZODONE TO HELP HIM SLEEP. TRAZODONE 50 MG WAS GIVEN ORDERED. PT REQUEST SEROQUEL 100 MG AND STATES WHEN HE WAS ON THAT PREVIOUSLY IT WORKED WELL. DR. TATE WAS NOTIFIED VIA PHONE, STILL AWAITING RESPONSE. ALL QUESTIONS ANSWERED AND SUPPORT WAS VOICED.
--- NOTE | 2023-05-28 23:12 | PC.NURSE ---
RECEIVED NEW ORDERS FROM DR. TATE TO RESTART SEROQUEL 50 MG PO Q HS. ORDERS PLACED IN [facility]. PT CURRENTLY SLEEPING WILL START ON 05/29/23 AT BEDTIME. WILL EDUCATE PT WHEN HE AWAKES.
[2023-05-29 06:00] VITALS: BP 145/87; PULSE 65; RESP 16; TEMP 36.9; O2SAT 97
[2023-05-29] MEDS: thiamine 100 mg Tablet PO (08:37)
[2023-05-29] MEDS: duloxetine 30 mg Capsule PO ×2 (08:37→20:35)
[2023-05-29] MEDS: gabapentin 400 mg Capsule PO ×4 (08:37→20:35)
[2023-05-29] MEDS: folic acid 1 mg Tablet PO (08:37)
[2023-05-29] MEDS: multivitamin therapeutic Tablet 1 TAB PO (08:37)
[2023-05-29] MEDS: ibuprofen 600 mg Tablet PO (08:39)
[2023-05-29] MEDS: nicotine 4 mg lozenge MUCOUS MEM ×6 (08:39→23:16)
[2023-05-29] MEDS: ondansetron 4 MG Tablet PO (11:07)
[2023-05-29] MEDS: hyDROXYzine 25 mg Capsule 50 MG PO (12:48)
--- NOTE | 2023-05-29 13:25 | W.PM.NPUPNS ---
Subjective NPU Subjective: Patient presented today reporting that he is doing a little better as we re-initiate his different medications. He is tolerating the Neurontin and Cymbalta still has some complaints of pain. He reports that he slept a little better with the Seroquel. He also reports working with the social work team exploring the possibilities of rehab as he reports he is committed to. Mental Status Exam MSE Comments: This is an obese white male in hospital scrubs with limited grooming and eye contact.? No abnormal movements except for significant psychomotor retardation.? Cooperative with exam in moderate distress.? Speech was decreased rate and volume with dysarthria/poor articulation.? Mood described as depressed, affect congruent.? Thought process organized.? Thought content: Patient denied suicidal or homicidal ideation, there were no delusions reported or noted, he denied any auditory or visual hallucinations.? Attention and concentration were intact and memory appeared mostly reliable but none were formally tested.? He is alert and oriented x3.? Insight, judgment and impulse control are impaired. Vitals/I&O/Wt Last Vital Signs Temp 98.5 F 05/29/23 06:00 Pulse 65 05/29/23 06:00 Resp 16 05/29/23 06:00 BP 145/87 05/29/23 06:00 Pulse Ox 97 05/29/23 06:00 O2 Del Method Room Air 05/29/23 06:00 Data NPU 05/24/23 20:46 05/24/23 20:46 A&P Assessment and plan (1) Alcohol intoxication: Qualifiers: Complication of substance-induced condition: uncomplicated Qualified Code(s): F10.920 - Alcohol use, unspecified with intoxication, uncomplicated (2) Acute hypokalemia: (3) Polysubstance abuse: (4) Suicidal ideation: (5) Alcohol use disorder, severe, dependence: (6) Major depressive disorder, severe: Plan This is a 52 year old white male with a long history of alcohol use disorder, severe, and depression with suicidality with past suicide attempts, who presents with active addiction positive for amphetamines with a blood alcohol of 299. 1. Evaluate and consider restarting previous medications. We restarted Neurontin, now 300 mg p.o. 3 times daily. Increased to 400 mg p.o. 4 times daily. Initiated Cymbalta 30 mg p.o. twice daily. We will consider other possibilities for his pain management. Restarted Seroquel 50 mg p.o. nightly 2. Encourage individual, group and milieu therapy 3. Continue q-15 minute check for safety 4. Recommend sober living treatment at the highest level of care to which the patient is willing to commit.? 5. Patient with a history of likely using inpatient as a respite and/or homeless [facility] Involuntary Hold Information 96 Hour Hold: 96 Hour Involuntary Admission: No Attestations NPU Medical Necessity Statement*: Inpatient hospitalization is medically necessary and the clinically appropriate intervention at this time. We will monitor/initiate medications and make changes as indicated. Likely length of stay 3-5 days. Coding Level of Care Code Acute Code for [facility] Diagnoses Alcohol intoxication F10.920 Complication of substance-induced condition: uncomplicated Acute hypokalemia E87.6 Polysubstance abuse F19.10 Suicidal ideation R45.851 Alcohol use disorder, severe, dependence F10.20 Major depressive disorder, severe F32.2
[2023-05-29 14:00] VITALS: BP 150/96; PULSE 80; RESP 20; TEMP 36.9; O2SAT 95
[2023-05-29] MEDS: OLANZapine 5 mg ODT PO (15:28)
[2023-05-29] MEDS: quetiapine 25 mg Tablet 50 MG PO (20:35)
[2023-05-29 21:12] VITALS: BP 138/92; PULSE 84; RESP 16; TEMP 36.6; O2SAT 95
[2023-05-30 06:00] VITALS: BP 157/96; PULSE 66; RESP 20; TEMP 36.7; O2SAT 97
[2023-05-30] MEDS: gabapentin 400 mg Capsule PO ×4 (08:24→20:18)
[2023-05-30] MEDS: folic acid 1 mg Tablet PO (08:24)
[2023-05-30] MEDS: thiamine 100 mg Tablet PO (08:24)
[2023-05-30] MEDS: nicotine 4 mg lozenge MUCOUS MEM ×6 (08:24→20:18)
[2023-05-30] MEDS: duloxetine 30 mg Capsule PO ×2 (08:24→20:18)
[2023-05-30] MEDS: multivitamin therapeutic Tablet 1 TAB PO (08:24)
[2023-05-30] MEDS: ibuprofen 600 mg Tablet PO (11:40)
[2023-05-30 14:00] VITALS: BP 158/104; PULSE 71; RESP 17; TEMP 36.7; O2SAT 95
[2023-05-30] MEDS: OLANZapine 5 mg ODT PO (16:04)
--- NOTE | 2023-05-30 19:47 | P.NPUPN_ITS ---
Subjective NPU Subjective: Patient presented today reporting that he is doing okay. He continues to report pain being hard to handle. We did have a discussion about him previously being on Suboxone and he was wondering if that could be restarted. We discussed the risks, benefits and alternative of starting the medication and he understood and agreed to proceed as documented in this note. We discussed talking to Dr. Castro about the circumstances of the previous initiation of Suboxone first. He continued to work with the social work team surrounding possible inpatient drug and alcohol treatment. Mental Status Exam MSE Comments: This is an obese white male in hospital scrubs with limited grooming and eye contact.? No abnormal movements except for significant psychomotor retardation.? Cooperative with exam in moderate distress.? Speech was decreased rate and volume with dysarthria/poor articulation.? Mood described as depressed, affect congruent.? Thought process organized.? Thought content: Patient denied suicidal or homicidal ideation, there were no delusions reported or noted, he denied any auditory or visual hallucinations.? Attention and concentration were intact and memory appeared mostly reliable but none were formally tested.? He is alert and oriented x3.? Insight, judgment and impulse control are impaired. Vitals/I&O/Wt Last Vital Signs Temp 98.1 F 05/30/23 14:00 Pulse 71 05/30/23 14:00 Resp 17 05/30/23 14:00 BP 158/104 05/30/23 14:00 Pulse Ox 95 05/30/23 14:00 O2 Del Method Room Air 05/30/23 06:00 Data NPU 05/24/23 20:46 05/24/23 20:46 A&P Assessment and plan (1) Alcohol intoxication: Qualifiers: Complication of substance-induced condition: uncomplicated Qualified Code(s): F10.920 - Alcohol use, unspecified with intoxication, uncomplicated (2) Acute hypokalemia: (3) Polysubstance abuse: (4) Suicidal ideation: (5) Alcohol use disorder, severe, dependence: (6) Major depressive disorder, severe: Plan This is a 52 year old white male with a long history of alcohol use disorder, severe, and depression with suicidality with past suicide attempts, who presents with active addiction positive for amphetamines with a blood alcohol of 299. 1. Evaluate and consider restarting previous medications. We restarted Neurontin, now 300 mg p.o. 3 times daily. Increased to 400 mg p.o. 4 times daily. Initiated Cymbalta 30 mg p.o. twice daily. We will consider other possibilities for his pain management. Restarted Seroquel 50 mg p.o. nightly. We will consider restarting Suboxone. 2. Encourage individual, group and milieu therapy 3. Continue q-15 minute check for safety 4. Recommend sober living treatment at the highest level of care to which the patient is willing to commit.? 5. Patient with a history of likely using inpatient as a respite and/or homeless longterm Involuntary Hold Information 96 Hour Hold: 96 Hour Involuntary Admission: No Attestations NPU Medical Necessity Statement*: Inpatient hospitalization is medically necessary and the clinically appropriate intervention at this time. We will monitor/initiate medications and make changes as indicated. Likely length of stay 3-5 days. Coding Level of Care Code Acute Code for [facility] Fwd Diagnoses Alcohol intoxication F10.920 Complication of substance-induced condition: uncomplicated Acute hypokalemia E87.6 Polysubstance abuse F19.10 Suicidal ideation R45.851 Alcohol use disorder, severe, dependence F10.20 Major depressive disorder, severe F32.2
[2023-05-30] MEDS: quetiapine 25 mg Tablet 50 MG PO (20:18)
[2023-05-30 20:21] VITALS: BP 141/94; PULSE 102; RESP 18; TEMP 36.6; O2SAT 95
[2023-05-31 06:00] VITALS: BP 135/81; PULSE 65; RESP 17; TEMP 36.4; O2SAT 97
[2023-05-31] MEDS: nicotine 4 mg lozenge MUCOUS MEM ×5 (06:41→16:42)
[2023-05-31] MEDS: thiamine 100 mg Tablet PO (08:42)
[2023-05-31] MEDS: gabapentin 400 mg Capsule PO ×4 (08:42→21:10)
[2023-05-31] MEDS: multivitamin therapeutic Tablet 1 TAB PO (08:42)
[2023-05-31] MEDS: duloxetine 30 mg Capsule PO ×2 (08:42→21:10)
[2023-05-31] MEDS: folic acid 1 mg Tablet PO (08:42)
[2023-05-31] MEDS: ibuprofen 600 mg Tablet PO (09:19)
--- NOTE | 2023-05-31 13:04 | P.NPUPN_ITS ---
Subjective NPU Subjective: Patient presented today reporting that he is doing better. We had a lengthy discussion about possible placement. There is a facility that might take him and we discussed that given his limited options that this might be something to consider. We discussed the fact that we would work with him and allow him to stay until that bed is available on Sunday. We discussed the fact that displac ed would not allow narcotics to be part of the medication regimen which means that his question about restarting Suboxone would have to be tabled. He endorsed possibly reengaging with the [facility]. We discussed that being fine but that he might need to do this program while he [facility] is getting an opening for him. He seemed fairly flustered by the situation. Mental Status Exam MSE Comments: This is an obese white male in hospital scrubs with limited grooming and eye contact.? No abnormal movements except for significant psychomotor retardation.? Cooperative with exam in mild to moderate distress.? Speech was decreased rate and volume with dysarthria/poor articulation.? Mood described as depressed, a ffect congruent.? Thought process organized.? Thought content: Patient denied suicidal or homicidal ideation, there were no delusions reported or noted, he denied any auditory or visual hallucinations.? Attention and concentration were intact and memory appeared mostly reliable but none were formally tested.? He is alert and oriented x3.? Insight, judgment and impulse control are impaired. Vitals/I&O/Wt Last Vital Signs Temp 97.6 F 05/31/23 06:00 Pulse 65 05/31/23 06:00 Resp 17 05/31/23 06:00 BP 135/81 05/31/23 06:00 Pulse Ox 97 05/31/23 06:00 O2 Del Method Room Air 05/31/23 06:00 Data NPU 05/24/23 20:46 05/24/23 20:46 A&P Assessment and plan (1) Alcohol intoxication: Qualifiers: Complication of substance-induced condition: uncomplicated Qualified Code(s): F10.920 - Alcohol use, unspecified with intoxication, uncomplicated (2) Acute hypokalemia: (3) Polysubstance abuse: (4) Suicidal ideation: (5) Alcohol use disorder, severe, dependence: (6) Major depressive disorder, severe: Plan This is a 52 year old white male with a long history of alcohol use disorder, severe, and depression with suicidality with past suicide attempts, who presents with active addiction positive for amphetamines with a blood alcohol of 299. 1. Evaluate and consider restarting previous medications. We restarted Neurontin, now 300 mg p.o. 3 times daily. Increased to 400 mg p.o. 4 times daily. Increase to 600 mg p.o. 4 times daily. Initiated Cymbalta 30 mg p.o. twice daily. We will consider other possibilities for his pain management. Restarted Seroquel 50 mg p.o. nightly. We will consider restarting Suboxone. 2. Encourage individual, group and milieu therapy 3. Continue q-15 minute check for safety 4. Recommend sober living treatment at the highest level of care to which the patient is willing to commit.? 5. Patient with a history of likely using inpatient as a respite and/or homeless [place] [facility] Involuntary Hold Information 96 Hour Hold: 96 Hour Involuntary Admission: No Attestations NPU Medical Necessity Statement*: Inpatient hospitalization is medically necessary and the clinically appropriate intervention at this time. We will monitor/initiate medications and make changes as indicated. Likely length of stay 3-5 days. Coding Level of Care Code Acute Code for [facility] Fwd Diagnoses Alcohol intoxication F10.920 Complication of substance-induced condition: uncomplicated Acute hypokalemia E87.6 Polysubstance abuse F19.10 Suicidal ideation R45.851 Alcohol use disorder, severe, dependence F10.20 Major depressive disorder, severe F32.2
[2023-05-31 14:00] VITALS: BP 146/96; PULSE 67; RESP 16; TEMP 36.5; O2SAT 96
[2023-05-31 19:41] VITALS: BP 146/92; PULSE 70; RESP 18; TEMP 37; O2SAT 93
[2023-05-31] MEDS: nicotine 2 mg Gum BUCCAL (21:09)
[2023-05-31] MEDS: quetiapine 25 mg Tablet 50 MG PO (21:10)
[2023-06-01] MEDS: nicotine 4 mg lozenge MUCOUS MEM ×8 (05:54→22:09)
[2023-06-01 06:00] VITALS: BP 157/90; PULSE 65; RESP 18; TEMP 36.6; O2SAT 93
[2023-06-01] MEDS: thiamine 100 mg Tablet PO (07:46)
[2023-06-01] MEDS: multivitamin therapeutic Tablet 1 TAB PO (07:46)
[2023-06-01] MEDS: gabapentin 300 mg Capsule 600 MG PO ×4 (07:46→20:23)
[2023-06-01] MEDS: folic acid 1 mg Tablet PO (07:47)
[2023-06-01] MEDS: duloxetine 30 mg Capsule PO ×2 (07:47→20:23)
[2023-06-01 14:00] VITALS: BP 143/95; PULSE 85; RESP 16; TEMP 37.1; O2SAT 96
--- NOTE | 2023-06-01 14:08 | W.PM.NPUPNS ---
Subjective NPU Subjective: Patient presented today reporting that things are okay but still reporting significant pain. He reports that the Suboxone was a significant benefit for his recovery and pain management. He was being managed at [facility] for this medication. We had a long discussion about how this medication can be helpful but it also will take away some options for aftercare. He was clear that he feels he was doing his best while on the medication. He once again was bringing up E[facility] and we discussed the fact that we had no way to demand or make sure that they took him. We discussed the risks, benefits and alternatives of restarting the Suboxone and he understood and agreed to proceed as is documented in this note. We discussed the likelihood of discharge by Sunday. Mental Status Exam MSE Comments: This is an obese white male in hospital scrubs with limited grooming and eye contact.? No abnormal movements except for significant psychomotor retardation.? Cooperative with exam in mild to moderate distress.? Speech was decreased rate and volume with dysarthria/poor articulation.? Mood described as depressed, affect congruent.? Thought process organized.? Thought content: Patient denied suicidal or homicidal ideation, there were no delusions reported or noted, he denied any auditory or visual hallucinations.? Attention and concentration were intact and memory appeared mostly reliable but none were formally tested.? He is alert and oriented x3.? Insight, judgment and impulse control are impaired. Vitals/I&O/Wt Last Vital Signs Temp 97.9 F 06/01/23 06:00 Pulse 65 06/01/23 06:00 Resp 18 06/01/23 06:00 BP 157/90 06/01/23 06:00 Pulse Ox 93 06/01/23 06:00 O2 Del Method Room Air 06/01/23 06:00 Data NPU 05/24/23 20:46 05/24/23 20:46 A&P Assessment and plan (1) Alcohol intoxication: Qualifiers: Complication of substance-induced condition: uncomplicated Qualified Code(s): F10.920 - Alcohol use, unspecified with intoxication, uncomplicated (2) Acute hypokalemia: (3) Polysubstance abuse: (4) Suicidal ideation: (5) Alcohol use disorder, severe, dependence: (6) Major depressive disorder, severe: Plan This is a 52 year old white male with a long history of alcohol use disorder, severe, and depression with suicidality with past suicide attempts, who presents with active addiction positive for amphetamines with a blood alcohol of 299. 1. Evaluate and consider restarting previous medications. We restarted Neurontin, now 300 mg p.o. 3 times daily. Increased to 400 mg p.o. 4 times daily. Increase to 600 mg p.o. 4 times daily. Initiated Cymbalta 30 mg p.o. twice daily. We will consider other possibilities for his pain management. Restarted Seroquel 50 mg p.o. nightly. Restart Suboxone 8 mg sublingual twice daily. 2. Encourage individual, group and milieu therapy 3. Continue q-15 minute check for safety 4. Recommend sober living treatment at the highest level of care to which the patient is willing to commit.? 5. Patient with a history of likely using inpatient as a respite and/or homeless care home Involuntary Hold Information 96 Hour Hold: 96 Hour Involuntary Admission: No Attestations NPU Medical Necessity Statement*: Inpatient hospitalization is medically necessary and the clinically appropriate intervention at this time. We will monitor/initiate medications and make changes as indicated. Likely length of stay 2-4 days. Coding Level of Care Code Acute Code for [facility] Fwd Diagnoses Alcohol intoxication F10.920 Complication of substance-induced condition: uncomplicated Acute hypokalemia E87.6 Polysubstance abuse F19.10 Suicidal ideation R45.851 Alcohol use disorder, severe, dependence F10.20 Major depressive disorder, severe F32.2
[2023-06-01] MEDS: buprenorphine-naloxone 4-1 mg Film 2 EACH SUBLINGUAL (17:12)
[2023-06-01] MEDS: quetiapine 25 mg Tablet 50 MG PO (20:23)
[2023-06-01] MEDS: OLANZapine 5 mg ODT PO (20:23)
[2023-06-01 20:36] VITALS: BP 155/113; PULSE 99; RESP 18; TEMP 36.7; O2SAT 96
[2023-06-01] MEDS: ondansetron 4 MG Tablet PO (22:09)
[2023-06-02] MEDS: nicotine 4 mg lozenge MUCOUS MEM ×9 (00:22→22:55)
[2023-06-02 06:00] VITALS: BP 139/97; PULSE 68; RESP 18; O2SAT 97
[2023-06-02] MEDS: multivitamin therapeutic Tablet 1 TAB PO (08:34)
[2023-06-02] MEDS: gabapentin 300 mg Capsule 600 MG PO ×4 (08:34→20:28)
[2023-06-02] MEDS: buprenorphine-naloxone 4-1 mg Film 2 EACH SUBLINGUAL ×2 (08:34→18:06)
[2023-06-02] MEDS: thiamine 100 mg Tablet PO (08:34)
[2023-06-02] MEDS: duloxetine 30 mg Capsule PO ×2 (08:34→20:28)
[2023-06-02] MEDS: folic acid 1 mg Tablet PO (08:34)
--- NOTE | 2023-06-02 09:38 | P.NPUPN_ITS ---
Subjective NPU Subjective: Patient presented today reporting that he is doing okay. He reports feeling much better with the [facility] of the Suboxone which has been started by Dr. Castro and discussed that Dr. Castro returning tomorrow. We discussed the treatment team returning on Sunday and the likelihood of discharge that day. He reports that he has spoken with his son and that that to be a problem he continues to want to be connected to the [facility] program possibly get some independent housing sooner rather than later. He reports tolerating all the medications that have been restarted and starting to feel little better. Mental Status Exam MSE Comments: This is an obese white male in hospital scrubs with limited grooming and eye contact.? No abnormal movements except for significant psychomotor retardation.? Cooperative with exam in mild to moderate distress.? Speech was decreased rate and volume with dysarthria/poor articulation.? Mood described as depressed, affect congruent.? Thought process organized.? Thought content: Patient denied suicidal or homicidal ideation, there were no delusions reported or noted, he denied any auditory or visual hallucinations.? Attention and concentration were intact and memory appeared mostly reliable but none were formally tested.? He is alert and oriented x3.? Insight, judgment and impulse control are impaired. Vitals/I&O/Wt Last Vital Signs Temp 98.1 F 06/01/23 20:36 Pulse 68 06/02/23 06:00 Resp 18 06/02/23 06:00 BP 139/97 06/02/23 06:00 Pulse Ox 97 06/02/23 06:00 O2 Del Method Room Air 06/01/23 20:36 Data NPU 05/24/23 20:46 05/24/23 20:46 A&P Assessment and plan (1) Alcohol intoxication: (2) Acute hypokalemia: (3) Polysubstance abuse: (4) Suicidal ideation: (5) Alcohol use disorder, severe, dependence: (6) Major depressive disorder, severe: Plan This is a 52 year old white male with a long history of alcohol use disorder, severe, and depression with suicidality with past suicide attempts, who presents with active addiction positive for amphetamines with a blood alcohol of 299. 1. Evaluate and consider restarting previous medications. We restarted Neurontin, now 300 mg p.o. 3 times daily. Increased to 400 mg p.o. 4 times daily. Increase to 600 mg p.o. 4 times daily. Initiated Cymbalta 30 mg p.o. twice daily. We will consider other possibilities for his pain management. Restarted Seroquel 50 mg p.o. nightly. Restarted Suboxone 8/2 mg sublingual tw ice daily. 2. Encourage individual, group and milieu therapy 3. Continue q-15 minute check for safety 4. Recommend sober living treatment at the highest level of care to which the patient is willing to commit.? 5. Tentative plan for discharge on Sunday. Involuntary Hold Information 96 Hour Hold: 96 Hour Involuntary Admission: No 96 Hour Hold Ending Date: 12/11/22 96 Hour Hold Ending Time: 10:55 Attestations NPU Medical Necessity Statement*: Inpatient hospitalization is medically necessary and the clinically appropriate intervention at this time. We will monitor/initiate medications and make changes as indicated. Likely length of stay 2-3 days. Coding Level of Care Code Acute Code for [facility] Diagnoses Alcohol intoxication F10.929 Acute hypokalemia E87.6 Polysubstance abuse F19.10 Suicidal ideation R45.851 Alcohol use disorder, severe, dependence F10.20 Major depressive disorder, severe F32.2
[2023-06-02 13:13] VITALS: BP 116/80; PULSE 63; RESP 14; TEMP 36.4; O2SAT 96
[2023-06-02 20:13] VITALS: BP 124/85; PULSE 66; RESP 18; TEMP 36.6; O2SAT 93
[2023-06-02] MEDS: quetiapine 25 mg Tablet 50 MG PO (20:28)
[2023-06-03] MEDS: nicotine 4 mg lozenge MUCOUS MEM ×8 (01:17→19:29)
[2023-06-03] MEDS: ondansetron 4 MG Tablet PO (03:40)
--- NOTE | 2023-06-03 03:42 | PC.NURSE ---
Pt came up to nurses station for zofran stating I threw up, however pt is more concerned with getting pedro elvin and a chocolate milk than taking zofran. All patients request honored, medication administered.
[2023-06-03 06:00] VITALS: BP 126/69; PULSE 85; RESP 16; TEMP 36.5; O2SAT 94
[2023-06-03] MEDS: alum-mag-hydroxide-sime 30 mL UDC PO (06:47)
--- NOTE | 2023-06-03 06:48 | PC.NURSE ---
Pt c/o of still being nauseous and having some emesis, not witnessed by staff. Pt provided Maalox as it was not time to administer zofran at this time. Will con't to monitor for emesis.
[2023-06-03] MEDS: duloxetine 30 mg Capsule PO ×2 (09:08→20:33)
[2023-06-03] MEDS: thiamine 100 mg Tablet PO (09:08)
[2023-06-03] MEDS: multivitamin therapeutic Tablet 1 TAB PO (09:08)
[2023-06-03] MEDS: gabapentin 300 mg Capsule 600 MG PO ×4 (09:08→20:33)
[2023-06-03] MEDS: folic acid 1 mg Tablet PO (09:08)
[2023-06-03] MEDS: buprenorphine-naloxone 4-1 mg Film 2 EACH SUBLINGUAL ×2 (09:12→17:28)
[2023-06-03] MEDS: loperamide 2 mg Capsule PO (10:27)
[2023-06-03 12:00] VITALS: BP 101/72; PULSE 73; RESP 18; TEMP 36.6; O2SAT 94
[2023-06-03] MEDS: hyDROXYzine 25 mg Capsule 50 MG PO (13:21)
[2023-06-03] MEDS: OLANZapine 5 mg ODT PO (15:35)
--- NOTE | 2023-06-03 17:33 | P.NPUPN_ITS ---
Subjective NPU Subjective: Patient is a 52-year-old white male with polysubstance abuse admitted with paranoia and unusual behavior. He had continued to complain of having anxiety. He had reported that he was unfamiliar with the names of his medications but stated that the Suboxone had been better for helping him with his opiate withdrawal symptoms. He had minimized the use of methamphetamine despite showing up positive for amphetamine on his admission. He had reported that he had benefited from receiving Zyprexa sublingually for agitation. He had reported having panic attacks with associated chest pain and shortness of breath and reported no benefit from his medications with this problem currently. Mental Status Exam MSE Comments: This is an obese white male in hospital scrubs with limited grooming and eye contact.? No abnormal movements except for significant psychomotor retardation.? He was cooperative with exam in mild to moderate distress.? Speech was decreased in rate and volume with dysarthria/poor articulation.? Mood described as allright. His affect was mood congruent.? Thought process was linear organized.? Thought content: Patient denied suicidal or homicidal ideation, there were no delusions reported or noted, he denied any auditory or visual hallucinations.? Attention and concentration were intact and memory appeared mostly reliable but none were formally tested.? He is alert and oriented x3.? Insight, judgment and impulse control are impaired. Vitals/I&O/Wt Last Vital Signs Temp 97.8 F 06/03/23 12:00 Pulse 73 06/03/23 12:00 Resp 18 06/03/23 12:00 BP 101/72 06/03/23 12:00 Pulse Ox 94 06/03/23 12:00 O2 Del Method Room Air 06/03/23 06:00 Weight last 48 hrs Weight 133.526 kg Data NPU 05/24/23 20:46 05/24/23 20:46 A&P Assessment and plan (1) Major depressive disorder, severe: (2) Alcohol intoxication: (3) Acute hypokalemia: (4) Polysubstance abuse: (5) Suicidal ideation: (6) Alcohol use disorder, severe, dependence: Plan This is a 52 year old white male with a long history of alcohol use disorder, severe, and depression with suicidality with past suicide attempts, who presents with active addiction positive for amphetamines with a blood alcohol of 299. 1. Continue Cymbalta 60mg daily, increase seroquel to 100mg at night, and suboxone as prescribed. 2. Encourage individual, group and milieu therapy 3. Continue q-15 minute check for safety 4. Recommend sober living treatment at the highest level of care to which the patient is willing to commit.? 5. Tentative plan for discharge on Sunday. Involuntary Hold Information 96 Hour Hold: 96 Hour Involuntary Admission: No 96 Hour Hold Ending Date: 12/11/22 96 Hour Hold Ending Time: 10:55 Attestations NPU Medical Necessity Statement*: Inpatient hospitalization is medically necessary and the clinically appropriate intervention at this time. We will monitor/initiate medications and make changes as indicated. His likely length of stay 2-3 days. Coding Level of Care Code Acute Code for [facility] Fwd Diagnoses Major depressive disorder, severe F32.2 Alcohol intoxication F10.929 Acute hypokalemia E87.6 Polysubstance abuse F19.10 Suicidal ideation R45.851 Alcohol use disorder, severe, dependence F10.20
[2023-06-03 19:31] VITALS: BP 142/91; PULSE 78; RESP 16; TEMP 37.1; O2SAT 93
[2023-06-03] MEDS: quetiapine 100 mg Tablet PO (20:35)
[2023-06-04] MEDS: ondansetron 4 MG Tablet PO (02:23)
[2023-06-04] MEDS: loperamide 2 mg Capsule PO ×2 (02:23→13:28)
[2023-06-04 06:00] VITALS: BP 112/74; PULSE 98; RESP 13; TEMP 37; O2SAT 88
[2023-06-04] MEDS: hyDROXYzine 25 mg Capsule 50 MG PO (06:50)
[2023-06-04] MEDS: nicotine 4 mg lozenge MUCOUS MEM ×7 (07:49→22:34)
[2023-06-04] MEDS: folic acid 1 mg Tablet PO (08:29)
[2023-06-04] MEDS: thiamine 100 mg Tablet PO (08:29)
[2023-06-04] MEDS: gabapentin 300 mg Capsule 600 MG PO ×4 (08:29→20:24)
[2023-06-04] MEDS: buprenorphine-naloxone 4-1 mg Film 2 EACH SUBLINGUAL ×2 (08:29→17:25)
[2023-06-04] MEDS: multivitamin therapeutic Tablet 1 TAB PO (08:29)
[2023-06-04] MEDS: duloxetine 30 mg Capsule PO ×2 (08:29→20:24)
[2023-06-04] MEDS: OLANZapine 5 mg ODT PO (13:28)
[2023-06-04 13:47] VITALS: BP 121/77; PULSE 90; RESP 18; TEMP 36.7; O2SAT 94
--- NOTE | 2023-06-04 15:00 | P.NPUDS_ITS ---
Diagnoses at Discharge Discharge Diagnosis (1) No pertinent past surgical history: (2) Essential hypertension: Status: Chronic (3) Anxiety and depression: Status: Inactive (4) Chronic pain syndrome: Status: Chronic (5) Dyslipidemia: Status: Chronic (6) Osteoarthritis: Status: Chronic Qualifiers: Osteoarthritis location: multiple joints Osteoarthritis type: primary Qualified Code(s): M15.0 - Primary generalized (osteo)arthritis Reason for Visit Reason for Visit: stroke Brief History: History of Present Illness John Yeung is a 52 year old male Chief Complaint: Weakness Stated Complaint: stroke Time Seen by Provider: 05/24/23 20:37 History of Present Illness: ? Patient presents to the ER with strokelike symptoms per EMS last known well was 3 to 4 days ago but symptoms of worsened over the last 45 minutes.? EMS stated patient had left facial droop slurring his words and left upper and lower extremity weakness.? Patient is also had alcohol on board patient admits to having 3-4 moderate-size shots today.? Patient states he is going under a lot of stress with his son and his problems and he wants admitted to the stress unit.? Patient has never had a stroke or seizure before.? Patient is a poor historian.? History may be questionable and/or limited secondary to alcohol use.? During patient stay he now is claiming to be suicidal and homicidal. He was admitted to the neuropsychiatric unit for definitive treatment of those issues.? He presents today very out of it but arousable.? Very limited historian but able to say that he did go to [facility] after he was discharged back in December 2022.? He reports that he did well for a little while but then reports that he got a assault charge and was in penitentiary for some time a couple months ago.? He reports that when he got out 2 weeks ago he went to stay with his son and that things did not go well there.? He reports that his son was using meth and that he started drinking.? He has no explanation for why his UDS was positive for amphetamines.? He reports that drinking daily for the past couple weeks got him in a bad right and that he needed to get away from his son and get himself back sober.? He denied any other significant or substantive changes since that discharge in December.? An excerpt of his last psychiatric evaluation is included below for context and appropriate history given him being somewhat lethargic with his normal dysarthria which is worse when he is sleepy.? We discussed getting him through the withdraw, restarting some medications and then reconsidering things at the beginning of the week.? Per his 12/06/2022 [facility] inpatient evaluation: History of Present Illness John Yeung Jr is a 52 year old male who presented to the emergency department with the following report: Chief Complaint: Chest Pain Stated Complaint: ETOH; Chest Pain Time Seen by Provider: 12/05/22 10:25 Source: patient Mode of arrival: ambulatory History of Present Illness: ? 52-year-old female presents to the emergency room with complaints of suicidal ideation.? He is acutely intoxicated and drinking heavily for the last 12 to 18 hours drank a large amount of Benjamin Leon last night and vodka this morning.? He made the comment that somebody had stole his drugs he feels like all of his relationships have failed.? Patient said he had a brief episode of chest pain this morning and it so he drank more alcohol. ? MD complaint: chest pain Onset (ago): unknown Pain location: left chest Pain radiation: none Severity: mild Quality: tightness and aching Relieving factors: nothing Exacerbating factors: nothing Associated symptoms: Deny abdominal pain, dyspnea, fever(s), nausea or vomiting. He was admitted to the neuropsychiatric unit for definitive treatment of those issues.? He was down in the emergency department for quite some time given his presentation with a BAL of 465.? Also, as has been the norm recently he was fairly combative and ultimately needed as needed medications to be managed in the emergency department.? He presents today already saying that he is not interested in doing anything to manage the addiction and that his plan is just to return to [place].? We had a lengthy conversation about this help seeking, help rejecting behavior of coming here distraught essentially begging for help only to wake up the next day and ultimately he desired to do business as usual.? He worked with the treatment team to explore options but ultimately continues to tell them that he just wants to go home and do nothing differently.? We discussed that if that is going to be his strategy was in the future we will likely treat the intoxication but plan for not fulfilling his desire to be admitted.? He is on a 96-hour hold and we agreed we would observe for safety given that diagnosis but he is not interested in any medication changes or treatment alterations.? An excerpt of his last hospitalization is included below for context and the fact that there have been no substantive changes. Per his 11/10/2022 [facility] inpatient psychiatric discharge summary: Discharge Diagnosis (1) Respiratory failure: (2) Acute alcoholic intoxication: (3) Respiratory failure with hypoxia and hypercapnia: (4) Hypokalemia: (5) Major depressive disorder, recurrent: (6) Anxiety: (7) Alcohol withdrawal: (8) Alcohol use disorder, severe, dependence: (9) Suicidal thoughts: Reason for Visit Reason for Visit: ? SI? Brief History: John Yeung Jr is a 52 year old male who presented to the emergency department with the following report: Chief Complaint: Psychiatric Symptoms Stated Complaint: SI Time Seen by Provider: 11/07/22 19:57 Source: patient and EMS Mode of arrival: EMS Limitations: no limitations History of Present Illness: ? 52-year-old male who has a history of chronic pain along with alcohol abuse he was recently admitted this month for depression and SI he states that he been having increased stress over the last 3 days has been having thoughts of cutting his wrist.? He states he has been drinking today he denies any worsening improving factors. Associated symptoms: Reports depression. He was admitted to the neuropsychiatric unit for definitive treatment of those issues.? He is quite well-known to this filing writer with a recent discharge about 3 weeks ago.? At that time he was fairly ambivalent about his discharge.? He presents now reporting that everything is bad.? He has 5 children and they want help him or do anything for him.? He reports that he had had or some kind of housing voucher on deck reporting that he was excited about having his own place.? But when he called recently they advised him that they understood that he had housing and took him off of the list.? His current living situation he reports is red prehensile and smells and he does not have any autonomy just 1 room and limited options.? His blood alcohol was 279 which is lower than it often is when he presents and he does acknowledge that his drinking is part of his problem but he reports just feeling so depressed that everything going wrong in his life that he just wants to .? An excerpt of his discharge from a few weeks ago is included below for context and history.? We agreed to explore his medications for possible changes. Per his 10/18/2022 [facility] inpatient psychiatric discharge summary: Discharge Diagnosis (1) Respiratory failure: ? ? ? Status: Resolved (2) Acute alcoholic intoxication: ? ? ? Status: Resolved (3) Respiratory failure with hypoxia and hypercapnia: ? ? ? Status: Resolved (4) Hypokalemia: ? ? ? Status: Resolved (5) Major depressive disorder, recurrent: ? ? ? Status: Acute (6) Anxiety: ? ? ? Status: Acute (7) Alcohol withdrawal: ? ? ? Status: Resolved (8) Alcohol use disorder, severe, dependence: ? ? ? Status: Acute (9) Suicidal thoughts: ? ? ? Status: Acute Reason for Visit Reason for Visit: ? SOB? Brief History: History of Present Illness John Yeung Jr is a 52 year old male who presented to the emergency department with the following report: Chief Complaint: Psychiatric Symptoms Stated Complaint: SOB Time Seen by Provider: 10/11/22 16:46 Source: EMS Mode of arrival: EMS Limitations: altered mental status History of Present Illness: ? History is obtained entirely from EMS crew as the patient was intubated upon arrival.? History from EMS was that they were called out because of the patient being combative.? And admitted to drinking alcohol.? Patient apparently was in the back of the ambulance and became more uncooperative and acted out.? Patient was allegedly given 250 mg of ketamine IM.? The patient continues to be uncooperative and by the time EMS had achieved IV access.? The report was that he was given additional 150 mg of ketamine IVP.? EMS then alleges that patient became apneic and a Ervin airway was placed. The patient arrived with airway in place and receiving bag mask ventilation by EMS crew. complaint: intoxication Context: unknown. He was admitted to the ICU for definitive treatment of those issues.? He was treated on a [facility] protocol and worked through his withdrawal.? As they started debating what to do from a standpoint of aftercare and discharge there were reports of suicidal thinking.? He was transferred to the neuropsychiatric unit for treatment of those concerns.? He presents today reporting that he has had significant struggles recently.? That he had been living with someone and that he is unable to return with them and he needs to find a place to go to initiate his recovery.? Additionally he reports that he did not feel like the medications were working really well and he had not been able to get a hold of some of the medications.? We discussed the risk benefits and alternatives of restarting some of those medications and also working with the treatment team tomorrow to find him a reasonable discharge locale.? He understood and agreed to proceed as is documented in this note.? He reports that he has tried to go to the local usp but he is unsure if it is SOC.? We discussed the fact that we would work with him to restart the medications and try to assist him in navigating local resources starting tomorrow.? An excerpt of his last discharge summary is included below for context. Per his 12/07/2021 [facility] inpatient psychiatric discharge summary: Discharge Diagnosis (1) Suicidal ideation: ? ? ? Status: Resolved (2) Alcohol intoxication: ? ? ? Status: Resolved (3) Alcohol withdrawal: ? ? ? Status: Acute (4) Alcohol use disorder, severe, dependence: ? ? ? Status: Acute (5) Anxiety: ? ? ? Status: Acute (6) Major depressive disorder: ? ? ? Status: Acute (7) Insomnia: ? ? ? Status: Acute (8) Essential hypertension: ? ? ? Status: Chronic Reason for Visit Reason for Visit: ? HALLUCINATIONS/ETOH? Brief History: John Yeung Jr is a 51 year old male who presented to the emergency department with the following report: Chief Complaint: Psychiatric Symptoms Stated Complaint: HALLUCINATIONS/ETOH Time Seen by Provider: 12/01/21 02:14 Source: patient and EMS Mode of arrival: EMS Limitations: no limitations History of Present Illness: ?51-year-old male who currently missed night states having hallucinations he has been drinking alcohol and meth abuse he states that he was seeing little kids run around in his house.? He is intoxicated here he denies any suicidal or homicidal ideation denies any worsening proving factors. Associated symptoms: Reports visual hallucinations. He was able to get definitive treatment of those issues.? Patient is well-known to this filing writer through his last hospitalization from November 08 to November 16, 2021.? An excerpt of that hospitalization discharge summary is included below for context given the limited time between stays and the fact that he denies any substantive changes.? We discussed the fact that at his last discharge he had initially been feeling committed and comfortable with the plan for him to go to rehab given his significant alcohol use disorder.? His withdrawal at his last stay was significant.? And he acknowledges now that he presents with a similar c hallenge of getting through withdrawal but is hopeful it is not as bad as last time.? He reports that he acknowledges that his ability to discontinue his drinking behavior is not as strong as he had thought and he is already spoken to the social work team and arrangements are being made for inpatient rehab.? He reports that he feels like the medications that were initiated at his last hospitalization are effective with his depression and anxiety to some degree but could not overcome his continued drinking.? We discussed the risk benefits and alternatives of continuing his current medication, monitoring him on the CIWA protocol and considering changes as indicated and he understood and agreed proceed as is documented in his note. Hospital Course Hospital Course During the hospitalization, the patient had routine laboratory studies which were within normal limits except for a few outliers.? Additionally, there was a general medical evaluation which was also within normal limits and revealed no new acute processes.? At the time of discharge, lethality was denied and psychosis was resolving.? Mood and anxiety were well managed.? The patient endorsed a plan to avoid all drugs of abuse and follow up with the aftercare recommendations of the treatment team.? The patient was evaluated and deemed to be absent credible lethality and had achieved the maximum benefit from an inpatient hospitalization, and so was discharged.? The patient was restarted on his medications as previously prescribed with reduction in cymbalta to 60mg daily and suboxone was restarted to help with the patient's opioid dependence. Involuntary Hold Information 96 Hour Hold: 96 Hour Involuntary Admission: No 96 Hour Hold Ending Date: 12/11/22 96 Hour Hold Ending Time: 10:55 Mental Status Exam MSE Comments: This is an obese white male in hospital scrubs with limited grooming and eye contact.? No abnormal movements except for significant psychomotor retardation.? He was cooperative with exam in no acute distress. Speech was decreased in rate and normal in volume with normal articulation. Mood described as okay. His affect was mood congruent.? Thought process was linear organized.? Thought content: Patient denied suicidal or homicidal ideation, there were no delusions reported or noted, he denied any auditory or visual hallucinations.? Attention and concentration were intact and memory appeared mostly reliable but none were formally tested.? He is alert and oriented x3.? Insight remained limited. His judgment was improved and impulse control was fair on discharge. Discharge Data Studies Completed and Pending: Completed Studies During Hospitalization Category Date Time Status CT head thromboly tic [id number] Stat Cat Scan 05/24/23 20:37 Completed XR chest 1V maryann ble [id number] Stat Exams 05/24/23 20:37 Completed Radiology Impressions Chest X-Ray 05/24/23 20:37 IMPRESSION: No acute findings. Head CT 05/24/23 20:37 IMPRESSION: No acute findings. ASSESSMENT: ASPECTS (Jaz Stroke Program Early CT Score) is 10. Laboratory Results WBC 5.40 10^3/uL (3.2 9-11.43) 05/24/23 20:46 RBC 4.59 10^6/uL (3.8 5-5.65) 05/24/23 20:46 Hgb 15.20 g/dL (11.27 -16.99) 05/24/23 20:46 Hct 42.5 % (37-53) 05/24/23 20:46 MCV 92.6 fl (82-101) 05/24/23 20:46 MCH 33.1 pg (27-33) H 05/24/23 20:46 MCHC 35.8 g/dL (30-55) 05/24/23 20:46 RDW 15.0 % (12.1-15.1 ) 05/24/23 20:46 Plt Count 255 10^3/cmm (157 -399) 05/24/23 20:46 MPV 9.4 fL (7.4-10.4) 05/24/23 20:46 Neut % (Auto) 46.6 % 05/24/23 20:46 Lymph % (Auto) 42.2 % 05/24/23 20:46 Centre % (Auto) 6.9 % 05/24/23 20:46 Eos % (Auto) 2.8 % 05/24/23 20:46 Baso % (Auto) 1.1 % 05/24/23 20:46 Neut # (Auto) 2.52 10^3/uL (1.8 -7.7) 05/24/23 20:46 Lymph # (Auto) 2.3 10^3/uL (0.8- 4.8) 05/24/23 20:46 Centre # (Auto) 0.4 10^3/uL (0.2- 0.9) 05/24/23 20:46 Eos # (Auto) 0.2 10^3/uL (0.0- 0.8) 05/24/23 20:46 Baso # (Auto) 0.1 10^3/uL (0.0- 0.1) 05/24/23 20:46 Nucleated RBC % (a uto) 0 % 05/24/23 20:46 Nucleated RBCs # 0.0 /100WBC 05/24/23 20:46 PT 12.80 SECONDS (12 .1-14.9) 05/24/23 20:46 INR 0.93 (0.8-1.2) 05/24/23 20:46 APTT 25.7 SECONDS (23. 9-36.7) 05/24/23 20:46 Sodium 141 mmol/L (136-1 45) 05/24/23 20:46 Potassium 3.0 mmol/L (3.5-5 .1) L 05/24/23 20:46 Chloride 101 mmol/L (98-10 7) 05/24/23 20:46 Carbon Dioxide 30 mmol/L (22-29) H 05/24/23 20:46 Anion Gap 13.0 (5-19) 05/24/23 20:46 BUN 7 mg/dL (6-20) 05/24/23 20:46 Creatinine 0.9 mg/dL (0.7-1. 2) 05/24/23 20:46 GFR Calculation 89.3 mL/min (90-1 30) L 05/24/23 20:46 Glucose 156 mg/dL (65-115 ) H 05/24/23 20:46 Calculated Osmolal ity 293 mOsm/kg (285- 295) 05/24/23 20:46 Calcium 9.0 mg/dL (8.5-10 .5) 05/24/23 20:46 Total Bilirubin 0.4 mg/dL (0.15-1 .2) 05/24/23 20:46 AST 37 U/L (0-40) 05/24/23 20:46 ALT 40 U/L (0-41) 05/24/23 20:46 Alkaline Phosphata se 74 U/L (40-130) 05/24/23 20:46 Total Protein 7.3 g/dL (6.6-8.7 ) 05/24/23 20:46 Albumin 4.3 g/dL (3.5-5.2 ) 05/24/23 20:46 Globulin 3.0 g/dL (1.3-4.6 ) 05/24/23 20:46 Urine Color Yellow (Yellow) 05/24/23 21:32 Urine Appearance Clear (CLEAR) 05/24/23 21:32 Urine pH 6.5 (5-7) 05/24/23 21:32 Ur Specific Gravit y 1.010 (1.005-1.0 30) 05/24/23 21:32 Urine Protein Neg (Negative) 05/24/23 21:32 Urine Glucose (UA) Norm (Normal) 05/24/23 21:32 Urine Ketones Negative (Negati ve) 05/24/23 21:32 Urine Blood Neg (Negative) 05/24/23 21:32 Urine Nitrate Negative (Negati ve) 05/24/23 21:32 Urine Bilirubin Neg (Negative) 05/24/23 21:32 Urine Urobilinogen Neg mg/dL (Negati ve) 05/24/23 21:32 Ur Leukocyte Analisa ase Negative (Negati ve) 05/24/23 21:32 Salicylates < 0.3 mg/dL (3-10 ) L 05/24/23 20:46 Urine Opiates Scre en Negative ng/mL (N egative) 05/24/23 21:32 Acetaminophen < 5.0 ug/mL (10-3 0) L 05/24/23 20:46 Ur Barbiturates Sc reen Negative ng/mL (N egative) 05/24/23 21:32 Ur Phencyclidine S crn Negative ng/mL (N egative) 05/24/23 21:32 Ur Amphetamines Sc reen Positive ng/mL (N egative) H 05/24/23 21:32 U Benzodiazepines Scrn Negative ng/mL (N egative) 05/24/23 21:32 Urine Cocaine Scre en Negative ng/mL (N egative) 05/24/23 21:32 U Marijuana (THC) Screen Positive ng/mL (N egative) H 05/24/23 21:32 Ethyl Alcohol 224 mg/dL (0-10) H 05/25/23 00:10 Vitals: Last Vital Signs Temp 98.0 F 06/04/23 13:47 Pulse 90 06/04/23 13:47 Resp 18 06/04/23 13:47 BP 121/77 06/04/23 13:47 Pulse Ox 94 06/04/23 13:47 O2 Del Method Room Air 06/04/23 06:00 Discharge Plan Discharge Patient Disposition: Home Condition: Stable Prescriptions: New quetiapine 100 mg Tablet 100 mg PO BEDTIME 30 Days Qty: 30 1RF Vitamin B-1 (mononitrate) 100 mg Tablet 100 mg PO DAILY 30 Days Qty: 30 1RF olanzapine 5 mg Tablet,Disintegrating 5 mg PO 1XD PRN (Reason: Agitation/Psychosis) 30 Days Qty: 30 1RF buprenorphine-naloxone 4-1 mg Film 2 film sublingual BID 2 Days Qty: 8 0RF Continued thiamine HCl (vitamin B1) 100 mg tablet 100 mg PO DAILY polyethylene glycol 3350 [Miralax] 17 gram/dose powder 17 g PO DAILY Qty: 510 0RF albuterol sulfate [ProAir HFA] 90 mcg/actuation HFA aerosol inhaler 2 puff inhalation Q6H PRN (Reason: shortness of breath or wheezing) 30 Days Qty: 8.5 2RF amlodipine 10 mg tablet 10 mg PO DAILY 30 Days Qty: 30 2RF fenofibrate nanocrystallized [Tricor] 145 mg tablet 145 mg PO DAILY Qty: 30 2RF gabapentin 800 mg tablet 800 mg PO TID 30 Days Qty: 90 2RF meloxicam 15 mg tablet 15 mg PO DAILY Qty: 30 2RF topiramate [Topamax] 50 mg tablet 50 mg PO BID Qty: 60 0RF Spiriva with HandiHaler 18 mcg capsule, w/inhalation device 1 cap inhalation DAILY Qty: 60 1RF Rx Instructions: puncture 1 cap using device; one dose = 2 inhalations fluticasone propionate 110 mcg/actuation HFA aerosol inhaler 1 inh inhalation BID Qty: 12 1RF Rx Instructions: administer with spacer, wash mouth after use. buprenorphine-naloxone 8-2 mg tablet, sublingual 1 tab sublingual BID@08,16 28 Days Qty: 56 0RF Rx Instructions: Take one tab sublingual at 8 am and 4 pm pantoprazole 40 mg Tablet,Delayed Release (Dr/Ec) 40 mg PO DAILY 30 Days Qty: 30 1RF docusate sodium 100 mg Capsule 200 mg PO BID 30 Days Qty: 120 1RF Changed duloxetine 60 mg capsule,delayed release(DR/EC) 60 mg PO DAILY 30 Days Qty: 60 1RF Rx Instructions: Take one capsule every morning Discharge Orders: Discharge Order (Routine); Ordered 06/04/23 Ordered By: Dylan Castro Referrals: [facility] [Outside] - 06/07/23 8:45 am (Initial assessment for services with Robbin) Ashli Lebron, PMHNP [Staff Physician] - 06/25/23 1:15 pm Discharge Diet: Advance as tolerated Discharge Activity: Resume usual activity Patient Instructions: Alcoholism, Alcohol Withdrawal, Thiamine (By mouth), Olanzapine (By mouth) (Zyprexa, Zyprexa Zydis), Quetiapine (By mouth), Buprenorphine/Naloxone (Into the mouth), Help Prevent Suicide (DC), Suicide Prevention (DC), Opioid Safety Discharge Attestations NPU Time Spent in Discharge Care*: less than 30 min Specific Discharge Activities: Specific discharge activities: educating patient and documenting/other paperwork Coding Level of Care Code Acute Chg FW DC note Diagnoses No pertinent past surgical history Z78.9 Essential hypertension I10 Anxiety and depression F41.9; F32.9 Chronic pain syndrome G89.4 Dyslipidemia E78.5 Osteoarthritis M15.0 Osteoarthritis location: multiple joints Osteoarthritis type: primary
[2023-06-04 15:27] VITALS: BP 121/77; PULSE 90; RESP 18; TEMP 36.7; O2SAT 94
[2023-06-04] MEDS: quetiapine 100 mg Tablet PO (20:25)
[2023-06-04 20:29] VITALS: BP 122/78; PULSE 83; RESP 18; O2SAT 92
--- NOTE | 2023-06-05 05:43 | PC.NURSE ---
Called medicaid transport again regarding the pts ride for discharge that did not occur yesterday due to transport services not being able to find a ride for the pt. Clau at [facility] stated that it would likely be after 0700, and the ticket has been submitted for the pt ride to get him home from the hospital.
[2023-06-05 06:00] VITALS: BP 116/76; PULSE 92; RESP 20; TEMP 36.4; O2SAT 93
[2023-06-05] MEDS: nicotine 4 mg lozenge MUCOUS MEM ×2 (06:20→08:37)
[2023-06-05] MEDS: ondansetron 4 MG Tablet PO (06:20)
[2023-06-05] MEDS: loperamide 2 mg Capsule PO (06:20)
--- NOTE | 2023-06-05 06:27 | PC.NURSE ---
Pt came up to the desk this am, and states it's coming out of both ends . There has been no diarrhea or emesis witnessed by staff. Pt is again this morning more concerned w/getting coffee, chocolate milk, and a nicotine elvin, instead of holding off to help prevent emesis. PRN zofran and imodium administered per orders and pts request.
[2023-06-05] MEDS: buprenorphine-naloxone 4-1 mg Film 2 EACH SUBLINGUAL (08:36)
[2023-06-05] MEDS: duloxetine 30 mg Capsule PO (08:37)
[2023-06-05] MEDS: gabapentin 300 mg Capsule 600 MG PO (08:37)
[2023-06-05] MEDS: folic acid 1 mg Tablet PO (08:37)
[2023-06-05] MEDS: thiamine 100 mg Tablet PO (08:37)
[2023-06-05] MEDS: OLANZapine 5 mg ODT PO (08:37)
[2023-06-05] MEDS: multivitamin therapeutic Tablet 1 TAB PO (08:37)
== END 2023-06-05 09:40 | disposition home or self-care (01) | DRG 897 ==
LOC: ER 22:17 → NP 22:19
PROVIDERS: Admitting Provider Psychiatry & Neurology Psychiatry; Emergency Provider Emergency Medicine; Visit Provider Psychiatry & Neurology Psychiatry
DX: F10.229 Alcohol dependence with intoxication, unspecified (principal); R45.851 Suicidal ideations; F33.2 Major depressive disorder, recurrent severe without psychotic features; Z68.41 Body mass index [BMI] 40.0-44.9, adult; Z59.00 Homelessness unspecified; Y90.8 Blood alcohol level of 240 mg/100 ml or more; F41.9 Anxiety disorder, unspecified; I10 Essential (primary) hypertension; G89.29 Other chronic pain; E78.5 Hyperlipidemia, unspecified; M19.90 Unspecified osteoarthritis, unspecified site; Z63.8 Other specified problems related to primary support group; Z62.820 Parent-biological child conflict; F15.10 Other stimulant abuse, uncomplicated; F12.10 Cannabis abuse, uncomplicated; E66.9 Obesity, unspecified; E87.6 Hypokalemia; Z91.51 Personal history of suicidal behavior; F41.0 Panic disorder [episodic paroxysmal anxiety]
CPT/HCPCS: 36415; 70450; 71045; 80053; 80306; 80307; 81003; 85025; 85610; 85730; 93005; 96372; 97150; 97165; 99285; J0573; J3411; J7030; Q0162

== ENCOUNTER 2023-07-08 11:07 | Inpatient (IN) | payer BC, SELFPAY ==
[2023-07-08 11:14] VITALS: BP 123/85; PULSE 93; TEMP 37.4; O2SAT 96; BMI 36.9
[2023-07-08 12:54] LABS: Basophils # 0.1 10^3/uL (0.0-0.1); Basophils % 0.6 %; Eosinophils # 0.3 10^3/uL (0.0-0.8); Hematocrit 45.3 % (37-53); Lymphocytes # 2.1 10^3/uL (0.8-4.8); Lymphocytes % 21.4 %; Mean Corpuscular HGB Conc 33.6 g/dL (30-55); Mean Corpuscular Hemoglobin 33.1 pg (27-33); Mean Corpuscular Volume 98.7 fl (82-101); Mean Platelet Volume 9.6 fL (7.4-10.4); Monocytes # 0.9 10^3/uL (0.2-0.9); Neutrophils # 6.31 10^3/uL (1.8-7.7); Neutrophils % 65.8 %; Nucleated Red Blood Cells % 0 %; Platelet Count 241 10^3/cmm (157-399); Red Blood Count 4.59 10^6/uL (3.85-5.65); White Blood Count 9.59 10^3/uL (3.29-11.43)
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
[2023-07-08 13:18] LABS: Acetaminophen < 5.0 ug/mL (10-30); Alanine Aminotransferase 24 U/L (0-41); Albumin Level 4.2 g/dL (3.5-5.2); Alkaline Phosphatase 53 U/L (40-130); Anion Gap 15.7 (5-19); Aspartate Amino Transferase 24 U/L (0-40); Blood Urea Nitrogen 8 mg/dL (6-20); Calcium 10.1 mg/dL (8.5-10.5); Carbon Dioxide 22 mmol/L (22-29); Chloride 107 mmol/L (98-107); Globulin 3.2 g/dL (1.3-4.6); Glomerular Filtration Rate 101.9 mL/min (90-130); Glucose 103 mg/dL (65-115); Osmolality Calculated 291 mOsm/kg (285-295); Potassium 3.7 mmol/L (3.5-5.1); Salicylate < 0.3 mg/dL (3-10); Sodium 141 mmol/L (136-145); Thyroid Stimulating Hormone 0.39 uIU/mL (0.27-4.20); Total Bilirubin 0.3 mg/dL (0.15-1.2); Total Protein 7.4 g/dL (6.6-8.7)
[2023-07-08 13:42] LABS: Add Urine Microscopic? NO; Charge for UA Resulting for Rev
[2023-07-08 13:48] LABS: Bilirubin Urine Neg (Negative); Blood Urine Neg (Negative); Glucose Urine UA Norm (Normal); Ketones Urine Negative (Negative); Leukocyte Esterase Urine Negative (Negative); Nitrate Urine Negative (Negative); Protein Urine Neg (Negative); Urine Appearance Clear (CLEAR); Urine Color Yellow (Yellow); Urobilinogen Urine Norm (Negative); pH Urine 6 (5-7)
[2023-07-08 13:53] LABS: Amphetamines Screen Urine Positive (Negative); Barbiturates Screen Urine Negative (Negative); Benzodiazepines Screen Urine Negative (Negative); Cocaine Screen Urine Negative (Negative); Opiate Screen Urine Negative (Negative); PCP Screen Urine Negative (Negative); THC Screen Urine Negative (Negative)
--- NOTE | 2023-07-08 14:20 | PC.NURSE ---
PT SLEEPING IN ROOM, CHEST RISE AND FALL NOTED. PT RESPONDS TO VERBAL COMMANDS
[2023-07-08 15:03] LABS: Alcohol Level 25 mg/dL (0-10)
[2023-07-08 15:43] VITALS: BP 156/78; PULSE 108; RESP 18; O2SAT 98
[2023-07-08 19:26] VITALS: BP 156/78; PULSE 108; RESP 18; O2SAT 98
[2023-07-08 19:32] VITALS: BP 123/81; PULSE 117; RESP 20; TEMP 37.2; O2SAT 97
[2023-07-08 20:00] VITALS: BP 123/81; PULSE 117; RESP 20; TEMP 37.2; O2SAT 97
--- NOTE | 2023-07-08 20:31 | PC.NURSE ---
Pt arrived to NPU w/NT and RN at side. Pt appears anxious w/active tremor and sweating. Pt denies illicit drug use, however UDS +. CIWA 12 at this time, PRN Ativan to be administered. Pt cooperative w/assessment however he minimizes why he is here and the circumstances leading to his admission. Pt states his hallucinations are caused from running out of suboxone. Pt shown to room, detox sx monitoring continues.
[2023-07-08] MEDS: LORazepam 2 mg Tablet PO (20:33)
[2023-07-09] MEDS: trazodone 50 mg Tablet PO (00:24)
[2023-07-09 06:00] VITALS: BP 151/86; PULSE 113; RESP 18; O2SAT 98
[2023-07-09] MEDS: multivitamin therapeutic Tablet 1 TAB PO (08:40)
[2023-07-09] MEDS: folic acid 1 mg Tablet PO (08:40)
[2023-07-09] MEDS: LORazepam 2 mg Tablet PO ×2 (08:40→12:11)
[2023-07-09] MEDS: thiamine 100 mg Tablet PO (08:40)
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
--- NOTE | 2023-07-09 10:13 | PC.OT ---
OT EVALUATION ATTEMPTED; PATIENT IS SLEEPING SOUNDLY AND DOES NOT AWAKEN. WILL ATTEMPT AGAIN TOMORROW.
--- NOTE | 2023-07-09 12:11 | PC.NURSE ---
PT WAS RESTLESS IN BED. PT SCORED 20 ON CIWA AND WAS GIVEN ORAL ATIVAN 2MG PER ORDER.
[2023-07-09 14:00] VITALS: BP 109/74; PULSE 107; RESP 14; TEMP 36.8; O2SAT 95
[2023-07-09] MEDS: gabapentin 400 mg Capsule 800 MG PO ×2 (16:01→19:56)
[2023-07-09] MEDS: nicotine 2 mg Gum BUCCAL (17:37)
[2023-07-09] MEDS: nicotine 4 mg lozenge MUCOUS MEM (19:56)
[2023-07-09] MEDS: quetiapine 100 mg Tablet 200 MG PO (19:56)
[2023-07-09 20:26] VITALS: BP 146/85; PULSE 120; RESP 16; TEMP 36.8; O2SAT 98
[2023-07-10] MEDS: trazodone 50 mg Tablet PO ×2 (01:17→19:51)
[2023-07-10] MEDS: gabapentin 400 mg Capsule 800 MG PO ×3 (09:01→20:24)
[2023-07-10] MEDS: fenofibrate 145 mg Tablet PO (09:01)
[2023-07-10] MEDS: multivitamin therapeutic Tablet 1 TAB PO (09:01)
[2023-07-10] MEDS: folic acid 1 mg Tablet PO (09:01)
[2023-07-10] MEDS: thiamine 100 mg Tablet PO (09:01)
[2023-07-10] MEDS: duloxetine 60 mg Capsule PO (09:01)
[2023-07-10] MEDS: nicotine 4 mg lozenge MUCOUS MEM ×5 (10:12→21:32)
--- NOTE | 2023-07-10 10:26 | P.NPUPN_ITS ---
Subjective NPU 2 Subjective: Patient is a 53-year-old white male with a history of polysubstance abuse admitted with reports of paranoia. Patient had reported relapsing on methamphetamine and stated that he had stopped taking Suboxone after running out 4 days prior to admission. He had reported that he had been hearing voices as well. He continued to report some feelings of hopelessness. The patient had continued to isolate on the milieu. He stated that he would be willing to attend substance abuse treatment and reported that he had failed to make follow- up with his outpatient provider as referred to on his previous admission 1 month ago. He had endorsed continued homelessness. He continued to report that he was hearing voices that were saying negative things to him. Mental Status Exam 2 MSE Comments: This is an obese white male in hospital scrubs with limited grooming and poor eye contact.? No abnormal movements except for severe psychomotor retardation.? He was cooperative with exam in mild to moderate distress.? His speech was decreased in rate and volume and dysarthric with poor articulation.? Mood described as depressed; His affect was mood congruent.? Thought process was linear and organized.? Thought content: Patient denied homicidal ideation and endorsed vague suicidal ideation without a plan, there were no delusions reported or noted, he denied any auditory or visual hallucinations.? Attention and concentration were intact and memory appeared mostly reliable but none were formally tested.? He is alert and oriented to person, place and time. ? Insight, judgment and impulse control are impaired. Vitals/I&O/Wt Last Vital Signs Temp 98.2 F 07/09/23 20:26 Pulse 120 H 07/09/23 20:26 Resp 16 07/09/23 20:26 BP 146/85 07/09/23 20:26 Pulse Ox 98 07/09/23 20:26 O2 Del Method Room Air 07/08/23 20:17 Weight last 48 hrs Weight 113.398 kg Data NPU 07/08/23 12:32 07/08/23 12:32 A&P Assessment and plan (1) Major depressive disorder, severe: (2) Alcohol intoxication: (3) Methamphetamine abuse: (4) Unspecified psychosis: (5) Acute hypokalemia: (6) Polysubstance abuse: (7) Suicidal ideation: (8) Alcohol use disorder, severe, dependence: Plan This is a 53 year old white male with a long history of alcohol use disorder, severe, and depression with suicidality with past suicide attempts, who presents once again with noncompliance with outpatient treatment, active methamphetamine and alcohol use. 1. Continue Cymbalta, add suboxone as previously prescribed. Continue seroquel 200mg at night. 2. Encourage individual, group and milieu therapy 3. Continue q-15 minute check for safety 4. Recommend sober living treatment at the highest level of care to which the patient is willing to commit.? 5. [facility] protocol Involuntary Hold Information 2 96 Hour Hold: 96 Hour Involuntary Admission: No 96 Hour Hold Ending Date: 0 12/11/22 96 Hour Hold Ending Time: 10:55 Attestations NPU 2 Medical Necessity Statement*: Inpatient hospitalization is medically necessary and deemed to ?be ?the clinically appropriate intervention ?at this time.? We will monitor/initiate medications and make changes as indicated.? The patient?s likely length of stay 4-6 days. Coding Level of Care Code [facility] Diagnoses Major depressive disorder, severe F32.2 Alcohol intoxication F10.929 Methamphetamine abuse F15.10 Unspecified psychosis F29 Acute hypokalemia E87.6 Polysubstance abuse F19.10 Suicidal ideation R45.851 Alcohol use disorder, severe, dependence F10.20
[2023-07-10] MEDS: acetaminophen 325 mg Tablet 650 MG PO (11:03)
[2023-07-10 14:00] VITALS: BP 136/103; PULSE 122; RESP 16; TEMP 36.8; O2SAT 97
[2023-07-10] MEDS: hyDROXYzine 25 mg Capsule 50 MG PO (14:30)
--- NOTE | 2023-07-10 14:33 | PC.NURSE ---
PRN VISTARIL 50 MG GIVEN PO PER PT C/O STATED ANXIETY
[2023-07-10] MEDS: buprenorphine-naloxone 4-1 mg Film 1 EACH SUBLINGUAL (18:46)
[2023-07-10] MEDS: nicotine 2 mg Gum BUCCAL (19:51)
[2023-07-10 20:14] VITALS: BP 149/77; PULSE 89; RESP 18; TEMP 36.9; O2SAT 96
[2023-07-10] MEDS: quetiapine 100 mg Tablet 200 MG PO (20:24)
[2023-07-11 06:00] VITALS: BP 155/77; PULSE 89; RESP 18; TEMP 36.2; O2SAT 95
[2023-07-11] MEDS: nicotine 4 mg lozenge MUCOUS MEM ×8 (06:30→22:26)
[2023-07-11] MEDS: thiamine 100 mg Tablet PO (08:22)
[2023-07-11] MEDS: folic acid 1 mg Tablet PO (08:22)
[2023-07-11] MEDS: fenofibrate 145 mg Tablet PO (08:22)
[2023-07-11] MEDS: multivitamin therapeutic Tablet 1 TAB PO (08:22)
[2023-07-11] MEDS: duloxetine 60 mg Capsule PO (08:22)
[2023-07-11] MEDS: gabapentin 400 mg Capsule 800 MG PO ×3 (08:22→20:22)
[2023-07-11] MEDS: buprenorphine-naloxone 4-1 mg Film 1 EACH SUBLINGUAL (08:22)
[2023-07-11] MEDS: ibuprofen 600 mg Tablet PO ×2 (09:16→19:23)
[2023-07-11 14:00] VITALS: BP 131/88; PULSE 71; RESP 17; TEMP 36.6; O2SAT 97
--- NOTE | 2023-07-11 14:37 | P.NPUPN_ITS ---
Subjective NPU 2 Subjective: Patient is a 53-year-old white male with a history of polysubstance abuse admitted with reports of paranoia while testing positive for methamphetamine. The patient had reported that he was surprised that he had tested positive for amphetamine as he stated that he had simply been using marijuana. The patient reported no side effects from his medication. He had stated that he was having some opiate withdrawal symptoms as he stated he had been previously on 16 mg of suboxone a day. The patient had reported some improvement with sleep and improved mood with the increase in Seroquel but still stated having difficulties with staying asleep. Patient had reported struggles with following up with outpatient appointments and reported that he was stressed that his son whom he had lived with had suddenly packed up and moved to [place]. The patient did not endorse any auditory hallucinations today. Mental Status Exam 2 MSE Comments: This is an obese white male in hospital scrubs with limited grooming and poor eye contact.? No abnormal movements except for severe psychomotor retardation.? He was cooperative with exam in mild to moderate distress.? His speech was decreased in rate and volume and dysarthric with poor articulation.? Mood described as depressed; His affect was flat. ? Thought process was linear and organized.? Thought content: Patient denied homicidal ideation with no active suicidal ideation. There were no delusions reported or noted; he denied any auditory or visual hallucinations.? Attention and concentration were intact and memory appeared mostly reliable but none were formally tested.? He is alert and oriented to person, place and time. ? Insight, judgment and impulse control are impaired. Vitals/I&O/Wt Last Vital Signs Temp 97.8 F 07/11/23 14:00 Pulse 71 07/11/23 14:00 Resp 17 07/11/23 14:00 BP 131/88 07/11/23 14:00 Pulse Ox 97 07/11/23 14:00 O2 Del Method Room Air 07/11/23 06:00 Data NPU 07/08/23 12:32 07/08/23 12:32 A&P Assessment and plan (1) Major depressive disorder, severe: (2) Alcohol intoxication: (3) Methamphetamine abuse: (4) Unspecified psychosis: (5) Acute hypokalemia: (6) Polysubstance abuse: (7) Suicidal ideation: (8) Alcohol use disorder, severe, dependence: Plan This is a 53 year old white male with a long history of alcohol use disorder, severe, and depression with suicidality with past suicide attempts, who presents once again with noncompliance with outpatient treatment, active methamphetamine and alcohol use. 1. Continue Cymbalta, add suboxone as previously prescribed. Increase seroquel 300mg at night. 2. Encourage individual, group and milieu therapy 3. Continue q-15 minute check for safety 4. Recommend sober living treatment at the highest level of care to which the patient is willing to commit.? 5. [facility] protocol Involuntary Hold Information 2 96 Hour Hold: 96 Hour Involuntary Admission: No 96 Hour Hold Ending Date: 0 12/11/22 96 Hour Hold Ending Time: 10:55 Attestations NPU 2 Medical Necessity Statement*: Inpatient hospitalization is medically necessary and deemed to ?be ?the clinically appropriate intervention ?at this time.? We will monitor/initiate medications and make changes as indicated.? The patient?s likely length of stay 4-6 days. Coding Level of Care Code Acute Code for [facility] Diagnoses Major depressive disorder, severe F32.2 Alcohol intoxication F10.929 Methamphetamine abuse F15.10 Unspecified psychosis F29 Acute hypokalemia E87.6 Polysubstance abuse F19.10 Suicidal ideation R45.851 Alcohol use disorder, severe, dependence F10.20
[2023-07-11] MEDS: amoxicillin 500 mg Capsule PO ×2 (14:42→20:21)
[2023-07-11] MEDS: buprenorphine-naloxone 4-1 mg Film 2 EACH SUBLINGUAL (17:19)
[2023-07-11 20:09] VITALS: BP 123/87; PULSE 83; RESP 16; TEMP 36.6; O2SAT 97
[2023-07-11] MEDS: quetiapine 100 mg Tablet 200 MG PO (20:21)
[2023-07-12] MEDS: nicotine 4 mg lozenge MUCOUS MEM ×9 (03:00→22:29)
[2023-07-12 06:00] VITALS: BP 136/93; PULSE 82; RESP 16; TEMP 36.4; O2SAT 97
[2023-07-12] MEDS: buprenorphine-naloxone 4-1 mg Film 2 EACH SUBLINGUAL ×2 (08:19→17:59)
[2023-07-12] MEDS: duloxetine 60 mg Capsule PO (08:20)
[2023-07-12] MEDS: thiamine 100 mg Tablet PO (08:20)
[2023-07-12] MEDS: gabapentin 400 mg Capsule 800 MG PO ×3 (08:20→20:16)
[2023-07-12] MEDS: fenofibrate 145 mg Tablet PO (08:20)
[2023-07-12] MEDS: amoxicillin 500 mg Capsule PO ×3 (08:20→20:16)
[2023-07-12] MEDS: multivitamin therapeutic Tablet 1 TAB PO (08:21)
[2023-07-12] MEDS: folic acid 1 mg Tablet PO (08:21)
[2023-07-12] MEDS: ibuprofen 600 mg Tablet PO ×2 (10:10→22:29)
[2023-07-12] MEDS: phenol oral Spray 177 mL 3 SPRAY MUCOUS MEM ×2 (13:44→22:29)
[2023-07-12 14:00] VITALS: BP 137/92; PULSE 70; RESP 16; TEMP 36.8; O2SAT 97
--- NOTE | 2023-07-12 18:44 | P.NPUPN_ITS ---
Subjective NPU 2 Subjective: Patient presented today reporting that he is doing okay. He reports that he does not use meth and that he does not know how that could be. He reports he does struggle with alcohol but is continuing to fight that alonzo. He reports that his p.o. is coming to see him tomorrow and he will have a better sense of what he needs to do after that meeting. He endorses a plan to return to live with one of his other signs because the son that he lives with reportedly moved to [place] with one of his active signs. He feels confident he will be able to go and stay with his child and continue working on his recovery. We continue to discuss the likely need for a more intensive treatment/rehab but she is ambivalent about. Mental Status Exam 2 MSE Comments: This is an obese white male in hospital scrubs with limited grooming and poor eye contact.? No abnormal movements except for significant psychomotor retardation.? Cooperative with exam in mild to moderate distress.? His speech was decreased in rate and volume and dysarthric with poor articulation.? Mood described as depressed; His affect was flat. ? Thought process was linear and organized.? Thought content: Patient denied homicidal ideation with no active suicidal ideation. There were no delusions reported or noted; he denied any auditory or visual hallucinations.? Attention and concentration were intact and memory appeared mostly reliable but none were formally tested.? He is alert and oriented to person, place and time. ? Insight, judgment and impulse control are impaired. Vitals/I&O/Wt Last Vital Signs Temp 97.7 F 07/12/23 20:25 Pulse 73 07/12/23 20:25 Resp 18 07/12/23 20:25 BP 120/81 07/12/23 20:25 Pulse Ox 95 07/12/23 20:25 O2 Del Method Room Air 07/12/23 20:25 Data NPU 07/08/23 12:32 07/08/23 12:32 A&P Assessment and plan (1) Major depressive disorder, severe: (2) Alcohol intoxication: (3) Methamphetamine abuse: (4) Unspecified psychosis: (5) Acute hypokalemia: (6) Polysubstance abuse: (7) Suicidal ideation: (8) Alcohol use disorder, severe, dependence: Plan This is a 53 year old white male with a long history of alcohol use disorder, severe, and depression with suicidality with past suicide attempts, who presents once again with noncompliance with outpatient treatment, active methamphetamine and alcohol use. 1. Continue Cymbalta, added suboxone as previously prescribed. Increase seroquel 300mg at night. 2. Encourage individual, group and milieu therapy 3. Continue q-15 minute check for safety 4. Recommend sober living treatment at the highest level of care to which the patient is willing to commit.? 5. [facility] protocol 6. Will meet with patient after he meets with his p.o. to find if there are any demands she is going to make on his treatment. Involuntary Hold Information 2 96 Hour Hold: 96 Hour Involuntary Admission: No 96 Hour Hold Ending Date: 0 12/11/22 96 Hour Hold Ending Time: 10:55 Attestations NPU 2 Medical Necessity Statement*: Inpatient hospitalization is medically necessary and deemed to ?be ?the clinically appropriate intervention ?at this time.? We will monitor/initiate medications and make changes as indicated.? The patient?s likely length of stay 2-5 days. Coding Level of Care Code Acute Code for [facility] Diagnoses Major depressive disorder, severe F32.2 Alcohol intoxication F10.929 Methamphetamine abuse F15.10 Unspecified psychosis F29 Acute hypokalemia E87.6 Polysubstance abuse F19.10 Suicidal ideation R45.851 Alcohol use disorder, severe, dependence F10.20
[2023-07-12] MEDS: quetiapine 100 mg Tablet 200 MG PO (20:16)
[2023-07-12 20:25] VITALS: BP 120/81; PULSE 73; RESP 18; TEMP 36.5; O2SAT 95
[2023-07-13] MEDS: nicotine 4 mg lozenge MUCOUS MEM ×11 (01:26→22:36)
[2023-07-13] MEDS: phenol oral Spray 177 mL 3 SPRAY MUCOUS MEM ×3 (04:50→13:09)
[2023-07-13] MEDS: ibuprofen 600 mg Tablet PO ×2 (04:50→13:11)
[2023-07-13 06:00] VITALS: BP 148/105; PULSE 79; RESP 18; O2SAT 97
[2023-07-13] MEDS: multivitamin therapeutic Tablet 1 TAB PO (07:53)
[2023-07-13] MEDS: fenofibrate 145 mg Tablet PO (07:53)
[2023-07-13] MEDS: duloxetine 60 mg Capsule PO (07:53)
[2023-07-13] MEDS: gabapentin 400 mg Capsule 800 MG PO ×3 (07:54→19:55)
[2023-07-13] MEDS: amoxicillin 500 mg Capsule PO ×3 (07:54→19:55)
[2023-07-13] MEDS: folic acid 1 mg Tablet PO (07:54)
[2023-07-13] MEDS: thiamine 100 mg Tablet PO (07:54)
[2023-07-13] MEDS: buprenorphine-naloxone 4-1 mg Film 2 EACH SUBLINGUAL ×2 (07:54→18:07)
--- NOTE | 2023-07-13 08:20 | PC.NURSE ---
During assessment, patient denies SI, HI, depression, AVH. Patient reports feeling aggravated today, but unsure of any cause for this. Patient also reports some anxiety.
--- NOTE | 2023-07-13 09:04 | P.NPUPN_ITS ---
Subjective NPU 2 Subjective: Patient presented today reporting that he is feeling okay. He focused most of the interview on the possibility of increasing the Suboxone to 24 mg daily in divided doses. He reports that he and Dr. Castro had discussed this possibility and/or likelihood. We discussed that I would review the chart to see what I can see as well as possibly talk to Dr. Castro. We continue to discuss concerns about his focus and addiction but his ambivalence and lack of willingness to engage in actual intensive recovery focused aftercare. He is scheduled to meet with his p.o. later today and we agreed we would make sure there were no stipulations from the legal side. We discussed the likelihood of discharge by Sunday. Mental Status Exam 2 MSE Comments: This is an obese white male in hospital scrubs with limited grooming and poor eye contact.? No abnormal movements except for significant psychomotor retardation.? Cooperative with exam in mild to moderate distress.? His speech was decreased in rate and volume and dysarthric with poor articulation.? Mood described as depressed; His affect was flat. ? Thought process was linear and organized.? Thought content: Patient denied homicidal ideation with no active suicidal ideation. There were no delusions reported or noted; he denied any auditory or visual hallucinations.? Attention and concentration were intact and memory appeared mostly reliable but none were formally tested.? He is alert and oriented to person, place and time. ? Insight, judgment and impulse control are impaired. Vitals/I&O/Wt Last Vital Signs Temp 97.7 F 07/12/23 20:25 Pulse 79 07/13/23 06:00 Resp 18 07/13/23 06:00 BP 148/105 07/13/23 06:00 Pulse Ox 97 07/13/23 06:00 O2 Del Method Room Air 07/13/23 06:00 Data NPU 07/08/23 12:32 07/08/23 12:32 A&P Assessment and plan (1) Major depressive disorder, severe: (2) Alcohol intoxication: (3) Methamphetamine abuse: (4) Unspecified psychosis: (5) Acute hypokalemia: (6) Polysubstance abuse: (7) Suicidal ideation: (8) Alcohol use disorder, severe, dependence: Plan This is a 53 year old white male with a long history of alcohol use disorder, severe, and depression with suicidality with past suicide attempts, who presents once again with noncompliance with outpatient treatment, active methamphetamine and alcohol use. 1. Continue Cymbalta, added suboxone as previously prescribed. Increase seroquel 300mg at night. Will review charts about previous Suboxone dosing to consider increase. 2. Encourage individual, group and milieu therapy 3. Continue q-15 minute check for safety 4. Recommend sober living treatment at the highest level of care to which the patient is willing to commit.? 5. [facility] protocol 6. Will meet with patient after he meets with his p.o. to find if there are any demands she is going to make on his treatment. Involuntary Hold Information 2 96 Hour Hold: 96 Hour Involuntary Admission: No 96 Hour Hold Ending Date: 0 12/11/22 96 Hour Hold Ending Time: 10:55 Attestations NPU 2 Medical Necessity Statement*: Inpatient hospitalization is medically necessary and deemed to ?be ?the clinically appropriate intervention ?at this time.? We will monitor/initiate medications and make changes as indicated.? The patient?s likely length of stay 2-4 days. Coding Level of Care Code Acute Code for [facility] Fwd Diagnoses Major depressive disorder, severe F32.2 Alcohol intoxication F10.929 Methamphetamine abuse F15.10 Unspecified psychosis F29 Acute hypokalemia E87.6 Polysubstance abuse F19.10 Suicidal ideation R45.851 Alcohol use disorder, severe, dependence F10.20
[2023-07-13] MEDS: hyDROXYzine 25 mg Capsule 50 MG PO (10:02)
[2023-07-13] MEDS: docusate sodium 100 mg Capsule PO (11:08)
[2023-07-13 14:00] VITALS: BP 131/96; PULSE 71; RESP 20; TEMP 36.6; O2SAT 98
[2023-07-13] MEDS: quetiapine 100 mg Tablet 200 MG PO (19:55)
[2023-07-13 20:19] VITALS: BP 140/96; PULSE 84; RESP 18; O2SAT 97
[2023-07-14] MEDS: nicotine 4 mg lozenge MUCOUS MEM ×11 (01:07→23:48)
[2023-07-14] MEDS: ibuprofen 600 mg Tablet PO ×2 (05:58→15:00)
[2023-07-14] MEDS: phenol oral Spray 177 mL 3 SPRAY MUCOUS MEM ×2 (05:58→14:57)
[2023-07-14 06:00] VITALS: BP 119/84; PULSE 85; RESP 18; TEMP 36.9; O2SAT 96
[2023-07-14] MEDS: buprenorphine-naloxone 4-1 mg Film 2 EACH SUBLINGUAL ×2 (07:48→18:00)
--- NOTE | 2023-07-14 07:49 | P.NPUPN_ITS ---
Subjective NPU 2 Subjective: Patient presented today reporting that he was doing okay. Once again brought up the idea of increasing his Suboxone to 24 mg a day in divided doses. Review of the chart shows him never being above 2 a day and we discussed the importance of him being engaged in sober living treatment which she often seems ambivalent about. Otherwise he denied any side effects to the medication. We discussed the likelihood for discharge in 48 hours. Mental Status Exam 2 MSE Comments: This is an obese white male in hospital scrubs with limited grooming and poor eye contact.? No abnormal movements except for significant psychomotor retardation.? Cooperative with exam in mild to moderate distress.? His speech was decreased in rate and volume and dysarthric with poor articulation.? Mood described as depressed; His affect was flat. ? Thought process was linear and organized.? Thought content: Patient denied homicidal ideation with no active suicidal ideation. There were no delusions reported or noted; he denied any auditory or visual hallucinations.? Attention and concentration were intact and memory appeared mostly reliable but none were formally tested.? He is alert and oriented to person, place and time. ? Insight, judgment and impulse control are impaired. Vitals/I&O/Wt Last Vital Signs Temp 98.4 F 07/14/23 06:00 Pulse 85 07/14/23 06:00 Resp 18 07/14/23 06:00 BP 119/84 07/14/23 06:00 Pulse Ox 96 07/14/23 06:00 O2 Del Method Room Air 07/14/23 06:00 Data NPU 07/08/23 12:32 07/08/23 12:32 A&P Assessment and plan (1) Major depressive disorder, severe: (2) Alcohol intoxication: (3) Methamphetamine abuse: (4) Unspecified psychosis: (5) Acute hypokalemia: (6) Polysubstance abuse: (7) Suicidal ideation: (8) Alcohol use disorder, severe, dependence: Plan This is a 53 year old white male with a long history of alcohol use disorder, severe, and depression with suicidality with past suicide attempts, who presents once again with noncompliance with outpatient treatment, active methamphetamine and alcohol use. 1. Continue Cymbalta, added suboxone as previously prescribed. Increase seroquel 300mg at night. Will review charts about previous Suboxone dosing to consider increase. 2. Encourage individual, group and milieu therapy 3. Continue q-15 minute check for safety 4. Recommend sober living treatment at the highest level of care to which the patient is willing to commit.? 5. [facility] protocol 6. Will meet with patient after he meets with his p.o. to find if there are any demands she is going to make on his treatment. Involuntary Hold Information 2 96 Hour Hold: 96 Hour Involuntary Admission: No 96 Hour Hold Ending Date: 0 12/11/22 96 Hour Hold Ending Time: 10:55 Attestations NPU 2 Medical Necessity Statement*: Inpatient hospitalization is medically necessary and deemed to ?be ?the clinically appropriate intervention ?at this time.? We will monitor/initiate medications and make changes as indicated.? The patient?s likely length of stay 2-4 days. Coding Level of Care Code Acute Code for [facility] Fwd Diagnoses Major depressive disorder, severe F32.2 Alcohol intoxication F10.929 Methamphetamine abuse F15.10 Unspecified psychosis F29 Acute hypokalemia E87.6 Polysubstance abuse F19.10 Suicidal ideation R45.851 Alcohol use disorder, severe, dependence F10.20
[2023-07-14] MEDS: fenofibrate 145 mg Tablet PO (08:06)
[2023-07-14] MEDS: amoxicillin 500 mg Capsule PO ×3 (08:06→20:02)
[2023-07-14] MEDS: duloxetine 60 mg Capsule PO (08:06)
[2023-07-14] MEDS: folic acid 1 mg Tablet PO (08:06)
[2023-07-14] MEDS: multivitamin therapeutic Tablet 1 TAB PO (08:07)
[2023-07-14] MEDS: thiamine 100 mg Tablet PO (08:07)
[2023-07-14] MEDS: gabapentin 400 mg Capsule 800 MG PO ×3 (08:07→20:02)
[2023-07-14] MEDS: docusate sodium 100 mg Capsule PO (09:58)
[2023-07-14] MEDS: magnesium hydroxide 30 mL UDC PO ×2 (10:18→20:02)
[2023-07-14 14:00] VITALS: BP 136/93; PULSE 78; RESP 17; TEMP 36.4; O2SAT 95
[2023-07-14] MEDS: quetiapine 100 mg Tablet 200 MG PO (20:02)
[2023-07-14 20:30] VITALS: BP 118/84; PULSE 82; RESP 16; TEMP 36.4; O2SAT 90
[2023-07-15] MEDS: nicotine 4 mg lozenge MUCOUS MEM ×11 (02:02→21:51)
[2023-07-15 06:00] VITALS: BP 131/88; PULSE 101; RESP 18; O2SAT 95
--- NOTE | 2023-07-15 07:52 | P.NPUPN_ITS ---
Subjective NPU 2 Subjective: Patient presented today reporting that he is doing fine. We discussed increasing Seroquel to 300 mg nightly. We also discussed the Suboxone and not finding any indication it was ever above twice daily dosing here. He reports now that it was at 3 times daily dosing a few years ago in [place] at a pain management clinic. We discussed that he would likely need to go to a place like that and manage that after discharge. Otherwise he denied any problems with his current medication. Mental Status Exam 2 MSE Comments: This is an obese white male in hospital scrubs with limited grooming and poor eye contact.? No abnormal movements except for significant psychomotor retardation.? Cooperative with exam in mild to moderate distress.? His speech was decreased in rate and volume and dysarthric with poor articulation.? Mood described as depressed; His affect was flat. ? Thought process was linear and organized.? Thought content: Patient denied homicidal ideation with no active suicidal ideation. There were no delusions reported or noted; he denied any auditory or visual hallucinations.? Attention and concentration were intact and memory appeared mostly reliable but none were formally tested.? He is alert and oriented to person, place and time. ? Insight, judgment and impulse control are impaired. Vitals/I&O/Wt Last Vital Signs Temp 97.6 F 07/14/23 20:30 Pulse 101 H 07/15/23 06:00 Resp 18 07/15/23 06:00 BP 131/88 07/15/23 06:00 Pulse Ox 95 07/15/23 06:00 O2 Del Method Room Air 07/15/23 06:00 07/14/23 07/15/23 07/15/23 22:59 06:59 14:59 Intake Total 400 / 800 Balance 400 / 800 Weight last 48 hrs Weight 112.037 kg Data NPU 07/08/23 12:32 07/08/23 12:32 A&P Assessment and plan (1) Major depressive disorder, severe: (2) Alcohol intoxication: (3) Methamphetamine abuse: (4) Unspecified psychosis: (5) Acute hypokalemia: (6) Polysubstance abuse: (7) Suicidal ideation: (8) Alcohol use disorder, severe, dependence: Plan This is a 53 year old white male with a long history of alcohol use disorder, severe, and depression with suicidality with past suicide attempts, who presents once again with noncompliance with outpatient treatment, active methamphetamine and alcohol use. 1. Continue Cymbalta, added suboxone as previously prescribed. Increased seroquel 300mg at night. Reviewed charts about previous Suboxone dosing and only found twice daily dosing. 2. Encourage individual, group and milieu therapy 3. Continue q-15 minute check for safety 4. Recommend sober living treatment at the highest level of care to which the patient is willing to commit.? Involuntary Hold Information 2 96 Hour Hold: 96 Hour Involuntary Admission: No 96 Hour Hold Ending Date: 0 12/11/22 96 Hour Hold Ending Time: 10:55 Attestations NPU 2 Medical Necessity Statement*: Inpatient hospitalization is medically necessary and deemed to ?be ?the clinically appropriate intervention ?at this time.? We will monitor/initiate medications and make changes as indicated.? The patient?s likely length of stay 1-3 days. Coding Level of Care Code Acute Code for [facility] Fwd Diagnoses Major depressive disorder, severe F32.2 Alcohol intoxication F10.929 Methamphetamine abuse F15.10 Unspecified psychosis F29 Acute hypokalemia E87.6 Polysubstance abuse F19.10 Suicidal ideation R45.851 Alcohol use disorder, severe, dependence F10.20
[2023-07-15] MEDS: thiamine 100 mg Tablet PO (08:15)
[2023-07-15] MEDS: magnesium hydroxide 30 mL UDC PO (08:15)
[2023-07-15] MEDS: multivitamin therapeutic Tablet 1 TAB PO (08:15)
[2023-07-15] MEDS: duloxetine 60 mg Capsule PO (08:15)
[2023-07-15] MEDS: amoxicillin 500 mg Capsule PO ×3 (08:15→20:11)
[2023-07-15] MEDS: docusate sodium 100 mg Capsule PO (08:15)
[2023-07-15] MEDS: gabapentin 400 mg Capsule 800 MG PO ×3 (08:15→20:11)
[2023-07-15] MEDS: buprenorphine-naloxone 4-1 mg Film 2 EACH SUBLINGUAL ×2 (08:15→18:39)
[2023-07-15] MEDS: folic acid 1 mg Tablet PO (08:15)
[2023-07-15] MEDS: fenofibrate 145 mg Tablet PO (08:15)
[2023-07-15] MEDS: ibuprofen 600 mg Tablet PO (11:24)
[2023-07-15] MEDS: phenol oral Spray 177 mL 3 SPRAY MUCOUS MEM (11:25)
[2023-07-15 13:53] VITALS: BP 113/79; PULSE 77; RESP 16; TEMP 36.4; O2SAT 94
[2023-07-15] MEDS: acetaminophen 325 mg Tablet 650 MG PO (18:39)
[2023-07-15 20:09] VITALS: BP 114/76; PULSE 83; RESP 18; TEMP 36.6; O2SAT 92
[2023-07-15] MEDS: quetiapine 300 mg Tablet PO (20:11)
[2023-07-16 06:00] VITALS: BP 104/75; PULSE 82; RESP 18; O2SAT 95
[2023-07-16] MEDS: nicotine 4 mg lozenge MUCOUS MEM ×8 (06:02→21:30)
[2023-07-16] MEDS: fenofibrate 145 mg Tablet PO (08:27)
[2023-07-16] MEDS: thiamine 100 mg Tablet PO (08:27)
[2023-07-16] MEDS: gabapentin 400 mg Capsule 800 MG PO ×3 (08:27→19:39)
[2023-07-16] MEDS: duloxetine 60 mg Capsule PO (08:27)
[2023-07-16] MEDS: multivitamin therapeutic Tablet 1 TAB PO (08:27)
[2023-07-16] MEDS: amoxicillin 500 mg Capsule PO ×3 (08:27→19:39)
[2023-07-16] MEDS: folic acid 1 mg Tablet PO (08:27)
[2023-07-16] MEDS: buprenorphine-naloxone 4-1 mg Film 2 EACH SUBLINGUAL ×2 (08:28→18:07)
--- NOTE | 2023-07-16 11:20 | P.NPUPN_ITS ---
Subjective NPU 2 Subjective: Patient presented today reporting that he spoke with his son who is not going to allow him to move in he reports that he has no clear options. We would need to work on a plan. Patient is thinking about what options are available given that most places have a considerable wait. We discussed the fact that he may need to get some kind of bed date and go somewhere else in the interim. He denies any side effects to his medications. Mental Status Exam 2 MSE Comments: This is an obese white male in hospital scrubs with limited grooming and poor eye contact.? No abnormal movements except for significant psychomotor retardation.? Cooperative with exam in mild distress.? His speech was decreased in rate and volume and dysarthric with poor articulation.? Mood described as depressed; His affect was flat. ? Thought process was linear and organized.? Thought content: Patient denied homicidal ideation with no active suicidal ideation. There were no delusions reported or noted; he denied any auditory or visual hallucinations.? Attention and concentration were intact and memory appeared mostly reliable but none were formally tested.? He is alert and oriented to person, place and time. ? Insight, judgment and impulse control are impaired. Vitals/I&O/Wt Last Vital Signs Temp 97.8 F 07/15/23 20:09 Pulse 82 07/16/23 06:00 Resp 18 07/16/23 06:00 BP 104/75 07/16/23 06:00 Pulse Ox 95 07/16/23 06:00 O2 Del Method Room Air 07/15/23 06:00 Weight last 48 hrs Weight 112.037 kg Data NPU 07/08/23 12:32 07/08/23 12:32 A&P Assessment and plan (1) Major depressive disorder, severe: (2) Alcohol intoxication: (3) Methamphetamine abuse: (4) Unspecified psychosis: (5) Acute hypokalemia: (6) Polysubstance abuse: (7) Suicidal ideation: (8) Alcohol use disorder, severe, dependence: Plan This is a 53 year old white male with a long history of alcohol use disorder, severe, and depression with suicidality with past suicide attempts, who presents once again with noncompliance with outpatient treatment, active methamphetamine and alcohol use. 1. Continue Cymbalta, added suboxone as previously prescribed. Increased seroquel 300mg at night. Reviewed charts about previous Suboxone dosing and only found twice daily dosing which we are continuing. 2. Encourage individual, group and milieu therapy 3. Continue q-15 minute check for safety 4. Recommend sober living treatment at the highest level of care to which the patient is willing to commit.? He reported a willingness to consider rehab but has a poor history of follow-through. Involuntary Hold Information 2 96 Hour Hold: 96 Hour Involuntary Admission: No 96 Hour Hold Ending Date: 0 12/11/22 96 Hour Hold Ending Time: 10:55 Attestations NPU 2 Medical Necessity Statement*: Inpatient hospitalization is medically necessary and deemed to ?be ?the clinically appropriate intervention ?at this time.? We will monitor/initiate medications and make changes as indicated.? The patient?s likely length of stay 1-3 days. Coding Level of Care Code Acute Code for [facility] Fwd Diagnoses Major depressive disorder, severe F32.2 Alcohol intoxication F10.929 Methamphetamine abuse F15.10 Unspecified psychosis F29 Acute hypokalemia E87.6 Polysubstance abuse F19.10 Suicidal ideation R45.851 Alcohol use disorder, severe, dependence F10.20
[2023-07-16] MEDS: phenol oral Spray 177 mL 3 SPRAY MUCOUS MEM ×2 (11:38→20:57)
[2023-07-16] MEDS: ibuprofen 600 mg Tablet PO ×2 (11:38→20:58)
[2023-07-16] MEDS: hyDROXYzine 25 mg Capsule 50 MG PO (12:51)
[2023-07-16 14:00] VITALS: RESP 17
[2023-07-16] MEDS: trazodone 50 mg Tablet PO (19:39)
[2023-07-16] MEDS: quetiapine 300 mg Tablet PO (19:39)
[2023-07-16 20:19] VITALS: BP 126/87; PULSE 75; RESP 16; TEMP 36.6; O2SAT 96
[2023-07-17 06:00] VITALS: BP 123/81; PULSE 88; RESP 18; O2SAT 93
[2023-07-17] MEDS: nicotine 4 mg lozenge MUCOUS MEM ×8 (06:26→20:30)
[2023-07-17] MEDS: fenofibrate 145 mg Tablet PO (07:59)
[2023-07-17] MEDS: buprenorphine-naloxone 4-1 mg Film 2 EACH SUBLINGUAL ×2 (07:59→18:07)
[2023-07-17] MEDS: multivitamin therapeutic Tablet 1 TAB PO (08:00)
[2023-07-17] MEDS: folic acid 1 mg Tablet PO (08:00)
[2023-07-17] MEDS: amoxicillin 500 mg Capsule PO ×3 (08:00→20:30)
[2023-07-17] MEDS: thiamine 100 mg Tablet PO (08:00)
[2023-07-17] MEDS: gabapentin 400 mg Capsule 800 MG PO ×3 (08:00→20:30)
[2023-07-17] MEDS: duloxetine 60 mg Capsule PO (08:00)
[2023-07-17] MEDS: phenol oral Spray 177 mL 3 SPRAY MUCOUS MEM ×3 (09:47→20:31)
[2023-07-17] MEDS: docusate sodium 100 mg Capsule PO (09:47)
[2023-07-17] MEDS: ibuprofen 600 mg Tablet PO ×2 (09:47→20:30)
[2023-07-17 14:00] VITALS: BP 138/96; PULSE 77; RESP 20; TEMP 36.4; O2SAT 97
--- NOTE | 2023-07-17 17:28 | P.NPUPN_ITS ---
Subjective NPU 2 Subjective: Patient presented today reporting that he filled out his paperwork for [employer] with some assistance from staff given his limited mobility with reading and writing. He denied any side effects of medication and we discussed the need to discharge to some option as his only to stay here is very limited. Mental Status Exam 2 MSE Comments: This is an obese white male in hospital scrubs with limited grooming and poor eye contact.? No abnormal movements except for significant psychomotor retardation.? Cooperative with exam in mild distress.? His speech was decreased in rate and volume and dysarthric with poor articulation.? Mood described as a little better; His affect was flat. ? Thought process was linear and organized.? Thought content: Patient denied homicidal ideation with no active suicidal ideation. There were no delusions reported or noted; he denied any auditory or visual hallucinations.? Attention and concentration were intact and memory appeared mostly reliable but none were formally tested.? He is alert and oriented to person, place and time. ? Insight, judgment and impulse control are impaired. Vitals/I&O/Wt Last Vital Signs Temp 97.8 F 07/16/23 20:19 Pulse 88 07/17/23 06:00 Resp 18 07/17/23 06:00 BP 123/81 07/17/23 06:00 Pulse Ox 93 07/17/23 06:00 O2 Del Method Room Air 07/16/23 20:19 Data NPU 07/08/23 12:32 07/08/23 12:32 A&P Assessment and plan (1) Major depressive disorder, severe: (2) Alcohol intoxication: (3) Methamphetamine abuse: (4) Unspecified psychosis: (5) Acute hypokalemia: (6) Polysubstance abuse: (7) Suicidal ideation: (8) Alcohol use disorder, severe, dependence: Plan This is a 53 year old white male with a long history of alcohol use disorder, severe, and depression with suicidality with past suicide attempts, who presents once again with noncompliance with outpatient treatment, active methamphetamine and alcohol use. 1. Continue Cymbalta, added suboxone as previously prescribed. Increased seroquel 300mg at night. Reviewed charts about previous Suboxone dosing and only found twice daily dosing which we are continuing. 2. Encourage individual, group and milieu therapy 3. Continue q-15 minute check for safety 4. Recommend sober living treatment at the highest level of care to which the patient is willing to commit.? He reported a willingness to consider rehab but has a poor history of follow-through. Possible discharge tomorrow with referral into [facility]. Involuntary Hold Information 2 96 Hour Hold: 96 Hour Involuntary Admission: No 96 Hour Hold Ending Date: 0 12/11/22 96 Hour Hold Ending Time: 10:55 Attestations NPU 2 Medical Necessity Statement*: Inpatient hospitalization is medically necessary and deemed to ?be ?the clinically appropriate intervention ?at this time.? We will monitor/initiate medications and make changes as indicated.? The patient?s likely length of stay 1-3 days. Coding Level of Care Code Acute Code for [facility] Fwd Diagnoses Major depressive disorder, severe F32.2 Alcohol intoxication F10.929 Methamphetamine abuse F15.10 Unspecified psychosis F29 Acute hypokalemia E87.6 Polysubstance abuse F19.10 Suicidal ideation R45.851 Alcohol use disorder, severe, dependence F10.20
[2023-07-17] MEDS: quetiapine 300 mg Tablet PO (20:30)
[2023-07-17] MEDS: trazodone 50 mg Tablet PO (20:30)
[2023-07-17 20:31] VITALS: BP 116/77; PULSE 75; RESP 16; TEMP 36.6; O2SAT 91
[2023-07-18 06:00] VITALS: BP 112/64; PULSE 116; RESP 18; O2SAT 91
[2023-07-18] MEDS: nicotine 4 mg lozenge MUCOUS MEM ×7 (06:16→22:17)
[2023-07-18] MEDS: LORazepam 2 mg Tablet PO (07:52)
[2023-07-18] MEDS: folic acid 1 mg Tablet PO (07:53)
[2023-07-18] MEDS: duloxetine 60 mg Capsule PO (07:53)
[2023-07-18] MEDS: thiamine 100 mg Tablet PO (07:53)
[2023-07-18] MEDS: amoxicillin 500 mg Capsule PO (07:53)
[2023-07-18] MEDS: gabapentin 400 mg Capsule 800 MG PO ×3 (07:53→20:01)
[2023-07-18] MEDS: multivitamin therapeutic Tablet 1 TAB PO (07:54)
[2023-07-18] MEDS: fenofibrate 145 mg Tablet PO (07:54)
[2023-07-18] MEDS: buprenorphine-naloxone 4-1 mg Film 2 EACH SUBLINGUAL ×2 (07:54→18:41)
[2023-07-18] MEDS: benztropine 1 mg Tablet PO (07:54)
[2023-07-18 14:00] VITALS: BP 130/78; PULSE 118; RESP 18; TEMP 36.6; O2SAT 96
--- NOTE | 2023-07-18 16:24 | P.NPUPN_ITS ---
Subjective NPU 2 Subjective: Patient presented today excepting that there are no options with him having burned many bridges at the [place] area. He is working with the social work team for a sober living/[facility] option in [place]. We agreed we would get his medications together today such that he would be able to leave by about 8:30 in the morning so that he would be able to get to [place] in time to be at the front of the line for services. He denies any side effects to medications. Mental Status Exam 2 MSE Comments: This is an obese white male in hospital scrubs with limited grooming and poor eye contact.? No abnormal movements except for significant psychomotor retardation.? Cooperative with exam in mild distress.? His speech was decreased in rate and volume and dysarthric with poor articulation.? Mood described as a little better; His affect was flat. ? Thought process was linear and organized.? Thought content: Patient denied homicidal ideation with no active suicidal ideation. There were no delusions reported or noted; he denied any auditory or visual hallucinations.? Attention and concentration were intact and memory appeared mostly reliable but none were formally tested.? He is alert and oriented to person, place and time. ? Insight, judgment and impulse control are impaired. Vitals/I&O/Wt Last Vital Signs Temp 97.8 F 07/18/23 14:00 Pulse 118 H 07/18/23 14:00 Resp 18 07/18/23 14:00 BP 130/78 07/18/23 14:00 Pulse Ox 96 07/18/23 14:00 O2 Del Method Room Air 07/18/23 06:00 Data NPU 07/08/23 12:32 07/08/23 12:32 A&P Assessment and plan (1) Major depressive disorder, severe: (2) Alcohol intoxication: (3) Methamphetamine abuse: (4) Unspecified psychosis: (5) Acute hypokalemia: (6) Polysubstance abuse: (7) Suicidal ideation: (8) Alcohol use disorder, severe, dependence: Plan This is a 53 year old white male with a long history of alcohol use disorder, severe, and depression with suicidality with past suicide attempts, who presents once again with noncompliance with outpatient treatment, active methamphetamine and alcohol use. 1. Continue Cymbalta, added suboxone as previously prescribed. Increased seroquel 300mg at night. Reviewed charts about previous Suboxone dosing and only found twice daily dosing which we are continuing. 2. Encourage individual, group and milieu therapy 3. Continue q-15 minute check for safety 4. Recommend sober living treatment at the highest level of care to which the patient is willing to commit.? He reported a willingness to consider rehab but has a poor history of follow-through. Discharge tomorrow with referral into [facility] in [place]. Involuntary Hold Information 2 96 Hour Hold: 96 Hour Involuntary Admission: No 96 Hour Hold Ending Date: 0 12/11/22 96 Hour Hold Ending Time: 10:55 Attestations NPU 2 Medical Necessity Statement*: Inpatient hospitalization is medically necessary and deemed to ?be ?the clinically appropriate intervention ?at this time.? We will monitor/initiate medications and make changes as indicated.? The patient?s likely length of stay 1-3 days. Coding Level of Care Code Acute Code for [facility] Fwd Diagnoses Major depressive disorder, severe F32.2 Alcohol intoxication F10.929 Methamphetamine abuse F15.10 Unspecified psychosis F29 Acute hypokalemia E87.6 Polysubstance abuse F19.10 Suicidal ideation R45.851 Alcohol use disorder, severe, dependence F10.20
[2023-07-18 19:45] VITALS: BP 108/78; PULSE 65; RESP 15; TEMP 36.7; O2SAT 100
[2023-07-18] MEDS: quetiapine 300 mg Tablet PO (20:01)
[2023-07-19] MEDS: nicotine 4 mg lozenge MUCOUS MEM ×4 (00:36→08:12)
[2023-07-19 06:00] VITALS: RESP 18
[2023-07-19] MEDS: phenol oral Spray 177 mL 3 SPRAY MUCOUS MEM (06:30)
[2023-07-19] MEDS: ibuprofen 600 mg Tablet PO (06:31)
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
[2023-07-19 07:38] VITALS: RESP 18
[2023-07-19] MEDS: duloxetine 60 mg Capsule PO (08:02)
[2023-07-19] MEDS: thiamine 100 mg Tablet PO (08:02)
[2023-07-19] MEDS: multivitamin therapeutic Tablet 1 TAB PO (08:02)
[2023-07-19] MEDS: gabapentin 400 mg Capsule 800 MG PO (08:02)
[2023-07-19] MEDS: folic acid 1 mg Tablet PO (08:02)
[2023-07-19] MEDS: fenofibrate 145 mg Tablet PO (08:02)
[2023-07-19] MEDS: buprenorphine-naloxone 4-1 mg Film 2 EACH SUBLINGUAL ×2 (08:03→09:29)
--- NOTE | 2023-07-19 09:29 | PC.NURSE ---
Dr. Carreon approved for pt to receive his second dose of Suboxone before his discharge today. 4-1 mg Buprenorphine and Naloxone 2 films
== END 2023-07-19 09:42 | disposition home or self-care (01) | DRG 885 ==
LOC: ER 14:57 → NP 15:26
PROVIDERS: Admitting Provider Psychiatry & Neurology Psychiatry; Emergency Provider Family Medicine; Visit Provider Psychiatry & Neurology Psychiatry
DX: F33.2 Major depressive disorder, recurrent severe without psychotic features (principal); F11.20 Opioid dependence, uncomplicated; R45.851 Suicidal ideations; I10 Essential (primary) hypertension; G89.4 Chronic pain syndrome; G47.00 Insomnia, unspecified; E78.5 Hyperlipidemia, unspecified; F17.210 Nicotine dependence, cigarettes, uncomplicated; M15.0 Primary generalized (osteo)arthritis; M47.812 Spondylosis without myelopathy or radiculopathy, cervical region; F15.10 Other stimulant abuse, uncomplicated; F41.9 Anxiety disorder, unspecified; E87.6 Hypokalemia; Z91.199 Patient's noncompliance with other medical treatment and regimen due to unspecified reason; F10.229 Alcohol dependence with intoxication, unspecified; Y90.8 Blood alcohol level of 240 mg/100 ml or more; Z91.51 Personal history of suicidal behavior
CPT/HCPCS: 36415; 80053; 80306; 80307; 81003; 84443; 85025; 96372; 97150; 97165; 99285; J0573; J3411